=== PATIENT | male | born 1945 | race Caucasian/White ===

== ENCOUNTER → 2016-05-22 | Outpatient (REF) | payer MEDICARE, OTHER ==
[~2016-05-22] MED LIST: ALPH1CAP PO; AMLO10TA2 PO; ASTE0.15; ATOR1TAB19 PO; BIMA01SOL OU; BIOT2500 PO; BRIM2OPD OU; CLON-412 PO; COEN100C PO; FENO130C PO; FURO20TA2 PO; GLUC1CAP10 PO; GLYB5TA PO; HUMA100I3 SC; INSULADS INJ; LABE10TAB PO; META1.7W PO; MINO10TAB PO; OMEP40CA2 PO; POTA10CA PO; STOO100C PO; TIMO5OPD OU; VASC1CAP2 PO
[2016-05-23 13:58] LABS: PERCENT SATURATION 10.7 % (19.7-37.4)
== END ==
LOC: M LAB REF 13:16
PROVIDERS: ATTEND Internal Medicine Nephrology
DX: D64.9 Anemia, unspecified (principal)

== ENCOUNTER → 2016-05-26 | Outpatient (REF) | payer MEDICARE, OTHER | LOC: M LAB REF 13:25 | PROVIDERS: ATTEND Internal Medicine Nephrology | DX: N18.9 Chronic kidney disease, unspecified (principal); D63.1 Anemia in chronic kidney disease ==

== ENCOUNTER → 2016-06-01 | Outpatient (CLI) | payer MEDICARE, OTHER ==
[~2016-06-01] VITALS: Ht 172.7 cm; Wt 117.9 kg
[~2016-06-01] MED LIST changes: +DEXTROSE 50% 50 ML SYRINGE As Ordered ONE; +DEXTROSE 50% 50 ML SYRINGE IV ONE; +LIDOCAINE 2% INJ 100 MG/5 ML SDV (FOR ANES.) As Ordered ONE; +NS 1,000 ML IV SCH; +PROPOFOL 200 MG/20 ML VIAL As Ordered ONE
--- NOTE | 2016-06-01 08:23 | ROOR ---
Patient Name: Chetan Beckett Procedure Date: 06/01/2016 7:48 AM Date of : 1945 Age: 71 Room: [facility] Gender: Male Note Status: Finalized Procedure: Upper GI endoscopy Indications: Iron deficiency anemia Providers: Julián ANDINO MD Referring MD: Slade Corbin MD Requesting Provider: Medicines: Monitored Anesthesia Care Complications: No immediate complications. Procedure: Pre-Anesthesia Assessment: - The heart rate, respiratory rate, oxygen saturations, blood pressure, adequacy of pulmonary ventilation, and response to care were monitored throughout the procedure. The Endoscope was introduced through the mouth, and advanced to the second part of duodenum. The upper GI endoscopy was accomplished without difficulty. The patient tolerated the procedure well. Findings: Multiple 5 to 8 mm semi-sessile polyps with bleeding and stigmata of recent bleeding were found in the entire examined stomach. The polyp was removed with a hot snare. Polyp resection was incomplete, and the resected tissue was partially retrieved. The exam was otherwise without abnormality. Impression: - Multiple (>20) hemorrhagic gastric polyps of various sizes. I removed the bulk of these hemorrhagic fundic glands today. Polyp resection was incomplete, and the resected tissue was partially retrieved. - The examination was otherwise normal. Recommendation: - Use sucralfate tablets 1 gram PO QID. - No ibuprofen, naproxen, or other non-steroidal anti-inflammatory drugs for 5 days after polyp removal. - Resume Eliquis (apixaban) at prior dose in 5 days. - Repeat upper endoscopy in 1 month for retreatment. Julián Andino MD Julián ANDINO MD 06/01/2016 8:22:37 AM This report has been signed electronically. Number of Addenda: 0 Note Initiated On: 06/01/2016 7:48 AM Estimated Blood Loss: Estimated blood loss: none.
--- NOTE | 2016-06-01 08:37 | ROOR ---
Patient Name: Chetan Beckett Procedure Date: 06/01/2016 7:51 AM Date of : 1945 Age: 71 Room: [facility] Gender: Male Note Status: Finalized Procedure: Colonoscopy Indications: Iron deficiency anemia Providers: Julián ANDINO MD Referring MD: Slade Corbin MD Requesting Provider: Medicines: Monitored Anesthesia Care Complications: No immediate complications. Procedure: Pre-Anesthesia Assessment: - The heart rate, respiratory rate, oxygen saturations, blood pressure, adequacy of pulmonary ventilation, and response to care were monitored throughout the procedure. The Colonoscope was introduced through the anus and advanced to the cecum, identified by appendiceal orifice and ileocecal valve. The colonoscopy was performed without difficulty. The patient tolerated the procedure well. The quality of the bowel preparation was adequate to identify polyps. Findings: The perianal and digital rectal examinations were normal. (EXAM: Complete, PREP:Adequate) Multiple small and large-mouthed diverticula were found in the sigmoid colon. Internal hemorrhoids were found during retroflexion. The hemorrhoids were moderate. The entire examined colon appeared normal on direct and retroflexion views. Impression: - (EXAM: Complete, PREP:Adequate) - Moderate diverticulosis in the sigmoid colon. - Internal hemorrhoids. - The entire colon is normal on direct and retroflexion views. - No specimens collected. Recommendation: - Written discharge instructions were provided to the patient. Julián Andino MD Julián ANDINO MD 06/01/2016 8:37:48 AM This report has been signed electronically. Number of Addenda: 0 Note Initiated On: 06/01/2016 7:51 AM Estimated Blood Loss: Estimated blood loss: none.
[2016-06-01 09:00] VITALS: BP 170/70
== END | disposition home or self-care (01) ==
LOC: M OPP 06:36
PROVIDERS: ATTEND Internal Medicine Gastroenterology
DX: D50.9 Iron deficiency anemia, unspecified (principal); K57.30 Diverticulosis of large intestine without perforation or abscess without bleeding; K64.8 Other hemorrhoids; K31.7 Polyp of stomach and duodenum; I48.91 Unspecified atrial fibrillation; I10 Essential (primary) hypertension; E78.00 Pure hypercholesterolemia, unspecified; E10.9 Type 1 diabetes mellitus without complications; R06.83 Snoring; Z79.899 Other long term (current) drug therapy; Z79.4 Long term (current) use of insulin; Z91.048 Other nonmedicinal substance allergy status

== ENCOUNTER 2016-06-02 08:48 | Outpatient (CLI) | payer MEDICARE, OTHER ==
[~2016-06-02] VITALS: Ht 172.7 cm; Wt 118.2 kg
[~2016-06-02 08:48] MED LIST changes: -DEXTROSE 50% 50 ML SYRINGE As Ordered ONE; -DEXTROSE 50% 50 ML SYRINGE IV ONE; -LIDOCAINE 2% INJ 100 MG/5 ML SDV (FOR ANES.) As Ordered ONE; -NS 1,000 ML IV SCH; -PROPOFOL 200 MG/20 ML VIAL As Ordered ONE
[2016-06-02] MEDS ORDERED: IRON SUCROSE 25 MG in NS 50 ML IV ONE (09:15)
[2016-06-02] MEDS ORDERED: IRON SUCROSE 475 MG in NS 250 ML IV ONE (10:15)
== END 2016-06-02 13:30 | disposition home or self-care (01) ==
LOC: M INFU 08:48
PROVIDERS: ATTEND Internal Medicine Nephrology
DX: D50.9 Iron deficiency anemia, unspecified (principal); Z79.899 Other long term (current) drug therapy; Z79.4 Long term (current) use of insulin; Z91.048 Other nonmedicinal substance allergy status
CPT/HCPCS: 96365; 96366; J1756

== ENCOUNTER → 2016-07-03 | Outpatient (CLI) | payer MEDICARE, OTHER ==
[~2016-07-03] VITALS: Ht 172.7 cm; Wt 117.9 kg
[~2016-07-03] MED LIST changes: +ELIQ2.5T PO; +INSUHUMDS SC; +LIDOCAINE 2% INJ 100 MG/5 ML SDV (FOR ANES.) As Ordered ONE; +NS 1,000 ML IV SCH; +PROPOFOL 200 MG/20 ML VIAL As Ordered ONE; +SUCR1TA PO; +fentaNYL 100 MCG/2 ML INJECTION (J3010) As Ordered ONE
--- NOTE | 2016-07-03 08:46 | ROOR ---
Patient Name: Chetan Beckett Procedure Date: 07/03/2016 8:20 AM Date of : 1945 Age: 71 Room: [facility] Gender: Male Note Status: Finalized Procedure: Upper GI endoscopy Indications: Therapeutic procedure, Suspected upper gastrointestinal bleeding. (many hemorrhagic appearing hyperplastic fundic glands) Providers: Julián ANDINO MD Referring MD: RAFA HOWELL MD Requesting Provider: Medicines: Monitored Anesthesia Care Complications: No immediate complications. Procedure: Pre-Anesthesia Assessment: - The heart rate, respiratory rate, oxygen saturations, blood pressure, adequacy of pulmonary ventilation, and response to care were monitored throughout the procedure. The Endoscope was introduced through the mouth, with the intention of advancing to the duodenum. The scope was advanced to the gastric body before the procedure was aborted. Medications were given. The upper GI endoscopy was accomplished without difficulty. The patient tolerated the procedure well. Findings: The examined esophagus was normal. A large amount of food (residue) was found in the gastric body. Suspect gastroparesis due to retained gastric contents. The exam was otherwise without abnormality. Impression: - Normal esophagus. - A large amount of food (residue) in the stomach--regurgitation/aspiration risk/procedure aborted. - No specimens collected. - -Presence of food after 8 hour fast is consistent with Delayed Gastric emptying/Gastroparesis Recommendation: - Resume Eliquis (apixaban) at prior dose today. - Repeat upper endoscopy at appointment to be scheduled because the preparation was poor. Julián Andino MD Julián ANDINO MD 07/03/2016 8:45:51 AM This report has been signed electronically. Number of Addenda: 0 Note Initiated On: 07/03/2016 8:20 AM Estimated Blood Loss: Estimated blood loss: none.
[2016-07-03 09:00] VITALS: BP 159/70
== END | disposition home or self-care (01) ==
LOC: M OPP 06:46
PROVIDERS: ATTEND Internal Medicine Gastroenterology
DX: K31.84 Gastroparesis (principal); I48.91 Unspecified atrial fibrillation; E78.00 Pure hypercholesterolemia, unspecified; E10.9 Type 1 diabetes mellitus without complications; D64.9 Anemia, unspecified; M17.9 Osteoarthritis of knee, unspecified; R06.83 Snoring; G47.30 Sleep apnea, unspecified; Z79.899 Other long term (current) drug therapy; Z79.4 Long term (current) use of insulin; Z91.048 Other nonmedicinal substance allergy status
CPT/HCPCS: 43235; 99156; J3010

== ENCOUNTER → 2016-07-28 | Outpatient (CLI) | payer MEDICARE, OTHER ==
[~2016-07-28] VITALS: Ht 172.7 cm; Wt 120.2 kg
[~2016-07-28] MED LIST changes: +SIMETHICONE 40MG/0.6ML DROPS 30ML As Ordered ONE; -fentaNYL 100 MCG/2 ML INJECTION (J3010) As Ordered ONE
--- NOTE | 2016-07-28 16:43 | ROOR ---
Patient Name: Chetan Beckett Procedure Date: 07/28/2016 4:17 PM Date of : 1945 Age: 71 Room: [facility] Gender: Male Note Status: Finalized Procedure: Upper GI endoscopy Indications: Therapeutic procedure, Iron deficiency anemia, Pt with hemorrhagic gastric polyps-previously partially removed--this is repeat. Pt with gastroparesis Providers: Julián ANDINO MD Referring MD: RAFA HOWELL MD Requesting Provider: Medicines: Monitored Anesthesia Care Complications: No immediate complications. Procedure: Pre-Anesthesia Assessment: - The heart rate, respiratory rate, oxygen saturations, blood pressure, adequacy of pulmonary ventilation, and response to care were monitored throughout the procedure. The Endoscope was introduced through the mouth, and advanced to the second part of duodenum. The upper GI endoscopy was accomplished without difficulty. The patient tolerated the procedure well. Findings: The examined esophagus was normal. Six 5 mm semi-sessile polyps with stigmata of recent bleeding were found in the gastric fundus and in the gastric body. The polyp was removed with a hot snare. Resection was complete, but the polyp tissue was only partially retrieved. The exam of the stomach was otherwise normal. The examined duodenum was normal. Biopsies for histology were taken with a cold forceps for evaluation of celiac disease. Impression: - Normal esophagus. - Six small hemorrhagic appearing gastric polyps. Complete resection. Partial retrieval. - Normal examined duodenum. Biopsied. Recommendation: - Await pathology results. - Observe patient's clinical course. - Telephone endoscopist for pathology results in 2 weeks. - Resume Eliquis (apixaban) at prior dose in 3 days. Julián Andino MD Julián ANDINO MD 07/28/2016 4:43:13 PM This report has been signed electronically. Number of Addenda: 0 Note Initiated On: 07/28/2016 4:17 PM Estimated Blood Loss: Estimated blood loss: none.
[2016-07-28 17:05] VITALS: BP 190/72
== END | disposition home or self-care (01) ==
LOC: M OPP 13:52
PROVIDERS: ATTEND Internal Medicine Gastroenterology
DX: K31.7 Polyp of stomach and duodenum (principal); D50.9 Iron deficiency anemia, unspecified; I48.91 Unspecified atrial fibrillation; I12.9 Hypertensive chronic kidney disease with stage 1 through stage 4 chronic kidney disease, or unspecified chronic kidney disease; K21.9 Gastro-esophageal reflux disease without esophagitis; E78.5 Hyperlipidemia, unspecified; E11.9 Type 2 diabetes mellitus without complications; M19.90 Unspecified osteoarthritis, unspecified site; G62.9 Polyneuropathy, unspecified; G47.30 Sleep apnea, unspecified; N18.3 Chronic kidney disease, stage 3 (moderate); Z79.899 Other long term (current) drug therapy; Z79.4 Long term (current) use of insulin; Z91.048 Other nonmedicinal substance allergy status

== ENCOUNTER → 2016-08-07 | Outpatient (REF) | payer MEDICARE, OTHER ==
[~2016-08-07] MED LIST changes: -LIDOCAINE 2% INJ 100 MG/5 ML SDV (FOR ANES.) As Ordered ONE; -NS 1,000 ML IV SCH; -PROPOFOL 200 MG/20 ML VIAL As Ordered ONE; -SIMETHICONE 40MG/0.6ML DROPS 30ML As Ordered ONE
[2016-08-07 15:29] LABS: IMMUNOGLOBULIN G 2090 MG/DL (681-1648); IMMUNOGLOBULIN M 88.7 MG/DL (40-230); TOTAL PROTEIN 8.4 GM/DL (6.4-8.2)
[2016-08-09 00:06] LABS: BETA 2 MICROGLOBULIN 2.6 mg/L (0.6-2.4); FREE KAPPA LIGHT CHAINS SERUM 135.57 mg/L (3.30-19.40); FREE LAMBDA LIGHT CHAINS SERUM 30.73 mg/L (5.71-26.30); KAPPA/LAMBDA RATIO SERUM 4.41 (0.26-1.65)
[2016-08-09 12:08] LABS: ALBUMIN 4.12 GM/DL (3.29-5.55); GAMMA GLOBULIN % 26.3 % (11.1-18.8)
== END ==
LOC: M LAB REF 13:22
PROVIDERS: ATTEND Internal Medicine Medical Oncology
DX: D80.3 Selective deficiency of immunoglobulin G [IgG] subclasses (principal)

== ENCOUNTER → 2016-12-11 | Outpatient (REF) | payer MEDICARE, OTHER ==
[~2016-12-11] MED LIST changes: -ALPH1CAP PO; +ALPH200C2 PO; +MINO10TA PO; -MINO10TAB PO; +TIMO0.5S29 OU; -TIMO5OPD OU
[2016-12-11 14:50] LABS: FERRITIN 232 NG/ML (26-388); IMMUNOGLOBULIN G 1710 MG/DL (681-1648); IMMUNOGLOBULIN M 76.1 MG/DL (40-230); PERCENT SATURATION 21.1 % (19.7-50.0); TOTAL IRON BINDING CAPACITY 412 UG/DL (250-450); TOTAL PROTEIN 8.3 GM/DL (6.4-8.2)
[2016-12-13 00:06] LABS: FREE KAPPA LIGHT CHAINS SERUM 85.3 mg/L (3.3-19.4); FREE LAMBDA LIGHT CHAINS SERUM 19.7 mg/L (5.7-26.3); KAPPA/LAMBDA RATIO SERUM 4.33 (0.26-1.65)
[2016-12-13 09:18] LABS: ALBUMIN % 55.4 % (55.8-66.1)
[2016-12-13 09:19] LABS: GAMMA GLOBULIN % 20.4 % (11.1-18.8)
== END ==
LOC: M LAB REF 13:51
PROVIDERS: ATTEND Internal Medicine Medical Oncology
DX: D47.2 Monoclonal gammopathy (principal)

== ENCOUNTER → 2017-04-11 | Outpatient (REF) | payer MEDICARE, OTHER ==
[2017-04-11 15:23] LABS: IMMUNOGLOBULIN G 1340 MG/DL (681-1648); IMMUNOGLOBULIN M 65.9 MG/DL (40-230); TOTAL PROTEIN 7.8 GM/DL (6.4-8.2)
[2017-04-12 11:08] LABS: ALBUMIN % 58.3 % (55.8-66.1)
[2017-04-12 11:09] LABS: ALBUMIN 4.55 GM/DL (3.29-5.55); GAMMA GLOBULIN % 17.9 % (11.1-18.8)
[2017-04-15 00:06] LABS: FREE KAPPA LIGHT CHAINS SERUM 85.5 mg/L (3.3-19.4); FREE LAMBDA LIGHT CHAINS SERUM 18.3 mg/L (5.7-26.3); KAPPA/LAMBDA RATIO SERUM 4.67 (0.26-1.65)
== END ==
LOC: M LAB REF 13:47
PROVIDERS: ATTEND Internal Medicine Medical Oncology
DX: D47.2 Monoclonal gammopathy (principal)

== ENCOUNTER → 2017-10-12 | Outpatient (REF) | payer MEDICARE, OTHER ==
[2017-10-12 13:54] LABS: URINE TOTAL PROTEIN < 5.0 MG/DL (0-12)
[2017-10-12 14:07] LABS: IMMUNOGLOBULIN G 1270 MG/DL (681-1648); IMMUNOGLOBULIN M 51.5 MG/DL (40-230); TOTAL PROTEIN 7.6 GM/DL (6.4-8.2)
[2017-10-14 00:06] LABS: FREE KAPPA LIGHT CHAINS SERUM 93.3 mg/L (3.3-19.4); FREE LAMBDA LIGHT CHAINS SERUM 21.6 mg/L (5.7-26.3); KAPPA/LAMBDA RATIO SERUM 4.32 (0.26-1.65)
[2017-10-16 10:09] LABS: ALBUMIN 4.15 GM/DL (3.29-5.55); ALBUMIN % 54.6 % (55.8-66.1); ALPHA-1-GLOBULIN % 5.1 % (2.9-4.9); ALPHA-1-GLOBULINS 0.39 GM/DL (0.17-0.41); ALPHA-2-GLOBULINS 0.99 GM/DL (0.42-0.99); BETA-1-GLOBULINS 0.49 GM/DL (0.28-0.60); BETA-1-GLOBULINS % 6.4 % (4.7-7.2); BETA-2-GLOBULINS 0.36 GM/DL (0.19-0.55); BETA-2-GLOBULINS % 4.8 % (3.2-6.5)
[2017-10-16 10:10] LABS: GAMMA GLOBULIN % 16.1 % (11.1-18.8); GAMMA GLOBULINS 1.22 GM/DL (0.65-1.58)
== END ==
LOC: M LAB REF 13:13
DX: D47.2 Monoclonal gammopathy (principal)
CPT/HCPCS: 84165

== ENCOUNTER → 2017-10-15 | Outpatient (REF) | payer MEDICARE, OTHER ==
[2017-10-15 14:15] LABS: FERRITIN 706 NG/ML (26-388); IRON (FE) 57 UG/DL (65-175); PERCENT SATURATION 17.9 % (19.7-50.0); TOTAL IRON BINDING CAPACITY 319 UG/DL (250-450)
== END ==
LOC: M LAB REF 13:31
DX: D50.9 Iron deficiency anemia, unspecified (principal)
CPT/HCPCS: 83550

== ENCOUNTER → 2018-01-30 | Outpatient (CLI) | payer MEDICARE, OTHER ==
[2018-01-31 08:06] LABS: FRUCTOSAMINE 287 umol/L (0-285)
== END ==
LOC: M LAB 11:15
DX: E11.21 Type 2 diabetes mellitus with diabetic nephropathy (principal)
CPT/HCPCS: 82985

== ENCOUNTER → 2018-07-01 | Outpatient (REF) | payer MEDICARE, OTHER ==
[~2018-07-01] MED LIST changes: +ALPH0.156; +ALPH600C PO; -AMLO10TA2 PO; +AMLO10TA5 PO; +APAP325T4 PO; +ASMA1AER2 INH; +ASMA220A IN; +FENO1CAP2 PO; +FERR325T3 PO; +FOLI1TAB11 PO; +FOLI800C PO; +HYDR-3910 PO; +KLOR10TA76 PO; +LABE20TAB PO; +LISI-542 PO; +META1POW PO; -POTA10CA PO; +TOUJ1.2I SC; +ZYLO300T6 PO
== END ==
LOC: M LAB REF 16:17
PROVIDERS: ATTEND Internal Medicine Nephrology
DX: E83.52 Hypercalcemia (principal)

== ENCOUNTER → 2018-07-29 | Outpatient (REF) | payer MEDICARE, OTHER ==
[~2018-07-29] MED LIST changes: +OXYC1TAB23 PO
[2018-07-29 16:26] LABS: TOTAL PROTEIN,RANDOM URINE 6.6 MG/DL (0.0-12.0); URINE TOTAL PROTEIN 6.6 MG/DL (0-12)
[2018-08-01 13:42] LABS: UPEP INTERPRETATION NO M-SPIKE NOTED; URINE VOLUME 3100 ML
== END ==
LOC: M LAB REF 14:36
PROVIDERS: ATTEND Nurse Practitioner Family
DX: Z79.899 Other long term (current) drug therapy (principal)

== ENCOUNTER → 2018-09-17 | Outpatient (REF) | payer MEDICARE, OTHER ==
[~2018-09-17] MED LIST changes: +FENO135C6 PO; -FENO1CAP2 PO
== END ==
LOC: M LAB REF 11:08
PROVIDERS: ATTEND Surgery
DX: E85.9 Amyloidosis, unspecified (principal)

== ENCOUNTER → 2018-09-27 | Outpatient (REF) | payer MEDICARE, OTHER ==
[2018-09-27 14:32] LABS: BASO % 0.5 % (0.0-1.0); EOS # 0.4 10^3/uL (0.0-0.50); HEMATOCRIT 33.8 % (42.0-52.0); HEMOGLOBIN 10.9 g/dl (13.5-17.5); LYMPH # 1.2 10^3/uL (1.5-4.5); LYMPH % 20.5 % (24.0-44.0); MEAN CORPUSCULAR HEMOGLOBIN 30.4 pg (27.0-33.0); MEAN CORPUSCULAR HGB CONC 32.2 g/dl (32.0-36.5); MEAN CORPUSCULAR VOLUME 94.2 fl (80.0-96.0); MONO # 0.6 10^3/uL (0.0-0.8); NEUTROPHILS # 3.6 10^3/uL (1.8-7.7); NEUTROPHILS % 61.3 % (36.0-66.0); PLATELET COUNT, AUTOMATED 227 10^3/uL (150-450); RED BLOOD COUNT 3.59 10^6/uL (4.30-6.10); WHITE BLOOD COUNT 5.8 10^3/uL (4.0-10.0)
[2018-09-27 14:35] LABS: CHOLESTEROL RISK RATIO 3.571 (<5)
== END ==
LOC: M LAB REF 14:03
PROVIDERS: ATTEND Internal Medicine Nephrology
DX: E11.22 Type 2 diabetes mellitus with diabetic chronic kidney disease (principal); N18.3 Chronic kidney disease, stage 3 (moderate); E66.01 Morbid (severe) obesity due to excess calories; D50.9 Iron deficiency anemia, unspecified

== ENCOUNTER → 2019-05-12 | Outpatient (REF) | payer MEDICARE, OTHER ==
[~2019-05-12] MED LIST changes: +BUME2TAB3 PO; -META1.7W PO; +METAMUCIL1 WAF PO; +MM S100C PO; -OMEP40CA2 PO; +OMEP40CA97 PO; -STOO100C PO
[2019-05-12 14:30] LABS: ALBUMIN 4.3 GM/DL (3.2-5.2); CALCIUM LEVEL 9.3 MG/DL (8.8-10.2); CREATININE FOR GFR 1.88 MG/DL (0.70-1.30); GLOMERULAR FILTRATION RATE 37.5 (>42); MAGNESIUM LEVEL 2.6 MG/DL (1.8-2.4); PHOSPHORUS LEVEL 4.3 MG/DL (2.5-4.9); URIC ACID 6.2 MG/DL (3.5-7.2)
== END ==
LOC: M LAB REF 13:37
PROVIDERS: ATTEND Internal Medicine Nephrology
DX: N18.3 Chronic kidney disease, stage 3 (moderate) (principal); E79.0 Hyperuricemia without signs of inflammatory arthritis and tophaceous disease

== ENCOUNTER → 2019-08-26 | Outpatient (REF) | payer MEDICARE, OTHER ==
[~2019-08-26] MED LIST changes: -COEN100C PO; -FENO130C PO; +FENO1CAP17 PO; +UBID100C6 PO
[2019-08-26 16:20] LABS: CREATININE, URINE 61.9 MG/DL; MAU/CREAT RATIO 195.4 MCG/MG (0.0-30.0)
== END ==
LOC: M LAB REF 14:59
PROVIDERS: ATTEND Nurse Practitioner Family
DX: E11.21 Type 2 diabetes mellitus with diabetic nephropathy (principal)

== ENCOUNTER → 2019-09-15 | Outpatient (REF) | payer MEDICARE, OTHER ==
[~2019-09-15] MED LIST changes: +IRON1TAB2 PO; +TORS20TA2 PO
[2019-09-15 17:33] LABS: PERCENT SATURATION 11.1 % (19.7-50.0)
== END ==
LOC: M LAB REF 16:42
PROVIDERS: ATTEND Internal Medicine Nephrology
DX: D50.9 Iron deficiency anemia, unspecified (principal)

== ENCOUNTER 2019-09-18 12:49 | Outpatient (CLI) | payer MEDICARE, OTHER ==
[~2019-09-18] VITALS: Ht 172.7 cm; Wt 129.0 kg
[~2019-09-18 12:49] MED LIST changes: -IRON1TAB2 PO; -TORS20TA2 PO
[2019-09-18 13:00] VITALS: BP 126/58
[2019-09-18] MEDS ORDERED: NS 1,000 ML IV SCH (14:00)
[2019-09-18] MEDS ORDERED: methylPREDNISolone INJ 125 MG/2 ML VIAL (J2930) IV PRN (14:00)
[2019-09-18] MEDS ORDERED: EPINEPHrine INJ 1 MG/ML 1ML AMP IM PRN (14:00)
[2019-09-18] MEDS ORDERED: FERRIC CARBOXYMALTOSE INJ 750 MG in NS 250 ML IV ONE (14:00)
[2019-09-18] MEDS ORDERED: diphenhydrAMINE 50MG/ML VIAL (J1200) IV PRN (14:00)
[2019-09-18] MEDS ORDERED: ALBUTEROL SULFATE 2.5 MG/0.5 ML INH NEB SOLN INH PRN (14:00)
[2019-09-18 15:00] VITALS: BP 130/60
[2019-09-18 16:31] VITALS: BP 131/61
[2019-09-18 16:45] VITALS: BP 147/65
[2019-09-25] MEDS ORDERED: VASC1CAP2 PO (14:06)
[2019-09-25] MEDS ORDERED: TORS20TA2 PO (14:06)
[2019-09-25] MEDS ORDERED: IRON1TAB2 PO ×2 (14:06)
== END 2019-09-18 16:45 | disposition home or self-care (01) ==
LOC: M INFU 12:49
PROVIDERS: ATTEND Internal Medicine Nephrology
DX: D50.9 Iron deficiency anemia, unspecified (principal); N18.3 Chronic kidney disease, stage 3 (moderate); E11.22 Type 2 diabetes mellitus with diabetic chronic kidney disease; I12.9 Hypertensive chronic kidney disease with stage 1 through stage 4 chronic kidney disease, or unspecified chronic kidney disease; Z79.4 Long term (current) use of insulin; Z79.899 Other long term (current) drug therapy; Z91.048 Other nonmedicinal substance allergy status
CPT/HCPCS: 96365; 96366; J1439

== ENCOUNTER → 2019-10-14 | Outpatient (CLI) | payer MEDICARE, OTHER ==
[~2019-10-14] MED LIST changes: +IRON1TAB2 PO; +TORS20TA2 PO
[2019-10-14 17:39] LABS: ALBUMIN 4.2 GM/DL (3.2-5.2); ALT/SGPT 26 U/L (12-78); BILIRUBIN,TOTAL 0.7 MG/DL (0.2-1.0); BLOOD UREA NITROGEN 56 MG/DL (7-18); CALCIUM LEVEL 9.3 MG/DL (8.8-10.2); CARBON DIOXIDE LEVEL 29 MEQ/L (21-32); CHLORIDE LEVEL 105 MEQ/L (98-107); CREATININE FOR GFR 2.16 MG/DL (0.70-1.30); GLUCOSE, FASTING 78 MG/DL (70-100); POTASSIUM SERUM 3.8 MEQ/L (3.5-5.1); SODIUM LEVEL 139 MEQ/L (136-145); TOTAL PROTEIN 8.1 GM/DL (6.4-8.2)
[2019-10-16 12:36] LABS: ALBUMIN 4.54 GM/DL (3.29-5.55); ALBUMIN % 56.1 % (55.8-66.1); ALPHA-1-GLOBULIN % 4.1 % (2.9-4.9); ALPHA-1-GLOBULINS 0.33 GM/DL (0.17-0.41); ALPHA-2-GLOBULINS 0.82 GM/DL (0.42-0.99); ALPHA-2-GLOBULINS % 10.1 % (7.1-11.8); BETA-1-GLOBULINS 0.47 GM/DL (0.28-0.60); BETA-1-GLOBULINS % 5.8 % (4.7-7.2); BETA-2-GLOBULINS 0.28 GM/DL (0.19-0.55); BETA-2-GLOBULINS % 3.4 % (3.2-6.5); GAMMA GLOBULIN % 20.5 % (11.1-18.8); GAMMA GLOBULINS 1.66 GM/DL (0.65-1.58)
[2019-10-16 17:08] LABS: FREE KAPPA LIGHT CHAINS SERUM 205.5 mg/L (3.3-19.4); FREE LAMBDA LIGHT CHAINS SERUM 16.6 mg/L (5.7-26.3); KAPPA/LAMBDA RATIO SERUM 12.38 (0.26-1.65)
== END ==
LOC: M WUC 12:31
PROVIDERS: ATTEND Internal Medicine Hematology & Oncology
DX: D47.2 Monoclonal gammopathy (principal)

== ENCOUNTER → 2019-10-16 | Outpatient (REF) | payer MEDICARE, OTHER ==
[2019-10-16 18:51] LABS: CREATININE, URINE 58.5 MG/DL; URINE TOTAL PROTEIN 11.7 MG/DL (0-12)
[2019-10-16 19:19] LABS: TOTAL VOLUME, URINE 3000 ML
== END ==
LOC: M LAB REF 18:07
PROVIDERS: ATTEND Internal Medicine Hematology & Oncology
DX: N39.9 Disorder of urinary system, unspecified (principal)

== ENCOUNTER → 2020-04-12 | Outpatient (CLI) | payer MEDICARE, OTHER ==
[~2020-04-12] MED LIST changes: -AMLO10TA5 PO; +AMLO1TAB25 PO; +COEN100C4 PO; -FENO1CAP17 PO; +FENO1CAP18 PO; +LABE100T4 PO; -LABE10TAB PO; -UBID100C6 PO
== END ==
LOC: M LABSMTC 14:45
PROVIDERS: ATTEND Pediatrics
DX: Z20.828 Contact with and (suspected) exposure to other viral communicable diseases (principal)

== ENCOUNTER → 2020-05-20 | Outpatient (CLI) | payer MEDICARE, OTHER ==
[~2020-05-20] MED LIST changes: +AZEL0.055 NARES; +LIDOCAINE 1% MDV 20ML VIAL As Ordered ONE
[2020-05-20 16:30] VITALS: BP 161/72
--- NOTE | 2020-05-21 10:32 | RO ---
OPERATIVE NOTE DATE OF OPERATION: 05/20/2020 PROCEDURE: Kidney biopsy. SURGEON: ANTHONY LINDSAY MD, [facility]. INDICATION: Chronic kidney disease stage 4,minimal proteinuria, monoclonal gammopathy of undetermined significance, rule out monoclonal gammopathy of renal significance. PRE-PROCEDURE DIAGNOSES: 1. Mild Proteinuria. 2. Monoclonal gammopathy of undetermined significance. 3. Chronic kidney disease stage 4. POST-PROCEDURE DIAGNOSES: 1. Monoclonal gammopathy of undetermined significance. 3. Chronic kidney disease stage 4. 4. Malrotated left kidney. CONSENT: Informed and written consent was obtained and placed in the chart. PROCEDURE: The patient is obese. He reports that he has not been laying flat in his bed. He sleeps in the recliner. We tried to lay him down on the table in prone position. He was very uncomfortable in that position. He got short of breath. He was hardly able to lie down on the right lateral position. The left kidney was localized. It was mildly atrophic and malrotated. The decision was made not to do the left kidney biopsy. At that point, the patient was informed that his right kidney biopsy will be done. The right kidney was localized and marked for renal biopsy. The patient was prepped and draped in sterile fashion. Proper infection control precaution was taken. Then, 10 cc of 1% lidocaine was injected initially with a 25-gauge needle and later on with an 18-gauge needle. Under ultrasound guidance, a 17-gauge introducer needle was advanced all the way to the renal capsule, and through that introducer, an 18-gauge kidney biopsy needle was inserted. Three passes were made and three tissue specimens were obtained. The specimens were sent to the pathology department. Introducer needle was removed. The area was pressed for 10 minutes. Dressing was done. The post-procedure kidney was looked at with ultrasound for any hematoma and no hematoma was noted. COMPLICATIONS: Shortness of breath while trying to lay down flat. ESTIMATED BLOOD LOSS: Less than 5 ml. POST-BIOPSY ORDERS: The patient was sent to the recovery area. Vital signs were monitored every 15 minutes for two hours and then every 30 minutes for two hours. Total complete bed rest with the bedside commode privileges. Consistent carbohydrate diet. The physician is to be called for systolic blood pressure less than 120 or for hematuria. The patient is to be sent home if stable after four hours. The patient will follow up in the clinic to discuss the biopsy results. DIANA
--- NOTE | 2020-05-22 10:50 | REP ---
INDICATION: CHRONIC KIDNEY DISEASE STAGE 4. COMPARISON: None. TECHNIQUE: Ultrasound guidance for right renal biopsy. FINDINGS: Ultrasound guidance was provided for Dr. Pemberton who performed ultrasound-guided biopsy of the right kidney. IMPRESSION: Ultrasound guidance was provided for Dr. Pemberton who performed ultrasound-guided biopsy of the right kidney. <Electronically signed by Tim Nichols > 05/22/20 1046
== END ==
LOC: M IRPRO 10:40
PROVIDERS: ATTEND Internal Medicine Nephrology
DX: N18.4 Chronic kidney disease, stage 4 (severe) (principal); D47.2 Monoclonal gammopathy; I12.9 Hypertensive chronic kidney disease with stage 1 through stage 4 chronic kidney disease, or unspecified chronic kidney disease

== ENCOUNTER 2020-06-29 04:27 | Inpatient (IN) | payer MEDICARE, OTHER ==
[~2020-06-29] VITALS: Ht 172.7 cm; Wt 119.0 kg
[~2020-06-29 04:27] MED LIST changes: -ALPH0.156; +ALPH0.156 OU; -GLYB5TA PO; +GLYB5TAB6 PO; -LIDOCAINE 1% MDV 20ML VIAL As Ordered ONE; -LISI-542 PO; +LISI-898 PO
--- OUTSIDE RECORDS SUMMARY | 2020-06-29 04:33 | CCD | Continuity of Care Document ---
Author Author [facility] Organization Unknown Address [address] [place] [id number] Phone [phone] Care Team Providers Care Sales Enablement Lead Name Role Phone Kush MIRANDACLuis AUTM [phone] Social History Type Date Description Comments Sex Unknown Allergies, Adverse Reactions, Alerts Description No Known Drug Allergies Medications Active Medications SIG Qnty Indications Ordering Provide r Date Furosemide 20mg Tablets Unknown Toukaykay Siddiqui 300U nit/ML Solution Pen-Inject Unknown Bumetanide 2mg Tablets Unknown Relion Insulin Syringe 1ML/31GX15/64" 31G X 15/64" 1 ML Misc Use With Insulin 3 Times A Day Unkno wn Relion Insulin Syringe 1ML/31GX15/64" 31G X 15/64" 1 ML Misc [facility] ter Prednisone 10mg Tablets [facility] Ketorolac Tromethamine 0.5% Solution Briseyda Cutler MD Relion Pen Waldron 31G X 8 mm Misc Unknown Relion Pen Waldron 31G X 8 mm Misc Use as Directed Once Daily Unknown Minoxidil 10mg Tablets Unknown Eliquis 2.5mg Tablets [facility] Onetouch Ultra Strips use as directed three times daily as needed DX:E11.9 300units [facility] Clonidine HCL 0.1mg Tablets Unknown Timolol Maleate Ophthalmic Gel Forming 0.5% GFS Briseyda Cutler MD Toukaykay Max Solostar 300Unit/ML Solution Pen-Inject Unknown Asmanex HFA 100mcg/Act Aerosol Inhale 2 Puffs By Mouth Once Daily Unknown BD Pen Needle/Short/Ultra-Fine/31G X 8mm 31G X 8 mm Misc Unknown BD Pen Needle/Short/Ultra-Fine/31G X 8mm 31G X 8 mm Misc Use as Directed Once Daily . Max Of 3 Pen Waldron Per Day Unknown Glyburide 5mg Tablets Unknown Vascepa 1gm Capsules [facility] Alphagan P 0.15% Solution Briseyda Cutler MD Fenofibric Acid 135mg Capsules DR Take One Tablet By Mouth Daily 90caps [facility] 0 Allopurinol 300mg Tablets Mana Infante [facility] Lumigan 0.01% Solution Briseyda Cutler MD Torsemide 20mg Tablets [facility] Atorvastatin Calcium 10mg Tablets Take One Tablet By Mouth Daily 90tabs [facility] 0 Humalog 100Unit/ML Solution Unknown Labetalol HCL 200mg Tablets Take One Tablet By Mouth Three Times Daily 90tabs [facility] Azelastine HCL (Nasal) 0.15% Solution Anusha Kothari [facility] Hydralazine HCL 25mg Tablets [facility] Amlodipine Besylate 10mg Tablets Take 1 Tablet By Mouth Once Daily Unknown Medications Administered in Office Medication SIG Qnty Indications Ordering Provider Date Technetium TC 99M Sestamibi Injection [facility] 09/20/2017 Adminstraton Fee Injection [facility] 02/28/2010 Adminstraton Fee Injection [facility] 03/20/2007 Adminstraton Fee Injection [facility] 04/03/2006 Immunizations CPT Code Status Date Vaccine Lot # [id number] Given 01/05/2020 Influenza Vaccine 34292 Given 02/28/2010 Flu Injection 65242 Given 03/20/2007 Flu Injection 49810 Given 04/03/2006 Flu Injection 60948 Given 04/24/2005 Flu Injection 14678 Given 04/22/2004 Flu Injection 49753 Given 03/02/2004 Pneumococcal Vac ([id number]) 40704 Given 02/27/2003 Flu Injection Vital Signs Date Vital Result Comment 05/05/2020 11:17am Height 68 inches 5'8" Weight 291.00 lb BMI (Body Mass Index) 44.2 kg/m2 Body Temperature 97.1 F BP Systolic 136 mmHg BP Diastolic 58 mmHg Heart Rate 58 /min O2 % BldC Oximetry 94 % 03/29/2020 11:53am Height 68 inches 5'8" Weight 287.00 lb BMI (Body Mass Index) 43.6 kg/m2 Body Temperature 98.4 F BP Systolic 147 mmHg BP Diastolic 61 mmHg Heart Rate 60 /min O2 % BldC Oximetry 94 % Results Test Acquired Date Facility Test Result H/L Range Note Complete Blood Count 04/15/[address] [address] [phone] White Blood Count 5.9 10 Normal 4.0-10.0 Red Blood Count 3.67 10 Low 4.30-6.10 Hemoglobin 11.2 g/dL Low 13.5-17.5 Hematocrit 35.8 % Low 42.0-52.0 Mean Corpuscular Volume 97.5 fl High 80.0-96.0 Mean Corpuscular Hemoglobin 30.5 pg Normal 27.0-33.0 Mean Corpuscular HGB Conc 31.3 g/dL Low 32.0-36.5 Red Cell Distribution Width 16.8 % High 11.5-14.5 Platelet Count, Automated 200 10 Normal 150-450 Neutrophils % 56.3 % Normal 36.0-66.0 Lymph % 18.5 % Low 24.0-44.0 [place] % 9.3 % High 0.0-5.0 Eos % 14.6 % High 0.0-3.0 Baso % 1.0 % Normal 0.0-1.0 Immature Granulocyte % 0.3 % Normal 0-3.0 Nucleated Red Blood Cell % 0.0 % Normal 0-0 Neutrophils # 3.3 10 Normal 1.5-8.5 Lymph # 1.1 10 Low 1.5-5.0 [place] # 0.6 10 Normal 0.0-0.8 Eos # 0.9 10 High 0.0-0.5 Baso # 0.1 10 Normal 0.0-0.2 Free Sandpoint & Lambda LT Chains 04/15/[address] [address] [phone] Free Sandpoint Light Chains Serum 251.9 mg/L High 3. 3-19.4 Free Lambda Light Chains Serum 19.9 mg/L Normal 5.7-26.3 Sandpoint/Lambda Ratio Serum 12.66 High 0.26-1.65 1 Comprehensive Metabolic Profil 04/15/[address] [address] [phone] Glucose, Fasting 93 mg/dL Normal 70-100 Blood Urea Nitrogen 56 mg/dL High 7-18 Creatinine For GFR 2.44 mg/dL High 0.70-1.30 Glomerular Filtration Rate 27.8 Low >42 2 Sodium Level 140 mEq/L Normal 136-145 Potassium Serum 3.7 mEq/L Normal 3.5-5.1 Chloride Level 106 mEq/L Normal 98-107 Carbon Dioxide Level 29 mEq/L Normal 21-32 Anion Gap 5 mEq/L Low 8-16 Calcium Level 9.5 mg/dL Normal 8.8-10.2 Ast/Sgot 23 U/L Normal 7-37 Alt/SGPT 32 U/L Normal 12-78 Alkaline Phosphatase 52 U/L Normal 45-117 Bilirubin,Total 0.5 mg/dL Normal 0.2-1.0 Total Protein 8.3 GM/DL High 6.4-8.2 Albumin 4.4 GM/DL Normal 3.2-5.2 Albumin/Globulin Ratio 1.1 Normal Immunotyping (Immunofixation) Serum (If 04/15/[address] [address] [phone] Immunotyping Serum Igg ABNORMAL High Normal Immunotyping Serum Sandpoint ABNORMAL High Normal It Serum Interpretation SEE COMMENT Normal 3 Its Pathologist Review REV'D BY Aric IRVIN <SEE NOTE> Normal 4 Serum Protein Electrophoresis 04/15/[address] [id number] [phone] Albumin % 56.0 % Normal 55.8-66.1 Fzncb-4-Olvfanvp % 4.1 % Normal 2.9-4.9 Jhobl-7-Aisuomqnw % 10.1 % Normal 7.1-11.8 Wffi-3-Iidzlqewp % 6.2 % Normal 4.7-7.2 Gphs-7-Ahrismauq % 3.6 % Normal 3.2-6.5 Gamma Globulin % 20.0 % High 11.1-18.8 Albumin 4.65 GM/DL Normal 3.29-5.55 Wgwdu-9-Wyxammkyo 0.34 GM/DL Normal 0.17-0.41 Wetlz-4-Klpheylcf 0.84 GM/DL Normal 0.42-0.99 Ljmu-6-Ppqbydpyn 0.51 GM/DL Normal 0.28-0.60 Lfdl-8-Ymatjjqky 0.30 GM/DL Normal 0.19-0.55 Gamma Globulins 1.66 GM/DL High 0.65-1.58 Total Protein 8.3 GM/DL High 6.4-8.2 Spep Interpretation SEE COMMENT Normal 5 Spep Pathologist Review REV'D BY Aric IRVIN <SEE NOTE> Normal 6 Coronavirus 2018 ([facility]) 04/12/[address] [id number] [phone] Coronavirus 2018 ([facility]) <SEE NOTE> 7 1 Performed at: RN - [facility] [address] [id number] Rice Dryer Mechanic: Tahmina Nair MD, Phone: [phone] 2 Units are mL/min/1.73 m2 Chronic Kidney Disease Staging per NKF: Stage I & II GFR >=60 Normal to Mildly Decreased Stage III GFR 30-59 Moderately Decreased Stage IV GFR 15-29 Severely Decreased Stage V GFR <15 Very Little GFR Left ESRD GFR <15 on CITY PLANNING ENGINEER 3 MONOCLONAL IGG KAPPA 4 REV'D BY Aric OSORIO 5 M-SPIKE NOTED IN LATE GAMMA REGION. CONCENTRATION = 1.16 GM/DL 6 REV'D BY Aric OSORIO 7 Test: COVID-19 Nasal/Naspharynx Result: NOT DETECTED Reference Units: Not detected Note: Please consider re-collection of a new specimen, if clinically indicated. Note: The COVID-19 assay is under Emergency Use Authorization(EUA) by the U.S. Food and Drug Administration. [facility] is designated as a high complexity laboratory by the Clinical Laboratory Improvement Amendments of 1988(CLIA) and is qualified to perform this test. ASSAY INFORMATION: Real Time RT-PCR Patient samples for this assay have been pooled. All positive samples have been individually repeated for confirmation. The pooling protocol using the romelia SARS-CoV-2 assay has been added to [id number] on February 19, 2020. Procedures Date Code Description Status 03/29/2020 47592 EKG Completed Encounters Type Date Location Provider Dx Diagnosis Office Visit 05/05/2020 10:45a [facility] I48.0 Paroxysmal atrial fibrillation E10.9 Type 1 diabetes mellitus wit hout complications I11.9 Hypertensive heart disease w [facility] heart failure E78.5 Hyperlipidemia, unspecified N17.9 Acute kidney failure, unspec ified Office Visit 03/29/2020 11:30a [facility] 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 I11.9 Hypertensive heart disease without heart failure E10.9 Type 1 diabetes mellitus wit hout complications I48.0 Paroxysmal atrial fibrillati on S83.206D Unsp tear of unsp meniscus, current injury, right knee, subs Office Visit 02/02/2020 3:15p [facility] I11.9 Hypertensive heart disease without heart failure E10.9 Type 1 diabetes mellitus wit hout complications E78.5 Hyperlipidemia, unspecified N17.9 Acute kidney failure, unspec ified Assessments Date Code Description Provider 05/05/2020 I48.0 Paroxysmal atrial fibrillation [facility] 05/05/2020 E10.9 Type 1 diabetes mellitus without complications [facility] 05/05/2020 I11.9 Hypertensive heart disease witho ut heart failure [facility] 05/05/2020 E78.5 Hyperlipidemia, unspecified [facility]red [facility] 05/05/2020 N17.9 Acute kidney failure, unspecifie d [facility] 03/29/2020 I11.9 Hypertensive heart disease witho ut heart failure [facility] 03/29/2020 E10.9 Type 1 diabetes mellitus without complications [facility] 03/29/2020 I48.0 Paroxysmal atrial fibrillation [facility] 03/29/2020 M17.12 Unilateral primary osteoarthriti s, left knee [facility] 03/29/2020 I49.49 Other premature depolarization [facility] 02/18/2020 I11.9 Hypertensive heart disease witho ut heart failure [facility] 02/18/2020 E10.9 Type 1 diabetes mellitus without complications [facility] 02/18/2020 I48.0 Paroxysmal atrial fibrillation [facility] 02/18/2020 S83.206D Unspecified tear of unspecified meniscus, current injury, right knee, subsequent encounter [facility] 02/02/2020 I11.9 Hypertensive heart disease witho ut heart failure [facility] 02/02/2020 E10.9 Type 1 diabetes mellitus without complications [facility] 02/02/2020 E78.5 Hyperlipidemia, unspecified [facility] 02/02/2020 N17.9 Acute kidney failure, unspecifie d [facility] 11/13/2019 I50.20 Unspecified systolic (congestive ) heart failure [facility] 11/13/2019 E10.9 Type 1 diabetes mellitus without complications [facility] 11/13/2019 I48.0 Paroxysmal atrial fibrillation [facility] Plan of Treatment Future Appointment(s):* 06/07/2020 2:15 pm - [facility] at [facility] Referrals Refer to Reason for Referral Status Appt Date [facility] Please eval. and treat this patient for complex tear posterior horn of the medial meniscus with questionable bucket handle component. See attached report. Thank you. Created [address] [address] [phone]
--- OUTSIDE RECORDS SUMMARY | 2020-06-29 04:33 | CCD | Continuity of Care Document ---
Author Author Chetan RYAMOND ELECTRICAL EQUIPMENT ASSEMBLER Organization Unknown Address [address] [place] [address] [address] [place] [address] Phone [phone] Care Team Providers Care Food Runner Name Role Phone Slade Corbin MD AUTM [phone] Problems Active Problems Provider Date Type II diabetes mellitus uncontrolled Ingrid Zayas MD O nset: 08/20/2012 Chronic renal failure Ingrid Zayas MD Onset: 08/20/2012 Examination Other Specified Velma Marley PA-C Onset : 11/24/2013 Morbid obesity Velma Marley PA-C Onset: 2013 Needs influenza immunization Velma Marley PA-C Onse t: 03/12/2014 Type 2 diabetes mellitus Velma Marley PA-C Onset: 0 06/18/2014 Body mass index 40+ - severely obese Richie Mcduffie Onset: 03/22/2015 Long-term current use of insulin Velma Marley PA-C Onset: 03/22/2015 Chronic kidney disease stage 3 Velma Marley PA-C On set: 06/17/2015 Obesity Gisell Thompson DO Onset: 07/21/2015 Encounter for other specified special examinations Gisell Thompson DO Onset: 07/21/2015 Atrial flutter Gisell Thompson DO Onset: 07/21/2015 Persistent atrial fibrillation Ingrid Zayas MD Onset: Social History Type Date Description Comments Sex Unknown Tobacco Use Start: Unknown Never Smoked Cigarettes ETOH Use Denies alcohol use past heavy ET [place] use, quit 1989 Tobacco Use Start: Unknown Patient has never smoked Smoking Status Reviewed: 06/15/20 Patient has never smoked Allergies, Adverse Reactions, Alerts Active Allergies Reaction Severity Comments Date Adhesives 08/19/2012 Shrimp 08/19/2012 Medications Active Medications SIG Qnty Indications Ordering Provide r Date Kenia Dejesus Solostar 300Unit/ML Solution Pen-Inject Inject 120 Units Daily AT Bedtime (Max Daily Dose: Units) 54unit s Indira Raymond, JILLIAN 12/18/2019 Relion Insulin Syringe/U-100/1ML/31G X 5 /16" 31G X 5/16" 1 ML Misc use 3 times daily- 300units E11.21 Indira Raymond NP 02/25/2019 Pen [place] 16" 31G X 8 mm Misc use as directed 1 x daily e11.65 300units E11.65 Indira Raymond NP Toujefredo Bejaranoostar 300U nit/ML Solution Pen-Inject inject 120 units daily at bedtime 40.5units Indira Raymond NP 11/13/2016 Humalog 100Unit/ML Solution Inject 50 Units With Brunch And Dinner And 50 Units With Bedtime Snack as Directed (Maximum Daily Dose 150 Units) 140units E11.65 Indira Raymond, N P 06/18/2014 N18.9 Onetouch Ultra Blue Strips use as directed 3 times a day as needed\\ e11:65 300units E11.21 Indira Raymond NP 08/12/2013 Glyburide 5mg Tablets Take 1 Tablet Twice A Day 180tabs Indira Raymond NP 11/11/2012 Amlodipine Besylate 10mg Tablets take one tablet by mouth at night Unknown 0 000 Allopurinol 300mg Tablets 1 by mouth every day Unknown Fenofibric Acid 135mg Capsules DR 1 po qd Unknown Folic Acid 1mg Tablets 1 by mouth every day Unknown Iron 325(65Fe) mg Tablets 2 by mouth every day Unknown Metamucil Multihealth Fiber 58.6% Powder 2 tablespoon every morning Unknown 0 000 Hydralazine HCL 25mg Tablets 3 po qd Unknown Labetalol HCL 200mg Tablets 1 by mouth three a day Unknown Asmanex HFA 100mcg/Act Aerosol 2 puffs daily Unknown Torsemide 20mg Tablets tid q monring tid q night Unknown Multivitamin Adult Tablets 1 by mouth every day Unknown Stool Softener 100mg Capsules 2 by mouth twice a day, hold for diarrhea Unknown 0 Lumigan 0.01% Solution 1 drop each eye at bedtime Unknown Eliquis 2.5mg Tablets twice a day Unknown Vascepa 200mg Capsules 2000mg 2 po qd Unknown Clonidine HCL 0.1mg Tablets 2 po qd Unknown Astepro 0.15% Solution Unknown Minoxidil 10mg Tablets 20mg 1 p.o. qd Unknown Coq-10 200mg Capsules 1/day Unknown Glucosamine Chondroitin 1500 Complex 1500Com Capsules 1 po qd Unknown Atorvastatin Calcium 10mg Tablets 1 po qd Unknown Alphagan P 0.1% Solution 2 drops twice daily Unknown Timolol Maleate 0.5% GFS 1 gtt ea eye qd Unknown Immunizations Description No Information Available Vital Signs Date Vital Result Comment 06/15/2020 10:56am BP Systolic 130 mmHg BP Diastolic 64 mmHg Heart Rate 59 /min Body Temperature 96.9 F Height 67.5 inches 5'7.50" Weight 264.00 lb BMI (Body Mass Index) 40.7 kg/m2 O2 % BldC Oximetry 92 % 02/24/2020 10:28am BP Systolic 134 mmHg BP Diastolic 70 mmHg Heart Rate 54 /min Body Temperature 96.4 F Height 67.5 inches 5'7.50" Weight 283.25 lb BMI (Body Mass Index) 43.7 kg/m2 O2 % BldC Oximetry 93 % Results Test Acquired Date Facility Test Result H/L Range Note Laboratory test finding 06/15/2020 In House Glucose 95 Hemoglobin A1c 5.9 Laboratory test finding 02/24/2020 In House Hemoglobin A1c 6.7 Glucose 131 Procedures Date Code Description Status 02/24/2020 717004728 Diabetic Foot Exam Completed Medical Devices Description No Information Available Encounters Type Date Location Provider Dx Diagnosis Office Visit 06/15/2020 10:45a DR. 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 N18.30 Chronic kidney disease, stag e 3 unspecified E66.01 Morbid (severe) obesity due to excess calories Z79.4 exterminator (current) use of i nsulin Z01.89 Encounter for other specifie d special examinations Z68.41 Body mass index [BMI]40.0-44 .9, adult Assessments Date Code Description Provider 06/15/2020 E11.21 Type 2 diabetes mellitus with di abetic nephropathy Indira Raymond NP 06/15/2020 N18.4 Chronic kidney disease, stage 4 (severe) Indira Raymond, JILLIAN 06/15/2020 E66.01 Morbid (severe) obesity due to e xcess calories Indira Raymond NP 06/15/2020 Z79.4 care home (current) use of insul in Indira Raymond NP 06/15/2020 Z68.41 Body mass index [BMI]40.0-44.9, adult Indira Raymond NP 02/24/2020 E11.21 Type 2 diabetes mellitus with di abetic nephropathy Indira Raymond NP 02/24/2020 N18.30 Chronic kidney disease, stage 3 unspecified Indira Raymond NP 02/24/2020 E66.01 Morbid (severe) obesity due to e xcess calories Indira Raymond NP 02/24/2020 Z79.4 exterminator (current) use of insul in Indira Raymond NP 02/24/2020 Z01.89 Encounter for other specified sp ecial examinations Indira Raymond NP 02/24/2020 Z68.41 Body mass index [BMI]40.0-44.9, adult Indira Raymond NP Plan of Treatment Future Appointment(s):* 10/11/2020 10:45 am - Indira Raymond NP at DR. Ingrid Zayas 06/15/2020 - Indira Raymond NP* E11.21 Type 2 diabetes mellitus with diabetic nephropathy* Comments:* 06/15/20- in office A1c= 5.9% (6.7%, 6%, 6.6%, 7.1%, 6.4%, 6%, 6.9%, 7.2%, 7.6%.) Random BS= 95- woke up BS=53- drank juice and had sugar tabs. Meter downloaded- Fasting- 49-204, lunch- 65-344, predinner- 81- 268, bedtime- 67-242Reviewed diet- has lost almost 20 lbs since last visit. Pt has cut back on junk food. Current meds: Glyburide 5mg 1 tab at breakfast and dinnerCurrent insulin doses: Toujeo 100u at HS. Humalog 20-30units with brunch, and 20-30 units dinner. If BS at bedtime >250- 40 unitsLimited in additional medication due to renal function. 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 Per pt, has lost closed to 30 lbs. Our scale notes 20 lbs. * Z79.4 exterminator (current) use of insulin* Comments:* No dose adjustments today * Z68.41 Body mass index [BMI]40.0-44.9, adult* Comments:* Diet and exercise discussed. Functional Status Description No Information Available Mental Status Description No Information Available Referrals Description No Information Available
--- OUTSIDE RECORDS SUMMARY | 2020-06-29 04:33 | CCD | Continuity of Care Document ---
Author Author Chetan RAYMOND LITHOGRAPHIC PLATE MAKER APPRENTICE Organization Unknown Address [address] [place] [address] [address] [place] [address] Phone [phone] Care Team Providers Care Commercial Airline Pilot Name Role Phone Slade Corbin MD AUTM [phone] Problems Active Problems Provider Date Type II [...] Patient has never smoked Smoking Status Reviewed: 02/24/20 Patient has never smoked Allergies, Adverse Reactions, [...] 300units E11.21 Indira Raymond NP 02/25/2019 Pen [place] 16" 31G X 8 mm Misc use [...] 131 Procedures Date Code Description Status 02/24/2020 [id number] Diabetic Foot Exam Completed Medical Devices Description No Information Available Encounters Type Date Location Provider Dx Diagnosis Office Visit 02/24/2020 10:30a DR. 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 N18.30 Chronic kidney disease, stag e 3 unspecified E66.01 Morbid (severe) obesity due to excess calories Z79.4 watermelon inspector (current) use of i nsulin Z01.89 Encounter for other specifie d special examinations Z68.41 Body mass index [BMI]40.0-44 .9, adult Assessments Date Code Description Provider 06/15/2020 E11.21 Type 2 diabetes mellitus with di abetic nephropathy Indira Raymond, JILLIAN 06/15/2020 N18.4 Chronic kidney disease, stage 4 (severe) Indira Raymond NP 06/15/2020 E66.01 Morbid (severe) obesity due to e xcess calories Indira Raymond NP 06/15/2020 Z79.4 USP (current) use of insul in Indira Raymond NP 06/15/2020 Z68.41 Body mass index [BMI]40.0-44.9, adult Indira Raymond NP 02/24/2020 E11.21 Type 2 diabetes mellitus with di abetic nephropathy Indira Raymond NP 02/24/2020 N18.30 Chronic kidney disease, stage 3 unspecified Indira Raymond NP 02/24/2020 E66.01 Morbid (severe) obesity due to e xcess calories Indira Raymond NP 02/24/2020 Z79.4 USP (current) use of insul in Indira Raymond NP 02/24/2020 Z01.89 Encounter for other specified sp ecial examinations Indira Raymond NP 02/24/2020 Z68.41 Body mass index [BMI]40.0-44.9, adult Indira Raymond NP Plan of Treatment 06/15/2020 - Indira Raymond NP* E11.21 Type 2 diabetes mellitus with diabetic nephropathy* Comments:* 06/15/20- in office A1c= (6.7%, 6%, 6.6%, 7.1%, 6.4%, 6%, 6.9%, 7.2%, 7.6%.) Random BS= 95Meter downloaded- Fasting- 49-204, lunch- 65-344, predinner- 50-268, bedtime- 70-131Reviewed diet- has been inconsistent with diet. Trying to stay away from carbs, but has been eating more fruit and juices. Current meds: Glyburide 5mg 1 tab at breakfast and dinnerCurrent insulin doses: Toujeo 120u at HS. Humalog 50-60 units with brunch, and 50 units dinner. If BS at bedtime >250- 40-50 unitsLimited in additional medication due to renal function. Will continue current tx for now.Recheck in 4 months * N18.4 Chronic kidney disease, stage 4 (severe)* Comments:* Nephrology note reviewed 04/16/2020Labs done 04/16/2020- Scr= 2.2, GFR= 29, HH= 32.9/10.7 * E66.01 Morbid (severe) obesity due to excess calories* Comments:* calorie restriction and exercise advised. * Z79.4 USP (current) use of insulin* Comments:* No dose adjustments today * Z68.41 Body mass index [BMI]40.0-44.9, adult* Comments:* Diet and exercise discussed. Functional Status Description No Information Available Mental Status Description No Information Available Referrals Description No Information Available
--- OUTSIDE RECORDS SUMMARY | 2020-06-29 04:33 | CCD | Continuity of Care Document ---
Author Author Chetan Meade Organization Unknown Address Unknown Phone [phone] Care Team Providers Care Door Maker Name Role Phone [facility] AUTM [phone] Social History Type Date Description Comments Sex Unknown Allergies, Adverse Reactions, Alerts Description No Known Drug Allergies Medications Active Medications SIG Qnty Indications Ordering Provide r Date Furosemide 20mg Tablets Unknown Kenia Siddiqui 300U nit/ML Solution Pen-Inject Unknown Bumetanide 2mg Tablets Unknown Relion Insulin Syringe 1ML/31GX15/64" 31G X 15/64" 1 ML Misc Use With Insulin 3 Times A Day Unkno wn Relion Insulin Syringe 1ML/31GX15/64" 31G X 15/64" 1 ML Misc [facility] ter Prednisone 10mg Tablets [facility] Ketorolac Tromethamine 0.5% Solution Briseyda Cutler MD Relion Pen Pom[place] 31G X 8 mm Misc Unknown Relion Pen [place] 31G X 8 mm Misc Use as Directed Once Daily Unknown Minoxidil 10mg Tablets Unknown Eliquis 2.5mg Tablets [facility] Onetouch Ultra Strips use as directed three times daily as needed DX:E11.9 300units Slade leonard M.D., P.C. Clonidine HCL 0.1mg Tablets Unknown Timolol Maleate Ophthalmic Gel Forming 0.5% GFS Briseyda Cutler MD Toujeo Max Solostar 300Unit/ML Solution Pen-Inject Unknown Asmanex HFA 100mcg/Act Aerosol Inhale 2 Puffs By Mouth Once Daily Unknown BD Pen Needle/Short/Ultra-Fine/31G X 8mm 31G X 8 mm Misc Unknown BD Pen Needle/Short/Ultra-Fine/31G X 8mm 31G X 8 mm Misc Use as Directed Once Daily . Max Of 3 Pen Pomaria Per Day Unknown Glyburide 5mg Tablets Unknown Vascepa 1gm Capsules [facility] Alphagan P 0.15% Solution Briseyda Cutler MD Fenofibric Acid 135mg Capsules DR Take One Tablet By Mouth Daily 90caps [facility]ade Corbin [facility] 0 Allopurinol 300mg Tablets Mana Infante [facility] Lumigan 0.01% Solution Briseyda Cutler MD Torsemide 20mg Tablets [facility] Atorvastatin Calcium 10mg Tablets Take One Tablet By Mouth Daily 90tabs [facility]ade Corbin [facility] 0 Humalog 100Unit/ML Solution Unknown Labetalol HCL 200mg Tablets Take One Tablet By Mouth Three Times Daily 90tabs [facility]ade Corbin [facility] Azelastine HCL (Nasal) 0.15% Solution Anusha Kothari [facility] Hydralazine HCL 25mg Tablets [facility] Amlodipine Besylate 10mg Tablets Take 1 Tablet [...] CPT Code Status Date Vaccine Lot # 58052 Given 01/05/2020 Influenza Vaccine 29726 Given 02/28/2010 Flu Injection 17375 Given 03/20/2007 Flu Injection 09567 Given 04/03/2006 Flu Injection 37708 Given 04/24/2005 Flu Injection 05882 Given 04/22/2004 Flu Injection 34499 Given 03/02/2004 Pneumococcal Vac ([id number]) 08601 Given 02/27/2003 Flu Injection Vital Signs Date [...] Result H/L Range Note Laboratory test finding 05/20/2020 [facility] l [address] [place] [address] [phone] Bedside Glucose 81 mg/dL Low 83-110 Complete Blood Count 04/15/2020 [facility] [address] [place] [address] [phone] White Blood Count 5.9 10 Normal 4.0-10.0 [...] 36.0-66.0 Lymph % 18.5 % Low 24.0-44.0 [place] % 9.3 % High 0.0-5.0 Eos % 14.6 % High 0.0-3.0 Baso % 1.0 % Normal 0.0-1.0 Immature Granulocyte % 0.3 % Normal 0-3.0 Nucleated Red Blood Cell % 0.0 % Normal 0-0 Neutrophils # 3.3 10 Normal 1.5-8.5 Lymph # 1.1 10 Low 1.5-5.0 [place] # 0.6 10 Normal 0.0-0.8 Eos # 0.9 10 High 0.0-0.5 Baso # 0.1 10 Normal 0.0-0.2 Free [place] & Lambda LT Chains 04/15/[address] [id number] [phone] Free [place] Light Chains Serum 251.9 mg/L High 3. 3-19.4 Free Lambda Light Chains Serum 19.9 mg/L Normal 5.7-26.3 [place]/Lambda Ratio Serum 12.66 High 0.26-1.65 1 Comprehensive Metabolic Profil 04/15/[address] [address] [phone] Glucose, Fasting 93 mg/dL Normal 70-100 Blood [...] 1.1 Normal Immunotyping (Immunofixation) Serum (If 04/15/[address] [address] [phone] Immunotyping Serum Igg ABNORMAL High Normal Immunotyping Serum [place] ABNORMAL High Normal It Serum Interpretation SEE COMMENT Normal 3 Its Pathologist Review REV'D BY Aric IRVIN <SEE NOTE> Normal 4 Serum Protein Electrophoresis 04/15/[address] [address] [phone] Albumin % 56.0 % Normal 55.8-66.1 Natzw-6-Pennrnfy % 4.1 % Normal 2.9-4.9 Djfye-8-Wmoupudqk % 10.1 % Normal 7.1-11.8 Namz-6-Nqfrrmfvi % 6.2 % Normal 4.7-7.2 Aupa-1-Qhqdiocri % 3.6 % Normal 3.2-6.5 Gamma Globulin % 20.0 % High 11.1-18.8 Albumin 4.65 GM/DL Normal 3.29-5.55 Uawro-0-Nzhkenuhr 0.34 GM/DL Normal 0.17-0.41 Aloxv-4-Vijgvayac 0.84 GM/DL Normal 0.42-0.99 Zbso-0-Pdqmcnxmz 0.51 GM/DL Normal 0.28-0.60 Xyfa-6-Nrsprchkd 0.30 GM/DL Normal 0.19-0.55 Gamma Globulins 1.66 GM/DL High 0.65-1.58 Total Protein 8.3 GM/DL High 6.4-8.2 Spep Interpretation SEE COMMENT Normal 5 Spep Pathologist Review REV'D BY Aric IRVIN <SEE NOTE> Normal 6 Coronavirus 2018 ([facility]) 04/12/[address] [address] [phone] Coronavirus 2018 ([facility]) <SEE NOTE> 7 1 Performed at: RN - [facility] [address] [id number] [employer] Worker: Tahmina Nair MD, Phone: [phone] 2 Units are mL/min/1.73 m2 Chronic Kidney Disease Staging per NKF: Stage I & II GFR >=60 Normal to Mildly Decreased Stage III GFR 30-59 Moderately Decreased Stage IV GFR 15-29 Severely Decreased Stage V GFR <15 Very Little GFR Left ESRD GFR <15 on DRONE SOFTWARE DEVELOPMENT ENGINEER 3 MONOCLONAL IGG KAPPA 4 REV'D [...] by the U.S. Food and Drug Administration. [facility] is designated as a high complexity laboratory by the Clinical Laboratory Improvement Amendments of 1988(CLIA) and is qualified to perform this test. ASSAY INFORMATION: Real Time RT-PCR Patient samples for this assay have been pooled. All positive samples have been individually repeated for confirmation. The pooling protocol using the romelia SARS-CoV-2 assay has been added to [id number] on February 19, 2020. Procedures Date Code Description Status 03/29/2020 40330 EKG Completed Encounters Type Date Location Provider Dx Diagnosis Office Visit 05/05/2020 10:45a [facility] Slade Corbin [facility] I48.0 Paroxysmal atrial fibrillation E10.9 Type 1 diabetes mellitus wit hout complications I11.9 [facility] E78.5 Hyperlipidemia, unspecified N17.9 Acute kidney failure, unspec ified Office Visit 03/29/2020 11:30a [facility] Slade Corbin M[facility] 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 I11.9 Hypertensive heart disease without heart failure E10.9 Type 1 diabetes mellitus wit hout complications I48.0 Paroxysmal atrial fibrillati on S83.206D Unsp tear of unsp meniscus, current injury, right knee, subs Office Visit 02/02/2020 3:15p [facility] Slade Corbin [facility] I11.9 Hypertensive [...] heart disease witho ut heart failure Slade oCrbin M.D[facility] 02/02/2020 E10.9 Type 1 diabetes mellitus without complications Slade Corbin [facility] 02/02/2020 E78.5 Hyperlipidemia, unspecified Jarred Corbin M[facility] 02/02/2020 N17.9 Acute kidney failure, unspecifie d Slade Corbin [facility] Plan of Treatment Future Appointment(s):* 06/07/2020 2:15 pm - Slade Corbin [facility] at [facility] Referrals Refer to Reason for Referral Status Appt Date [facility] Please eval. and treat this patient for complex tear posterior horn of the medial meniscus with questionable bucket handle component. See attached report. Thank you. Created [address] [address] [phone]
--- OUTSIDE RECORDS SUMMARY | 2020-06-29 04:33 | CCD | Continuity of Care Document ---
Author Author [facility] Organization Unknown Address [address] [place] [address] Phone [phone] Care Team Providers Care Data Entry Processor Name Role Phone Kush MIRANDACLuis AUTM [phone] Social History Type Date Description Comments Sex [...] 31G X 15/64" 1 ML Misc Formerly [facility] ter Prednisone 10mg Tablets [facility] Ketorolac Tromethamine 0.5% Solution Briseyda Cutler MD Relion Pen Milford 31G X 8 mm Misc Unknown Relion Pen [place] 31G X 8 mm Misc Use as Directed Once Daily Unknown Minoxidil 10mg Tablets Unknown Eliquis 2.5mg Tablets [facility] Onetouch Ultra Strips use as directed three [...] Once Daily . Max Of 3 Pen Milford Per Day Unknown Glyburide 5mg Tablets Unknown Vascepa 1gm Capsules [facility] Alphagan P 0.15% Solution Briseyda Cutler MD Fenofibric Acid 135mg Capsules DR Take One Tablet By Mouth Daily 90caps [facility] 0 Allopurinol 300mg Tablets Mana Infante [facility] Lumigan 0.01% Solution Briseyda Cutler MD Torsemide 20mg Tablets [facility] Atorvastatin Calcium 10mg Tablets Take One Tablet By Mouth Daily 90tabs [facility] 0 Humalog 100Unit/ML Solution Unknown Labetalol HCL 200mg Tablets Take One Tablet By Mouth Three Times Daily 90tabs [facility] Azelastine HCL (Nasal) 0.15% Solution Anusha Kothari [facility] Hydralazine HCL 25mg Tablets [facility] Amlodipine Besylate 10mg Tablets Take 1 Tablet [...] CPT Code Status Date Vaccine Lot # [id number] Given 01/05/2020 Influenza Vaccine 17967 Given 02/28/2010 Flu Injection 12873 Given 03/20/2007 Flu Injection 84756 Given 04/03/2006 Flu Injection 94497 Given 04/24/2005 Flu Injection 24162 Given 04/22/2004 Flu Injection 66882 Given 03/02/2004 Pneumococcal Vac ([id number]) 38498 Given 02/27/2003 Flu Injection Vital Signs Date [...] H/L Range Note Complete Blood Count 04/15/[address] [address] [phone] White Blood Count 5.9 10 Normal 4.0-10.0 [...] 36.0-66.0 Lymph % 18.5 % Low 24.0-44.0 Frederick % 9.3 % High 0.0-5.0 Eos % 14.6 % High 0.0-3.0 Baso % 1.0 % Normal 0.0-1.0 Immature Granulocyte % 0.3 % Normal 0-3.0 Nucleated Red Blood Cell % 0.0 % Normal 0-0 Neutrophils # 3.3 10 Normal 1.5-8.5 Lymph # 1.1 10 Low 1.5-5.0 Frederick # 0.6 10 Normal 0.0-0.8 Eos # 0.9 10 High 0.0-0.5 Baso # 0.1 10 Normal 0.0-0.2 Free Ferrum & Lambda LT Chains 04/15/[address] [address] [phone] Free Ferrum Light Chains Serum 251.9 mg/L High 3. 3-19.4 Free Lambda Light Chains Serum 19.9 mg/L Normal 5.7-26.3 Ferrum/Lambda Ratio Serum 12.66 High 0.26-1.65 1 Comprehensive Metabolic Profil 04/15/[address] [address] [phone] Glucose, Fasting 93 mg/dL Normal 70-100 Blood [...] 1.1 Normal Immunotyping (Immunofixation) Serum (If 04/15/[address] [address] [phone] Immunotyping Serum Igg ABNORMAL High Normal Immunotyping Serum Ferrum ABNORMAL High Normal It Serum Interpretation SEE COMMENT Normal 3 Its Pathologist Review REV'D BY Aric IRVIN <SEE NOTE> Normal 4 Serum Protein Electrophoresis 04/15/[address] [id number] [phone] Albumin % 56.0 % Normal 55.8-66.1 Nivdr-9-Lqwbcnwb % 4.1 % Normal 2.9-4.9 Eajea-9-Pzcbyiyhx % 10.1 % Normal 7.1-11.8 Weml-5-Feswszlew % 6.2 % Normal 4.7-7.2 Cojw-9-Pxqsdjlyz % 3.6 % Normal 3.2-6.5 Gamma Globulin % 20.0 % High 11.1-18.8 Albumin 4.65 GM/DL Normal 3.29-5.55 Tqwik-1-Jkfryycev 0.34 GM/DL Normal 0.17-0.41 Tehqu-4-Zqosxxmaa 0.84 GM/DL Normal 0.42-0.99 Dptl-4-Huflnlmms 0.51 GM/DL Normal 0.28-0.60 Qoim-6-Rkfkghxwi 0.30 GM/DL Normal 0.19-0.55 Gamma Globulins 1.66 GM/DL High 0.65-1.58 Total Protein 8.3 GM/DL High 6.4-8.2 Spep Interpretation SEE COMMENT Normal 5 Spep Pathologist Review REV'D BY Aric IRVIN <SEE NOTE> Normal 6 Coronavirus 2018 ([facility]) 04/12/[address] [id number] [phone] Coronavirus 2018 ([facility]) <SEE NOTE> 7 1 Performed at: RN - [facility] [address] [id number] Pharmacy Picking Tech: Tahmina Nair MD, Phone: [phone] 2 Units are mL/min/1.73 m2 Chronic Kidney Disease Staging per NKF: Stage I & II GFR >=60 Normal to Mildly Decreased Stage III GFR 30-59 Moderately Decreased Stage IV GFR 15-29 Severely Decreased Stage V GFR <15 Very Little GFR Left ESRD GFR <15 on ROLL THREADER OPERATOR 3 MONOCLONAL IGG KAPPA 4 REV'D BY Aric OSORIO 5 M-SPIKE NOTED IN LATE GAMMA REGION. CONCENTRATION = 1.16 GM/DL 6 REV'D BY Aric OSORIO 7 Test: COVID-19 Nasal/Naspharynx Result: NOT DETECTED Reference Units: Not detected Note: Please consider re-collection of a new specimen, if clinically indicated. Note: The COVID-19 assay is under Emergency Use Authorization(EUA) by the U.S. Food and Drug Administration. [facility] is designated as a high complexity laboratory by the Clinical Laboratory Improvement Amendments of 1988(CLIA) and is qualified to perform this test. ASSAY INFORMATION: Real Time RT-PCR Patient samples for this assay have been pooled. All positive samples have been individually repeated for confirmation. The pooling protocol using the romelia SARS-CoV-2 assay has been added to [id number] on February 19, 2020. Procedures Date Code Description Status 03/29/2020 31253 EKG Completed Encounters Type Date Location Provider Dx Diagnosis Office Visit 03/29/2020 11:30a [facility] 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 I11.9 Hypertensive heart disease without heart failure E10.9 Type 1 diabetes mellitus wit hout complications I48.0 Paroxysmal atrial fibrillati on S83.206D Unsp tear of unsp meniscus, current injury, right knee, subs Office Visit 02/02/2020 3:15p [facility] I11.9 Hypertensive heart disease without heart failure E10.9 Type 1 diabetes mellitus wit hout complications E78.5 Hyperlipidemia, unspecified N17.9 Acute kidney failure, unspec ified Assessments Date Code Description Provider 03/29/2020 I11.9 Hypertensive heart disease witho tx heart failure [facility] 03/29/2020 E10.9 Type 1 diabetes mellitus without complications [facility] 03/29/2020 I48.0 Paroxysmal atrial fibrillation [facility] 03/29/2020 M17.12 Unilateral primary osteoarthriti s, left knee [facility] 03/29/2020 I49.49 Other premature depolarization [facility] 02/18/2020 I11.9 Hypertensive heart disease witho tx heart failure [facility] 02/18/2020 E10.9 Type 1 diabetes mellitus without complications [facility] 02/18/2020 I48.0 Paroxysmal atrial fibrillation [facility] 02/18/2020 S83.206D Unspecified tear of unspecified meniscus, current injury, right knee, subsequent encounter [facility] 02/02/2020 I11.9 Hypertensive heart disease witho tx heart failure [facility] 02/02/2020 [...] pm - [facility] at [facility] Referrals Refer to Reason for Referral Status Appt Date [facility] Please eval. and treat this patient for complex tear posterior horn of the medial meniscus with questionable bucket handle component. See attached report. Thank you. Created [address] [place] [address] [phone]
--- OUTSIDE RECORDS SUMMARY | 2020-06-29 04:34 | CCD ---
Author Author [facility] Organization [facility] Address Unknown Phone Unavailable Care Team Providers Care Counterintelligence Agent Name Role Phone MackenzieMilton snowden DIRECTOR GRAPHICS Unavailable Unavailable Mackenzie, D Gerard DIRECTOR GRAPHICS Unavailable Unavailable Mackenzie, D Gerard DIRECTOR GRAPHICS Unavailable Unavailable Mackenzie, D Gerard DIRECTOR GRAPHICS Unavailable Unavailable Mackenzie, D Gerard DIRECTOR GRAPHICS Unavailable Unavailable Mackenzie, D Gerard DIRECTOR GRAPHICS Unavailable Unavailable Mackenzie, D Gerard DIRECTOR GRAPHICS Unavailable Unavailable Mackenzei, D Gerard DIRECTOR GRAPHICS Unavailable Unavailable Mackenzie, D Gerard DIRECTOR GRAPHICS Unavailable Unavailable Mackenzie, D Greard DIRECTOR GRAPHICS Unavailable Unavailable Mackenzie, D Gerard DIRECTOR GRAPHICS Unavailable Unavailable Mackenzie, D Gerard DIRECTOR GRAPHICS Unavailable Unavailable Mackenzie, D Gerard DIRECTOR GRAPHICS Unavailable Unavailable Mackenzie, D Gerard DIRECTOR GRAPHICS Unavailable Unavailable Mackenzie, D Gerard DIRECTOR GRAPHICS Unavailable Unavailable Mackenzie, D Gerard DIRECTOR GRAPHICS Unavailable Unavailable Mackenzie, D Gerard DIRECTOR GRAPHICS Unavailable Unavailable Mackenzie, D Gerard DIRECTOR GRAPHICS Unavailable Unavailable Mackenzie, D Gerard DIRECTOR GRAPHICS Unavailable Unavailable Mcakenzie, D Gerard DIRECTOR GRAPHICS Unavailable Unavailable Mackenzie, D Gerard DIRECTOR GRAPHICS Unavailable Unavailable Mackenzie, D Gerard DIRECTOR GRAPHICS Unavailable Unavailable Mackenzie, D Gerard DIRECTOR GRAPHICS Unavailable Unavailable Mackenzie, D Gerard DIRECTOR GRAPHICS Unavailable Unavailable Mackenzie, D Gerard DIRECTOR GRAPHICS Unavailable Unavailable Mackenzie, D Gerard DIRECTOR GRAPHICS Unavailable Unavailable Mackenzie, D Gerard DIRECTOR GRAPHICS Unavailable Unavailable Mackenzie, D Gerard DIRECTOR GRAPHICS Unavailable Unavailable Mackenzie, D Gerard DIRECTOR GRAPHICS Unavailable Unavailable Mackenzie, D Gerard DIRECTOR GRAPHICS Unavailable Unavailable Mackenzie, D Gerard DIRECTOR GRAPHICS Unavailable Unavailable Mackenzie, D Gerard DIRECTOR GRAPHICS Unavailable Unavailable Mackenzie, D Gerard DIRECTOR GRAPHICS Unavailable Unavailable Mackenzie, D Gerard DIRECTOR GRAPHICS Unavailable Unavailable Mackenzie, D Gerard DIRECTOR GRAPHICS Unavailable Unavailable LYNDA, MAQBOOL RAFA MD Unavailable Unavailable LYNDA, MAQBOOL RAFA MD Unavailable Unavailable LYNDA, MAQBOOL RAFA MD Unavailable Unavailable LYNDA, MAQBOOL RAFA MD Unavailable Unavailable LYNDA, MAQBOOL RAFA MD Unavailable Unavailable LYNDA, MAQBOOL RAFA MD Unavailable Unavailable LYNDA, MAQBOOL RAFA MD Unavailable Unavailable LYNDA, MAQBOOL RAFA MD Unavailable Unavailable LYNDA, MAQBOOL RAFA MD Unavailable Unavailable LYNDA, MAQBOOL RAFA MD Unavailable Unavailable LYNDA, MAQBOOL RAFA MD Unavailable Unavailable LYNDA, MAQBOOL RAFA MD Unavailable Unavailable LYNDA, MAQBOOL RAFA MD Unavailable Unavailable LYNDA, MAQBOOL RAFA MD Unavailable Unavailable LYNDA, MAQBOOL RAFA MD Unavailable Unavailable LYNDA, MAQBOOL RAFA MD Unavailable Unavailable LYNDA, MAQBOOL RAFA MD Unavailable Unavailable LYNDA, MAQBOOL RAFA MD Unavailable Unavailable LYNDA, MAQBOOL RAFA MD Unavailable Unavailable LYNDA, MAQBOOL RAFA MD Unavailable Unavailable LYNDA, MAQBOOL RAFA MD Unavailable Unavailable LYNDA, MAQBOOL RAFA MD Unavailable Unavailable LYNDA, MAQBOOL RAFA MD Unavailable Unavailable LYNDA, MAQBOOL RAFA MD Unavailable Unavailable LYNDA, MAQBOOL RAFA MD Unavailable Unavailable LYNDA, MAQBOOL RAFA MD Unavailable Unavailable LYNDA, MAQBOOL RAFA MD Unavailable Unavailable LYNDA, MAQBOOL RAFA MD Unavailable Unavailable LYNDA, MAQBOOL RAFA MD Unavailable Unavailable LYNDA, MAQBOOL RAFA MD Unavailable Unavailable LYNDA, MAQBOOL RAFA MD Unavailable Unavailable LYNDA, MAQBOOL RAFA MD Unavailable Unavailable LYNDA, MAQBOOL RAFA MD Unavailable Unavailable LYNDA, MAQBOOL RAFA MD Unavailable Unavailable LYNDA, MAQBOOL RAFA MD Unavailable Unavailable LYNDA, MAQBOOL RAFA MD Unavailable Unavailable LYNDA, MAQBOOL RAFA MD Unavailable Unavailable LYNDA, MAQBOOL RAFA MD Unavailable Unavailable LYNDA, MAQBOOL RAFA MD Unavailable Unavailable LYNDA, MAQBOOL RAFA MD Unavailable Unavailable LYNDA, MAQBOOL RAFA MD Unavailable Unavailable LYNDA, MAQBOOL RAFA MD Unavailable Unavailable LYNDA, MAQBOOL RAFA MD Unavailable Unavailable LYNDA, MAQBOOL RAFA MD Unavailable Unavailable LYNDA, MAQBOOL RAFA MD Unavailable Unavailable LYNDA, MAQBOOL RAFA MD Unavailable Unavailable LYNDA, MAQBOOL RAFA MD Unavailable Unavailable LYNDA, MAQBOOL RAFA MD Unavailable Unavailable LYNDA, MAQBOOL RAFA MD Unavailable Unavailable LYNDA, MAQBOOL RAFA MD Unavailable Unavailable LYNDA, MAQBOOL RAFA MD Unavailable Unavailable LYNDA, MAQBOOL RAFA MD Unavailable Unavailable LYNDA, MAQBOOL RAFA MD Unavailable Unavailable LYNDA, MAQBOOL RAFA MD Unavailable Unavailable LYNDA, MAQBOOL RAFA MD Unavailable Unavailable LYNDA, MAQBOOL RAFA MD Unavailable Unavailable LYNDA, MAQBOOL RAFA MD Unavailable Unavailable LYNDA, MAQBOOL RAFA MD Unavailable Unavailable LYNDA, MAQBOOL RAFA MD Unavailable Unavailable LYNDA, MAQBOOL RAFA MD Unavailable Unavailable LYNDA, MAQBOOL RAFA MD Unavailable Unavailable LYNDA, MAQBOOL RAFA MD Unavailable Unavailable LYNDA, MAQBOOL RAFA MD Unavailable Unavailable LYNDA, MAQBOOL RAFA MD Unavailable Unavailable LYNDA, MAQBOOL RAFA MD Unavailable Unavailable LYNDA, MAQBOOL RAFA MD Unavailable Unavailable LYNDA, MAQBOOL RAFA MD Unavailable Unavailable LYNDA, MAQBOOL RAFA MD Unavailable Unavailable LYNDA, MAQBOOL RAFA MD Unavailable Unavailable LYNDA, MAQBOOL RAFA MD Unavailable Unavailable LYNDA, MAQBOOL RAFA MD Unavailable Unavailable LYNDA, MAQBOOL RAFA MD Unavailable Unavailable LYNDA, MAQBOOL RAFA MD Unavailable Unavailable LYNDA, MAQBOOL RAFA MD Unavailable Unavailable PARNES, Z LOTTIE MD Unavailable Unavailable PARNES, Z LOTTIE MD Unavailable Unavailable PARNES, Z OLTTIE MD Unavailable Unavailable PARNES, Z LOTTIE MD Unavailable Unavailable PARNES, Z LOTTIE MD Unavailable Unavailable PARNES, Z LOTTIE MD Unavailable Unavailable PARNES, Z LOTTIE MD Unavailable Unavailable PARNES, Z LOTTIE MD Unavailable Unavailable PARNES, Z LOTTIE MD Unavailable Unavailable PARNES, Z LOTTIE MD Unavailable Unavailable PARNES, Z LOTTIE MD Unavailable Unavailable PARNES, Z LOTTIE MD Unavailable Unavailable PARNES, Z LOTTIE MD Unavailable Unavailable PARNES, Z LOTTIE MD Unavailable Unavailable PARNES, Z LOTTIE MD Unavailable Unavailable PARNES, Z LOTTIE MD Unavailable Unavailable PARNES, Z LOTTIE MD Unavailable Unavailable PARNES, Z LOTTIE MD Unavailable Unavailable PARNES, Z LOTTIE MD Unavailable Unavailable PARNES, Z LOTTIE MD Unavailable Unavailable PARNES, Z LOTTIE MD Unavailable Unavailable PARNES, Z LOTTIE MD Unavailable Unavailable PARNES, Z LOTTIE MD Unavailable Unavailable PARNES, Z LOTTIE MD Unavailable Unavailable PARNES, Z LOTTIE MD Unavailable Unavailable PARNES, Z LOTTIE MD Unavailable Unavailable PARNES, Z LOTTIE MD Unavailable Unavailable PARNES, Z LOTTIE MD Unavailable Unavailable PARNES, Z LOTTIE MD Unavailable Unavailable PARNES, Z LOTTIE MD Unavailable Unavailable PARNES, Z LOTTIE MD Unavailable Unavailable PARNES, Z LOTTIE MD Unavailable Unavailable PARNES, Z LOTTIE MD Unavailable Unavailable PARNES, Z LOTTIE MD Unavailable Unavailable PARNES, Z LOTTIE MD Unavailable Unavailable PARNES, Z LOTTIE MD Unavailable Unavailable PARNES, Z LOTTIE MD Unavailable Unavailable PARNES, Z LOTTIE MD Unavailable Unavailable COOK, B BIANKA DIRECTOR GRAPHICS Unavailable Unavailable COOK, B BIANKA DIRECTOR GRAPHICS Unavailable Unavailable COOK, B BIANKA DIRECTOR GRAPHICS Unavailable Unavailable COOK, B BIANKA DIRECTOR GRAPHICS Unavailable Unavailable COOK, B BIANKA DIRECTOR GRAPHICS Unavailable Unavailable COOK, B BIANKA DIRECTOR GRAPHICS Unavailable Unavailable COOK, B BIANKA DIRECTOR GRAPHICS Unavailable Unavailable COOK, B BIANKA DIRECTOR GRAPHICS Unavailable Unavailable COOK, B BIANKA DIRECTOR GRAPHICS Unavailable Unavailable COOK, B BIANKA DIRECTOR GRAPHICS Unavailable Unavailable COOK, B BIANKA DIRECTOR GRAPHICS Unavailable Unavailable COOK, B BIANKA DIRECTOR GRAPHICS Unavailable Unavailable COOK, B BIANKA DIRECTOR GRAPHICS Unavailable Unavailable COOK, B BIANKA DIRECTOR GRAPHICS Unavailable Unavailable COOK, B BIANKA DIRECTOR GRAPHICS Unavailable Unavailable COOK, B BIANKA DIRECTOR GRAPHICS Unavailable Unavailable COOK, B BIANKA DIRECTOR GRAPHICS Unavailable Unavailable COOK, B BIANKA DIRECTOR GRAPHICS Unavailable Unavailable COOK, B BIANKA DIRECTOR GRAPHICS Unavailable Unavailable COOK, B BIANKA DIRECTOR GRAPHICS Unavailable Unavailable COOK, B BIANKA DIRECTOR GRAPHICS Unavailable Unavailable COOK, B BIANKA DIRECTOR GRAPHICS Unavailable Unavailable COOK, B BIANKA DIRECTOR GRAPHICS Unavailable Unavailable COOK, B BIANKA DIRECTOR GRAPHICS Unavailable Unavailable COOK, B BIANKA DIRECTOR GRAPHICS Unavailable Unavailable COOK, B BIANKA DIRECTOR GRAPHICS Unavailable Unavailable COOK, B BIANKA DIRECTOR GRAPHICS Unavailable Unavailable COOK, B BIANKA DIRECTOR GRAPHICS Unavailable Unavailable COOK, B BIANKA DIRECTOR GRAPHICS Unavailable Unavailable COOK, B BIANKA DIRECTOR GRAPHICS Unavailable Unavailable COOK, B BIANKA DIRECTOR GRAPHICS Unavailable Unavailable COOK, B BIANKA DIRECTOR GRAPHICS Unavailable Unavailable COOK, B BIANKA DIRECTOR GRAPHICS Unavailable Unavailable COOK, B BIANKA DIRECTOR GRAPHICS Unavailable Unavailable COOK, B BIAKNA DIRECTOR GRAPHICS Unavailable Unavailable COOK, B BIANKA DIRECTOR GRAPHICS Unavailable Unavailable COOK, B BIANKA DIRECTOR GRAPHICS Unavailable Unavailable COOK, B BIANKA DIRECTOR GRAPHICS Unavailable Unavailable COOK, B BIANKA DIRECTOR GRAPHICS Unavailable Unavailable COOK, B BIANKA DIRECTOR GRAPHICS Unavailable Unavailable COOK, B BIANKA DIRECTOR GRAPHICS Unavailable Unavailable COOK, B BIANKA DIRECTOR GRAPHICS Unavailable Unavailable COOK, B BIANKA DIRECTOR GRAPHICS Unavailable Unavailable COOK, B BIANKA DIRECTOR GRAPHICS Unavailable Unavailable COOK, B BIANKA DIRECTOR GRAPHICS Unavailable Unavailable COOK, B BIANKA DIRECTOR GRAPHICS Unavailable Unavailable COOK, B BIANKA DIRECTOR GRAPHICS Unavailable Unavailable COOK, B BIANKA DIRECTOR GRAPHICS Unavailable Unavailable COOK, B BIANKA DIRECTOR GRAPHICS Unavailable Unavailable COOK, B BIANKA DIRECTOR GRAPHICS Unavailable Unavailable COOK, B BIANKA DIRECTOR GRAPHICS Unavailable Unavailable COOK, B BIANKA DIRECTOR GRAPHICS Unavailable Unavailable COOK, B BIANKA DIRECTOR GRAPHICS Unavailable Unavailable COOK, B BIANKA DIRECTOR GRAPHICS Unavailable Unavailable COOK, B BIANKA DIRECTOR GRAPHICS Unavailable Unavailable COOK, B BIANKA DIRECTOR GRAPHICS Unavailable Unavailable COOK, B BIANKA DIRECTOR GRAPHICS Unavailable Unavailable COOK, B BIANKA DIRECTOR GRAPHICS Unavailable Unavailable COOK, B BIANKA DIRECTOR GRAPHICS Unavailable Unavailable COOK, B BIANKA DIRECTOR GRAPHICS Unavailable Unavailable COOK, B BIANKA DIRECTOR GRAPHICS Unavailable Unavailable COOK, B BIANKA DIRECTOR GRAPHICS Unavailable Unavailable COOK, B BIANKA DIRECTOR GRAPHICS Unavailable Unavailable COOK, B BIANKA DIRECTOR GRAPHICS Unavailable Unavailable Milton Hair MD Unavailable Unavailable VaneenteodoraamMilton MD Unavailable Unavailable VaneenenaamMilton MD Unavailable Unavailable VaneenenaamMilton MD Unavailable Unavailable Vaneenenaam, Milton Ferris MD Unavailable Unavailable Vaneenenaam, Milton Ferris MD Unavailable Unavailable VaneenenaamMilton MD Unavailable Unavailable VanMilton martinez MD Unavailable Unavailable Vaneenteodoraam, Milton Ferris MD Unavailable Unavailable VaneenenaamMilton MD Unavailable Unavailable Vaneenenaam, Milton Ferris MD Unavailable Unavailable Vaneenenaam, Milton Ferris MD Unavailable Unavailable Vaneenenaam, Milton Ferris MD Unavailable Unavailable VaneenteodoraamMilton MD Unavailable Unavailable Vaneenteodoraam, Milton Ferris MD Unavailable Unavailable Vanjoshuaam, Milton Ferris MD Unavailable Unavailable Vaneenenaam, Milton Ferris MD Unavailable Unavailable Vanjoshuaam, Milton Ferris MD Unavailable Unavailable Vaneenteodoraam, Milton Ferris MD Unavailable Unavailable VanMilton martinez MD Unavailable Unavailable Vanjuan, Milton Ferris MD Unavailable Unavailable VanMilton matrinez MD Unavailable Unavailable Vanjoshuaam, Milton Ferris MD Unavailable Unavailable Vanjuan, Milton Ferris MD Unavailable Unavailable Vaneenteodoraam, Milton Ferris MD Unavailable Unavailable VanMilton martinez MD Unavailable Unavailable VanMilton martinez MD Unavailable Unavailable VanMilton martinez MD Unavailable Unavailable Vanjoshuaam, Milton Ferris MD Unavailable Unavailable VanMilton martinez MD Unavailable Unavailable VanMilton martinez MD Unavailable Unavailable VanMilton martinez MD Unavailable Unavailable Milton Hair MD Unavailable Unavailable VanMilton martinez MD Unavailable Unavailable VanMilton martinez MD Unavailable Unavailable VanMilton martinez MD Unavailable Unavailable VanMilton martinez MD Unavailable Unavailable VanMilton martinez MD Unavailable Unavailable Milton Hair MD Unavailable Unavailable VanMilton martinez MD Unavailable Unavailable Milton Hair MD Unavailable Unavailable Milton Hair MD Unavailable Unavailable ARMAND CORBIN MD Unavailable Unavailable ARMAND CORBIN MD Unavailable Unavailable ARMAND CORBIN MD Unavailable Unavailable ARMAND CORBIN MD Unavailable Unavailable ARMAND CORBIN MD Unavailable Unavailable ARMAND CORBIN MD Unavailable Unavailable LYNDA, MAQBOOL RAFA MD Unavailable Unavailable LYNDA, MAQBOOL RAFA MD Unavailable Unavailable LYNDA, MAQBOOL RAFA MD Unavailable Unavailable LYNDA, MAQBOOL RAFA MD Unavailable Unavailable LYNDA, MAQBOOL RAFA MD Unavailable Unavailable LYNDA, MAQBOOL RAFA MD Unavailable Unavailable LYNDA, MAQBOOL RAFA MD Unavailable Unavailable LYNDA, MAQBOOL RAFA MD Unavailable Unavailable LYNDA, MAQBOOL RAFA MD Unavailable Unavailable LYNDA, MAQBOOL RAFA MD Unavailable Unavailable LYNDA, MAQBOOL RAFA MD Unavailable Unavailable LYNDA, MAQBOOL RAFA MD Unavailable Unavailable LYNDA, MAQBOOL RAFA MD Unavailable Unavailable LYNDA, MAQBOOL RAFA MD Unavailable Unavailable LYNDA, MAQBOOL RAFA MD Unavailable Unavailable LYNDA, MAQBOOL RAFA MD Unavailable Unavailable LYNDA, MAQBOOL RAFA MD Unavailable Unavailable LYNDA, MAQBOOL RAFA MD Unavailable Unavailable LYNDA, MAQBOOL RAFA MD Unavailable Unavailable LYNDA, MAQBOOL RAFA MD Unavailable Unavailable LYNDA, MAQBOOL RAFA MD Unavailable Unavailable LYNDA, MAQBOOL RAFA MD Unavailable Unavailable LYNDA, MAQBOOL RAFA MD Unavailable Unavailable LYNDA, MAQBOOL RAFA MD Unavailable Unavailable LYNDA, MAQBOOL RAFA MD Unavailable Unavailable LYNDA, MAQBOOL RAFA MD Unavailable Unavailable LYNDA, MAQBOOL RAFA MD Unavailable Unavailable LYNDA, MAQBOOL RAFA MD Unavailable Unavailable LYNDA, MAQBOOL RAFA MD Unavailable Unavailable LYNDA, MAQBOOL RAFA MD Unavailable Unavailable LYNDA, MAQBOOL RAFA MD Unavailable Unavailable LYNDA, MAQBOOL RAFA MD Unavailable Unavailable LYNDA, MAQBOOL RAFA MD Unavailable Unavailable LYNDA, MAQBOOL RAFA MD Unavailable Unavailable LYNDA, MAQBOOL RAFA MD Unavailable Unavailable LYNDA, MAQBOOL RAFA MD Unavailable Unavailable LYNDA, MAQBOOL RAFA MD Unavailable Unavailable LYNDA, MAQBOOL RAFA MD Unavailable Unavailable LYNDA, MAQBOOL RAFA MD Unavailable Unavailable LYNDA, MAQBOOL RAFA MD Unavailable Unavailable LYNDA, MAQBOOL RAFA MD Unavailable Unavailable LYNDA, MAQBOOL RAFA MD Unavailable Unavailable LYNDA, MAQBOOL RAFA MD Unavailable Unavailable LYNDA, MAQBOOL RAFA MD Unavailable Unavailable LYNDA, MAQBOOL RAFA MD Unavailable Unavailable LYNDA, MAQBOOL RAFA MD Unavailable Unavailable LYNDA, MAQBOOL RAFA MD Unavailable Unavailable LYNDA, MAQBOOL RAFA MD Unavailable Unavailable LYNDA, MAQBOOL RAFA MD Unavailable Unavailable LYNDA, MAQBOOL RAFA MD Unavailable Unavailable LYNDA, MAQBOOL RAFA MD Unavailable Unavailable LYNDA, MAQBOOL RAFA MD Unavailable Unavailable LYNDA, MAQBOOL RAFA MD Unavailable Unavailable LYNDA, MAQBOOL RAFA MD Unavailable Unavailable LYNDA, MAQBOOL RAFA MD Unavailable Unavailable LYNDA, MAQBOOL RAFA MD Unavailable Unavailable LYNDA, MAQBOOL RAFA MD Unavailable Unavailable LYNDA, MAQBOOL RAFA MD Unavailable Unavailable LYNDA, MAQBOOL RAFA MD Unavailable Unavailable LYNDA, MAQBOOL RAFA MD Unavailable Unavailable LYNDA, MAQBOOL RAFA MD Unavailable Unavailable LYNDA, MAQBOOL RAFA MD Unavailable Unavailable LYNDA, MAQBOOL RAFA MD Unavailable Unavailable LYNDA, MAQBOOL RAFA MD Unavailable Unavailable LYNDA, MAQBOOL RAFA MD Unavailable Unavailable LYNDA, MAQBOOL RAFA MD Unavailable Unavailable LYNDA, MAQBOOL RAFA MD Unavailable Unavailable LYNDA, MAQBOOL RAFA MD Unavailable Unavailable Milton Hair MD Unavailable Unavailable Milton Hair MD Unavailable Unavailable Milton Hair MD Unavailable Unavailable Milton Hair MD Unavailable Unavailable Milton Hair MD Unavailable Unavailable Milton Hair MD Unavailable Unavailable Milton Hair MD Unavailable Unavailable Milton Hair MD Unavailable Unavailable Milton Hair MD Unavailable Unavailable Milton Hair MD Unavailable Unavailable Milton Hair MD Unavailable Unavailable Milton Hair MD Unavailable Unavailable Vaneenenaam, Milton Ferris MD Unavailable Unavailable Vaneenenaam, Milton Ferris MD Unavailable Unavailable Vaneenenaam, Milton Ferris MD Unavailable Unavailable Vaneenenaam, Milton Ferris MD Unavailable Unavailable Vaneenenaam, Milton Ferris MD Unavailable Unavailable Vaneenenaam, Milton Ferris MD Unavailable Unavailable Vaneenenaam, Milton Ferris MD Unavailable Unavailable Vaneenenaam, Milton Ferris MD Unavailable Unavailable Vaneenenaam, Milton Ferris MD Unavailable Unavailable Vaneenenaam, Milton Ferris MD Unavailable Unavailable Vaneenenaam, Milton Ferris MD Unavailable Unavailable Vaneenenaam, Milton Ferris MD Unavailable Unavailable Vaneenenaam, Milton Ferris MD Unavailable Unavailable Vaneenenaam, Milton Ferris MD Unavailable Unavailable Vaneenenaam, Milton Ferris MD Unavailable Unavailable Vaneenenaam, Milton Ferris MD Unavailable Unavailable Vaneenenaam, Milton Ferris MD Unavailable Unavailable Vaneenenaam, Milton Ferris MD Unavailable Unavailable Vaneenenaam, Milton Ferris MD Unavailable Unavailable Vaneenenaam, Milton Ferris MD Unavailable Unavailable Vaneenenaam, Milton Ferris MD Unavailable Unavailable Vaneenenaam, Milton Ferris MD Unavailable Unavailable Vaneenenaam, Milton Ferris MD Unavailable Unavailable Vaneenenaam, Milton Ferris MD Unavailable Unavailable Vaneenenaam, Milton Ferris MD Unavailable Unavailable Vaneenenaam, Milton Ferris MD Unavailable Unavailable Vaneenenaam, Milton Ferris MD Unavailable Unavailable Vaneenenaam, Milton Ferris MD Unavailable Unavailable Vaneenenaam, Milton Ferris MD Unavailable Unavailable Vaneenenaam, Milton Ferris MD Unavailable Unavailable Re-disclosure Warning The records that you are about to access may contain information from federally-assisted alcohol or drug abuse programs. If such information is present, then the following federally mandated warning applies: This information has been disclosed to you from records protected by federal confidentiality rules (42 CFR part 2). The federal rules prohibit you from making any further disclosure of this information unless further disclosure is expressly permitted by the written consent of the person to whom it pertains or as otherwise permitted by 42 CFR part 2. A general authorization for the release of medical or other information is NOT sufficient for this purpose. The Federal rules restrict any use of the information to criminally investigate or prosecute any alcohol or drug abuse patient.The records that you are about to access may contain highly sensitive health information, the redisclosure of which is protected by Article 27-F of the [place] Public Health law. If you continue you may have access to information: Regarding HIV / AIDS; Provided by facilities licensed or operated by the [facility] Office of Mental Health; or Provided by the [facility] Office for People With Developmental Disabilities. If such information is present, then the following [facility] mandated warning applies: This information has been disclosed to you from confidential records which are protected by state law. State law prohibits you from making any further disclosure of this information without the specific written consent of the person to whom it pertains, or as otherwise permitted by law. Any unauthorized further disclosure in violation of state law may result in a fine or shelter sentence or both. A general authorization for the release of medical or other information is NOT sufficient authorization for further disc losure. Allergies and Adverse Reactions Type Description Substance Reaction Status Data Source(s ) No Known Drug Allergies No Known Drug Allergies [facility] ENVIRONMENTAL Adhesive Adhesive blister [facility] Food allergy SHRIMP SHRIMP HIVES [facility] Family History Family Member Name Family Member Gender Family Member Status Date o f Status Description Data Source(s) Unknown Male Problem [facility] ([facility]) Unknown Male Problem [facility] ([facility] () Unknown Female Problem [facility] ([facility]) Unknown Female Problem [facility] ([facility]) Encounters Encounter Providers Location Date Indications Data Source(s ) Outpatient Attender: BIANKA PARDO NP Physical Therapy 06/15/2020 0 9:45:00 AM EST [facility] ([facility] Outpatient Attender: Milton Hair MDConsultant: TRANG CORBIN MD 05/24/2020 02:05:00 PM [facility] Outpatient Attender: RAFA CORBIN MD [facility] 05/05 09:45:00 AM EST [facility] ([facility]afa Corbin MD) Outpatient Attender: RAFA CORBIN MD [facility] 03/29 10:30:00 AM EST [facility] ([facility]afa Corbin [facility]) Outpatient Attender: Milton Hair MDConsultant: TRANG CORBIN MD 03/15/2020 01:19:45 PM EST - 05/19/2020 03:41:00 PM [facility] Patient discharged. OFFICE OUTPATIENT NEW 30 MINUTES Attender: Milton Doyle am, MD Physical Therapy 03/05/2020 10:30:00 AM EDT [facility] ([facility]) Outpatient Attender: BIANKA PARDO NP Physical Therapy 02/24/2020 1 0:30:00 AM EDT [facility] ([facility]) Outpatient Attender: RAFA CORBIN MD [facility] Building 02/17 11:15:00 AM EDT [facility] ([facility]afa Corbin MD) Outpatient Attender: RAFA CORBIN MDConsultant: RFAA Weiss MD 02/10/2020 10:35:00 AM EDT - 02/10/2020 11:35:00 AM EDT [facility] Outpatient Attender: RAFA CORBIN MDConsultant: RAFA Weiss MD 02/02/2020 04:07:00 PM EDT - 02/02/2020 05:07:00 PM EDT [facility] Outpatient Attender: RAFA CORBIN MD Medical Building 02/01 03:15:00 PM EDT [facility] ([facility]) Outpatient Attender: RAFA CORBIN MDConsultant: RAFA Weiss MD 12/03/2019 12:25:00 PM EDT - 12/03/2019 01:25:00 PM EDT [facility] Outpatient Attender: RAFA CORBIN MDConsultant: RAFA Weiss MD 11/04/2019 02:15:00 PM EDT - 11/04/2019 03:15:00 PM EDT [facility] Outpatient Attender: RAFA CORBIN MDConsultant: RAFA Weiss MD 09/08/2019 12:09:00 PM EDT - 09/08/2019 01:09:00 PM EDT [facility] Outpatient Attender: BIANKA PARDO NP Physical Therapy 08/26/2019 1 0:30:00 AM EDT [facility] ([facility]) Outpatient Attender: RAFA CORBIN MDConsultant: RAFA Weiss MD 08/25/2019 12:33:00 PM EDT - 08/25/2019 01:33:00 PM EDT [facility] Outpatient Attender: RAFA CORBIN MDConsultant: RAFA Weiss MD 07/31/2019 04:34:00 PM EDT - 07/31/2019 05:34:00 PM EDT [facility] Outpatient Attender: RAFA CORBIN MDConsultant: RAFA Weiss MD 07/02/2019 09:28:00 AM EST - 07/02/2019 10:28:00 AM [facility] Outpatient Attender: RAFA CORBIN MDConsultant: RAFA Weiss MD 07/01/2019 11:18:00 AM EST - 07/01/2019 12:18:00 PM [facility] Outpatient Attender: RAFA CORBIN MDConsultant: RAFA Weiss MD 06/09/2019 02:28:00 PM EST - 01/14/2020 01:17:00 PM EDT [facility] Patient discharged. Outpatient Attender: Gerard Mann NPAtt tanja: LOTTIE GLEASON MDConsultant: RAFA CORBIN MD 05/05/2019 10:26:00 AM EST - 05/05/2019 10:26:00 AM [facility] Outpatient Attender: RAFA CORBIN MDConsultant: RAFA Weiss MD 03/26/2019 10:54:11 AM [facility] - 06/09/2019 07:52:00 AM [facility] Patient discharged. Outpatient Attender: Gerard Mann NPConsultant: RAFA Weiss MD 01/16/2019 01:49:00 PM EDT - 03/21/2019 01:24:00 PM [facility] Patient discharged. Immunizations Vaccine Date Status Description Data Source(s) influenza, whole 01/05/2020 03:43:00 PM EDT completed [facility] (Rafa Corbin MD) INFLUENZA VIRUS VACCINE QUADRIVALENT 2019-21 (6 MOS AN D UP) 01/05/2020 12:00:00 AM EDT completed [facility] Medications Medication Brand Name Start Date Product Form Dose Route Admi nistrative Instructions Pharmacy Instructions Status Indications Reaction Description Data Source(s) Kenia Siddiqui 12/18/2019 12:00:00 AM EDT active [facility] ([facility]) Insurance Providers Payer name Policy type / Coverage type Policy ID Covered constitution party ID Covered constitution party's relationship to salazar Policy Salaazr Plan Information UMR [facility] [id number] SP [id number] MEDICARE [id number] SP [id number] UMR -O [id number] 18 [id number] MEDICARE -RECURRING [id number] 18 [id number] UMR -O/P [id number] 18 [id number] MEDICARE PART A -O/P [id number] 18 [id number] MEDICARE PART A -O/P , 18 , MEDICARE -RECURRING [id number] 18 [id number] UMR [id number] 18 [id number] MEDICARE PART A [facility] [id number] 18 [id number] Umr (pr) Medigap Part B [id number] Self [id number] [place] [id number] Self [id number] [place] (pr) Medigap Part B [id number] Self [id number] UMR U [id number] Self [id number] MEDICARE A [id number] Self [id number] [place] Medigap Part B [id number] Self [id number] [place] Medicare Primary [id number] Self [id number] Umr Commercial [id number] Self [id number] Umr (pr) Medigap Part B [id number] Self [id number] [place] Primary [id number] Self [id number] UMR [facility] [id number] SP [id number] Umr (pr) Medigap Part B [id number] Self [id number] [place] Primary [id number] Self [id number] [place] Medigap Part B [id number] Self [id number] [place] Medicare Primary [id number] Self [id number] Umr (pr) Medigap Part B [id number] Self [id number] [place] Primary [id number] Self [id number] MEDICARE [id number] SP [id number] MEDICARE [id number] SP [id number] [place] U [id number] Self [id number] MEDICARE A [id number] Self [id number] Umr (pr) Medigap Part B [id number] Self [id number] [place] Primary [id number] Self [id number] [place] PPO O [id number] S [id number] MEDICARE C [id number] S [id number] A [place] [id number] SP [id number] MEDICARE [id number] SP [id number] A MEDICARE PART A -O/P [id number] 18 [id number] [place]-O/P [id number] 18 [id number] [place]-O/P [id number] 18 [id number] [place] Primary [id number] Self [id number] [place] (pr) Medigap Part B [id number] Self [id number] [place] Primary [id number] Self [id number] [place] Primary [id number] Self [id number] [place] Commercial [id number] Self [id number] Medicare - NGS Medicare Primary [id number] Self [id number] [place] Primary [id number] Self [id number] [place] Primary [id number] Self [id number] [facility]OM[place] [id number] SP [id number] [place] [id number] SP [id number] [place] (pr) Medigap Part B Self [place] Primary Self [facility]-PH[facility] [id number] 18 [id number] MEDICARE -O/P [id number] 18 [id number] MEDICARE -O/P [id number] 18 [id number] MEDICARE PART A-CLINIC [id number] 18 [id number] [facility]-CLINIC [id number] 18 [id number] [place]OM[place]-RECURRING [id number] 18 [id number] Problems, Conditions, and Diagnoses Code Display Name Description Problem Type Effective Dates Data Source(s) R2689 Other abnormalities of gait and mobility Other abnormalities of gait and mobility Diagnosis 05/24/2020 02:05:00 PM [facility] E669 Obesity, unspecified Obesity, unspecified Diagnosis 03/15/2020 01:22:00 PM [facility] M1712 Unilateral primary osteoarthritis, left knee Unilateral primary osteoarthritis, left knee Diagnosis 03/15/2020 01:22:00 PM [facility] [id number] Effusion, left knee Effusion, left knee Diagnosis 1 10:35:00 AM EDT [facility] [id number] Other tear of medial meniscu s, current injury, left knee, initial encounter Other tear of medial meniscus, current i njury, left knee, initial encounter Diagnosis 02/10/2020 10:35:00 AM EDT [facility] 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, unspe cified Disorders of magnesium metabolism, unspecified Diagnosis 02/02/2020 04:07:00 PM EDT [facility] M109 Gout, unspecified Gout, unspecified Diagnosis 02/02/2020 04:07:00 PM EDT [facility] I509 Heart failure, unspecified Heart failure, unspecified Diagnosis 02/02/2020 04:07:00 PM EDT [facility] N390 Urinary tract infection, site not specif ied Urinary tract infection, site not specified Diagnosis 02/02/2020 04:07:00 PM EDT [facility] E039 Hypothyroidism, unspecified Hypothyroidism, unspecifie d Diagnosis 02/02/2020 04:07:00 PM EDT [facility] D649 Anemia, unspecified Anemia, unspecified Diagnosis 0 02/02/2020 04:07:00 PM EDT [facility] E785 Hyperlipidemia, unspecified Hyperlipidemia, unspecifie d Diagnosis 02/02/2020 04:07:00 PM EDT [facility] E119 Type 2 diabetes mellitus without complic ations Type 2 diabetes mellitus without complications Diagnosis 02/02/2020 04:07:00 PM EDT [facility] R351 Nocturia Nocturia Diagnosis 12/03/2019 12:25:00 PM ED T [facility] I2720 Pulmonary hypertension, unspecified Pulmonary hy pertension, unspecified Diagnosis 07/31/2019 04:34:00 PM EDT [facility] I517 Cardiomegaly Cardiomegaly Diagnosis 07/31/2019 04:34:00 P M EDT [facility] R918 Other nonspecific abnormal finding of nova ng field Other nonspecific abnormal finding of lung field Diagnosis 07/02/2019 09:28:00 AM [facility] R160 Hepatomegaly, not elsewhere classified H epatomegaly, not elsewhere classified Diagnosis 07/02/2019 09:28:00 AM [facility] E8342 Hypomagnesemia Hypomagnesemia Diagnosis 07/01/2019 11:18: 00 AM [facility] R99 Ill-defined and unknown cause of mortali ty Ill-defined and unknown cause of mortality Diagnosis 06/09/2019 02:28:00 PM [facility] [id number] Stiffness of left shoulder, not elsewher e classified Stiffness of left shoulder, not elsewhere classified Diagnosis 05/05/2019 10:26:00 AM ES T [facility] J36811 Pain in left shoulder Pain in left shoulder Diagnosis 05/05/2019 10:26:00 AM [facility] Surgeries/Procedures Procedure Description Date Indications Data Source(s) ECG ROUTINE ECG W/LEAST 12 LDS W/I&R 03/29/2020 12:00: 00 AM EST [facility] (Rafa Corbin MD) RADIOLOGIC EXAM KNEE COMPLETE 4/MORE VIEWS 03/05/2020 12:00:00 AM EDT [facility] ([facility] ) Diabetic Foot Exam 02/24/2020 12:00:00 AM EDT [facility] Results ID Date Data Source [id number] 06/15/2020 11:00:00 AM EST [facility] ([facility] ) Name Value Range Interpretation Code Description Data Radha rce(s) Supporting Document(s) Hemoglobin A1c/Hemoglobin.total in Blood 5.9 [facility] ) Glucose [Mass/volume] in Serum or Plasma 95 [facility] ([facility] ) ID Date Data Source [id number] 05/20/2020 12:36:00 PM EST [facility] (Rafa Corbin MD) Name Value Range Interpretation Code Description Data Radha rce(s) Supporting Document(s) Glucose [Mass/volume] in Capillary blood by Glucometer 81 mg/dL 83-110 Below low normal [facility] (Rafa Corbin MD) ID Date Data Source [id number] 04/15/2020 10:35:00 AM EST [facility] (Rafa Corbin MD) Name Value Range Interpretation Code Description Data Radha rce(s) Supporting Document(s) Laboratory test finding (navigational concept) 10.1 % 7 .1-11.8 Normal (applies to non-numeric results) [facility] (Rafa Corbin MD) Laboratory test finding (navigational concept) 56.0 % 5 5.8-66.1 Normal (applies to non-numeric results) [facility] (Rafa Corbin MD) Laboratory test finding (navigational concept) 4.1 % 2 .9-4.9 Normal (applies to non-numeric results) [facility] (Rafa Corbin MD) Laboratory test finding (navigational concept) 6.2 % 4 .7-7.2 Normal (applies to non-numeric results) [facility] (Rafa Corbin MD) Laboratory test finding (navigational concept) 20.0 % 1 1.1-18.8 Above high normal [facility] (Rafa Corbin MD) Laboratory test finding (navigational concept) 3.6 % 3 .2-6.5 Normal (applies to non-numeric results) [facility] (Rafa Corbin MD) Laboratory test finding (navigational concept) 4.65 GM/DL 3 .29-5.55 Normal (applies to non-numeric results) [facility] (Rafa Corbin MD) Laboratory test finding (navigational concept) 0.34 GM/DL 0 .17-0.41 Normal (applies to non-numeric results) [facility] (Rafa Corbin MD) Laboratory test finding (navigational concept) 0.84 GM/DL 0 .42-0.99 Normal (applies to non-numeric results) [facility] (Rafa Corbin MD) Laboratory test finding (navigational concept) 0.51 GM/DL 0 .28-0.60 Normal (applies to non-numeric results) [facility] (Rafa Corbin MD) Laboratory test finding (navigational concept) 0.30 GM/DL 0 .19-0.55 Normal (applies to non-numeric results) [facility] (Rafa Corbin MD) Laboratory test finding (navigational concept) 1.66 GM/DL 0 .65-1.58 Above high normal [facility] (Rafa Corbin MD) Laboratory test finding (navigational concept) 8.3 GM/DL 6 .4-8.2 Above high normal [facility] (Rafa Corbin MD) Laboratory test finding (navigational concept) Laboratory test r esult Normal (applies to non-numeric results) [facility] (Rafa Corbin MD) M-SPIKE NOTED IN LATE GAMMA REGION. CONCENTRATION = 1.16 GM/DL Laboratory test finding (navigational concept) Laboratory test r esult Normal (applies to non-numeric results) [facility] (Rafa Corbin MD) REV'D BY O ADJAPONG ID Date Data Source [id number] 04/15/2020 10:35:00 AM EST [facility] (Rafa Corbin MD) Name Value Range Interpretation Code Description Data Radha rce(s) Supporting Document(s) Laboratory test finding (navigational concept) Laboratory test r esult Above high normal [facility] (Rafa Corbin MD) Laboratory test finding (navigational concept) Laboratory test r esult Above high normal [facility] (Rafa Corbin MD) Laboratory test finding (navigational concept) Laboratory test r esult Normal (applies to non-numeric results) [facility] (Rafa Corbin MD) MONOCLONAL IGG KAPPA Laboratory test finding (navigational concept) Laboratory test r esult Normal (applies to non-numeric results) [facility] (Rafa Corbin MD) REV'D BY O ADJAPONG ID Date Data Source [id number] 04/15/2020 10:35:00 AM EST [facility] (Rafa Corbin MD) Name Value Range Interpretation Code Description Data Radha rce(s) Supporting Document(s) Laboratory test finding (navigational concept) 93 mg/dL 7 0-100 Normal (applies to non-numeric results) [facility] (Rafa Corbin MD) Laboratory test finding (navigational concept) 56 mg/dL 7-18 Above high normal [facility] (Rafa Corbin MD) Laboratory test finding (navigational concept) 2.44 mg/dL 0 .70-1.30 Above high normal [facility] (Rafa Corbin MD) Laboratory test finding (navigational concept) 27.8 Below low normal [facility] (Rafa Corbin MD) <content>Units are mL/min/1.73 m2</content>
<content></content>
<content>Chronic Kidney Disease Staging per NKF:</content>
<content></content>
<content>Stage I & II GFR >=60 Normal to Mildly Decreased</content>
<content>Stage III GFR 30- 59 Moderately Decreased</content>
<content>Stage IV GFR 15-29 Severely Decreased</content>
<content>Stage V GFR <15 Very Little GFR Left</content>
<content>ESRD GFR <15 on RAG GRADER</content>
<content></content> Laboratory test finding (navigational concept) 106 meq/L 9 8-107 Normal (applies to non-numeric results) [facility] (Rafa Corbin MD) Laboratory test finding (navigational concept) 3.7 meq/L 3 .5-5.1 Normal (applies to non-numeric results) [facility] (Rafa Corbin MD) Laboratory test finding (navigational concept) 140 meq/L 1 36-145 Normal (applies to non-numeric results) [facility] (Rafa Corbin MD) Laboratory test finding (navigational concept) 9.5 mg/dL 8 .8-10.2 Normal (applies to non-numeric results) [facility] (Rafa Corbin MD) Laboratory test finding (navigational concept) 29 meq/L 2 1-32 Normal (applies to non-numeric results) [facility] (Rafa Corbin MD) Laboratory test finding (navigational concept) 5 meq/L 8-16 Below low normal [facility] (Rafa Corbin MD) Laboratory test finding (navigational concept) 23 U/L 7 -37 Normal (applies to non-numeric results) [facility] (Rafa Corbin MD) Laboratory test finding (navigational concept) 32 U/L 1 2-78 Normal (applies to non-numeric results) [facility] (Rafa Corbin MD) Laboratory test finding (navigational concept) 52 U/L 4 5-117 Normal (applies to non-numeric results) [facility] (Rafa Corbin MD) Laboratory test finding (navigational concept) 8.3 GM/DL 6 .4-8.2 Above high normal [facility] (Rafa Corbin MD) Laboratory test finding (navigational concept) 0.5 mg/dL 0 .2-1.0 Normal (applies to non-numeric results) [facility] (Rafa Corbin MD) Laboratory test finding (navigational concept) 4.4 GM/DL 3 .2-5.2 Normal (applies to non-numeric results) [facility] (Rafa Corbin MD) Laboratory test finding (navigational concept) 1.1 Normal (applies to non- numeric results) [facility] (Rafa Corbin MD) ID Date Data Source [id number] 04/15/2020 10:35:00 AM EST [facility] (Rafa Corbin MD) Name Value Range Interpretation Code Description Data Radha rce(s) Supporting Document(s) Laboratory test finding (navigational concept) 12.66 0 .26-1.65 Above high normal [facility] (Rafa Corbin MD) Performed at: - [facility] [address] [id number] [place]: Tahmina Nair MD, Phone: [phone] Laboratory test finding (navigational concept) 19.9 mg/L 5 .7-26.3 Normal (applies to non-numeric results) [facility] (Rafa Corbin MD) Laboratory test finding (navigational concept) 251.9 mg/L 3 .3-19.4 Above high normal [facility] (Rafa Corbin MD) ID Date Data Source [id number] 04/15/2020 10:35:00 AM EST [facility] (Rafa Corbin MD) Name Value Range Interpretation Code Description Data Radha rce(s) Supporting Document(s) Laboratory test finding (navigational concept) 3.67 10 4 .30-6.10 Below low normal [facility] (Rafa Corbin MD) Laboratory test finding (navigational concept) 5.9 10 4 .0-10.0 Normal (applies to non-numeric results) [facility] (Rafa Corbin MD) Laboratory test finding (navigational concept) 35.8 % 4 2.0-52.0 Below low normal [facility] (Rafa Corbin MD) Laboratory test finding (navigational concept) 11.2 g/dL 1 3.5-17.5 Below low normal [facility] (Rafa Corbin MD) Laboratory test finding (navigational concept) 97.5 fl 8 0.0-96.0 Above high normal [facility] (Rafa Corbin MD) Laboratory test finding (navigational concept) 30.5 pg 2 7.0-33.0 Normal (applies to non-numeric results) [facility] (Rafa Corbin MD) Laboratory test finding (navigational concept) 31.3 g/dL 3 2.0-36.5 Below low normal [facility] (Rafa Corbin MD) Laboratory test finding (navigational concept) 16.8 % 1 1.5-14.5 Above high normal [facility] (Rafa Corbin MD) Laboratory test finding (navigational concept) 56.3 % 3 6.0-66.0 Normal (applies to non-numeric results) [facility] (Rafa Corbin MD) Laboratory test finding (navigational concept) 200 10 1 50-450 Normal (applies to non-numeric results) [facility] (Rafa Corbin MD) Laboratory test finding (navigational concept) 14.6 % 0.0-3.0 Above high normal [facility] (Rafa Corbin MD) Laboratory test finding (navigational concept) 18.5 % 2 4.0-44.0 Below low normal [facility] (Rafa Corbin MD) Laboratory test finding (navigational concept) 9.3 % 0.0-5.0 Above high normal [facility] (Rafa Corbin MD) Laboratory test finding (navigational concept) 1.0 % 0 .0-1.0 Normal (applies to non-numeric results) [facility] (Rafa Corbin MD) Laboratory test finding (navigational concept) 0.3 % 0 -3.0 Normal (applies to non-numeric results) [facility] (Rafa Corbin MD) Laboratory test finding (navigational concept) 1.1 10 1.5-5.0 Below low normal [facility] (Rafa Corbin MD) Laboratory test finding (navigational concept) 0.0 % 0 -0 Normal (applies to non- numeric results) [facility] (Rafa Corbin MD) Laboratory test finding (navigational concept) 3.3 10 1 .5-8.5 Normal (applies to non-numeric results) [facility] (Rafa Corbin MD) Laboratory test finding (navigational concept) 0.1 10 0 .0-0.2 Normal (applies to non-numeric results) [facility] (Rafa Corbin MD) Laboratory test finding (navigational concept) 0.6 10 0 .0-0.8 Normal (applies to non-numeric results) [facility] (Rafa Corbin MD) Laboratory test finding (navigational concept) 0.9 10 0.0-0.5 Above high normal [facility] (Rafa Corbin MD) ID Date Data Source [id number] 04/12/2020 03:25:00 PM EST [facility] (Rafa Corbin MD) Name Value Range Interpretation Code Description Data Radha rce(s) Supporting Document(s) Laboratory test finding (navigational concept) Laboratory test result [facility] (Rafa Corbin MD) Test: COVID-19 Nasal/Naspharynx Result: NOT DETECTED Reference Units: Not detected Note: Please consider re-collection of a new specimen, if clinically indicated. Note: The COVID-19 assay is under Emergency Use Authorization(EUA) by the U.S. Food and Drug Administration. [facility] is designated as a high complexity laboratory by the Clinical Laboratory Improvement Amendments of 1988(CLIA) and is qualified to perform this test. ASSAY INFORMATION: Real Time RT-PCR Patient samples for this assay have been pooled. All positive samples have been individually repeated for confirmation. The pooling protocol using the romelia SARS-CoV-2 assay has been added to [id number] on February 19, 2020. ID Date Data Source [id number] 04/12/2020 12:00:00 AM EST [facility] Name Value Range Interpretation Code Description Data Radha rce(s) Supporting Document(s) 2019-nCoV RNA XXX ARTIE+probe-Imp [facility] This lab was ordered by [facility] and reported by [facility]. ID Date Data Source [id number] 02/24/2020 10:36:00 AM EDT [facility] ([facility] ) Name Value Range Interpretation Code Description Data Radha rce(s) Supporting Document(s) Hemoglobin A1c/Hemoglobin.total in Blood 6.7 [facility] ([facility]) Glucose [Mass/volume] in Serum or Plasma 131 [facility] ([facility]) ID Date Data Source [id number] 02/13/2020 02:00:00 PM EDT [facility] [address] [place] [address] PHONE: [phone] FAX: [phone] Name .................. : BRAD JOSH Koch Acct Number.................. : [id number] ROOM. ................. : MR Number ................... : [id number] Stay type ............. : O/P Discharge Date......... ... : 02/10/20 Admit Date ......... : 02/10/20 Admit Phys .................... : LYNDA JULIA Date of ....... : 1945 Family Phys ................... : LYNDA JULIA Phone .................. : [phone] Age ................................ : 74 Film# .................. .:[id number] Sex ................................. : M Unsigned transcriptions are preliminary reports and do not represent a medical or legal document MRI LOWER EXT ANY JT W/O CONT [id number] COMPLETE:02/10/20 14:54 [facility] [id number] (REASON FOR PROCESS: PAIN, MENISCUS TEAR MRI OF THE LEFT KNEE WITHOUT CONTRAST: FINDINGS: Images were slightly degraded by motion. Moderate to severe osteoarthritic changes are noted. There is marked chondral degeneration noted in the medial femoral condyle and medial tibial plateau. Mild chondral thinning is seen in the articular surfaces of the femoral patellar articulation. The cartilaginous structures are otherwise unremarkable. There is a large joint effusion. The anterior and posterior cruciate ligaments, medial and lateral collateral ligaments and the quadriceps and patellar tendons are intact. There is a complex tear noted in the posterior horn of the medial meniscus with questionable bucket handle component. Additional meniscal tear is not seen. IMPRESSION: Osteoarthritic changes. Chondral degeneration medial fem oral condyle and medial tibial plateau. Complex tear posterior horn of the medial meniscus with questionable bucket handle component. Large joint effusion. Mild chondral degeneration noted at the articular surfaces of the femoral patellar articulation. Electronically Reviewed and Signed By Pippa Padilla MD , 02/13/20 14:00, [facility] Transcribe Initials: TRE , Transcribe Date: 02/11/20 18:21, Dictation Date: Copy for: LYNDA CRAIG via modem Copy for: [address] [facility] REC Page 1 of 1 Name Value Range Interpretation Code Description Data Radha rce(s) Supporting Document(s) ID Date Data Source [id number] 02/07/2020 04:43:00 PM EDT [facility] Name Value Range Interpretation Code Description Data Radha rce(s) Supporting Document(s) CULTURE URINE [facility] spital _CULTURE URINE_$$[id number]$$[id number]$$044625$$028019$$892097$$639593$$276822$$776883$$138704$$ 401908$$231936$$378820$$543233$$955297$$243209$$443664$$015035$$910688$$092816$$ 051305$$980807$$790903$$668267$$047138$$439514$$403635$$178409 -- Continued on next page --Patient: BRAD Koch Order: [id number] Page 2Culture: CULTURE URINE Status: Final ==== -- Continued on next page --Patient: BRAD Koch Order: [id number] Page 2Culture: CULTURE URINE Status: Prelim =====$$[id number]$$[id number] DATE/TIME: 02/07/2020 15:06Culture: CULTURE URINE Status: FinalUrine Culture,Comprehensive: P1No growth in 36 - 48 hours. Previous result entered on 02/06/2020 01:48 ET No growth after 18-24 hours.P1 Test performed by: [facility] #: [id number] [address] [place] [address] [id number] [facility] [address]Medical Director : Korey Mcmahon MD NPI #:Lab Maria Teresa jc : 02/06/20.0736.XMT.SENT REF 02/07/20.1643.XMT.SENT REF ID Date Data Source [id number] 02/02/2020 05:26:00 PM EDT [facility] Name Value Range Interpretation Code Description Data Radha rce(s) Supporting Document(s) BNP 636 PG/ML 0 - 125 H [facility] al ID Date Data Source [id number] 02/02/2020 05:26:00 PM EDT [facility] Name Value Range Interpretation Code Description Data Radha rce(s) Supporting Document(s) Cobalamin (Vitamin B12) [Mass/volume] in Serum or Plasma 481 PG/ML 232 - 1245 [facility] ID Date Data Source [id number] 02/02/2020 05:26:00 PM EDT [facility] Name Value Range Interpretation Code Description Data Radha rce(s) Supporting Document(s) Thyrotropin [Units/volume] in Serum or Plasma by Detec tion limit <= 0.05 mIU/L 4.55 uIU/mL 0.47 - 5.01 [facility] ID Date Data Source [id number] 02/02/2020 05:16:00 PM EDT [facility] Name Value Range Interpretation Code Description Data Radha rce(s) Supporting Document(s) CVE PANEL [facility] LIPID PANEL Cholesterol [Mass/volume] in Serum or Plasma 104 MG/DL 131 - 200 L [facility] Deprecated Triglyceride [Mass/volume] in Serum or Plasma 275 MG/DL 3 5 - 160 H [facility] HDL 31 MG/DL 29 - 86 [facility] Cholesterol in LDL [Mass/volume] in Serum or Plasma by Direc t assay 44 mg/dL 65 - 175 L [facility] Cholesterol.total/Cholesterol in HDL [Mass Ratio] in Serum o r Plasma 3.4 3.4 - 4.9 L [facility] LDL/HDL 1.42 1.00 - 3.55 [facility] ital CVE RISK CHOL/HDL LDL/HDLMEN: 1/2 AVERAGE 3.43 1.00 AVERAGE 4.97 3.55 2X AVERAGE 9.55 6.25 3X AVERAGE 23.99 7.99WOMEN: 1/2 AVERAGE 3.27 1.47 AVERAGE 4.44 3.22 2X AVERAGE 7.05 5.03 3X AVERAGE 11.04 6.14 ID Date Data Source [id number] 02/02/2020 05:16:00 PM EDT [facility] Name Value Range Interpretation Code Description Data Radha rce(s) Supporting Document(s) COMPREHENSIVE METABOLIC PANEL [facility] COMPREHENSIVE METABOLIC PANEL Sodium [Moles/volume] in Serum or Plasma 142 mEq/L 134 - 153 [facility] Potassium [Moles/volume] in Serum or Plasma 3.8 mEq/L 3.6 - 5.0 [facility] Chloride [Moles/volume] in Serum or Plasma 102 mEq/L 98 - 107 [facility] Carbon dioxide, total [Moles/volume] in Serum or Plasma 28 MEQ/L 22 - 30 [facility] Glucose [Mass/volume] in Serum or Plasma 120 MG/DL 65 - 110 H [facility] BUN 55 MG/DL 7 - 21 H [facility] Creatinine [Mass/volume] in Serum or Plasma 2.4 MG/DL 0.7 - 1.5 H [facility] BUN/CREAT 23 8 - 27 [facility] Protein [Mass/volume] in Serum or Plasma 8.2 G/DL 6.3 - 8.2 [facility] Albumin [Mass/volume] in Serum or Plasma 4.7 G/DL 3.9 - 5.0 [facility] Globulin [Mass/volume] in Serum by calculation 3.5 GM/DL 2.4 - 3.2 H [facility] A/G RATIO 1.3 0.8 - 2.0 [facility] Calcium [Mass/volume] in Serum or Plasma 9.8 MG/DL 8.4 - 10.2 [facility] Bilirubin.total [Mass/volume] in Serum or Plasma 0.8 MG/DL 0.2 - 1.3 [facility] Alkaline phosphatase [Enzymatic activity/volume] in Serum or Plasma 47 U/L 38 - 126 [facility] Aspartate aminotransferase [Enzymatic activity/volume] in Serum or Plasma 28 U/L 5 - 40 [facility] Alanine aminotransferase [Enzymatic activity/volume] in Seru m or Plasma 20 U/L 7 - 56 [facility] Anion gap 3 in Serum or Plasma 12.0 mmol/L 8.0 - 16.0 [facility] AGE 74 yrs [facility] NON-AA GFR 28 mL/min [facility]anny AFR AMER GFR 34 mL/min [facility] Male GFR In terprentation 20-49 yrs >60 mL/min Normal 50-59 yrs >56 mL/min Normal 60-69 yrs >49 mL/min Normal 70-79yrs >42 mL/min Normal 80 and above >35 mL/min Normal Female GFR Interpretation 20-39 yrs >60 mL/min Normal 40-49 yrs >58 mL/min Normal 50-59 yrs >51 mL/min Normal 60-69 yrs >45 mL/min Normal 70-79 yrs >39 mL/min Normal 80 and above >32 mL/min Normal ID Date Data Source [id number] 02/02/2020 05:16:00 PM EDT [facility] Name Value Range Interpretation Code Description Data Radha rce(s) Supporting Document(s) Urate [Mass/volume] in Serum or Plasma 8.0 MG/DL 2.5 - 8.5 [facility] ID Date Data Source [id number] 02/02/2020 05:16:00 PM EDT [facility] Name Value Range Interpretation Code Description Data Radha rce(s) Supporting Document(s) Magnesium [Mass/volume] in Serum or Plasma 2.3 MG/DL 1.7 - 2.2 H [facility] ID Date Data Source [id number] 02/02/2020 05:16:00 PM EDT [facility] Name Value Range Interpretation Code Description Data Radha rce(s) Supporting Document(s) Iron [Mass/volume] in Serum or Plasma 61 UG/DL 42 - 135 [facility] ID Date Data Source [id number] 02/02/2020 04:52:00 PM EDT [facility] Name Value Range Interpretation Code Description Data Radha rce(s) Supporting Document(s) Hemoglobin A1c/Hemoglobin.total in Blood 6.5 % 4.4 - 6.1 H [facility] {A1]{HB] ID Date Data Source [id number] 02/02/2020 04:50:00 PM EDT [facility] Name Value Range Interpretation Code Description Data [facility] rce(s) Supporting Document(s) Fibrin D-dimer FEU [Mass/volume] in Platelet poor plasma 0.32 ug /mL 0.27 - 0.50 [facility] ID Date Data Source [id number] 02/02/2020 04:40:00 PM EDT [facility] Name Value Range Interpretation Code Description Data Radha rce(s) Supporting Document(s) [facility]IS [facility] COL[facility] yellow NORMAL: Yellow [facility] CLARITY clear NORMAL: Clear [facility] Specific gravity of Urine by Test strip 1.010 1.001 - 1.030 [facility] pH 6 5 - 9 [facility] Glucose [Mass/volume] in Urine by Test strip NORM NORMAL: Negat [facility] Bilirubin.total [Presence] in Urine by Test strip NEG NORMAL: Negative [facility] Ketones [Presence] in Urine by Test strip NEG NORMAL: Negative [facility] Protein [Mass/volume] in Urine by Test strip 15 NORMAL: Negat [facility] Nitrite [Presence] in Urine by Test strip NEG NORMAL: Negative [facility] BLOOD NEG NORMAL: Negative [facility] Leukocyte esterase [Presence] in Urine by Test strip NEG CARMELA L: Negative [facility] Urobilinogen [Mass/volume] in Urine by Test strip NOR less natasha n 1.0 mg/dL [facility] MICROSCOPIC See Below [facility] WBC 0 - 1 NORMAL: NONE SEEN [facility] Mucus [Presence] in Urine sediment by Light microscopy Trace NORMAL: NONE SEEN [facility] ID Date Data Source [id number] 02/02/2020 04:39:00 PM EDT [facility] Name Value Range Interpretation Code Description Data [facility](s) Supporting Document(s) CBC W/AUTOMATED DIFF [facility] COMPLETE BLOOD COUNT Leukocytes [#/volume] in Blood by Automated count 7.2 10^3/uL 4.2 - 1 1.0 [facility] Erythrocytes [#/volume] in Blood by Automated count 3.45 10^6/uL 4. 50 - 6.30 L [facility] Hemoglobin [Mass/volume] in Blood 10.7 g/dL 14.0 - 16.0 L [facility] Hematocrit [Volume Fraction] of Blood by Automated count 32.7 % 4 1.0 - 51.0 L [facility] Erythrocyte mean corpuscular volume [Entitic volume] by Auto mated count 94.8 fL 80.0 - 94.0 H [facility] Erythrocyte mean corpuscular hemoglobin [Entitic mass] by Automated count 31.0 pg 27.0 - 34.0 [facility] Erythrocyte mean corpuscular hemoglobin concentration [Mass/volume] by Automated count 32.7 g/dL 31.0 - 36.0 [facility] Erythrocyte distribution width [Ratio] by Automated count 16.2 % 11.5 - 14.8 H [facility] Platelets [#/volume] in Blood by Automated count 194 10^3/uL 150 - 45 0 [facility] Platelet mean volume [Entitic volume] in Blood by Automated count 10.0 fL 7.4 - 10.4 [facility] Neutrophils/100 leukocytes in Blood by Automated count 67.5 % 37. 0 - 80.0 [facility] Lymphocytes/100 leukocytes in Blood by Manual count 13.9 % 25.0 - 40.0 L [facility] Monocytes/100 leukocytes in Blood by Automated count 7.9 % 3.0 - 8.0 [facility] Eosinophils/100 leukocytes in Blood by Automated count 9.7 % 0.0 - 7.0 H [facility] Basophils/100 leukocytes in Blood by Automated count 0.6 % 0.0 - 2.0 [facility] %IG 0.4 % 0.0 - 0.0 [facility] %NRBC 0.0 % 0.0 - 0.0 [facility] Neutrophils [#/volume] in Blood by Automated count 4.87 10^3/uL 2.00 - 6.90 [facility] Lymphocytes [#/volume] in Blood by Automated count 1.00 10^3/uL 0.60 - 3.40 [facility] Monocytes [#/volume] in Blood by Automated count 0.57 10^3/uL 0.00 - 0.90 [facility] Eosinophils [#/volume] in Blood by Automated count 0.70 10^3/uL 0.00 - 0.70 [facility] Basophils [#/volume] in Blood by Automated count 0.04 10^3/uL 0.00 - 0.20 [facility] #IG 0.03 10^3/uL 0.00 - 0.10 [facility] #NRBC 0.00 10^3/uL 0.00 - 0.00 [facility] MANUAL DIFF NOT INDICATED [facility] RBC MORPH NOT INDICATED [facility] spital ID Date Data Source [id number] 12/03/2019 01:35:00 PM EDT [facility] Name Value Range Interpretation Code Description Data Radha rce(s) Supporting Document(s) CVE PANEL [facility] LIPID PANEL Cholesterol [Mass/volume] in Serum or Plasma 92 MG/DL 131 - 200 L [facility] Deprecated Triglyceride [Mass/volume] in Serum or Plasma 105 MG/DL 3 5 - 160 [facility] HDL 32 MG/DL 29 - 86 [facility] Cholesterol in LDL [Mass/volume] in Serum or Plasma by Direc t assay 42 mg/dL 65 - 175 L [facility] Cholesterol.total/Cholesterol in HDL [Mass Ratio] in Serum o r Plasma 2.9 3.4 - 4.9 L [facility] LDL/HDL 1.31 1.00 - 3.55 [facility] CVE RISK CHOL/HDL LDL/HDLMEN: 1/2 AVERAGE 3.43 1.00 AVERAGE 4.97 3.55 2X AVERAGE 9.55 6.25 3X AVERAGE 23.99 7.99WOMEN: 1/2 AVERAGE 3.27 1.47 AVERAGE 4.44 3.22 2X AVERAGE 7.05 5.03 3X AVERAGE 11.04 6.14 ID Date Data Source [id number] 12/03/2019 01:22:00 PM EDT [facility] Name Value Range Interpretation Code Description Data Radha rce(s) Supporting Document(s) Prostate specific Ag [Mass/volume] in Serum or Plasma 0.30 ng/mL 0.00 - 4.00 [facility] \\BLDo\\PSA INTERPRETA TION\\BLDx\\ The PSA assay should not be used alone for a screening test or diagnosis for presence or absence of malignant disease. Predictions of disease recurrence should not be based solely on values obtained from serial patient serum values. The PSA result was determined by "[employer]", on the [employer] 6000. Values obtained with different assay methods or kits cannot be used interchangeably. ID Date Data Source [id number] 12/03/2019 12:47:00 PM EDT [facility] Name Value Range Interpretation Code Description Data Radha rce(s) Supporting Document(s) Hemoglobin A1c/Hemoglobin.total in Blood 6.5 % 4.4 - 6.1 H [facility] {A1]{HB] ID Date Data Source [id number] 11/04/2019 07:51:00 PM EDT [facility] Name Value Range Interpretation Code Description Data Radha rce(s) Supporting Document(s) CBC W/AUTOMATED DIFF [facility] COMPLETE BLOOD COUNT Leukocytes [#/volume] in Blood by Automated count 5.4 10^3/uL 4.2 - 1 1.0 [facility] Erythrocytes [#/volume] in Blood by Automated count 3.52 10^6/uL 4. 50 - 6.30 L [facility] Hemoglobin [Mass/volume] in Blood 10.5 g/dL 14.0 - 16.0 L [facility] Hematocrit [Volume Fraction] of Blood by Automated count 32.8 % 4 1.0 - 51.0 L [facility] Erythrocyte mean corpuscular volume [Entitic volume] by Auto mated count 93.2 fL 80.0 - 94.0 [facility] Erythrocyte mean corpuscular hemoglobin [Entitic mass] by Automated count 29.8 pg 27.0 - 34.0 [facility] Erythrocyte mean corpuscular hemoglobin concentration [Mass/volume] by Automated count 32.0 g/dL 31.0 - 36.0 [facility] Erythrocyte distribution width [Ratio] by Automated count 20.1 % 11.5 - 14.8 H [facility] Platelets [#/volume] in Blood by Automated count 205 10^3/uL 150 - 45 0 [facility] Platelet mean volume [Entitic volume] in Blood by Automated count 10.5 fL 7.4 - 10.4 H [facility] Neutrophils/100 leukocytes in Blood by Automated count 63.3 % 37. 0 - 80.0 [facility] Lymphocytes/100 leukocytes in Blood by Manual count 14.8 % 25.0 - 40.0 L [facility] Monocytes/100 leukocytes in Blood by Automated count 7.4 % 3.0 - 8.0 [facility] Eosinophils/100 leukocytes in Blood by Automated count 13.0 % 0.0 - 7.0 H [facility] Basophils/100 leukocytes in Blood by Automated count 1.1 % 0.0 - 2.0 [facility] %IG 0.4 % 0.0 - 0.0 H [facility] %NRBC 0.0 % 0.0 - 0.0 [facility] Neutrophils [#/volume] in Blood by Automated count 3.42 10^3/uL 2.00 - 6.90 [facility] Lymphocytes [#/volume] in Blood by Automated count 0.80 10^3/uL 0.60 - 3.40 [facility] Monocytes [#/volume] in Blood by Automated count 0.40 10^3/uL 0.00 - 0.90 [facility] Eosinophils [#/volume] in Blood by Automated count 0.70 10^3/uL 0.00 - 0.70 [facility] Basophils [#/volume] in Blood by Automated count 0.06 10^3/uL 0.00 - 0.20 [facility] #IG 0.02 10^3/uL 0.00 - 0.10 [facility] #NRBC 0.00 10^3/uL 0.00 - 0.00 [facility] ospital MANUAL DIFF NOT INDICATED [facility] RBC MORPH SEE BELOW [facility] Anisocytosis [Presence] in Blood by Light microscopy 2+ CARMELA L: NONE SEEN A [facility] Microcytes [Presence] in Blood by Light microscopy 1+ NORMAL: NONE SEEN A [facility] { SICKLE CELL (NORMAL: NONE SEEN ) Platelet adequacy [Presence] in Blood by Light microscopy NORMAL NORMAL: NORMAL [facility] COMMENT: ID Date Data Source [id number] 11/04/2019 07:37:00 PM EDT [facility] Name Value Range Interpretation Code Description Data Radha rce(s) Supporting Document(s) COMPREHENSIVE METABOLIC PANEL [facility] COMPREHENSIVE METABOLIC PANEL Sodium [Moles/volume] in Serum or Plasma 142 mEq/L 134 - 153 [facility] Potassium [Moles/volume] in Serum or Plasma 3.6 mEq/L 3.6 - 5.0 [facility] Chloride [Moles/volume] in Serum or Plasma 103 mEq/L 98 - 107 [facility] Carbon dioxide, total [Moles/volume] in Serum or Plasma 25 MEQ/L 22 - 30 [facility] Glucose [Mass/volume] in Serum or Plasma 118 MG/DL 65 - 110 H [facility] BUN 49 MG/DL 7 - 21 H [facility] Creatinine [Mass/volume] in Serum or Plasma 2.0 MG/DL 0.7 - 1.5 H [facility] BUN/CREAT 25 8 - 27 [facility] Protein [Mass/volume] in Serum or Plasma 8.0 G/DL 6.3 - 8.2 [facility] Albumin [Mass/volume] in Serum or Plasma 4.9 G/DL 3.9 - 5.0 [facility] Globulin [Mass/volume] in Serum by calculation 3.1 GM/DL 2.4 - 3.2 [facility] A/G RATIO 1.6 0.8 - 2.0 [facility] Calcium [Mass/volume] in Serum or Plasma 10.6 MG/DL 8.4 - 10.2 H [facility] Bilirubin.total [Mass/volume] in Serum or Plasma <0.7 MG/DL 0.2 - 1.3 [facility] Alkaline phosphatase [Enzymatic activity/volume] in Serum or Plasma 53 U/L 38 - 126 [facility] Aspartate aminotransferase [Enzymatic activity/volume] in Serum or Plasma 26 U/L 5 - 40 [facility] Alanine aminotransferase [Enzymatic activity/volume] in Seru m or Plasma 19 U/L 7 - 56 [facility] Anion gap 3 in Serum or Plasma 14.0 mmol/L 8.0 - 16.0 [facility] AGE 74 yrs [facility] NON-AA GFR 35 mL/min [facility] AFR AMER GFR 42 mL/min [facility] Male GFR In terprentation 20-49 yrs >60 mL/min Normal 50-59 yrs >56 mL/min Normal 60-69 yrs >49 mL/min Normal 70-79yrs >42 mL/min Normal 80 and above >35 mL/min Normal Female GFR Interpretation 20-39 yrs >60 mL/min Normal 40-49 yrs >58 mL/min Normal 50-59 yrs >51 mL/min Normal 60-69 yrs >45 mL/min Normal 70-79 yrs >39 mL/min Normal 80 and above >32 mL/min Normal ID Date Data Source [id number] 11/04/2019 07:37:00 PM EDT [facility] Name Value Range Interpretation Code Description Data Radha rce(s) Supporting Document(s) C reactive protein [Mass/volume] in Serum or Plasma by High sensitivity method 6.62 MG/L 1.00 - 3.00 H [facility] CDC/S HS-CRP CUT-OFF: RELATIVE RISK: <1.0 mg/L Low 1.0 - 3.0 mg/L Average >3.0 mg/L High Optimally, the average of HS-CRP results repeated two weeks apart should be used for risk assessment. ID Date Data Source [id number] 11/04/2019 07:34:00 PM EDT [facility] Name Value Range Interpretation Code Description Data Radha rce(s) Supporting Document(s) Iron [Mass/volume] in Serum or Plasma 59 UG/DL 42 - 135 [facility] ID Date Data Source [id number] 09/08/2019 01:57:00 PM EDT [facility] Name Value Range Interpretation Code Description Data Radha rce(s) Supporting Document(s) COMPREHENSIVE METABOLIC PANEL [facility] COMPREHENSIVE METABOLIC PANEL Sodium [Moles/volume] in Serum or Plasma 144 mEq/L 134 - 153 [facility] Potassium [Moles/volume] in Serum or Plasma 3.9 mEq/L 3.6 - 5.0 [facility] Chloride [Moles/volume] in Serum or Plasma 103 mEq/L 98 - 107 [facility] Carbon dioxide, total [Moles/volume] in Serum or Plasma 28 MEQ/L 22 - 30 [facility] Glucose [Mass/volume] in Serum or Plasma 103 MG/DL 65 - 110 [facility] BUN 46 MG/DL 7 - 21 H [facility] Creatinine [Mass/volume] in Serum or Plasma 2.2 MG/DL 0.7 - 1.5 H [facility] BUN/CREAT 21 8 - 27 [facility] Protein [Mass/volume] in Serum or Plasma 7.8 G/DL 6.3 - 8.2 [facility] Albumin [Mass/volume] in Serum or Plasma 4.6 G/DL 3.9 - 5.0 [facility] Globulin [Mass/volume] in Serum by calculation 3.2 GM/DL 2.4 - 3.2 [facility] A/G RATIO 1.4 0.8 - 2.0 [facility] Calcium [Mass/volume] in Serum or Plasma 9.4 MG/DL 8.4 - 10.2 [facility] Bilirubin.total [Mass/volume] in Serum or Plasma <0.7 MG/DL 0.2 - 1.3 [facility] Alkaline phosphatase [Enzymatic activity/volume] in Serum or Plasma 53 U/L 38 - 126 [facility] Aspartate aminotransferase [Enzymatic activity/volume] in Serum or Plasma 25 U/L 5 - 40 [facility] Alanine aminotransferase [Enzymatic activity/volume] in Seru m or Plasma 17 U/L 7 - 56 [facility] Anion gap 3 in Serum or Plasma 13.0 mmol/L 8.0 - 16.0 [facility] AGE 74 yrs [facility] NON-AA GFR 31 mL/min [facility]anny AFR AMER GFR 38 mL/min [facility] Male GFR In terprentation 20-49 yrs >60 mL/min Normal 50-59 yrs >56 mL/min Normal 60-69 yrs >49 mL/min Normal 70-79yrs >42 mL/min Normal 80 and above >35 mL/min Normal Female GFR Interpretation 20-39 yrs >60 mL/min Normal 40-49 yrs >58 mL/min Normal 50-59 yrs >51 mL/min Normal 60-69 yrs >45 mL/min Normal 70-79 yrs >39 mL/min Normal 80 and above >32 mL/min Normal ID Date Data Source [id number] 09/08/2019 12:56:00 PM EDT [facility] Name Value Range Interpretation Code Description Data Radha rce(s) Supporting Document(s) CBC W/AUTOMATED DIFF [facility] COMPLETE BLOOD COUNT Leukocytes [#/volume] in Blood by Automated count 5.6 10^3/uL 4.2 - 1 1.0 [facility] Erythrocytes [#/volume] in Blood by Automated count 3.48 10^6/uL 4. 50 - 6.30 L [facility] Hemoglobin [Mass/volume] in Blood 9.8 g/dL 14.0 - 16.0 L [facility] Hematocrit [Volume Fraction] of Blood by Automated count 31.8 % 4 1.0 - 51.0 L [facility] Erythrocyte mean corpuscular volume [Entitic volume] by Auto mated count 91.4 fL 80.0 - 94.0 [facility] Erythrocyte mean corpuscular hemoglobin [Entitic mass] by Automated count 28.2 pg 27.0 - 34.0 [facility] Erythrocyte mean corpuscular hemoglobin concentration [Mass/volume] by Automated count 30.8 g/dL 31.0 - 36.0 L [facility] Erythrocyte distribution width [Ratio] by Automated count 17.4 % 11.5 - 14.8 H [facility] Platelets [#/volume] in Blood by Automated count 237 10^3/uL 150 - 45 0 [facility] Platelet mean volume [Entitic volume] in Blood by Automated count 9.6 fL 7.4 - 10.4 [facility] Neutrophils/100 leukocytes in Blood by Automated count 61.6 % 37. 0 - 80.0 [facility] Lymphocytes/100 leukocytes in Blood by Manual count 19.1 % 25.0 - 40.0 L [facility] Monocytes/100 leukocytes in Blood by Automated count 8.6 % 3.0 - 8.0 H [facility] Eosinophils/100 leukocytes in Blood by Automated count 9.1 % 0.0 - 7.0 H [facility] Basophils/100 leukocytes in Blood by Automated count 1.1 % 0.0 - 2.0 [facility] %IG 0.5 % 0.0 - 0.0 [facility] %NRBC 0.0 % 0.0 - 0.0 [facility] Neutrophils [#/volume] in Blood by Automated count 3.44 10^3/uL 2.00 - 6.90 [facility] Lymphocytes [#/volume] in Blood by Automated count 1.07 10^3/uL 0.60 - 3.40 [facility] Monocytes [#/volume] in Blood by Automated count 0.48 10^3/uL 0.00 - 0.90 [facility] Eosinophils [#/volume] in Blood by Automated count 0.51 10^3/uL 0.00 - 0.70 [facility] Basophils [#/volume] in Blood by Automated count 0.06 10^3/uL 0.00 - 0.20 [facility] #IG 0.03 10^3/uL 0.00 - 0.10 [facility] ospital #NRBC 0.00 10^3/uL 0.00 - 0.00 [facility] MANUAL DIFF NOT INDICATED [facility] RBC MORPH NOT INDICATED [facility] ID Date Data Source [id number] 08/26/2019 01:08:00 PM EDT [facility] ([facility]) Name Value Range Interpretation Code Description Data Ardha rce(s) Supporting Document(s) Hemoglobin A1c/Hemoglobin.total in Blood 6.0 [facility] ([facility]) Glucose [Mass/volume] in Serum or Plasma 89 [facility] ([facility]) ID Date Data Source [id number] 08/26/2019 10:30:00 AM EDT [facility] ([facility]) Name Value Range Interpretation Code Description Data Radha rce(s) Supporting Document(s) Microalbumin [Mass/volume] in Urine 121.0 mg/L [facility] ([facility]) Microalbumin/Creatinine [Mass Ratio] in Urine 195.4 MCG/MG 0.0-30.0 [facility] ([facility]) THE [employer] STATES THAT MICROALBUMINURIA IS PRESENT IF THE MICROALBUMIN/CREATININE RATIO EXCEEDS 30 MCG/MG. THE THRESHOLD FOR CLINICAL ALBUMINURIA IS REACHED AT 300 MCG/MG. THE CLASSIFICATION OF A PATIENT SHOULD BE BASED UPON AT LEAST 2 OF 3 ABNORMAL RESULTS ON SPECIMENS COLLECTED WITHIN A 3 TO 6 MONTH TIME FRAME. Creatinine [Mass/volume] in Urine 61.9 mg/dL [facility] ([facility]) ID Date Data Source [id number] 08/25/2019 01:56:00 PM EDT [facility] Name Value Range Interpretation Code Description Data Radha rce(s) Supporting Document(s) COMPREHENSIVE METABOLIC PANEL [facility] COMPREHENSIVE METABOLIC PANEL Sodium [Moles/volume] in Serum or Plasma 143 mEq/L 134 - 153 [facility] Potassium [Moles/volume] in Serum or Plasma 3.8 mEq/L 3.6 - 5.0 [facility] Chloride [Moles/volume] in Serum or Plasma 103 mEq/L 98 - 107 [facility] Carbon dioxide, total [Moles/volume] in Serum or Plasma 29 MEQ/L 22 - 30 [facility] Glucose [Mass/volume] in Serum or Plasma 84 MG/DL 65 - 110 [facility] BUN 57 MG/DL 7 - 21 H [facility] Creatinine [Mass/volume] in Serum or Plasma 2.3 MG/DL 0.7 - 1.5 H [facility] BUN/CREAT 25 8 - 27 [facility] Protein [Mass/volume] in Serum or Plasma 7.7 G/DL 6.3 - 8.2 [facility] Albumin [Mass/volume] in Serum or Plasma 4.6 G/DL 3.9 - 5.0 [facility] Globulin [Mass/volume] in Serum by calculation 3.1 GM/DL 2.4 - 3.2 [facility] A/G RATIO 1.5 0.8 - 2.0 [facility] Calcium [Mass/volume] in Serum or Plasma 9.3 MG/DL 8.4 - 10.2 [facility] Bilirubin.total [Mass/volume] in Serum or Plasma <0.7 MG/DL 0.2 - 1.3 [facility] Alkaline phosphatase [Enzymatic activity/volume] in Serum or Plasma 42 U/L 38 - 126 [facility] Aspartate aminotransferase [Enzymatic activity/volume] in Serum or Plasma 24 U/L 5 - 40 [facility] Alanine aminotransferase [Enzymatic activity/volume] in Seru m or Plasma 17 U/L 7 - 56 [facility] Anion gap 3 in Serum or Plasma 11.0 mmol/L 8.0 - 16.0 [facility] 74 [facility]min [facility] A[facility] AMER GFR 36 mL/min [facility] Male GFR In terprentation 20-49 yrs >60 mL/min Normal 50-59 yrs >56 mL/min Normal 60-69 yrs >49 mL/min Normal 70-79yrs >42 mL/min Normal 80 and above >35 mL/min Normal Female GFR Interpretation 20-39 yrs >60 mL/min Normal 40-49 yrs >58 mL/min Normal 50-59 yrs >51 mL/min Normal 60-69 yrs >45 mL/min Normal 70-79 yrs >39 mL/min Normal 80 and above >32 mL/min Normal ID Date Data Source [id number] 08/25/2019 01:50:00 PM EDT [facility] Name Value Range Interpretation Code Description Data Radha rce(s) Supporting Document(s) Iron [Mass/volume] in Serum or Plasma 42 UG/DL 42 - 135 [facility] ID Date Data Source [id number] 08/25/2019 01:14:00 PM EDT [facility] Name Value Range Interpretation Code Description Data Radha rce(s) Supporting Document(s) CBC W/AUTOMATED DIFF [facility] COMPLETE BLOOD COUNT Leukocytes [#/volume] in Blood by Automated count 5.4 10^3/uL 4.2 - 1 1.0 [facility] Erythrocytes [#/volume] in Blood by Automated count 3.37 10^6/uL 4. 50 - 6.30 L [facility] Hemoglobin [Mass/volume] in Blood 9.8 g/dL 14.0 - 16.0 L [facility] Hematocrit [Volume Fraction] of Blood by Automated count 31.3 % 4 1.0 - 51.0 L [facility] Erythrocyte mean corpuscular volume [Entitic volume] by Auto mated count 92.9 fL 80.0 - 94.0 [facility] Erythrocyte mean corpuscular hemoglobin [Entitic mass] by Automated count 29.1 pg 27.0 - 34.0 [facility] Erythrocyte mean corpuscular hemoglobin concentration [Mass/volume] by Automated count 31.3 g/dL 31.0 - 36.0 [facility] Erythrocyte distribution width [Ratio] by Automated count 17.8 % 11.5 - 14.8 H [facility] Platelets [#/volume] in Blood by Automated count 213 10^3/uL 150 - 45 0 [facility] Platelet mean volume [Entitic volume] in Blood by Automated count 9.9 fL 7.4 - 10.4 [facility] Neutrophils/100 leukocytes in Blood by Automated count 64.1 % 37. 0 - 80.0 [facility] Lymphocytes/100 leukocytes in Blood by Manual count 17.7 % 25.0 - 40.0 L [facility] Monocytes/100 leukocytes in Blood by Automated count 9.5 % 3.0 - 8.0 H [facility] Eosinophils/100 leukocytes in Blood by Automated count 7.6 % 0.0 - 7.0 H [facility] Basophils/100 leukocytes in Blood by Automated count 0.7 % 0.0 - 2.0 [facility] %IG 0.4 % 0.0 - 0.0 [facility] %NRBC 0.0 % 0.0 - 0.0 [facility] Neutrophils [#/volume] in Blood by Automated count 3.43 10^3/uL 2.00 - 6.90 [facility] Lymphocytes [#/volume] in Blood by Automated count 0.95 10^3/uL 0.60 - 3.40 [facility] Monocytes [#/volume] in Blood by Automated count 0.51 10^3/uL 0.00 - 0.90 [facility] Eosinophils [#/volume] in Blood by Automated count 0.41 10^3/uL 0.00 - 0.70 [facility] Basophils [#/volume] in Blood by Automated count 0.04 10^3/uL 0.00 - 0.20 [facility] #IG 0.02 10^3/uL 0.00 - 0.10 [facility] #NRBC 0.00 10^3/uL 0.00 - 0.00 [facility] MANUAL DIFF NOT INDICATED [facility] RBC MORPH NOT INDICATED [facility] spital ID Date Data Source [id number] 08/04/2019 08:53:00 AM EDT [facility] [address] [place] [address] PHONE: [phone] FAX: [phone] Name .................. : BRAD MORENO Acct Number.................. : [id number] ROOM. ................. : MR Number ................... : [id number] Stay type ............. : O/P Discharge Date......... ... : 07/31/19 Admit Date ......... : 07/31/19 Admit Phys .................... : LYNDA DUMONT Date of ....... : 1945 Family Phys ................... : LYNDA DUMONT Phone . ................. : [phone] Age ................................ : 74 Film# .................. .:[id number] Sex ................................. : M Unsigned transcriptions are preliminary reports and do not represent a medical or legal document CHEST 2 VIEWS [id number] COMPLETE:07/31/19 16:57 SRG [id number] (REASON FOR CHEST: CHF CHEST X-RAY: 2-VIEWS INDICATION: CHF. COMPARISON: Prior study from 11/10/14. FINDINGS: Prominence of the pulmonary vasculature is identified. No overt failure is identified. The cardiac silhouette is enlarged. There is a threat monitoring analyst over the left hemithorax. No definite focal infiltrate is identified. The osseous structures demonstrate post surgical changes at the right humeral head and degenerative changes in the spine. IMPRESSION: Pulmonary venous hypertension. Cardiomegaly. Examination dictated by ALIYA Navarro. Examination was reviewed with Jordy Plunkett MD, radiologist at the time of this dictation. Electronically Reviewed and Signed By Jordy Plunkett MD , 08/04/19 08:53, AML Transcribe Ini tials: TRE , Transcribe Date: 07/31/19 17:16, Dictation Date: Copy for: LYNDA CRAIG via modem Copy for: [address] [facility] REC Page 1 of 1 Name Value Range Interpretation Code Description Data Radha rce(s) Supporting Document(s) ID Date Data Source [id number] 07/31/2019 08:16:00 PM EDT [facility] Name Value Range Interpretation Code Description Data Radha rce(s) Supporting Document(s) BNP 610 PG/ML 0 - 125 H [facility] ID Date Data Source [id number] 07/31/2019 08:08:00 PM EDT [facility] Name Value Range Interpretation Code Description Data Radha rce(s) Supporting Document(s) Cobalamin (Vitamin B12) [Mass/volume] in Serum or Plasma 377 PG/ML 232 - 1245 [facility] ID Date Data Source [id number] 07/31/2019 07:51:00 PM EDT [facility] Name Value Range Interpretation Code Description Data Radha rce(s) Supporting Document(s) COMPREHENSIVE METABOLIC PANEL [facility] COMPREHENSIVE METABOLIC PANEL Sodium [Moles/volume] in Serum or Plasma 141 mEq/L 134 - 153 [facility] Potassium [Moles/volume] in Serum or Plasma 4.4 mEq/L 3.6 - 5.0 [facility] Chloride [Moles/volume] in Serum or Plasma 101 mEq/L 98 - 107 [facility] Carbon dioxide, total [Moles/volume] in Serum or Plasma 27 MEQ/L 22 - 30 [facility] Glucose [Mass/volume] in Serum or Plasma 100 MG/DL 65 - 110 [facility] BUN 40 MG/DL 7 - 21 H [facility] Creatinine [Mass/volume] in Serum or Plasma 2.1 MG/DL 0.7 - 1.5 H [facility] BUN/CREAT 19 8 - 27 [facility] Protein [Mass/volume] in Serum or Plasma 7.9 G/DL 6.3 - 8.2 [facility] Albumin [Mass/volume] in Serum or Plasma 4.8 G/DL 3.9 - 5.0 [facility] Globulin [Mass/volume] in Serum by calculation 3.1 GM/DL 2.4 - 3.2 [facility] A/G RATIO 1.5 0.8 - 2.0 [facility] Calcium [Mass/volume] in Serum or Plasma 10.0 MG/DL 8.4 - 10.2 [facility] Bilirubin.total [Mass/volume] in Serum or Plasma <0.7 MG/DL 0.2 - 1.3 [facility] Alkaline phosphatase [Enzymatic activity/volume] in Serum or Plasma 44 U/L 38 - 126 [facility] Aspartate aminotransferase [Enzymatic activity/volume] in Serum or Plasma 25 U/L 5 - 40 [facility] Alanine aminotransferase [Enzymatic activity/volume] in Seru m or Plasma 17 U/L 7 - 56 [facility] Anion gap 3 in Serum or Plasma 13.0 mmol/L 8.0 - 16.0 [facility] AGE 74 yrs [facility] NON-AA GFR 33 mL/min [facility]anny AFR AMER GFR 40 mL/min [facility] Male GFR In terprentation 20-49 yrs >60 mL/min Normal 50-59 yrs >56 mL/min Normal 60-69 yrs >49 mL/min Normal 70-79yrs >42 mL/min Normal 80 and above >35 mL/min Normal Female GFR Interpretation 20-39 yrs >60 mL/min Normal 40-49 yrs >58 mL/min Normal 50-59 yrs >51 mL/min Normal 60-69 yrs >45 mL/min Normal 70-79 yrs >39 mL/min Normal 80 and above >32 mL/min Normal ID Date Data Source [id number] 07/31/2019 07:51:00 PM EDT [facility] Value Range Interpretation Code Description Data Radha rce(s) Supporting Document(s) Magnesium [Mass/volume] in Serum or Plasma 2.3 MG/DL 1.7 - 2.2 H [facility] ID Date Data Source [id number] 07/31/2019 07:49:00 PM EDT [facility] Value Range Interpretation Code Description Data Radha rce(s) Supporting Document(s) Iron [Mass/volume] in Serum or Plasma 61 UG/DL 42 - 135 [facility] ID Date Data Source [id number] 07/31/2019 05:56:00 PM EDT [facility] Value Range Interpretation Code Description Data Radha rce(s) Supporting Document(s) Fibrin D-dimer FEU [Mass/volume] in Platelet poor plasma <0. 27 ug/mL 0.27 - 0.50 [facility] ID Date Data Source [id number] 07/31/2019 05:45:00 PM EDT [facility] Value Range Interpretation Code Description Data Radha rce(s) Supporting Document(s) CBC W/AUTOMATED DIFF [facility] COMPLETE BLOOD COUNT Leukocytes [#/volume] in Blood by Automated count 5.1 10^3/uL 4.2 - 1 1.0 [facility] Erythrocytes [#/volume] in Blood by Automated count 3.51 10^6/uL 4. 50 - 6.30 L [facility] Hemoglobin [Mass/volume] in Blood 10.3 g/dL 14.0 - 16.0 L [facility] Hematocrit [Volume Fraction] of Blood by Automated count 32.7 % 4 1.0 - 51.0 L [facility] Erythrocyte mean corpuscular volume [Entitic volume] by Auto mated count 93.2 fL 80.0 - 94.0 [facility] Erythrocyte mean corpuscular hemoglobin [Entitic mass] by Automated count 29.3 pg 27.0 - 34.0 [facility] Erythrocyte mean corpuscular hemoglobin concentration [Mass/volume] by Automated count 31.5 g/dL 31.0 - 36.0 [facility] Erythrocyte distribution width [Ratio] by Automated count 17.4 % 11.5 - 14.8 H [facility] Platelets [#/volume] in Blood by Automated count 206 10^3/uL 150 - 45 0 [facility] Platelet mean volume [Entitic volume] in Blood by Automated count 10.3 fL 7.4 - 10.4 [facility] Neutrophils/100 leukocytes in Blood by Automated count 62.8 % 37. 0 - 80.0 [facility] Lymphocytes/100 leukocytes in Blood by Manual count 20.2 % 25.0 - 40.0 L [facility] Monocytes/100 leukocytes in Blood by Automated count 10.7 % 3.0 - 8.0 H [facility] Eosinophils/100 leukocytes in Blood by Automated count 5.3 % 0.0 - 7.0 [facility] Basophils/100 leukocytes in Blood by Automated count 0.6 % 0.0 - 2.0 [facility] %IG 0.4 % 0.0 - 0.0 [facility] %NRBC 0.0 % 0.0 - 0.0 [facility] al Neutrophils [#/volume] in Blood by Automated count 3.17 10^3/uL 2.00 - 6.90 [facility] Lymphocytes [#/volume] in Blood by Automated count 1.02 10^3/uL 0.60 - 3.40 [facility] Monocytes [#/volume] in Blood by Automated count 0.54 10^3/uL 0.00 - 0.90 [facility] Eosinophils [#/volume] in Blood by Automated count 0.27 10^3/uL 0.00 - 0.70 [facility] Basophils [#/volume] in Blood by Automated count 0.03 10^3/uL 0.00 - 0.20 [facility] #IG 0.02 10^3/uL 0.00 - 0.10 [facility] #NRBC 0.00 10^3/uL 0.00 - 0.00 [facility] MANUAL DIFF NOT INDICATED [facility] RBC MORPH NOT INDICATED [facility] spital ID Date Data Source [id number] 07/04/2019 09:17:00 AM EST [facility] [address] [place] [address] PHONE: [phone] FAX: [phone] Name .................. : BRAD MORENO Acct Number.................. : [id number] ROOM. ................. : Number ................... : [id number] Stay type ............. : O/P Discharge Date......... ... : 07/02/19 Admit Date ......... : 07/02/19 Admit Phys .................... : LYNDA JULIA Date of ....... : 1945 Family Phys ................... : LYNDA JULIA Phone .................. : [phone] Age ................................ : 74 Film# .................. .:[id number] Sex ................................. : M Unsigned transcriptions are preliminary reports and do not represent a medical or legal document CT THORAX W/O CONTRAST [id number] COMPLETE:07/02/19 09:31 71250 (REASON FOR CHEST: CHF CT OF THE CHEST WITHOUT CONTRAST: COMPARISON: 11/28/18 HISTORY: CHF. FINDINGS: There is a mosaic pattern of ventilation throughout the lungs. The heart is enlarged. This raises the possibility of minimal congestive heart failure. The lung gerber are free of nodules, infiltrate and masses. There is calcification to the LAD and right coronary artery. There is hypertrophy of the left lobe and caudate lobe of the liver, which suggests chronic liver disease, possibly cirrhosis. IMPRESSION: Cardiomegaly with multifocal areas of a mosaic pattern of ventilation raising the possibility of minimal congestive heart failure. Other diagnostic considerations include air trapping. Hypertrophy of the left lobe and caudate lobes of the liver suggesting chronic liver disease and/or cirrhosis. While performing the above CT examination, radiation dose reduction was accomplished utilizing automated exposure control, adjusting of the mA and kV based on the patient's body size and/or the use of imperative reconstructive techniques. CT dose: 704.9 mGycm Electronically Reviewed and Signed By Page 1 of 2 [facility] [address] [place] [address] [place] [address] PHONE: [phone] FAX: [phone] Name .................. : BRAD MORENO Acct Number.................. : [id number] ROOM. ................. : MR Number ................... : [id number] Stay type ............. : O/P Discharge Date......... ... : 07/02/19 Admit Date ......... : 07/02/19 Admit Phys .................... : LYNDA JULIA Date of ....... : 1945 Family Phys ................... : LYNDA JULIA Phone .................. : [phone] Age ................................ : 74 Film# .................. .:[id number] Sex ................................. : M Unsigned transcriptions are preliminary reports and do not represent a medical or legal document CT THORAX W/O CONTRAST [id number] COMPLETE:07/02/19 09:31 84425 (REASON FOR CHEST: CHF Jason Sharma MD , 07/04/19 09:17, MRA Transcribe Initials: TRE , Transcribe Date: 07/02/19 11:38, Dictation Date: Copy for: LYNDA CRAIG via mode Copy for: 710 [facility] REC Page 2 of 2 Name Value Range Interpretation Code Description Data Radha rce(s) Supporting Document(s) ID Date Data Source [id number] 07/01/2019 01:49:00 PM [facility] Name Value Range Interpretation Code Description Data Radha rce(s) Supporting Document(s) Cobalamin (Vitamin B12) [Mass/volume] in Serum or Plasma 471 PG/ML 183 - 8706 [facility] ID Date Data Source [id number] 07/01/2019 01:43:00 PM [facility] Name Value Range Interpretation Code Description Data Radha rce(s) Supporting Document(s) Magnesium [Mass/volume] in Serum or Plasma 2.4 MG/DL 1.7 - 2.2 H [facility] ID Date Data Source [id number] 07/01/2019 01:43:00 PM EST [facility] Name Value Range Interpretation Code Description Data Radha rce(s) Supporting Document(s) COMPREHENSIVE METABOLIC PANEL [facility] COMPREHENSIVE METABOLIC PANEL Sodium [Moles/volume] in Serum or Plasma 145 mEq/L 134 - 153 [facility] Potassium [Moles/volume] in Serum or Plasma 4.2 mEq/L 3.6 - 5.0 [facility] Chloride [Moles/volume] in Serum or Plasma 102 mEq/L 98 - 107 [facility] Carbon dioxide, total [Moles/volume] in Serum or Plasma 27 MEQ/L 22 - 30 [facility] Glucose [Mass/volume] in Serum or Plasma 125 MG/DL 65 - 110 H [facility] BUN 54 MG/DL 7 - 21 [facility] Creatinine [Mass/volume] in Serum or Plasma 2.2 MG/DL 0.7 - 1.5 H [facility] BUN/CREAT 25 8 - 27 [facility] al Protein [Mass/volume] in Serum or Plasma 8.4 G/DL 6.3 - 8.2 H [facility] Albumin [Mass/volume] in Serum or Plasma 4.7 G/DL 3.9 - 5.0 [facility] Globulin [Mass/volume] in Serum by calculation 3.7 GM/DL 2.4 - 3.2 H [facility] A/G RATIO 1.3 0.8 - 2.0 [facility] Calcium [Mass/volume] in Serum or Plasma 10.2 MG/DL 8.4 - 10.2 [facility] Bilirubin.total [Mass/volume] in Serum or Plasma <0.7 MG/DL 0.2 - 1.3 [facility] Alkaline phosphatase [Enzymatic activity/volume] in Serum or Plasma 54 U/L 38 - 126 [facility] Aspartate aminotransferase [Enzymatic activity/volume] in Serum or Plasma 25 U/L 5 - 40 [facility] Alanine aminotransferase [Enzymatic activity/volume] in Seru m or Plasma 18 U/L 7 - 56 [facility] Anion gap 3 in Serum or Plasma 16.0 mmol/L 8.0 - 16.0 [facility] AGE 74 yrs [facility] NON-AA GFR 31 mL/min [facility]anny AFR AMER GFR 38 mL/min [facility] Male GFR In terprentation 20-49 yrs >60 mL/min Normal 50-59 yrs >56 mL/min Normal 60-69 yrs >49 mL/min Normal 70-79yrs >42 mL/min Normal 80 and above >35 mL/min Normal Female GFR Interpretation 20-39 yrs >60 mL/min Normal 40-49 yrs >58 mL/min Normal 50-59 yrs >51 mL/min Normal 60-69 yrs >45 mL/min Normal 70-79 yrs >39 mL/min Normal 80 and above >32 mL/min Normal ID Date Data Source [id number] 07/01/2019 01:33:00 PM [facility] Name Value Range Interpretation Code Description Data Radha rce(s) Supporting Document(s) Iron [Mass/volume] in Serum or Plasma 52 UG/DL 42 - 135 [facility] ID Date Data Source [id number] 07/01/2019 12:47:00 PM [facility] Name Value Range Interpretation Code Description Data Radha rce(s) Supporting Document(s) Hemoglobin A1c/Hemoglobin.total in Blood 6.5 % 4.4 - 6.1 H [facility] {A1]{HB] ID Date Data Source [id number] 07/01/2019 11:47:00 AM [facility] Name Value Range Interpretation Code Description Data Radha rce(s) Supporting Document(s) CBC W/AUTOMATED DIFF [facility] COMPLETE BLOOD COUNT Leukocytes [#/volume] in Blood by Automated count 6.1 10^3/uL 4.2 - 1 1.0 [facility] Erythrocytes [#/volume] in Blood by Automated count 3.39 10^6/uL 4. 50 - 6.30 L [facility] Hemoglobin [Mass/volume] in Blood 9.9 g/dL 14.0 - 16.0 L [facility] Hematocrit [Volume Fraction] of Blood by Automated count 31.6 % 4 1.0 - 51.0 L [facility] Erythrocyte mean corpuscular volume [Entitic volume] by Auto mated count 93.2 fL 80.0 - 94.0 [facility] Erythrocyte mean corpuscular hemoglobin [Entitic mass] by Automated count 29.2 pg 27.0 - 34.0 [facility] Erythrocyte mean corpuscular hemoglobin concentration [Mass/volume] by Automated count 31.3 g/dL 31.0 - 36.0 [facility] Erythrocyte distribution width [Ratio] by Automated count 16.5 % 11.5 - 14.8 H [facility] Platelets [#/volume] in Blood by Automated count 242 10^3/uL 150 - 45 0 [facility] Platelet mean volume [Entitic volume] in Blood by Automated count 9.1 fL 7.4 - 10.4 [facility] Neutrophils/100 leukocytes in Blood by Automated count 65.0 % 37. 0 - 80.0 [facility] Lymphocytes/100 leukocytes in Blood by Manual count 17.7 % 25.0 - 40.0 L [facility] Monocytes/100 leukocytes in Blood by Automated count 8.9 % 3.0 - 8.0 H [facility] Eosinophils/100 leukocytes in Blood by Automated count 7.2 % 0.0 - 7.0 H [facility] Basophils/100 leukocytes in Blood by Automated count 0.5 % 0.0 - 2.0 [facility] %IG 0.7 % 0.0 - 0.0 [facility] %NRBC 0.0 % 0.0 - 0.0 [facility] al Neutrophils [#/volume] in Blood by Automated count 3.96 10^3/uL 2.00 - 6.90 [facility] Lymphocytes [#/volume] in Blood by Automated count 1.08 10^3/uL 0.60 - 3.40 [facility] Monocytes [#/volume] in Blood by Automated count 0.54 10^3/uL 0.00 - 0.90 [facility] Eosinophils [#/volume] in Blood by Automated count 0.44 10^3/uL 0.00 - 0.70 [facility] Basophils [#/volume] in Blood by Automated count 0.03 10^3/uL 0.00 - 0.20 [facility] #IG 0.04 10^3/uL 0.00 - 0.10 [facility] #NRBC 0.00 10^3/uL 0.00 - 0.00 [facility] ospital MANUAL DIFF NOT INDICATED [facility] RBC MORPH NOT INDICATED [facility] Procedure Social History Code Duration Value Status Description Data Source(s ) Smoking 02/24/2020 12:00:00 AM EDT Patient has never smoked co mpleted Patient has never smoked [facility] ([facility]) Vital Signs ID Date Data Source UNK Name Value Range Interpretation Code Description Data Source(s) Oxygen saturation in Arterial blood by Pulse oximetry 92 % 92 % [facility] ([facility]) Body mass index (BMI) [Ratio] 40.7 kg/m2 40.7 k g/m2 [facility] ([facility]) Body weight 264.00 [lb_av] 264.00 [lb_av] [facility] T ([facility]) Body height 67.5 [in_i] 67.5 [in_i] [facility] ([facility]) 5'7.50" Body temperature 96.9 [degF] 96.9 [degF] [facility] ([facility]) Heart rate 59 /min 59 /min [facility] ([facility]) Diastolic blood pressure 64 mm[Hg] 64 mm[Hg] [facility] ([facility]) Systolic blood pressure 130 mm[Hg] 130 mm[Hg] [facility] ([facility]) Oxygen saturation in Arterial blood by Pulse oximetry 94 % 94 % [facility] ([facility]) Heart rate 58 /min 58 /min [facility] ([facility]) Diastolic blood pressure 58 mm[Hg] 58 mm[Hg] [facility] ([facility] Corbin [facility]) Systolic blood pressure 136 mm[Hg] 136 mm[Hg] [facility] ([facility] Corbin [facility]) Body temperature 97.1 [degF] 97.1 [degF] [facility] ([facility] o[facility]bin [facility]) Body mass index (BMI) [Ratio] 44.2 kg/m2 44.2 k g/m2 [facility] ([facility]) Body weight 291.00 [lb_av] 291.00 [lb_av] [facility] T ([facility] Corbin [facility]) Body height 68 [in_i] 68 [in_i] [facility] ([facility] Corbin [facility]) 5'8" Oxygen saturation in Arterial blood by Pulse oximetry 94 % 94 % [facility] ([facility]) Heart rate 60 /min 60 /min [facility] ([facility] Cor[facility]) Diastolic blood pressure 61 mm[Hg] 61 mm[Hg] [facility] ([facility] Corbin [facility]) Systolic blood pressure 147 mm[Hg] 147 mm[Hg] M [facility] ([facility] Corbin [facility]) Body temperature 98.4 [degF] 98.4 [degF] [facility] ([facility] Corbin [facility]) Body mass index (BMI) [Ratio] 43.6 kg/m2 43.6 k g/m2 [facility] ([facility]) Body weight 287.00 [lb_av] 287.00 [lb_av] [facility] T ([facility] Corbin [facility]) Body height 68 [in_i] 68 [in_i] [facility] ([facility] Corbin [facility]) 5'8" Body mass index (BMI) [Ratio] 45.2 kg/m2 45.2 k g/m2 [facility] ([facility] ) Body weight 284.38 [lb_av] 284.38 [lb_av] [facility] ([facility] ) Body height 66.5 [in_i] 66.5 [in_i] [facility] ([facility] ) 5'6.50" Body temperature 97.1 [degF] 97.1 [degF] [facility] ([facility] ) Oxygen saturation in Arterial blood by Pulse oximetry 93 % 93 % [facility] ([facility] ) Body mass index (BMI) [Ratio] 43.7 kg/m2 43.7 k g/m2 [facility] ([facility] ) Body weight 283.25 [lb_av] 283.25 [lb_av] [facility] T ([facility] ) Body height 67.5 [in_i] 67.5 [in_i] [facility] ([facility] ) 5'7.50" Body temperature 96.4 [degF] 96.4 [degF] [facility] ([facility] ) Heart rate 54 /min 54 /min MEDJESSICA ([facility] ) Diastolic blood pressure 70 mm[Hg] 70 mm[Hg] MEDJESSICA ([facility] ) Systolic blood pressure 134 mm[Hg] 134 mm[Hg] M NEPTALI ([facility] )
[2020-06-29 05:16] LABS: BASO # 0.1 10^3/uL (0.0-0.2); BASO % 0.3 % (0.0-1.0); EOS # 0.3 10^3/uL (0.0-0.5); EOS % 1.7 % (0.0-3.0); HEMATOCRIT 33.3 % (42.0-52.0); HEMOGLOBIN 10.2 g/dl (13.5-17.5); LYMPH # 0.7 10^3/uL (1.5-5.0); LYMPH % 4.2 % (24.0-44.0); MEAN CORPUSCULAR HEMOGLOBIN 29.1 pg (27.0-33.0); MEAN CORPUSCULAR HGB CONC 30.6 g/dl (32.0-36.5); MEAN CORPUSCULAR VOLUME 95.1 fl (80.0-96.0); MONO # 0.7 10^3/uL (0.0-0.8); MONO % 3.7 % (2.0-8.0); NEUTROPHILS # 15.6 10^3/uL (1.5-8.5); NEUTROPHILS % 89.5 % (36.0-66.0); PLATELET COUNT, AUTOMATED 309 10^3/uL (150-450); WHITE BLOOD COUNT 17.4 10^3/uL (4.0-10.0)
[2020-06-29 05:39] LABS: ALBUMIN 3.9 GM/DL (3.2-5.2); BILIRUBIN,DIRECT 0.4 MG/DL (0.0-0.2); BILIRUBIN,TOTAL 0.7 MG/DL (0.2-1.0); CALCIUM LEVEL 9.1 MG/DL (8.8-10.2); CREATININE FOR GFR 2.14 MG/DL (0.70-1.30); GLOMERULAR FILTRATION RATE 32.2 (>42); POTASSIUM SERUM 3.6 MEQ/L (3.5-5.1); TOTAL PROTEIN 8.9 GM/DL (6.4-8.2)
--- OUTSIDE RECORDS SUMMARY | 2020-06-29 05:59 | CCD ---
Author Author [facility] Organization [facility] Address Unknown Phone Unavailable Care Team Providers Care Electrocardiograph Technician Name Role Phone MackenzieMilton snowden ANGLE SHEAR SET UP OPERATOR Unavailable Unavailable Mackenzie, Milton Gerard ANGLE SHEAR SET UP OPERATOR Unavailable Unavailable Mackenzie, D Gerard ANGLE SHEAR SET UP OPERATOR Unavailable Unavailable Mackenzie, D Gerard ANGLE SHEAR SET UP OPERATOR Unavailable Unavailable Mackenzie, D Gerard ANGLE SHEAR SET UP OPERATOR Unavailable Unavailable Mackenzie, D Gerard ANGLE SHEAR SET UP OPERATOR Unavailable Unavailable Mackenzie, D Gerard ANGLE SHEAR SET UP OPERATOR Unavailable Unavailable Mackenzie, D Gerard ANGLE SHEAR SET UP OPERATOR Unavailable Unavailable Mackenzie, D Gerard ANGLE SHEAR SET UP OPERATOR Unavailable Unavailable Mackenzie, D Gerard ANGLE SHEAR SET UP OPERATOR Unavailable Unavailable Mackenzie, D Gerard ANGLE SHEAR SET UP OPERATOR Unavailable Unavailable Mackenzie, D Gerard ANGLE SHEAR SET UP OPERATOR Unavailable Unavailable Mackenzie, D Gerard ANGLE SHEAR SET UP OPERATOR Unavailable Unavailable Mackenzie, D Gerard ANGLE SHEAR SET UP OPERATOR Unavailable Unavailable Mackenzie, D Gerard ANGLE SHEAR SET UP OPERATOR Unavailable Unavailable Mackenzie, D Gerard ANGLE SHEAR SET UP OPERATOR Unavailable Unavailable Mackenzie, D Gerard ANGLE SHEAR SET UP OPERATOR Unavailable Unavailable Mackenzie, D Gerard ANGLE SHEAR SET UP OPERATOR Unavailable Unavailable Mackenzie, D Gerard ANGLE SHEAR SET UP OPERATOR Unavailable Unavailable Mackenzie, D Gerard ANGLE SHEAR SET UP OPERATOR Unavailable Unavailable Mackenzie, D Gerard ANGLE SHEAR SET UP OPERATOR Unavailable Unavailable Mackenzie, D Gerard ANGLE SHEAR SET UP OPERATOR Unavailable Unavailable Mackenzie, D Gerard ANGLE SHEAR SET UP OPERATOR Unavailable Unavailable Mackenzie, D Gerard ANGLE SHEAR SET UP OPERATOR Unavailable Unavailable Mackenzie, D Gerard ANGLE SHEAR SET UP OPERATOR Unavailable Unavailable Mackenzie, D Gerard ANGLE SHEAR SET UP OPERATOR Unavailable Unavailable Mackenzie, D Gerard ANGLE SHEAR SET UP OPERATOR Unavailable Unavailable Mackenzie, D Gerard ANGLE SHEAR SET UP OPERATOR Unavailable Unavailable Mackenzie, D Gerard ANGLE SHEAR SET UP OPERATOR Unavailable Unavailable Mackenzie, D Gerard ANGLE SHEAR SET UP OPERATOR Unavailable Unavailable Mackenzie, D Gerard ANGLE SHEAR SET UP OPERATOR Unavailable Unavailable Mackenzie, D Gerard ANGLE SHEAR SET UP OPERATOR Unavailable Unavailable Mackenzie, D Gerard ANGLE SHEAR SET UP OPERATOR Unavailable Unavailable Mackenzie, D Gerard ANGLE SHEAR SET UP OPERATOR Unavailable Unavailable Mackenzie, D Gerard ANGLE SHEAR SET UP OPERATOR Unavailable Unavailable LYNDA, MAQBOOL RAFA MD Unavailable [...] LOTTIE MD Unavailable Unavailable COOK, B BIANKA ANGLE SHEAR SET UP OPERATOR Unavailable Unavailable COOK, B BIANKA ANGLE SHEAR SET UP OPERATOR Unavailable Unavailable COOK, B BIANKA ANGLE SHEAR SET UP OPERATOR Unavailable Unavailable COOK, B BIANKA ANGLE SHEAR SET UP OPERATOR Unavailable Unavailable COOK, B BIANKA ANGLE SHEAR SET UP OPERATOR Unavailable Unavailable COOK, B BIANKA ANGLE SHEAR SET UP OPERATOR Unavailable Unavailable COOK, B BIANKA ANGLE SHEAR SET UP OPERATOR Unavailable Unavailable COOK, B BIANKA ANGLE SHEAR SET UP OPERATOR Unavailable Unavailable COOK, B BIANKA ANGLE SHEAR SET UP OPERATOR Unavailable Unavailable COOK, B BIANKA ANGLE SHEAR SET UP OPERATOR Unavailable Unavailable COOK, B BIANKA ANGLE SHEAR SET UP OPERATOR Unavailable Unavailable COOK, B BIANKA ANGLE SHEAR SET UP OPERATOR Unavailable Unavailable COOK, B BIANKA ANGLE SHEAR SET UP OPERATOR Unavailable Unavailable COOK, B BIANKA ANGLE SHEAR SET UP OPERATOR Unavailable Unavailable COOK, B BIANKA ANGLE SHEAR SET UP OPERATOR Unavailable Unavailable COOK, B BIANKA ANGLE SHEAR SET UP OPERATOR Unavailable Unavailable COOK, B BIANKA ANGLE SHEAR SET UP OPERATOR Unavailable Unavailable COOK, B BIANKA ANGLE SHEAR SET UP OPERATOR Unavailable Unavailable COOK, B BIANKA ANGLE SHEAR SET UP OPERATOR Unavailable Unavailable COOK, B BIANKA ANGLE SHEAR SET UP OPERATOR Unavailable Unavailable COOK, B BIANKA ANGLE SHEAR SET UP OPERATOR Unavailable Unavailable COOK, B BIANKA ANGLE SHEAR SET UP OPERATOR Unavailable Unavailable COOK, B BIANKA ANGLE SHEAR SET UP OPERATOR Unavailable Unavailable COOK, B BIANKA ANGLE SHEAR SET UP OPERATOR Unavailable Unavailable COOK, B BIANKA ANGLE SHEAR SET UP OPERATOR Unavailable Unavailable COOK, B BIANKA ANGLE SHEAR SET UP OPERATOR Unavailable Unavailable COOK, B BIANKA ANGLE SHEAR SET UP OPERATOR Unavailable Unavailable COOK, B BIANKA ANGLE SHEAR SET UP OPERATOR Unavailable Unavailable COOK, B BIANKA ANGLE SHEAR SET UP OPERATOR Unavailable Unavailable COOK, B BIANKA ANGLE SHEAR SET UP OPERATOR Unavailable Unavailable COOK, B BIANKA ANGLE SHEAR SET UP OPERATOR Unavailable Unavailable COOK, B BIANKA ANGLE SHEAR SET UP OPERATOR Unavailable Unavailable COOK, B BIANKA ANGLE SHEAR SET UP OPERATOR Unavailable Unavailable COOK, B BIANKA ANGLE SHEAR SET UP OPERATOR Unavailable Unavailable COOK, B BIANKA ANGLE SHEAR SET UP OPERATOR Unavailable Unavailable COOK, B BIANKA ANGLE SHEAR SET UP OPERATOR Unavailable Unavailable COOK, B BIANKA ANGLE SHEAR SET UP OPERATOR Unavailable Unavailable COOK, B BIANKA ANGLE SHEAR SET UP OPERATOR Unavailable Unavailable COOK, B BIANKA ANGLE SHEAR SET UP OPERATOR Unavailable Unavailable COOK, B BIANKA ANGLE SHEAR SET UP OPERATOR Unavailable Unavailable COOK, B BIANKA ANGLE SHEAR SET UP OPERATOR Unavailable Unavailable COOK, B BIANKA ANGLE SHEAR SET UP OPERATOR Unavailable Unavailable COOK, B BIANKA ANGLE SHEAR SET UP OPERATOR Unavailable Unavailable COOK, B BIANKA ANGLE SHEAR SET UP OPERATOR Unavailable Unavailable COOK, B BIANKA ANGLE SHEAR SET UP OPERATOR Unavailable Unavailable COOK, B BIANKA ANGLE SHEAR SET UP OPERATOR Unavailable Unavailable COOK, B BIANKA ANGLE SHEAR SET UP OPERATOR Unavailable Unavailable COOK, B BIANKA ANGLE SHEAR SET UP OPERATOR Unavailable Unavailable COOK, B BIANKA ANGLE SHEAR SET UP OPERATOR Unavailable Unavailable COOK, B BIANKA ANGLE SHEAR SET UP OPERATOR Unavailable Unavailable COOK, B BIANKA ANGLE SHEAR SET UP OPERATOR Unavailable Unavailable COOK, B BIANKA ANGLE SHEAR SET UP OPERATOR Unavailable Unavailable COOK, B BIANKA ANGLE SHEAR SET UP OPERATOR Unavailable Unavailable COOK, B BIANKA ANGLE SHEAR SET UP OPERATOR Unavailable Unavailable COOK, B BIANKA ANGLE SHEAR SET UP OPERATOR Unavailable Unavailable COOK, B BIANKA ANGLE SHEAR SET UP OPERATOR Unavailable Unavailable COOK, B BIANKA ANGLE SHEAR SET UP OPERATOR Unavailable Unavailable COOK, B BIANKA ANGLE SHEAR SET UP OPERATOR Unavailable Unavailable COOK, B BIANKA ANGLE SHEAR SET UP OPERATOR Unavailable Unavailable COOK, B BIANKA ANGLE SHEAR SET UP OPERATOR Unavailable Unavailable COOK, B BIANKA ANGLE SHEAR SET UP OPERATOR Unavailable Unavailable COOK, B BIANKA ANGLE SHEAR SET UP OPERATOR Unavailable Unavailable COOK, B BIANKA ANGLE SHEAR SET UP OPERATOR Unavailable Unavailable COOK, B BIANKA ANGLE SHEAR SET UP OPERATOR Unavailable Unavailable Milton Hair MD Unavailable Unavailable [...] Vanjuan, Milton Ferris MD Unavailable Unavailable VanMilton martinez [...] Milton Ferris MD Unavailable Unavailable Vaneenenaam, Milton Ferirs MD Unavailable Unavailable Vaneenenaam, Milton Ferris MD Unavailable Unavailable Vaneenenaam, Miltno Ferris MD Unavailable Unavailable Vaneenenaam, Milton Ferris [...] is protected by Article 27-F of the [place] State Public Health law. If you continue you may have access to information: Regarding HIV / AIDS; Provided by facilities licensed or operated by the [facility] Office of Mental Health; or Provided by the [facility] Office for People With Developmental Disabilities. If such information is present, then the following [facility] mandated warning applies: This information has [...] law may result in a fine or fpc sentence or both. A general authorization for the release of medical or other information is NOT sufficient authorization for further disc losure. Allergies and Adverse Reactions Type Description Substance Reaction Status Data Source(s ) No Known Drug Allergies No Known Drug Allergies [facility] ENVIRONMENTAL Adhesive Adhesive blister [facility] Food allergy SHRIMP SHRIMP HIVES [facility] Family History Family Member Name Family Member Gender Family Member Status Date o f Status Description Data Source(s) Unknown Male Problem [facility] ([facility]) Unknown Male Problem [facility] ([facility] () Unknown Female Problem [facility] ([facility]) Unknown Female Problem [facility] ([facility]) Encounters Encounter Providers Location Date Indications Data Source(s ) Outpatient Attender: BIANKA PARDO NP Physical Therapy 06/15/2020 0 9:45:00 AM EST [facility] ([facility] ) Outpatient Attender: Milton Hair MDConsultant: TRANG CORBIN MD 05/24/2020 02:05:00 PM [facility] Outpatient Attender: RAFA CORBIN MD [facility] 05/05 09:45:00 AM EST [facility] (Rafa Corbin MD) Outpatient Attender: RAFA CORBIN MD [facility] 03/29 10:30:00 AM EST [facility] (Rafa Corbin MD) Outpatient Attender: Milton Hair MDConsultant: TRANG CORBIN MD 03/15/2020 01:19:45 PM EST - 05/19/2020 03:41:00 PM [facility] Patient discharged. OFFICE OUTPATIENT NEW 30 MINUTES Attender: Milton Doyle am, MD Physical Therapy 03/05/2020 10:30:00 AM EDT [facility] ([facility]) Outpatient Attender: BIANKA PARDO NP Physical Therapy 02/24/2020 1 0:30:00 AM EDT [facility] ([facility]) Outpatient Attender: RAFA CORBIN MD [facility] 02/17 11:15:00 AM EDT [facility] (Rafa Corbin MD) Outpatient Attender: RAFA CORBIN MDConsultant: RAFA Weiss MD 02/10/2020 10:35:00 AM EDT - 02/10/2020 11:35:00 AM EDT [facility] Outpatient Attender: RAFA CORBIN MDConsultant: RAFA Weiss MD 02/02/2020 04:07:00 PM EDT - 02/02/2020 05:07:00 PM EDT [facility] Outpatient Attender: RAFA CORBIN MD Medical Building 02/01 03:15:00 PM EDT [facility] (Rafa Corbin MD) Outpatient Attender: RAFA CORBIN MDConsultant: RAFA Weiss MD 12/03/2019 12:25:00 PM EDT - 12/03/2019 01:25:00 PM EDT [facility] Outpatient Attender: RAFA CORBIN MDConsultant: RAFA Weiss MD 11/04/2019 02:15:00 PM EDT - 11/04/2019 03:15:00 PM EDT [facility] Outpatient Attender: RAFA CORBIN MDConsultant: RAFA Weiss MD 09/08/2019 12:09:00 PM EDT - 09/08/2019 01:09:00 PM EDT [facility] Outpatient Attender: BIANKA PARDO NP Physical Therapy 08/26/2019 1 0:30:00 AM EDT [facility] ([facility]) Outpatient Attender: RAFA CORBIN MDConsultant: RAFA Weiss MD 08/25/2019 12:33:00 PM EDT - 08/25/2019 01:33:00 PM EDT [facility] Outpatient Attender: RAFA CORBIN MDConsultant: RAFA Weiss MD 07/31/2019 04:34:00 PM EDT - 07/31/2019 05:34:00 PM EDT [facility] Outpatient Attender: RAFA CORBIN MDConsultant: RAFA Weiss MD 07/02/2019 09:28:00 AM EST - 07/02/2019 10:28:00 AM [facility] Outpatient Attender: RAFA CORBIN MDConsultant: RAFA Weiss MD 07/01/2019 11:18:00 AM EST - 07/01/2019 12:18:00 PM [facility] Outpatient Attender: RAFA CORBIN MDConsultant: RAFA Weiss MD 06/09/2019 02:28:00 PM EST - 01/14/2020 01:17:00 PM EDT [facility] Patient discharged. Outpatient Attender: Gerard Mann NPAtt tanja: LOTTIE GLEASON MDConsultant: RAFA CORBIN MD 05/05/2019 10:26:00 AM EST - 05/05/2019 10:26:00 AM [facility] Outpatient Attender: RAFA CORBIN MDConsultant: RFAA Weiss MD 03/26/2019 10:54:11 AM [facility] - 06/09/2019 07:52:00 AM [facility] Patient discharged. Outpatient Attender: Gerard Mann NPConsultant: RAFA Weiss MD 01/16/2019 01:49:00 PM EDT - 03/21/2019 01:24:00 PM [facility] Patient discharged. Immunizations Vaccine Date Status [...] Siddiqui 12/18/2019 12:00:00 AM EDT active [facility] ([facility]) Insurance Providers Payer name Policy type / Coverage type Policy ID Covered constitution party ID Covered constitution party's relationship to salazar Policy Salazar Plan Information UMR [facility] [id number] SP [id number] MEDICARE [id number] SP [id number] UMR -O [id number] 18 [id number] MEDICARE -RECURRING [id number] 18 [id number] UMR -O/P [id number] 18 [id number] MEDICARE PART A -O/P [id number] 18 [id number] MEDICARE PART A -O/P , 18 , MEDICARE -RECURRING [id number] 18 [id number] UMR [id number] 18 [id number] MEDICARE PART A [facility] [id number] 18 [id number] Umr (pr) Medigap Part B [id number] Self [id number] [place] [id number] Self [id number] [place] (pr) Medigap Part B [id number] Self [id number] UMR U [id number] Self [id number] MEDICARE A [id number] Self [id number] [place] Medigap Part B [id number] Self [id number] [place] Medicare Primary [id number] Self [id number] Umr Commercial [id number] Self [id number] Umr (pr) Medigap Part B [id number] Self [id number] [place] Primary [id number] Self [id number] UMR [facility] [id number] SP [id number] Umr (pr) Medigap Part B [id number] Self [id number] [place] Primary [id number] Self [id number] [place] Medigap Part B [id number] Self [id number] [place] Medicare Primary [id number] Self [id number] Umr (pr) Medigap Part B [id number] Self [id number] [place] Primary [id number] Self [id number] MEDICARE [id number] SP [id number] MEDICARE [id number] SP [id number] [place] U [id number] Self [id number] MEDICARE A [id number] Self [id number] A Umr (pr) Medigap Part B [id number] Self [id number] [place] Primary [id number] Self [id number] [place] PPO O [id number] S [id number] MEDICARE C [id number] S [id number] A [employer] [id number] SP [id number] MEDICARE [id number] SP [id number] A MEDICARE PART A -O/P [id number] 18 [id number] [place]-O/P [id number] 18 [id number] [place]-O/P [id number] 18 [id number] [place] Primary [id number] Self [id number] [place] (pr) Medigap Part B [id number] Self [id number] [place] Primary [id number] Self [id number] [place] Primary [id number] Self [id number] [place] Commercial [id number] Self [id number] Medicare - [place] Medicare Primary [id number] Self [id number] [place] Primary [id number] Self [id number] [place] Primary [id number] Self [id number] [place] [id number] SP [id number] [employer] [id number] SP [id number] [place] (pr) Medigap Part B Self [place] Primary Self [facility]-PH[facility]IAN [id number] 18 [id number] MEDICARE -O/P [id number] 18 [id number] MEDICARE -O/P [id number] 18 [id number] MEDICARE PART A-CLINIC [id number] 18 [id number] [facility]-CLINIC [id number] 18 [id number] [place]-RECURRING [id number] 18 [id number] Problems, Conditions, and Diagnoses Code Display Name Description Problem Type Effective Dates Data Source(s) R2689 Other abnormalities of gait and mobility Other abnormalities of gait and mobility Diagnosis 05/24/2020 02:05:00 PM [facility] E669 Obesity, unspecified Obesity, unspecified Diagnosis 03/15/2020 01:22:00 PM [facility] M1712 Unilateral primary osteoarthritis, left knee Unilateral primary osteoarthritis, left knee Diagnosis 03/15/2020 01:22:00 PM [facility] [id number] Effusion, left knee Effusion, left knee Diagnosis 1 10:35:00 AM EDT [facility] [id number] Other tear of medial meniscu s, current injury, left knee, initial encounter Other tear of medial meniscus, current i njury, left knee, initial encounter Diagnosis 02/10/2020 10:35:00 AM EDT [facility] 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, unspe cified Disorders of magnesium metabolism, unspecified Diagnosis 02/02/2020 04:07:00 PM EDT [facility] M109 Gout, unspecified Gout, unspecified Diagnosis 02/02/2020 04:07:00 PM EDT [facility] I509 Heart failure, unspecified Heart failure, unspecified Diagnosis 02/02/2020 04:07:00 PM EDT [facility] N390 Urinary tract infection, site not specif ied Urinary tract infection, site not specified Diagnosis 02/02/2020 04:07:00 PM EDT [facility] E039 Hypothyroidism, unspecified Hypothyroidism, unspecifie d Diagnosis 02/02/2020 04:07:00 PM EDT [facility] D649 Anemia, unspecified Anemia, unspecified Diagnosis 0 02/02/2020 04:07:00 PM EDT [facility] E785 Hyperlipidemia, unspecified Hyperlipidemia, unspecifie d Diagnosis 02/02/2020 04:07:00 PM EDT [facility] E119 Type 2 diabetes mellitus without complic ations Type 2 diabetes mellitus without complications Diagnosis 02/02/2020 04:07:00 PM EDT [facility] R351 Nocturia Nocturia Diagnosis 12/03/2019 12:25:00 PM ED T [facility] I2720 Pulmonary hypertension, unspecified Pulmonary hy pertension, unspecified Diagnosis 07/31/2019 04:34:00 PM EDT [facility] I517 Cardiomegaly Cardiomegaly Diagnosis 07/31/2019 04:34:00 P M EDT [facility] R918 Other nonspecific abnormal finding of nova ng field Other nonspecific abnormal finding of lung field Diagnosis 07/02/2019 09:28:00 AM [facility] R160 Hepatomegaly, not elsewhere classified H epatomegaly, not elsewhere classified Diagnosis 07/02/2019 09:28:00 AM [facility] E8342 Hypomagnesemia Hypomagnesemia Diagnosis 07/01/2019 11:18: 00 AM [facility] R99 Ill-defined and unknown cause of mortali ty Ill-defined and unknown cause of mortality Diagnosis 06/09/2019 02:28:00 PM [facility] R35227 Stiffness of left shoulder, not elsewher e classified Stiffness of left shoulder, not elsewhere classified Diagnosis 05/05/2019 10:26:00 AM ES T [facility] K05570 Pain in left shoulder Pain in left shoulder Diagnosis 05/05/2019 10:26:00 AM [facility] Surgeries/Procedures Procedure Description Date Indications Data Source(s) ECG ROUTINE ECG W/LEAST 12 LDS W/I&R 03/29/2020 12:00: 00 AM EST [facility] (Rafa Corbin MD) RADIOLOGIC EXAM KNEE COMPLETE 4/MORE VIEWS 03/05/2020 12:00:00 AM EDT [facility] ([facility] ) Diabetic Foot Exam 02/24/2020 12:00:00 AM [facility] Results ID Date Data Source [id number] 06/15/2020 11:00:00 AM EST [facility] ([facility] ) Name Value Range Interpretation Code Description Data Radha rce(s) Supporting Document(s) Hemoglobin A1c/Hemoglobin.total in Blood 5.9 [facility] Glucose [Mass/volume] in Serum or Plasma 95 [facility] ID Date Data Source [id number] 05/20/2020 12:36:00 PM EST [facility] (Rafa Corbin MD) Name Value Range Interpretation Code Description Data Radha rce(s) Supporting Document(s) Glucose [Mass/volume] in Capillary blood by Glucometer 81 mg/dL 83-110 Below low normal [facility] (Rafa Corbin MD) ID Date Data Source [id number] 04/15/2020 10:35:00 AM EST [facility] (Rafa Corbin [...] BY O ADJAPONG ID Date Data Source [id number] 04/15/2020 10:35:00 AM EST [facility] (Rafa Corbin [...] BY O ADJAPONG ID Date Data Source [id number] 04/15/2020 10:35:00 AM EST [facility] (Rafa Corbin [...] Little GFR Left</content>
<content>ESRD GFR <15 on TERRITORY REPRESENTATIVE</content>
<content></content> Laboratory test finding (navigational concept) 106 [...] (Rafa Corbin MD) ID Date Data Source [id number] 04/15/2020 10:35:00 AM EST [facility] (Rafa Corbin MD) Name Value Range Interpretation Code Description Data Radha rce(s) Supporting Document(s) Laboratory test finding (navigational concept) 12.66 0 .26-1.65 Above high normal [facility] (Rafa Corbin MD) Performed at: - [facility] [address] [id number] Switchboard And Control Room Operator: Tahmina Nair MD, Phone: [phone] Laboratory test finding (navigational concept) 19.9 mg/L 5 .7-26.3 Normal (applies to non-numeric results) [facility] (Rafa Corbin MD) Laboratory test finding (navigational concept) 251.9 mg/L 3 .3-19.4 Above high normal [facility] (Rafa Corbin MD) ID Date Data Source [id number] 04/15/2020 10:35:00 AM EST [facility] (Rafa Corbin [...] (Rafa Corbin MD) ID Date Data Source [id number] 04/12/2020 03:25:00 PM EST [facility] (Rafa Corbin [...] by the U.S. Food and Drug Administration. [facility] is designated as a high complexity laboratory by the Clinical Laboratory Improvement Amendments of 1988(CLIA) and is qualified to perform this test. ASSAY INFORMATION: Real Time RT-PCR Patient samples for this assay have been pooled. All positive samples have been individually repeated for confirmation. The pooling protocol using the romelia SARS-CoV-2 assay has been added to [id number] on February 19, 2020. ID Date Data Source [id number] 04/12/2020 12:00:00 AM EST [facility] Name Value Range Interpretation Code Description Data Radha rce(s) Supporting Document(s) 2019-nCoV RNA XXX ARTIE+probe-Imp [facility] This lab was ordered by [facility] and reported by [facility]. ID Date Data Source [id number] 02/24/2020 10:36:00 AM EDT [facility] ([facility] ) Name Value Range Interpretation Code Description Data Radha rce(s) Supporting Document(s) Hemoglobin A1c/Hemoglobin.total in Blood 6.7 [facility] ([facility]) Glucose [Mass/volume] in Serum or Plasma 131 [facility] ([facility]) ID Date Data Source [id number] 02/13/2020 02:00:00 PM EDT [facility] [address] [place] [address] PHONE: [phone] FAX: [phone] Name .................. : BRAD JOSH Koch Acct Number.................. : [id number] ROOM. ................. : MR Number ................... : [id number] Stay type ............. : O/P Discharge Date......... ... : 02/10/20 Admit Date ......... : 02/10/20 Admit Phys .................... : LYNDA JULIA Date of ....... : 1945 Family Phys ................... : LYNDA JULIA Phone .................. : [phone] Age ................................ : 74 Film# .................. .:[id number] Sex ................................. : M Unsigned transcriptions are preliminary reports and do not represent a medical or legal document MRI LOWER EXT ANY JT W/O CONT [id number] COMPLETE:02/10/20 14:54 [facility] [id number] (REASON FOR PROCESS: PAIN, MENISCUS TEAR MRI [...] LYNDA CRAIG via modem Copy for: [facility] REC Page 1 of 1 Name Value Range Interpretation Code Description Data Radha rce(s) Supporting Document(s) ID Date Data Source [id number] 02/07/2020 04:43:00 PM EDT [facility] Name Value Range Interpretation Code Description Data Radha rce(s) Supporting Document(s) CULTURE URINE [facility] spital _CULTURE URINE_$$[id number]$$[id number]$$[id number]$$[id number]$$[id number]$$440391$$665859$$636741$$905930$$ 666375$$356932$$828755$$345330$$229814$$956486$$814441$$167019$$399548$$116110$$ 104450$$262384$$555521$$770380$$833479$$559300$$632171$$769257 -- Continued on next page --Patient: BRAD Koch Order: [id number] Page 2Culture: CULTURE URINE Status: Final ==== -- Continued on next page --Patient: BRAD Koch Order: [id number] Page 2Culture: CULTURE URINE Status: Prelim =====$$[id number]$$[id number] DATE/TIME: 02/07/2020 15:06Culture: CULTURE URINE Status: FinalUrine Culture,Comprehensive: P1No growth in 36 - 48 hours. Previous result entered on 02/06/2020 01:48 ET No growth after 18-24 hours.P1 [facility]: [id number] [address] [place] [phone] White [facility] [id number] [id number] Director : Korey Mcmahon MD NPI #:Lab Maria Teresa jc : 02/06/[id number].SENT REF 02/07/[id number].XMT.SENT REF ID Date Data Source [id number] 02/02/2020 05:26:00 PM EDT [facility] Name Value Range Interpretation Code Description Data Radha rce(s) Supporting Document(s) BNP 636 PG/ML 0 - 125 H [facility] ID Date Data Source [id number] 02/02/2020 05:26:00 PM EDT [facility] Name Value Range Interpretation Code Description Data Radha rce(s) Supporting Document(s) Cobalamin (Vitamin B12) [Mass/volume] in Serum or Plasma 481 PG/ML 232 - 1245 [facility] ID Date Data Source [id number] 02/02/2020 05:26:00 PM EDT [facility] Name Value Range Interpretation Code Description Data Radha rce(s) Supporting Document(s) Thyrotropin [Units/volume] in Serum or Plasma by Detec tion limit <= 0.05 mIU/L 4.55 uIU/mL 0.47 - 5.01 [facility] ID Date Data Source [id number] 02/02/2020 05:16:00 PM EDT [facility] Name Value Range Interpretation Code Description Data Radha rce(s) Supporting Document(s) CVE PANEL [facility] al LIPID PANEL Cholesterol [Mass/volume] in Serum or Plasma 104 MG/DL 131 - 200 L [facility] Deprecated Triglyceride [Mass/volume] in Serum or Plasma 275 MG/DL 3 5 - 160 H [facility] HDL 31 MG/DL 29 - 86 [facility] Cholesterol in LDL [Mass/volume] in Serum or Plasma by Direc t assay 44 mg/dL 65 - 175 L [facility] Cholesterol.total/Cholesterol in HDL [Mass Ratio] in Serum o r Plasma 3.4 3.4 - 4.9 L [facility] LDL/HDL 1.42 1.00 - 3.55 [facility] ital CVE RISK CHOL/HDL LDL/HDLMEN: 1/2 AVERAGE 3.43 1.00 AVERAGE 4.97 3.55 2X AVERAGE 9.55 6.25 3X AVERAGE 23.99 7.99WOMEN: 1/2 AVERAGE 3.27 1.47 AVERAGE 4.44 3.22 2X AVERAGE 7.05 5.03 3X AVERAGE 11.04 6.14 ID Date Data Source [id number] 02/02/2020 05:16:00 PM EDT [facility] Name Value Range Interpretation Code Description Data Radha rce(s) Supporting Document(s) COMPREHENSIVE METABOLIC PANEL [facility] COMPREHENSIVE METABOLIC PANEL Sodium [Moles/volume] in Serum or Plasma 142 mEq/L 134 - 153 [facility] Potassium [Moles/volume] in Serum or Plasma 3.8 mEq/L 3.6 - 5.0 [facility] Chloride [Moles/volume] in Serum or Plasma 102 mEq/L 98 - 107 [facility] Carbon dioxide, total [Moles/volume] in Serum or Plasma 28 MEQ/L 22 - 30 [facility] Glucose [Mass/volume] in Serum or Plasma 120 MG/DL 65 - 110 H [facility] BUN 55 MG/DL 7 - 21 H [facility] al Creatinine [Mass/volume] in Serum or Plasma 2.4 MG/DL 0.7 - 1.5 H [facility] BUN/CREAT 23 8 - 27 [facility] al Protein [Mass/volume] in Serum or Plasma 8.2 G/DL 6.3 - 8.2 [facility] Albumin [Mass/volume] in Serum or Plasma 4.7 G/DL 3.9 - 5.0 [facility] Globulin [Mass/volume] in Serum by calculation 3.5 GM/DL 2.4 - 3.2 H [facility] A/G RATIO 1.3 0.8 - 2.0 [facility] Calcium [Mass/volume] in Serum or Plasma 9.8 MG/DL 8.4 - 10.2 [facility] Bilirubin.total [Mass/volume] in Serum or Plasma 0.8 MG/DL 0.2 - 1.3 [facility] Alkaline phosphatase [Enzymatic activity/volume] in Serum or Plasma 47 U/L 38 - 126 [facility] Aspartate aminotransferase [Enzymatic activity/volume] in Serum or Plasma 28 U/L 5 - 40 [facility] Alanine aminotransferase [Enzymatic activity/volume] in Seru m or Plasma 20 U/L 7 - 56 [facility] Anion gap 3 in Serum or Plasma 12.0 mmol/L 8.0 - 16.0 [facility] AGE 74 yrs [facility] NON-AA GFR 28 mL/min [facility] yovanny AFR AMER GFR 34 mL/min [facility] Male GFR In terprentation 20-49 [...] >32 mL/min Normal ID Date Data Source [id number] 02/02/2020 05:16:00 PM EDT [facility] Name Value Range Interpretation Code Description Data Radha rce(s) Supporting Document(s) Urate [Mass/volume] in Serum or Plasma 8.0 MG/DL 2.5 - 8.5 [facility] ID Date Data Source [id number] 02/02/2020 05:16:00 PM EDT [facility] Name Value Range Interpretation Code Description Data Radha rce(s) Supporting Document(s) Magnesium [Mass/volume] in Serum or Plasma 2.3 MG/DL 1.7 - 2.2 H [facility] ID Date Data Source [id number] 02/02/2020 05:16:00 PM EDT [facility] Name Value Range Interpretation Code Description Data Radha rce(s) Supporting Document(s) Iron [Mass/volume] in Serum or Plasma 61 UG/DL 42 - 135 [facility] ID Date Data Source [id number] 02/02/2020 04:52:00 PM EDT [facility] Name Value Range Interpretation Code Description Data Radha rce(s) Supporting Document(s) Hemoglobin A1c/Hemoglobin.total in Blood 6.5 % 4.4 - 6.1 H [facility] {A1]{HB] ID Date Data Source [id number] 02/02/2020 04:50:00 PM EDT [facility] Name Value Range Interpretation Code Description Data [facility] rce(s) Supporting Document(s) Fibrin D-dimer FEU [Mass/volume] in Platelet poor plasma 0.32 ug /mL 0.27 - 0.50 [facility] ID Date Data Source [id number] 02/02/2020 04:40:00 PM EDT [facility] Name Value Range Interpretation Code Description Data Radha rce(s) Supporting Document(s) [facility] yellow NORMAL: Yellow [facility] CLARITY clear NORMAL: Clear [facility] Specific gravity of Urine by Test strip 1.010 1.001 - 1.030 [facility] pH 6 5 - 9 [facility] Glucose [Mass/volume] in Urine by Test strip NORM NORMAL: Negat [facility] Bilirubin.total [Presence] in Urine by Test strip NEG NORMAL: Negative [facility] Ketones [Presence] in Urine by Test strip NEG NORMAL: Negative [facility] Protein [Mass/volume] in Urine by Test strip 15 NORMAL: Negat [facility] Nitrite [Presence] in Urine by Test strip NEG NORMAL: Negative [facility] BLOOD NEG NORMAL: Negative [facility] Leukocyte esterase [Presence] in Urine by Test strip NEG CARMELA L: Negative [facility] Urobilinogen [Mass/volume] in Urine by Test strip NOR less natasha n 1.0 mg/dL [facility] MICROSCOPIC See Below [facility] ital WBC 0 - 1 NORMAL: NONE SEEN [facility] Mucus [Presence] in Urine sediment by Light microscopy Trace NORMAL: NONE SEEN [facility] ID Date Data Source [id number] 02/02/2020 04:39:00 PM EDT [facility] Name Value Range Interpretation Code Description Data [facility](s) Supporting Document(s) CBC W/AUTOMATED DIFF [facility] COMPLETE BLOOD COUNT Leukocytes [#/volume] in Blood by Automated count 7.2 10^3/uL 4.2 - 1 1.0 [facility] Erythrocytes [#/volume] in Blood by Automated count 3.45 10^6/uL 4. 50 - 6.30 L [facility] Hemoglobin [Mass/volume] in Blood 10.7 g/dL 14.0 - 16.0 L [facility] Hematocrit [Volume Fraction] of Blood by Automated count 32.7 % 4 1.0 - 51.0 L [facility] Erythrocyte mean corpuscular volume [Entitic volume] by Auto mated count 94.8 fL 80.0 - 94.0 H [facility] Erythrocyte mean corpuscular hemoglobin [Entitic mass] by Automated count 31.0 pg 27.0 - 34.0 [facility] Erythrocyte mean corpuscular hemoglobin concentration [Mass/volume] by Automated count 32.7 g/dL 31.0 - 36.0 [facility] Erythrocyte distribution width [Ratio] by Automated count 16.2 % 11.5 - 14.8 H [facility] Platelets [#/volume] in Blood by Automated count 194 10^3/uL 150 - 45 0 [facility] Platelet mean volume [Entitic volume] in Blood by Automated count 10.0 fL 7.4 - 10.4 [facility] Neutrophils/100 leukocytes in Blood by Automated count 67.5 % 37. 0 - 80.0 [facility] Lymphocytes/100 leukocytes in Blood by Manual count 13.9 % 25.0 - 40.0 L [facility] Monocytes/100 leukocytes in Blood by Automated count 7.9 % 3.0 - 8.0 [facility] Eosinophils/100 leukocytes in Blood by Automated count 9.7 % 0.0 - 7.0 H [facility] Basophils/100 leukocytes in Blood by Automated count 0.6 % 0.0 - 2.0 [facility] %IG 0.4 % 0.0 - 0.0 [facility] %NRBC 0.0 % 0.0 - 0.0 [facility] Neutrophils [#/volume] in Blood by Automated count 4.87 10^3/uL 2.00 - 6.90 [facility] Lymphocytes [#/volume] in Blood by Automated count 1.00 10^3/uL 0.60 - 3.40 [facility] Monocytes [#/volume] in Blood by Automated count 0.57 10^3/uL 0.00 - 0.90 [facility] Eosinophils [#/volume] in Blood by Automated count 0.70 10^3/uL 0.00 - 0.70 [facility] Basophils [#/volume] in Blood by Automated count 0.04 10^3/uL 0.00 - 0.20 [facility] #IG 0.03 10^3/uL 0.00 - 0.10 [facility] #NRBC 0.00 10^3/uL 0.00 - 0.00 [facility] MANUAL DIFF NOT INDICATED [facility] RBC MORPH NOT INDICATED [facility] spital ID Date Data Source [id number] 12/03/2019 01:35:00 PM EDT [facility] Name Value Range Interpretation Code Description Data Radha rce(s) Supporting Document(s) CVE PANEL [facility] LIPID PANEL Cholesterol [Mass/volume] in Serum or Plasma 92 MG/DL 131 - 200 L [facility] Deprecated Triglyceride [Mass/volume] in Serum or Plasma 105 MG/DL 3 5 - 160 [facility] HDL 32 MG/DL 29 - 86 [facility] Cholesterol in LDL [Mass/volume] in Serum or Plasma by Direc t assay 42 mg/dL 65 - 175 L [facility] Cholesterol.total/Cholesterol in HDL [Mass Ratio] in Serum o r Plasma 2.9 3.4 - 4.9 L [facility] LDL/HDL 1.31 1.00 - 3.55 [facility] ital CVE RISK CHOL/HDL LDL/HDLMEN: 1/2 AVERAGE 3.43 1.00 AVERAGE 4.97 3.55 2X AVERAGE 9.55 6.25 3X AVERAGE 23.99 7.99WOMEN: 1/2 AVERAGE 3.27 1.47 AVERAGE 4.44 3.22 2X AVERAGE 7.05 5.03 3X AVERAGE 11.04 6.14 ID Date Data Source [id number] 12/03/2019 01:22:00 PM EDT [facility] Name Value Range Interpretation Code Description Data Radha rce(s) Supporting Document(s) Prostate specific Ag [Mass/volume] in Serum or Plasma 0.30 ng/mL 0.00 - 4.00 [facility] \\BLDo\\PSA INTERPRETA TION\\BLDx\\ The PSA assay should [...] be used interchangeably. ID Date Data Source [id number] 12/03/2019 12:47:00 PM EDT [facility] Name Value Range Interpretation Code Description Data Radha rce(s) Supporting Document(s) Hemoglobin A1c/Hemoglobin.total in Blood 6.5 % 4.4 - 6.1 H [facility] {A1]{HB] ID Date Data Source [id number] 11/04/2019 07:51:00 PM EDT [facility] Name Value Range Interpretation Code Description Data Radha rce(s) Supporting Document(s) CBC W/AUTOMATED DIFF [facility] COMPLETE BLOOD COUNT Leukocytes [#/volume] in Blood by Automated count 5.4 10^3/uL 4.2 - 1 1.0 [facility] Erythrocytes [#/volume] in Blood by Automated count 3.52 10^6/uL 4. 50 - 6.30 L [facility] Hemoglobin [Mass/volume] in Blood 10.5 g/dL 14.0 - 16.0 L [facility] Hematocrit [Volume Fraction] of Blood by Automated count 32.8 % 4 1.0 - 51.0 L [facility] Erythrocyte mean corpuscular volume [Entitic volume] by Auto mated count 93.2 fL 80.0 - 94.0 [facility] Erythrocyte mean corpuscular hemoglobin [Entitic mass] by Automated count 29.8 pg 27.0 - 34.0 [facility] Erythrocyte mean corpuscular hemoglobin concentration [Mass/volume] by Automated count 32.0 g/dL 31.0 - 36.0 [facility] Erythrocyte distribution width [Ratio] by Automated count 20.1 % 11.5 - 14.8 H [facility] Platelets [#/volume] in Blood by Automated count 205 10^3/uL 150 - 45 0 [facility] Platelet mean volume [Entitic volume] in Blood by Automated count 10.5 fL 7.4 - 10.4 H [facility] Neutrophils/100 leukocytes in Blood by Automated count 63.3 % 37. 0 - 80.0 [facility] Lymphocytes/100 leukocytes in Blood by Manual count 14.8 % 25.0 - 40.0 L [facility] Monocytes/100 leukocytes in Blood by Automated count 7.4 % 3.0 - 8.0 [facility] Eosinophils/100 leukocytes in Blood by Automated count 13.0 % 0.0 - 7.0 H [facility] Basophils/100 leukocytes in Blood by Automated count 1.1 % 0.0 - 2.0 [facility] %IG 0.4 % 0.0 - 0.0 H [facility] %NRBC 0.0 % 0.0 - 0.0 [facility] al Neutrophils [#/volume] in Blood by Automated count 3.42 10^3/uL 2.00 - 6.90 [facility] Lymphocytes [#/volume] in Blood by Automated count 0.80 10^3/uL 0.60 - 3.40 [facility] Monocytes [#/volume] in Blood by Automated count 0.40 10^3/uL 0.00 - 0.90 [facility] Eosinophils [#/volume] in Blood by Automated count 0.70 10^3/uL 0.00 - 0.70 [facility] Basophils [#/volume] in Blood by Automated count 0.06 10^3/uL 0.00 - 0.20 [facility] #IG 0.02 10^3/uL 0.00 - 0.10 [facility] #NRBC 0.00 10^3/uL 0.00 - 0.00 [facility] ospital MANUAL DIFF NOT INDICATED [facility] RBC MORPH SEE BELOW [facility] An[facility]ocytosis [Presence] in Blood by Light microscopy 2+ CARMELA L: NONE SEEN A [facility] Microcytes [Presence] in Blood by Light microscopy 1+ NORMAL: NONE SEEN A [facility] { SICKLE CELL (NORMAL: NONE SEEN ) Platelet adequacy [Presence] in Blood by Light microscopy NORMAL NORMAL: NORMAL [facility] COMMENT: ID Date Data Source [id number] 11/04/2019 07:37:00 PM EDT [facility] Name Value Range Interpretation Code Description Data Radha rce(s) Supporting Document(s) COMPREHENSIVE METABOLIC PANEL [facility] COMPREHENSIVE METABOLIC PANEL Sodium [Moles/volume] in Serum or Plasma 142 mEq/L 134 - 153 [facility] Potassium [Moles/volume] in Serum or Plasma 3.6 mEq/L 3.6 - 5.0 [facility] Chloride [Moles/volume] in Serum or Plasma 103 mEq/L 98 - 107 [facility] Carbon dioxide, total [Moles/volume] in Serum or Plasma 25 MEQ/L 22 - 30 [facility] Glucose [Mass/volume] in Serum or Plasma 118 MG/DL 65 - 110 H [facility] BUN 49 MG/DL 7 - 21 [facility] Creatinine [Mass/volume] in Serum or Plasma 2.0 MG/DL 0.7 - 1.5 H [facility] BUN/CREAT 25 8 - 27 [facility] al Protein [Mass/volume] in Serum or Plasma 8.0 G/DL 6.3 - 8.2 [facility] Albumin [Mass/volume] in Serum or Plasma 4.9 G/DL 3.9 - 5.0 [facility] Globulin [Mass/volume] in Serum by calculation 3.1 GM/DL 2.4 - 3.2 [facility] A/G RATIO 1.6 0.8 - 2.0 [facility] Calcium [Mass/volume] in Serum or Plasma 10.6 MG/DL 8.4 - 10.2 H [facility] Bilirubin.total [Mass/volume] in Serum or Plasma <0.7 MG/DL 0.2 - 1.3 [facility] Alkaline phosphatase [Enzymatic activity/volume] in Serum or Plasma 53 U/L 38 - 126 [facility] Aspartate aminotransferase [Enzymatic activity/volume] in Serum or Plasma 26 U/L 5 - 40 [facility] Alanine aminotransferase [Enzymatic activity/volume] in Seru m or Plasma 19 U/L 7 - 56 [facility] Anion gap 3 in Serum or Plasma 14.0 mmol/L 8.0 - 16.0 [facility] AGE 74 yrs [facility] al NON-AA GFR 35 mL/min [facility] AFR AMER GFR 42 mL/min [facility] Male GFR In terprentation 20-49 [...] >32 mL/min Normal ID Date Data Source [id number] 11/04/2019 07:37:00 PM EDT [facility] Name Value Range Interpretation Code Description Data Radha rce(s) Supporting Document(s) C reactive protein [Mass/volume] in Serum or Plasma by High sensitivity method 6.62 MG/L 1.00 - 3.00 H [facility] CDC/S HS-CRP CUT-OFF: RELATIVE RISK: <1.0 mg/L Low 1.0 - 3.0 mg/L Average >3.0 mg/L High Optimally, the average of HS-CRP results repeated two weeks apart should be used for risk assessment. ID Date Data Source [id number] 11/04/2019 07:34:00 PM EDT [facility] Name Value Range Interpretation Code Description Data Radha rce(s) Supporting Document(s) Iron [Mass/volume] in Serum or Plasma 59 UG/DL 42 - 135 [facility] ID Date Data Source [id number] 09/08/2019 01:57:00 PM EDT [facility] Name Value Range Interpretation Code Description Data Radha rce(s) Supporting Document(s) COMPREHENSIVE METABOLIC PANEL [facility] COMPREHENSIVE METABOLIC PANEL Sodium [Moles/volume] in Serum or Plasma 144 mEq/L 134 - 153 [facility] Potassium [Moles/volume] in Serum or Plasma 3.9 mEq/L 3.6 - 5.0 [facility] Chloride [Moles/volume] in Serum or Plasma 103 mEq/L 98 - 107 [facility] Carbon dioxide, total [Moles/volume] in Serum or Plasma 28 MEQ/L 22 - 30 [facility] Glucose [Mass/volume] in Serum or Plasma 103 MG/DL 65 - 110 [facility] BUN 46 MG/DL 7 - 21 H [facility] Creatinine [Mass/volume] in Serum or Plasma 2.2 MG/DL 0.7 - 1.5 H [facility] BUN/CREAT 21 8 - 27 [facility] Protein [Mass/volume] in Serum or Plasma 7.8 G/DL 6.3 - 8.2 [facility] Albumin [Mass/volume] in Serum or Plasma 4.6 G/DL 3.9 - 5.0 [facility] Globulin [Mass/volume] in Serum by calculation 3.2 GM/DL 2.4 - 3.2 [facility] A/G RATIO 1.4 0.8 - 2.0 [facility] Calcium [Mass/volume] in Serum or Plasma 9.4 MG/DL 8.4 - 10.2 [facility] Bilirubin.total [Mass/volume] in Serum or Plasma <0.7 MG/DL 0.2 - 1.3 [facility] Alkaline phosphatase [Enzymatic activity/volume] in Serum or Plasma 53 U/L 38 - 126 [facility] Aspartate aminotransferase [Enzymatic activity/volume] in Serum or Plasma 25 U/L 5 - 40 [facility] Alanine aminotransferase [Enzymatic activity/volume] in Seru m or Plasma 17 U/L 7 - 56 [facility] Anion gap 3 in Serum or Plasma 13.0 mmol/L 8.0 - 16.0 [facility] AGE 74 yrs [facility] NON-AA GFR 31 mL/min [facility] yovanny AFR AMER GFR 38 mL/min [facility] Male GFR In terprentation 20-49 [...] >32 mL/min Normal ID Date Data Source [id number] 09/08/2019 12:56:00 PM EDT [facility] Name Value Range Interpretation Code Description Data Radha rce(s) Supporting Document(s) CBC W/AUTOMATED DIFF [facility] COMPLETE BLOOD COUNT Leukocytes [#/volume] in Blood by Automated count 5.6 10^3/uL 4.2 - 1 1.0 [facility] Erythrocytes [#/volume] in Blood by Automated count 3.48 10^6/uL 4. 50 - 6.30 L [facility] Hemoglobin [Mass/volume] in Blood 9.8 g/dL 14.0 - 16.0 L [facility] Hematocrit [Volume Fraction] of Blood by Automated count 31.8 % 4 1.0 - 51.0 L [facility] Erythrocyte mean corpuscular volume [Entitic volume] by Auto mated count 91.4 fL 80.0 - 94.0 [facility] Erythrocyte mean corpuscular hemoglobin [Entitic mass] by Automated count 28.2 pg 27.0 - 34.0 [facility] Erythrocyte mean corpuscular hemoglobin concentration [Mass/volume] by Automated count 30.8 g/dL 31.0 - 36.0 L [facility] Erythrocyte distribution width [Ratio] by Automated count 17.4 % 11.5 - 14.8 H [facility] Platelets [#/volume] in Blood by Automated count 237 10^3/uL 150 - 45 0 [facility] Platelet mean volume [Entitic volume] in Blood by Automated count 9.6 fL 7.4 - 10.4 [facility] Neutrophils/100 leukocytes in Blood by Automated count 61.6 % 37. 0 - 80.0 [facility] Lymphocytes/100 leukocytes in Blood by Manual count 19.1 % 25.0 - 40.0 L [facility] Monocytes/100 leukocytes in Blood by Automated count 8.6 % 3.0 - 8.0 H [facility] Eosinophils/100 leukocytes in Blood by Automated count 9.1 % 0.0 - 7.0 H [facility] Basophils/100 leukocytes in Blood by Automated count 1.1 % 0.0 - 2.0 [facility] %IG 0.5 % 0.0 - 0.0 [facility] %[facility] 0.0 % 0.0 - 0.0 [facility] al Neutrophils [#/volume] in Blood by Automated count 3.44 10^3/uL 2.00 - 6.90 [facility] Lymphocytes [#/volume] in Blood by Automated count 1.07 10^3/uL 0.60 - 3.40 [facility] Monocytes [#/volume] in Blood by Automated count 0.48 10^3/uL 0.00 - 0.90 [facility] Eosinophils [#/volume] in Blood by Automated count 0.51 10^3/uL 0.00 - 0.70 [facility] Basophils [#/volume] in Blood by Automated count 0.06 10^3/uL 0.00 - 0.20 [facility] #IG 0.03 10^3/uL 0.00 - 0.10 [facility] ospital #NRBC 0.00 10^3/uL 0.00 - 0.00 [facility] MANUAL DIFF NOT INDICATED [facility] RBC MORPH NOT INDICATED [facility] ID Date Data Source [id number] 08/26/2019 01:08:00 PM EDT [facility] ([facility]) Name Value Range Interpretation Code Description Data Radha rce(s) Supporting Document(s) Hemoglobin A1c/Hemoglobin.total in Blood 6.0 [facility] ([facility]) Glucose [Mass/volume] in Serum or Plasma 89 [facility] ([facility]) ID Date Data Source [id number] 08/26/2019 10:30:00 AM EDT [facility] ([facility]) Name Value Range Interpretation Code Description Data Radha rce(s) Supporting Document(s) Microalbumin [Mass/volume] in Urine 121.0 mg/L [facility] ([facility]) Microalbumin/Creatinine [Mass Ratio] in Urine 195.4 MCG/MG 0.0-30.0 [facility] ([facility]) THE [employer] STATES THAT MICROALBUMINURIA IS PRESENT IF THE MICROALBUMIN/CREATININE RATIO EXCEEDS 30 MCG/MG. THE THRESHOLD FOR CLINICAL ALBUMINURIA IS REACHED AT 300 MCG/MG. THE CLASSIFICATION OF A PATIENT SHOULD BE BASED UPON AT LEAST 2 OF 3 ABNORMAL RESULTS ON SPECIMENS COLLECTED WITHIN A 3 TO 6 MONTH TIME FRAME. Creatinine [Mass/volume] in Urine 61.9 mg/dL [facility] ([facility]) ID Date Data Source [id number] 08/25/2019 01:56:00 PM EDT [facility] Name Value Range Interpretation Code Description Data Radha rce(s) Supporting Document(s) COMPREHENSIVE METABOLIC PANEL [facility] COMPREHENSIVE METABOLIC PANEL Sodium [Moles/volume] in Serum or Plasma 143 mEq/L 134 - 153 [facility] Potassium [Moles/volume] in Serum or Plasma 3.8 mEq/L 3.6 - 5.0 [facility] Chloride [Moles/volume] in Serum or Plasma 103 mEq/L 98 - 107 [facility] Carbon dioxide, total [Moles/volume] in Serum or Plasma 29 MEQ/L 22 - 30 [facility] Glucose [Mass/volume] in Serum or Plasma 84 MG/DL 65 - 110 [facility] BUN 57 MG/DL 7 - 21 H [facility] Creatinine [Mass/volume] in Serum or Plasma 2.3 MG/DL 0.7 - 1.5 H [facility] BUN/CREAT 25 8 - 27 [facility] Protein [Mass/volume] in Serum or Plasma 7.7 G/DL 6.3 - 8.2 [facility] Albumin [Mass/volume] in Serum or Plasma 4.6 G/DL 3.9 - 5.0 [facility] Globulin [Mass/volume] in Serum by calculation 3.1 GM/DL 2.4 - 3.2 [facility] A/G RATIO 1.5 0.8 - 2.0 [facility] Calcium [Mass/volume] in Serum or Plasma 9.3 MG/DL 8.4 - 10.2 [facility] Bilirubin.total [Mass/volume] in Serum or Plasma <0.7 MG/DL 0.2 - 1.3 [facility] Alkaline phosphatase [Enzymatic activity/volume] in Serum or Plasma 42 U/L 38 - 126 [facility] Aspartate aminotransferase [Enzymatic activity/volume] in Serum or Plasma 24 U/L 5 - 40 [facility] Alanine aminotransferase [Enzymatic activity/volume] in Seru m or Plasma 17 U/L 7 - 56 [facility] Anion gap 3 in Serum or Plasma 11.0 mmol/L 8.0 - 16.0 [facility] 74 [facility] AFR AMER GFR 36 mL/min [facility] Male GFR In terprentation 20-49 [...] >32 mL/min Normal ID Date Data Source [id number] 08/25/2019 01:50:00 PM EDT [facility] Name Value Range Interpretation Code Description Data Radha rce(s) Supporting Document(s) Iron [Mass/volume] in Serum or Plasma 42 UG/DL 42 - 135 [facility] ID Date Data Source [id number] 08/25/2019 01:14:00 PM EDT [facility] Name Value Range Interpretation Code Description Data Radha rce(s) Supporting Document(s) CBC W/AUTOMATED DIFF [facility] COMPLETE BLOOD COUNT Leukocytes [#/volume] in Blood by Automated count 5.4 10^3/uL 4.2 - 1 1.0 [facility] Erythrocytes [#/volume] in Blood by Automated count 3.37 10^6/uL 4. 50 - 6.30 L [facility] Hemoglobin [Mass/volume] in Blood 9.8 g/dL 14.0 - 16.0 L [facility] Hematocrit [Volume Fraction] of Blood by Automated count 31.3 % 4 1.0 - 51.0 L [facility] Erythrocyte mean corpuscular volume [Entitic volume] by Auto mated count 92.9 fL 80.0 - 94.0 [facility] Erythrocyte mean corpuscular hemoglobin [Entitic mass] by Automated count 29.1 pg 27.0 - 34.0 [facility] Erythrocyte mean corpuscular hemoglobin concentration [Mass/volume] by Automated count 31.3 g/dL 31.0 - 36.0 [facility] Erythrocyte distribution width [Ratio] by Automated count 17.8 % 11.5 - 14.8 H [facility] Platelets [#/volume] in Blood by Automated count 213 10^3/uL 150 - 45 0 [facility] Platelet mean volume [Entitic volume] in Blood by Automated count 9.9 fL 7.4 - 10.4 [facility] Neutrophils/100 leukocytes in Blood by Automated count 64.1 % 37. 0 - 80.0 [facility] Lymphocytes/100 leukocytes in Blood by Manual count 17.7 % 25.0 - 40.0 L [facility] Monocytes/100 leukocytes in Blood by Automated count 9.5 % 3.0 - 8.0 H [facility] Eosinophils/100 leukocytes in Blood by Automated count 7.6 % 0.0 - 7.0 H [facility] Basophils/100 leukocytes in Blood by Automated count 0.7 % 0.0 - 2.0 [facility] %IG 0.4 % 0.0 - 0.0 [facility] % 0.0 - 0.0 [facility] Neutrophils [#/volume] in Blood by Automated count 3.43 10^3/uL 2.00 - 6.90 [facility] Lymphocytes [#/volume] in Blood by Automated count 0.95 10^3/uL 0.60 - 3.40 [facility] Monocytes [#/volume] in Blood by Automated count 0.51 10^3/uL 0.00 - 0.90 [facility] Eosinophils [#/volume] in Blood by Automated count 0.41 10^3/uL 0.00 - 0.70 [facility] Basophils [#/volume] in Blood by Automated count 0.04 10^3/uL 0.00 - 0.20 [facility] #IG 0.02 10^3/uL 0.00 - 0.10 [facility] #NRBC 0.00 10^3/uL 0.00 - 0.00 [facility] MANUAL DIFF NOT INDICATED [facility] RBC MORPH NOT INDICATED [facility] spital ID Date Data Source [id number] 08/04/2019 08:53:00 AM EDT [facility] [address] [place] [address] PHONE: [phone] FAX: [phone] Name .................. : BRAD MORENO Acct Number.................. : [id number] ROOM. ................. : MR Number ................... : [id number] Stay type ............. : O/P Discharge Date......... ... : 07/31/19 Admit Date ......... : 07/31/19 Admit Phys .................... : LYNDA DUMONT Date of ....... : 1945 Family Phys ................... : LYNDA DUMONT Phone . ................. : [phone] Age ................................ : 74 Film# .................. .:[id number] Sex ................................. : M Unsigned transcriptions are preliminary reports and do not represent a medical or legal document CHEST 2 VIEWS [id number] COMPLETE:07/31/19 16:57 SRG [id number] (REASON FOR CHEST: CHF CHEST X-RAY: 2-VIEWS INDICATION: CHF. COMPARISON: Prior study from 11/10/14. FINDINGS: Prominence of the pulmonary vasculature is identified. No overt failure is identified. The cardiac silhouette is enlarged. There is a senior php web developer over the left hemithorax. No definite focal [...] LYNDA CRAIG via modem Copy for: [facility] REC Page 1 of 1 Name Value Range Interpretation Code Description Data Radha rce(s) Supporting Document(s) ID Date Data Source [id number] 07/31/2019 08:16:00 PM EDT [facility] Name Value Range Interpretation Code Description Data Radha rce(s) Supporting Document(s) BNP 610 PG/ML 0 - 125 H [facility] ID Date Data Source [id number] 07/31/2019 08:08:00 PM EDT [facility] Name Value Range Interpretation Code Description Data Radha rce(s) Supporting Document(s) Cobalamin (Vitamin B12) [Mass/volume] in Serum or Plasma 377 PG/ML 232 - 1245 [facility] ID Date Data Source [id number] 07/31/2019 07:51:00 PM EDT [facility] Name Value Range Interpretation Code Description Data Radha rce(s) Supporting Document(s) COMPREHENSIVE METABOLIC PANEL [facility] COMPREHENSIVE METABOLIC PANEL Sodium [Moles/volume] in Serum or Plasma 141 mEq/L 134 - 153 [facility] Potassium [Moles/volume] in Serum or Plasma 4.4 mEq/L 3.6 - 5.0 [facility] Chloride [Moles/volume] in Serum or Plasma 101 mEq/L 98 - 107 [facility] Carbon dioxide, total [Moles/volume] in Serum or Plasma 27 MEQ/L 22 - 30 [facility] Glucose [Mass/volume] in Serum or Plasma 100 MG/DL 65 - 110 [facility] BUN 40 MG/DL 7 - 21 H [facility] Creatinine [Mass/volume] in Serum or Plasma 2.1 MG/DL 0.7 - 1.5 H [facility] BUN/CREAT 19 8 - 27 [facility] Protein [Mass/volume] in Serum or Plasma 7.9 G/DL 6.3 - 8.2 [facility] Albumin [Mass/volume] in Serum or Plasma 4.8 G/DL 3.9 - 5.0 [facility] Globulin [Mass/volume] in Serum by calculation 3.1 GM/DL 2.4 - 3.2 [facility] A/G RATIO 1.5 0.8 - 2.0 [facility] Calcium [Mass/volume] in Serum or Plasma 10.0 MG/DL 8.4 - 10.2 [facility] Bilirubin.total [Mass/volume] in Serum or Plasma <0.7 MG/DL 0.2 - 1.3 [facility] Alkaline phosphatase [Enzymatic activity/volume] in Serum or Plasma 44 U/L 38 - 126 [facility] Aspartate aminotransferase [Enzymatic activity/volume] in Serum or Plasma 25 U/L 5 - 40 [facility] Alanine aminotransferase [Enzymatic activity/volume] in Seru m or Plasma 17 U/L 7 - 56 [facility] Anion gap 3 in Serum or Plasma 13.0 mmol/L 8.0 - 16.0 [facility] AGE 74 yrs [facility] NON-AA GFR 33 mL/min [facility] yovanny AFR AMER GFR 40 mL/min [facility] Male GFR In terprentation 20-49 [...] >32 mL/min Normal ID Date Data Source [id number] 07/31/2019 07:51:00 PM EDT [facility] Value Range Interpretation Code Description Data Radha rce(s) Supporting Document(s) Magnesium [Mass/volume] in Serum or Plasma 2.3 MG/DL 1.7 - 2.2 H [facility] ID Date Data Source [id number] 07/31/2019 07:49:00 PM EDT [facility] Value Range Interpretation Code Description Data Radha rce(s) Supporting Document(s) Iron [Mass/volume] in Serum or Plasma 61 UG/DL 42 - 135 [facility] ID Date Data Source [id number] 07/31/2019 05:56:00 PM EDT [facility] Value Range Interpretation Code Description Data Radha rce(s) Supporting Document(s) Fibrin D-dimer FEU [Mass/volume] in Platelet poor plasma <0. 27 ug/mL 0.27 - 0.50 [facility] ID Date Data Source [id number] 07/31/2019 05:45:00 PM EDT [facility] Value Range Interpretation Code Description Data Radha rce(s) Supporting Document(s) CBC W/AUTOMATED DIFF [facility] COMPLETE BLOOD COUNT Leukocytes [#/volume] in Blood by Automated count 5.1 10^3/uL 4.2 - 1 1.0 [facility] Erythrocytes [#/volume] in Blood by Automated count 3.51 10^6/uL 4. 50 - 6.30 L [facility] Hemoglobin [Mass/volume] in Blood 10.3 g/dL 14.0 - 16.0 L [facility] Hematocrit [Volume Fraction] of Blood by Automated count 32.7 % 4 1.0 - 51.0 L [facility] Erythrocyte mean corpuscular volume [Entitic volume] by Auto mated count 93.2 fL 80.0 - 94.0 [facility] Erythrocyte mean corpuscular hemoglobin [Entitic mass] by Automated count 29.3 pg 27.0 - 34.0 [facility] Erythrocyte mean corpuscular hemoglobin concentration [Mass/volume] by Automated count 31.5 g/dL 31.0 - 36.0 [facility] Erythrocyte distribution width [Ratio] by Automated count 17.4 % 11.5 - 14.8 H [facility] Platelets [#/volume] in Blood by Automated count 206 10^3/uL 150 - 45 0 [facility] Platelet mean volume [Entitic volume] in Blood by Automated count 10.3 fL 7.4 - 10.4 [facility] Neutrophils/100 leukocytes in Blood by Automated count 62.8 % 37. 0 - 80.0 [facility] Lymphocytes/100 leukocytes in Blood by Manual count 20.2 % 25.0 - 40.0 L [facility] Monocytes/100 leukocytes in Blood by Automated count 10.7 % 3.0 - 8.0 H [facility] Eosinophils/100 leukocytes in Blood by Automated count 5.3 % 0.0 - 7.0 [facility] Basophils/100 leukocytes in Blood by Automated count 0.6 % 0.0 - 2.0 [facility] %IG 0.4 % 0.0 - 0.0 [facility] %NR[facility] 0.0 % 0.0 - 0.0 [facility] al Neutrophils [#/volume] in Blood by Automated count 3.17 10^3/uL 2.00 - 6.90 [facility] Lymphocytes [#/volume] in Blood by Automated count 1.02 10^3/uL 0.60 - 3.40 [facility] Monocytes [#/volume] in Blood by Automated count 0.54 10^3/uL 0.00 - 0.90 [facility] Eosinophils [#/volume] in Blood by Automated count 0.27 10^3/uL 0.00 - 0.70 [facility] Basophils [#/volume] in Blood by Automated count 0.03 10^3/uL 0.00 - 0.20 [facility] #IG 0.02 10^3/uL 0.00 - 0.10 [facility] #NRBC 0.00 10^3/uL 0.00 - 0.00 [facility] MANUAL DIFF NOT INDICATED [facility] RBC MORPH NOT INDICATED [facility] spital ID Date Data Source [id number] 07/04/2019 09:17:00 AM EST [facility] [address] [place] [address] PHONE: [phone] FAX: [phone] Name .................. : BRAD MORENO Acct Number.................. : [id number] ROOM. ................. : Number ................... : [id number] Stay type ............. : O/P Discharge Date......... ... : 07/02/19 Admit Date ......... : 07/02/19 Admit Phys .................... : LYNDA JULIA Date of ....... : 1945 Family Phys ................... : LYNDA JULIA Phone .................. : [phone] Age ................................ : 74 Film# .................. .:[id number] Sex ................................. : M Unsigned transcriptions are preliminary reports and do not represent a medical or legal document [facility] W/O CONTRAST [id number] COMPLETE:07/02/19 09:31 [id number] (REASON FOR CHEST: CHF CT OF THE [...] and Signed By Page 1 of 2 [facility] [address] [place] [address] [place] [address] PHONE: [phone] FAX: [phone] Name .................. : BRAD MORENO Acct Number.................. : [id number] ROOM. ................. : MR Number ................... : [id number] Stay type ............. : O/P Discharge Date......... ... : 07/02/19 Admit Date ......... : 07/02/19 Admit Phys .................... : LYNDA JULIA Date of ....... : 1945 Family Phys ................... : LYNDA JULIA Phone .................. : [phone] Age ................................ : 74 Film# .................. .:[id number] Sex ................................. : M Unsigned transcriptions are preliminary reports and do not represent a medical or legal document [facility] W/O CONTRAST [id number] COMPLETE:07/02/19 09:31 [id number] (REASON FOR CHEST: CHF Jason Sharma MD , 07/04/19 09:17, MRA Transcribe Initials: TRE , Transcribe Date: 07/02/19 11:38, Dictation Date: Copy for: LYNDA CRAIG via mode Copy for: 710 [facility] REC Page 2 of 2 Name Value Range Interpretation Code Description Data Radha rce(s) Supporting Document(s) ID Date Data Source [id number] 07/01/2019 01:49:00 PM [facility] Name Value Range Interpretation Code Description Data Radha rce(s) Supporting Document(s) Cobalamin (Vitamin B12) [Mass/volume] in Serum or Plasma 471 PG/ML 386 - 1842 [facility] ID Date Data Source [id number] 07/01/2019 01:43:00 PM [facility] Name Value Range Interpretation Code Description Data Radha rce(s) Supporting Document(s) Magnesium [Mass/volume] in Serum or Plasma 2.4 MG/DL 1.7 - 2.2 H [facility] ID Date Data Source [id number] 07/01/2019 01:43:00 PM EST [facility] Name Value Range Interpretation Code Description Data Radha rce(s) Supporting Document(s) COMPREHENSIVE METABOLIC PANEL [facility] COMPREHENSIVE METABOLIC PANEL Sodium [Moles/volume] in Serum or Plasma 145 mEq/L 134 - 153 [facility] Potassium [Moles/volume] in Serum or Plasma 4.2 mEq/L 3.6 - 5.0 [facility] Chloride [Moles/volume] in Serum or Plasma 102 mEq/L 98 - 107 [facility] Carbon dioxide, total [Moles/volume] in Serum or Plasma 27 MEQ/L 22 - 30 [facility] Glucose [Mass/volume] in Serum or Plasma 125 MG/DL 65 - 110 H [facility] BUN 54 MG/DL 7 - 21 [facility] Creatinine [Mass/volume] in Serum or Plasma 2.2 MG/DL 0.7 - 1.5 H [facility] BUN/CREAT 25 8 - 27 [facility] Protein [Mass/volume] in Serum or Plasma 8.4 G/DL 6.3 - 8.2 H [facility] Albumin [Mass/volume] in Serum or Plasma 4.7 G/DL 3.9 - 5.0 [facility] Globulin [Mass/volume] in Serum by calculation 3.7 GM/DL 2.4 - 3.2 H [facility] A/G RATIO 1.3 0.8 - 2.0 [facility] Calcium [Mass/volume] in Serum or Plasma 10.2 MG/DL 8.4 - 10.2 [facility] Bilirubin.total [Mass/volume] in Serum or Plasma <0.7 MG/DL 0.2 - 1.3 [facility] Alkaline phosphatase [Enzymatic activity/volume] in Serum or Plasma 54 U/L 38 - 126 [facility] Aspartate aminotransferase [Enzymatic activity/volume] in Serum or Plasma 25 U/L 5 - 40 [facility] Alanine aminotransferase [Enzymatic activity/volume] in Seru m or Plasma 18 U/L 7 - 56 [facility] Anion gap 3 in Serum or Plasma 16.0 mmol/L 8.0 - 16.0 [facility] AGE 74 yrs [facility] NON-AA GFR 31 mL/min [facility] yovanny AFR AMER GFR 38 mL/min [facility] Male GFR In terprentation 20-49 [...] >32 mL/min Normal ID Date Data Source [id number] 07/01/2019 01:33:00 PM [facility] Name Value Range Interpretation Code Description Data Radha rce(s) Supporting Document(s) Iron [Mass/volume] in Serum or Plasma 52 UG/DL 42 - 135 [facility] ID Date Data Source [id number] 07/01/2019 12:47:00 PM [facility] Name Value Range Interpretation Code Description Data Radha rce(s) Supporting Document(s) Hemoglobin A1c/Hemoglobin.total in Blood 6.5 % 4.4 - 6.1 H [facility] {A1]{HB] ID Date Data Source [id number] 07/01/2019 11:47:00 AM [facility] Name Value Range Interpretation Code Description Data Radha rce(s) Supporting Document(s) CBC W/AUTOMATED DIFF [facility] COMPLETE BLOOD COUNT Leukocytes [#/volume] in Blood by Automated count 6.1 10^3/uL 4.2 - 1 1.0 [facility] Erythrocytes [#/volume] in Blood by Automated count 3.39 10^6/uL 4. 50 - 6.30 L [facility] Hemoglobin [Mass/volume] in Blood 9.9 g/dL 14.0 - 16.0 L [facility] Hematocrit [Volume Fraction] of Blood by Automated count 31.6 % 4 1.0 - 51.0 L [facility] Erythrocyte mean corpuscular volume [Entitic volume] by Auto mated count 93.2 fL 80.0 - 94.0 [facility] Erythrocyte mean corpuscular hemoglobin [Entitic mass] by Automated count 29.2 pg 27.0 - 34.0 [facility] Erythrocyte mean corpuscular hemoglobin concentration [Mass/volume] by Automated count 31.3 g/dL 31.0 - 36.0 [facility] Erythrocyte distribution width [Ratio] by Automated count 16.5 % 11.5 - 14.8 H [facility] Platelets [#/volume] in Blood by Automated count 242 10^3/uL 150 - 45 0 [facility] Platelet mean volume [Entitic volume] in Blood by Automated count 9.1 fL 7.4 - 10.4 [facility] Neutrophils/100 leukocytes in Blood by Automated count 65.0 % 37. 0 - 80.0 [facility] Lymphocytes/100 leukocytes in Blood by Manual count 17.7 % 25.0 - 40.0 L [facility] Monocytes/100 leukocytes in Blood by Automated count 8.9 % 3.0 - 8.0 H [facility] Eosinophils/100 leukocytes in Blood by Automated count 7.2 % 0.0 - 7.0 H [facility] Basophils/100 leukocytes in Blood by Automated count 0.5 % 0.0 - 2.0 [facility] %IG 0.7 % 0.0 - 0.0 [facility] %NR[facility] 0.0 % 0.0 - 0.0 [facility] Neutrophils [#/volume] in Blood by Automated count 3.96 10^3/uL 2.00 - 6.90 [facility] Lymphocytes [#/volume] in Blood by Automated count 1.08 10^3/uL 0.60 - 3.40 [facility] Monocytes [#/volume] in Blood by Automated count 0.54 10^3/uL 0.00 - 0.90 [facility] Eosinophils [#/volume] in Blood by Automated count 0.44 10^3/uL 0.00 - 0.70 [facility] Basophils [#/volume] in Blood by Automated count 0.03 10^3/uL 0.00 - 0.20 [facility] #IG 0.04 10^3/uL 0.00 - 0.10 [facility] #NRBC 0.00 10^3/uL 0.00 - 0.00 [facility] ospital MANUAL DIFF NOT INDICATED [facility] RBC MORPH NOT INDICATED [facility] sp[facility] Procedure Social History Code Duration Value Status Description Data Source(s ) Smoking 02/24/2020 12:00:00 AM EDT Patient has never smoked co mpleted Patient has never smoked [facility] ([facility]) Vital Signs ID Date Data Source UNK Name Value Range Interpretation Code Description Data Source(s) Oxygen saturation in Arterial blood by Pulse oximetry 92 % 92 % [facility] ([facility]) Body mass index (BMI) [Ratio] 40.7 kg/m2 40.7 k g/m2 [facility] ([facility]) Body weight 264.00 [lb_av] 264.00 [lb_av] [facility] T ([facility]) Body height 67.5 [in_i] 67.5 [in_i] [facility] ([facility]) 5'7.50" Body temperature 96.9 [degF] 96.9 [degF] [facility] ([facility]) Heart rate 59 /min 59 /min [facility] ([facility]) Diastolic blood pressure 64 mm[Hg] 64 mm[Hg] [facility] ([facility]) Systolic blood pressure 130 mm[Hg] 130 mm[Hg] [facility] ([facility]) Oxygen saturation in Arterial blood by Pulse oximetry 94 % 94 % [facility] ([facility]) Heart rate 58 /min 58 /min [facility] ([facility]) Diastolic blood pressure 58 mm[Hg] 58 mm[Hg] [facility] ([facility]) Systolic blood pressure 136 mm[Hg] 136 mm[Hg] [facility] ([facility]) Body temperature 97.1 [degF] 97.1 [degF] [facility] ([facility]) Body mass index (BMI) [Ratio] 44.2 [...] [Ratio] 45.2 kg/m2 45.2 k g/m2 [facility] ([facility] ) Body weight 284.38 [lb_av] 284.38 [lb_av] [facility] T ([facility] ) Body height 66.5 [in_i] 66.5 [in_i] [facility] ([facility] 5'6.50" Body temperature 97.1 [degF] 97.1 [degF] [facility] ([facility] ) Oxygen saturation in Arterial blood by Pulse oximetry 93 % 93 % [facility] ([facility] ) Body mass index (BMI) [Ratio] 43.7 kg/m2 43.7 k g/m2 [facility] ([facility] ) Body weight 283.25 [lb_av] 283.25 [lb_av] [facility] T ([facility] ) Body height 67.5 [in_i] 67.5 [in_i] [facility] ([facility] ) 5'7.50" Body temperature 96.4 [degF] 96.4 [degF] [facility] ([facility] ) Heart rate 54 /min 54 /min MEDJ[facility] ([facility] ) Diastolic blood pressure 70 mm[Hg] 70 mm[Hg] [facility] ([facility] ) Systolic blood pressure 134 mm[Hg] 134 mm[Hg] M NEPTALI ([facility] )
--- NOTE | 2020-06-29 06:29 | REPVR ---
PROCEDURE INFORMATION: Exam: XR Chest, 1 View Exam date and time: 06/29/2020 6:14 AM Age: 75 years old Clinical indication: Cough and dyspnea; Additional info: Dyspnea/cough TECHNIQUE: Imaging protocol: XR of the chest Views: 1 view. COMPARISON: CR PORTABLE CHEST X-RAY 03/03/2018 11:20 AM FINDINGS: Tubes, catheters and devices: Cardiac loop recorder seen in the medial left mid chest. Lungs: There is bilateral prominent interstitial markings. Pleural spaces: Unremarkable. No pleural effusion. No pneumothorax. Heart/Mediastinum: The heart is enlarged. Bones/joints: Unremarkable. IMPRESSION: 1. No focal consolidation. 2. Nonspecific bilateral increased interstitial markings suggestive of interstitial inflammatory/infectious process. Electronically signed by: Jeremias Wasserman On 06/29/2020 06:29:45 AM
[2020-06-29] MEDS ORDERED: FUROSEMIDE 40MG/4ML VIAL (J1940) IV ONE (07:15)
[2020-06-29] MEDS ORDERED: DOCU100T8 PO (07:53)
[2020-06-29] MEDS ORDERED: ASMA16.7 INH (07:53)
[2020-06-29] MEDS ORDERED: TOUJ300I2 SC (07:53)
[2020-06-29] MEDS ORDERED: META28.32 PO (07:53)
[2020-06-29] MEDS ORDERED: VITMTA PO (07:53)
[2020-06-29] MEDS ORDERED: ALBUTEROL SULFATE 2.5 MG/0.5 ML INH NEB SOLN NEB PRN (08:00)
--- OUTSIDE RECORDS SUMMARY | 2020-06-29 08:02 | CCD ---
Author Author [facility] Organization [facility] Address Unknown Phone Unavailable Care Team Providers Care Bull Driver Name Role Phone MackenzieMilton snowden FOOD SAFETY AUDITOR Unavailable Unavailable Mackenzie, Milton Gerard FOOD SAFETY AUDITOR Unavailable Unavailable Mackenzie, D Gerard FOOD SAFETY AUDITOR Unavailable Unavailable Mackenzie, D Gerard FOOD SAFETY AUDITOR Unavailable Unavailable Mackenzie, D Gerard FOOD SAFETY AUDITOR Unavailable Unavailable Mackenzie, D Gerard FOOD SAFETY AUDITOR Unavailable Unavailable Mackenzie, D Gerard FOOD SAFETY AUDITOR Unavailable Unavailable Mackenzie, D Gerard FOOD SAFETY AUDITOR Unavailable Unavailable Mackenzie, D Gerard FOOD SAFETY AUDITOR Unavailable Unavailable Mackenzie, D Gerard FOOD SAFETY AUDITOR Unavailable Unavailable Mackenzie, D Gerard FOOD SAFETY AUDITOR Unavailable Unavailable Mackenzie, D Gerard FOOD SAFETY AUDITOR Unavailable Unavailable Mackenzie, D Gerard FOOD SAFETY AUDITOR Unavailable Unavailable Mackenzie, D Gerard FOOD SAFETY AUDITOR Unavailable Unavailable Mackenzie, D Gerard FOOD SAFETY AUDITOR Unavailable Unavailable Mackenzie, D Gerard FOOD SAFETY AUDITOR Unavailable Unavailable Mackenzie, D Gerard FOOD SAFETY AUDITOR Unavailable Unavailable Mackenzie, D Gerard FOOD SAFETY AUDITOR Unavailable Unavailable Mackenzie, D Gerard FOOD SAFETY AUDITOR Unavailable Unavailable Mackenzie, D Gerard FOOD SAFETY AUDITOR Unavailable Unavailable Mackenzie, D Gerard FOOD SAFETY AUDITOR Unavailable Unavailable Mackenzie, D Gerard FOOD SAFETY AUDITOR Unavailable Unavailable Mackenzie, D Gerard FOOD SAFETY AUDITOR Unavailable Unavailable Mackenzie, D Gerard FOOD SAFETY AUDITOR Unavailable Unavailable Mackenzie, D Gerard FOOD SAFETY AUDITOR Unavailable Unavailable Mackenzie, D Gerard FOOD SAFETY AUDITOR Unavailable Unavailable Mackenzie, D Gerard FOOD SAFETY AUDITOR Unavailable Unavailable Mackenzie, D Gerard FOOD SAFETY AUDITOR Unavailable Unavailable Mackenzie, D Gerard FOOD SAFETY AUDITOR Unavailable Unavailable Mackenzie, D Gerard FOOD SAFETY AUDITOR Unavailable Unavailable Mackenzie, D Gerard FOOD SAFETY AUDITOR Unavailable Unavailable Mackenzie, D Gerard FOOD SAFETY AUDITOR Unavailable Unavailable Mackenzie, D Gerard FOOD SAFETY AUDITOR Unavailable Unavailable Mackenzie, D Gerard FOOD SAFETY AUDITOR Unavailable Unavailable Mackenzie, D Gerard FOOD SAFETY AUDITOR Unavailable Unavailable LYNDA, MAQBOOL RAFA MD Unavailable [...] Z LOTTIE MD Unavailable Unavailable PARNES, Z LOTITE MD Unavailable Unavailable PARNES, Z LOTTIE MD [...] LOTTIE MD Unavailable Unavailable COOK, B BIANKA FOOD SAFETY AUDITOR Unavailable Unavailable COOK, B BIANKA FOOD SAFETY AUDITOR Unavailable Unavailable COOK, B BIANKA FOOD SAFETY AUDITOR Unavailable Unavailable COOK, B BIANKA FOOD SAFETY AUDITOR Unavailable Unavailable COOK, B BIANKA FOOD SAFETY AUDITOR Unavailable Unavailable COOK, B BIANKA FOOD SAFETY AUDITOR Unavailable Unavailable COOK, B BIANKA FOOD SAFETY AUDITOR Unavailable Unavailable COOK, B BIANKA FOOD SAFETY AUDITOR Unavailable Unavailable COOK, B BIANKA FOOD SAFETY AUDITOR Unavailable Unavailable COOK, B BIANKA FOOD SAFETY AUDITOR Unavailable Unavailable COOK, B BIANKA FOOD SAFETY AUDITOR Unavailable Unavailable COOK, B BIANKA FOOD SAFETY AUDITOR Unavailable Unavailable COOK, B BIANKA FOOD SAFETY AUDITOR Unavailable Unavailable COOK, B BIANKA FOOD SAFETY AUDITOR Unavailable Unavailable COOK, B BIANKA FOOD SAFETY AUDITOR Unavailable Unavailable COOK, B BIANKA FOOD SAFETY AUDITOR Unavailable Unavailable COOK, B BIANKA FOOD SAFETY AUDITOR Unavailable Unavailable COOK, B BIANKA FOOD SAFETY AUDITOR Unavailable Unavailable COOK, B BIANKA FOOD SAFETY AUDITOR Unavailable Unavailable COOK, B BIANKA FOOD SAFETY AUDITOR Unavailable Unavailable COOK, B BIANKA FOOD SAFETY AUDITOR Unavailable Unavailable COOK, B BIANKA FOOD SAFETY AUDITOR Unavailable Unavailable COOK, B BIANKA FOOD SAFETY AUDITOR Unavailable Unavailable COOK, B BIANKA FOOD SAFETY AUDITOR Unavailable Unavailable COOK, B BIANKA FOOD SAFETY AUDITOR Unavailable Unavailable COOK, B BIANKA FOOD SAFETY AUDITOR Unavailable Unavailable COOK, B BIANKA FOOD SAFETY AUDITOR Unavailable Unavailable COOK, B BIANKA FOOD SAFETY AUDITOR Unavailable Unavailable COOK, B BIANKA FOOD SAFETY AUDITOR Unavailable Unavailable COOK, B BIANKA FOOD SAFETY AUDITOR Unavailable Unavailable COOK, B BIANKA FOOD SAFETY AUDITOR Unavailable Unavailable COOK, B BIANKA FOOD SAFETY AUDITOR Unavailable Unavailable COOK, B BIANKA FOOD SAFETY AUDITOR Unavailable Unavailable COOK, B BIANKA FOOD SAFETY AUDITOR Unavailable Unavailable COOK, B BIANKA FOOD SAFETY AUDITOR Unavailable Unavailable COOK, B BIANKA FOOD SAFETY AUDITOR Unavailable Unavailable COOK, B BIANKA FOOD SAFETY AUDITOR Unavailable Unavailable COOK, B BIANKA FOOD SAFETY AUDITOR Unavailable Unavailable COOK, B BIANKA FOOD SAFETY AUDITOR Unavailable Unavailable COOK, B BIANKA FOOD SAFETY AUDITOR Unavailable Unavailable COOK, B BIANKA FOOD SAFETY AUDITOR Unavailable Unavailable COOK, B BIANKA FOOD SAFETY AUDITOR Unavailable Unavailable COOK, B BIANKA FOOD SAFETY AUDITOR Unavailable Unavailable COOK, B BIANKA FOOD SAFETY AUDITOR Unavailable Unavailable COOK, B BIANKA FOOD SAFETY AUDITOR Unavailable Unavailable COOK, B BIANKA FOOD SAFETY AUDITOR Unavailable Unavailable COOK, B BIANKA FOOD SAFETY AUDITOR Unavailable Unavailable COOK, B BIANKA FOOD SAFETY AUDITOR Unavailable Unavailable COOK, B BIANKA FOOD SAFETY AUDITOR Unavailable Unavailable COOK, B BIANKA FOOD SAFETY AUDITOR Unavailable Unavailable COOK, B BIANKA FOOD SAFETY AUDITOR Unavailable Unavailable COOK, B BIANKA FOOD SAFETY AUDITOR Unavailable Unavailable COOK, B BIANKA FOOD SAFETY AUDITOR Unavailable Unavailable COOK, B BIANKA FOOD SAFETY AUDITOR Unavailable Unavailable COOK, B BIANKA FOOD SAFETY AUDITOR Unavailable Unavailable COOK, B BIANKA FOOD SAFETY AUDITOR Unavailable Unavailable COOK, B BIANKA FOOD SAFETY AUDITOR Unavailable Unavailable COOK, B BIANKA FOOD SAFETY AUDITOR Unavailable Unavailable COOK, B BIANKA FOOD SAFETY AUDITOR Unavailable Unavailable COOK, B BIANKA FOOD SAFETY AUDITOR Unavailable Unavailable COOK, B BIANKA FOOD SAFETY AUDITOR Unavailable Unavailable COOK, B BIANKA FOOD SAFETY AUDITOR Unavailable Unavailable COOK, B BIANKA FOOD SAFETY AUDITOR Unavailable Unavailable COOK, B BIANKA FOOD SAFETY AUDITOR Unavailable Unavailable Milton Hair MD Unavailable Unavailable VaneenteodoraamMilton MD Unavailable Unavailable VaneenenaamMilton MD Unavailable Unavailable VaneenenaamMilton MD Unavailable Unavailable Vaneenenaam, Milton Ferirs MD [...] Vaneenenaam, Milton Ferris MD Unavailable Unavailable Vaneenenaam, Mliton Ferris MD Unavailable Unavailable Vaneenenaam, Milton Ferris [...] is protected by Article 27-F of the [place] State Public Health law. If you continue you may have access to information: Regarding HIV / AIDS; Provided by facilities licensed or operated by the [facility] Office of Mental Health; or Provided by the [facility] Office for People With Developmental Disabilities. If such information is present, then the following [facility] mandated warning applies: This information has [...] law may result in a fine or intermediate sentence or both. A general authorization for the release of medical or other information is NOT sufficient authorization for further disc losure. Allergies and Adverse Reactions Type Description Substance Reaction Status Data Source(s ) No Known Drug Allergies No Known Drug Allergies [facility] ENVIRONMENTAL Adhesive Adhesive blister [facility] Food allergy SHRIMP SHRIMP HIVES [facility] Family History Family Member Name Family Member Gender Family Member Status Date o f Status Description Data Source(s) Unknown Male Problem [facility] ([facility]) Unknown Male Problem [facility] ([facility] () Unknown Female Problem [facility] ([facility]) Unknown Female Problem [facility] ([facility]) Encounters Encounter Providers Location Date Indications Data Source(s ) Outpatient Attender: BIANKA PARDO NP Physical Therapy 06/15/2020 0 9:45:00 AM EST [facility] ([facility] ) Outpatient Attender: Milton Hair MDConsultant: TRANG CORBIN MD 05/24/2020 02:05:00 PM [facility] Outpatient Attender: RAFA CORBIN MD [facility] 05/05 09:45:00 AM EST [facility] (Rafa Corbin MD) Outpatient Attender: RAFA CORIBN MD [facility] 03/29 10:30:00 AM EST [facility] (Rafa Corbin MD) Outpatient Attender: Milton Hair MDConsultant: TRANG CORBIN MD 03/15/2020 01:19:45 PM EST - 05/19/2020 03:41:00 PM [facility] Patient discharged. OFFICE OUTPATIENT NEW 30 MINUTES Attender: Milton Doyle am, MD Physical Therapy 03/05/2020 10:30:00 AM EDT [facility] ([facility]) Outpatient Attender: BIANKA PARDO NP Physical Therapy 02/24/2020 1 0:30:00 AM EDT [facility] ([facility]) Outpatient Attender: RAFA CORBIN MD [facility] 02/17 11:15:00 AM EDT [facility] (Rafa Corbin MD) Outpatient Attender: RAFA CORBIN MDConsultant: RAFA Weiss MD 02/10/2020 10:35:00 AM EDT - 02/10/2020 11:35:00 AM EDT [facility] Outpatient Attender: RAFA CORBIN MDConsultant: RAFA Weiss MD 02/02/2020 04:07:00 PM EDT - 02/02/2020 05:07:00 PM EDT [facility] Outpatient Attender: RAFA CORBIN MD [facility] 02/01 03:15:00 PM EDT [facility] (Rafa Corbin MD) Outpatient Attender: RAFA CORBIN MDConsultant: RAFA Weiss MD 12/03/2019 12:25:00 PM EDT - 12/03/2019 01:25:00 PM EDT [facility] Outpatient Attender: RAFA CORBIN MDConsultant: RAFA Weiss MD 11/04/2019 02:15:00 PM EDT - 11/04/2019 03:15:00 PM EDT [facility] Outpatient Attender: RAFA CORBIN MDConsultant: RAFA Weiss MD 09/08/2019 12:09:00 PM EDT - 09/08/2019 01:09:00 PM EDT [facility] Outpatient Attender: BIANKA PARDO NP Physical Therapy 08/26/2019 1 0:30:00 AM EDT [facility] ([facility]) Outpatient Attender: RAFA CORBIN MDConsultant: RAFA Weiss MD 08/25/2019 12:33:00 PM EDT - 08/25/2019 01:33:00 PM EDT [facility] Outpatient Attender: RAFA CORBIN MDConsultant: RAFA Weiss MD 07/31/2019 04:34:00 PM EDT - 07/31/2019 05:34:00 PM EDT [facility] Outpatient Attender: RAFA CORBIN MDConsultant: RAFA Weiss MD 07/02/2019 09:28:00 AM EST - 07/02/2019 10:28:00 AM [facility] Outpatient Attender: RAFA CORBIN MDConsultant: RAFA Weiss MD 07/01/2019 11:18:00 AM EST - 07/01/2019 12:18:00 PM [facility] Outpatient Attender: RAFA CORBIN MDConsultant: RAFA Weiss MD 06/09/2019 02:28:00 PM EST - 01/14/2020 01:17:00 PM EDT [facility] Patient discharged. Outpatient Attender: Gerard Mann NPAtt tanja: LOTTIE GLEASON MDConsultant: RAFA CORBIN MD 05/05/2019 10:26:00 AM EST - 05/05/2019 10:26:00 AM [facility] Outpatient Attender: RAFA CORBIN MDConsultant: RAFA Weiss MD 03/26/2019 10:54:11 AM [facility] - 06/09/2019 07:52:00 AM [facility] Patient discharged. Outpatient Attender: Gerard Mann NPConsultant: RAFA Weiss MD 01/16/2019 01:49:00 PM EDT - 03/21/2019 01:24:00 PM [facility] Patient discharged. Immunizations Vaccine Date Status Description [...] Siddiqui 12/18/2019 12:00:00 AM EDT active [facility] ([facility]) Insurance Providers Payer name Policy type / Coverage type Policy ID Covered constitution party ID Covered constitution party's relationship to salazar Policy Salazar Plan Information UMR [facility] [id number] SP [id number] MEDICARE [id number] SP [id number] UMR -O [id number] 18 [id number] MEDICARE -RECURRING [id number] 18 [id number] UMR -O/P [id number] 18 [id number] MEDICARE PART A -O/P [id number] 18 [id number] MEDICARE PART A -O/P , 18 , MEDICARE -RECURRING [id number] 18 [id number] UMR [id number] 18 [id number] MEDICARE PART A [facility] [id number] 18 [id number] Umr (pr) Medigap Part B [id number] Self [id number] [place] [id number] Self [id number] [place] (pr) Medigap Part B [id number] Self [id number] UMR U [id number] Self [id number] MEDICARE A [id number] Self [id number] [place] Medigap Part B [id number] Self [id number] [place] Medicare Primary [id number] Self [id number] Umr Commercial [id number] Self [id number] Umr (pr) Medigap Part B [id number] Self [id number] [place] Primary [id number] Self [id number] UMR [facility] [id number] SP [id number] Umr (pr) Medigap Part B [id number] Self [id number] [place] Primary [id number] Self [id number] [place] Medigap Part B [id number] Self [id number] [place] Medicare Primary [id number] Self [id number] Umr (pr) Medigap Part B [id number] Self [id number] [place] [id number] Self [id number] MEDICARE [id number] SP [id number] MEDICARE [id number] SP [id number] [place] U [id number] Self [id number] MEDICARE A [id number] Self [id number] A Umr (pr) Medigap Part B [id number] Self [id number] [place] Primary [id number] Self [id number] [employer] PPO O [id number] S [id number] MEDICARE C [id number] S [id number] A [employer] [id number] SP [id number] MEDICARE [id number] SP [id number] A MEDICARE PART A -O/P [id number] 18 [id number] [employer]-O/P [id number] 18 [id number] [employer]-O/P [id number] 18 [id number] [place] Primary [id number] Self [id number] [place] (pr) Medigap Part B [id number] Self [id number] [place] Primary [id number] Self [id number] [place] Primary [id number] Self [id number] [place] Commercial [id number] Self [id number] Medicare - [place] Medicare Primary [id number] Self [id number] [place] Primary [id number] Self [id number] [place] Primary [id number] Self [id number] [employer] [id number] SP [id number] [employer]OM[employer] [id number] SP [id number] [place] (pr) Medigap Part B Self [place] Primary Self [employer]-PHYSICIAN [id number] 18 [id number] MEDICARE -O/P [id number] 18 [id number] MEDICARE -O/P [id number] 18 [id number] MEDICARE PART A-CLINIC [id number] 18 [id number] [employer]-CLINIC [id number] 18 [id number] [employer]-RECURRING [id number] 18 [id number] Problems, Conditions, and Diagnoses Code Display Name Description Problem Type Effective Dates Data Source(s) R2689 Other abnormalities of gait and mobility Other abnormalities of gait and mobility Diagnosis 05/24/2020 02:05:00 PM [facility] E669 Obesity, unspecified Obesity, unspecified Diagnosis 03/15/2020 01:22:00 PM [facility] M1712 Unilateral primary osteoarthritis, left knee Unilateral primary osteoarthritis, left knee Diagnosis 03/15/2020 01:22:00 PM [facility] [id number] Effusion, left knee Effusion, left knee Diagnosis 1 10:35:00 AM EDT [facility] [id number] Other tear of medial meniscu s, current injury, left knee, initial encounter Other tear of medial meniscus, current i njury, left knee, initial encounter Diagnosis 02/10/2020 10:35:00 AM EDT [facility] 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, unspe cified Disorders of magnesium metabolism, unspecified Diagnosis 02/02/2020 04:07:00 PM EDT [facility] M109 Gout, unspecified Gout, unspecified Diagnosis 02/02/2020 04:07:00 PM EDT [facility] I509 Heart failure, unspecified Heart failure, unspecified Diagnosis 02/02/2020 04:07:00 PM EDT [facility] N390 Urinary tract infection, site not specif ied Urinary tract infection, site not specified Diagnosis 02/02/2020 04:07:00 PM EDT [facility] E039 Hypothyroidism, unspecified Hypothyroidism, unspecifie d Diagnosis 02/02/2020 04:07:00 PM EDT [facility] D649 Anemia, unspecified Anemia, unspecified Diagnosis 0 02/02/2020 04:07:00 PM EDT [facility] E785 Hyperlipidemia, unspecified Hyperlipidemia, unspecifie d Diagnosis 02/02/2020 04:07:00 PM EDT [facility] E119 Type 2 diabetes mellitus without complic ations Type 2 diabetes mellitus without complications Diagnosis 02/02/2020 04:07:00 PM EDT [facility] R351 Nocturia Nocturia Diagnosis 12/03/2019 12:25:00 PM ED T [facility] I2720 Pulmonary hypertension, unspecified Pulmonary hy pertension, unspecified Diagnosis 07/31/2019 04:34:00 PM EDT [facility] I517 Cardiomegaly Cardiomegaly Diagnosis 07/31/2019 04:34:00 P M EDT [facility] R918 Other nonspecific abnormal finding of nova ng field Other nonspecific abnormal finding of lung field Diagnosis 07/02/2019 09:28:00 AM [facility] R160 Hepatomegaly, not elsewhere classified H epatomegaly, not elsewhere classified Diagnosis 07/02/2019 09:28:00 AM [facility] E8342 Hypomagnesemia Hypomagnesemia Diagnosis 07/01/2019 11:18: 00 AM [facility] R99 Ill-defined and unknown cause of mortali ty Ill-defined and unknown cause of mortality Diagnosis 06/09/2019 02:28:00 PM [facility] S71388 Stiffness of left shoulder, not elsewher e classified Stiffness of left shoulder, not elsewhere classified Diagnosis 05/05/2019 10:26:00 AM ES T [facility] W53431 Pain in left shoulder Pain in left shoulder Diagnosis 05/05/2019 10:26:00 AM [facility] Surgeries/Procedures Procedure Description Date Indications Data Source(s) ECG ROUTINE ECG W/LEAST 12 LDS W/I&R 03/29/2020 12:00: [address] [facility] (Rafa Corbin MD) RADIOLOGIC EXAM KNEE COMPLETE 4/MORE VIEWS 03/05/2020 12:00:00 AM EDT [facility] ([facility] ) Diabetic Foot Exam 02/24/2020 12:00:00 AM EDT [facility] Results ID Date Data Source [id number] 06/15/2020 11:00:[address] [facility] ([facility] ) Name Value Range Interpretation Code Description Data Radha rce(s) Supporting Document(s) Hemoglobin A1c/Hemoglobin.total in Blood 5.9 [facility] ([facility] ) Glucose [Mass/volume] in Serum or Plasma 95 [facility] ([facility] ) ID Date Data Source [id number] 05/20/2020 12:36:00 PM EST [facility] (Rafa Corbin MD) Name Value Range Interpretation Code Description Data Radha rce(s) Supporting Document(s) Glucose [Mass/volume] in Capillary blood by Glucometer 81 mg/dL 83-110 Below low normal [facility] (Rafa Corbin MD) ID Date Data Source [id number] 04/15/2020 10:35:00 AM EST [facility] (Rafa Corbin [...] BY O ADJAPONG ID Date Data Source [id number] 04/15/2020 10:35:00 AM EST [facility] (Rafa Cobrin MD) Name Value Range Interpretation Code Description [...] BY O ADJAPONG ID Date Data Source [id number] 04/15/2020 10:35:00 AM EST [facility] (Rafa Corbin [...] Little GFR Left</content>
<content>ESRD GFR <15 on HUMAN FACTORS ADVISOR LEAD</content>
<content></content> Laboratory test finding (navigational concept) 106 [...] (Rafa Corbin MD) ID Date Data Source [id number] 04/15/2020 10:35:00 AM EST [facility] (Rafa Corbin MD) Name Value Range Interpretation Code Description Data Radha rce(s) Supporting Document(s) Laboratory test finding (navigational concept) 12.66 0 .26-1.65 Above high normal [facility] (Rafa Corbin MD) Performed at: - [facility] [address] [id number] Acls Specialist: Tahmina Nair MD, Phone: [phone] Laboratory test finding (navigational concept) 19.9 mg/L 5 .7-26.3 Normal (applies to non-numeric results) [facility] (Rafa Corbin MD) Laboratory test finding (navigational concept) 251.9 mg/L 3 .3-19.4 Above high normal [facility] (Rafa Corbin MD) ID Date Data Source [id number] 04/15/2020 10:35:00 AM EST [facility] (Rafa Corbin [...] (Rafa Corbin MD) ID Date Data Source [id number] 04/12/2020 03:25:00 PM EST [facility] (Rafa Corbin [...] by the U.S. Food and Drug Administration. [facility] is designated as a high complexity laboratory by the Clinical Laboratory Improvement Amendments of 1988(CLIA) and is qualified to perform this test. ASSAY INFORMATION: Real Time RT-PCR Patient samples for this assay have been pooled. All positive samples have been individually repeated for confirmation. The pooling protocol using the romelia SARS-CoV-2 assay has been added to [id number] on February 19, 2020. ID Date Data Source [id number] 04/12/2020 12:00:00 AM EST [facility] Name Value Range Interpretation Code Description Data Radha rce(s) Supporting Document(s) 2019-nCoV RNA XXX ARTIE+probe-Imp [facility] This lab was ordered by [facility] and reported by [facility]. ID Date Data Source [id number] 02/24/2020 10:36:00 AM EDT [facility] ([facility] ) Name Value Range Interpretation Code Description Data Radha rce(s) Supporting Document(s) Hemoglobin A1c/Hemoglobin.total in Blood 6.7 [facility] ([facility]) Glucose [Mass/volume] in Serum or Plasma 131 [facility] ([facility]) ID Date Data Source [id number] 02/13/2020 02:00:00 PM EDT [facility] [address] [place] [address] PHONE: [phone] FAX: [phone] Name .................. : BRDA JOSH Kcoh Acct Number.................. : [id number] ROOM. ................. : MR Number ................... : [id number] Stay type ............. : O/P Discharge Date......... ... : 02/10/20 Admit Date ......... : 02/10/20 Admit Phys .................... : LYNDA JULIA Date of ....... : 1945 Family Phys ................... : LYNDA JULIA Phone .................. : [phone] Age ................................ : 74 Film# .................. .:[id number] Sex ................................. : M Unsigned transcriptions are preliminary reports and do not represent a medical or legal document MRI LOWER EXT ANY JT W/O CONT [id number] COMPLETE:02/10/20 14:54 [facility] [address]70 (REASON FOR PROCESS: PAIN, MENISCUS TEAR MRI [...] LYNDA CRAIG via modem Copy for: [facility] REC Page 1 of 1 Name Value Range Interpretation Code Description Data Radha rce(s) Supporting Document(s) ID Date Data Source [id number] 02/07/2020 04:43:00 PM EDT [facility] Name Value Range Interpretation Code Description Data Radha rce(s) Supporting Document(s) CULTURE URINE [facility] spital _CULTURE URINE_$$192090$$276934$$347438$$336444$$660159$$791340$$244155$$695690$$001376$$ 994397$$307373$$648859$$926218$$228160$$174389$$435270$$115173$$018010$$854501$$ 747040$$304692$$266414$$833014$$182998$$558519$$881126$$041028 -- Continued on next page --Patient: BRAD oKch Order: [id number] Page 2Culture: CULTURE URINE Status: Final ==== -- Continued on next page --Patient: BRAD Koch Order: [id number] Page 2Culture: CULTURE URINE Status: Prelim =====$$[id number]$$[id number] DATE/TIME: 02/07/2020 15:06Culture: CULTURE URINE Status: FinalUrine Culture,Comprehensive: P1No growth in 36 - 48 hours. Previous result entered on 02/06/2020 01:48 ET No growth after 18-24 hours.P1 Test performed [facility]: [facility] #: [id number] [address] [place] [phone] [facility] [address]Medical Director : Korey Mcmahon MD NPI #:Lab Maria Teresa jc : 02/06/[email or web address] REF 02/07/[email or web address].SENT REF ID Date Data Source [id number] 02/02/2020 05:26:00 PM EDT [facility] Name Value Range Interpretation Code Description Data Radha rce(s) Supporting Document(s) BNP 636 PG/ML 0 - 125 H [facility] al ID Date Data Source [id number] 02/02/2020 05:26:00 PM EDT [facility] Name Value Range Interpretation Code Description Data Radha rce(s) Supporting Document(s) Cobalamin (Vitamin B12) [Mass/volume] in Serum or Plasma 481 PG/ML 232 - 1245 [facility] ID Date Data Source [id number] 02/02/2020 05:26:00 PM EDT [facility] Name Value Range Interpretation Code Description Data Radha rce(s) Supporting Document(s) Thyrotropin [Units/volume] in Serum or Plasma by Detec tion limit <= 0.05 mIU/L 4.55 uIU/mL 0.47 - 5.01 [facility] ID Date Data Source [id number] 02/02/2020 05:16:00 PM EDT [facility] Name Value Range Interpretation Code Description Data Radha rce(s) Supporting Document(s) CVE PANEL [facility] al LIPID PANEL Cholesterol [Mass/volume] in Serum or Plasma 104 MG/DL 131 - 200 L [facility] Deprecated Triglyceride [Mass/volume] in Serum or Plasma 275 MG/DL 3 5 - 160 H [facility] HDL 31 MG/DL 29 - 86 [facility] al Cholesterol in LDL [Mass/volume] in Serum or Plasma by Direc t assay 44 mg/dL 65 - 175 L [facility] Cholesterol.total/Cholesterol in HDL [Mass Ratio] in Serum o r Plasma 3.4 3.4 - 4.9 L [facility] LDL/HDL 1.42 1.00 - 3.55 [facility] ital CVE RISK CHOL/HDL LDL/HDLMEN: 1/2 AVERAGE 3.43 1.00 AVERAGE 4.97 3.55 2X AVERAGE 9.55 6.25 3X AVERAGE 23.99 7.99WOMEN: 1/2 AVERAGE 3.27 1.47 AVERAGE 4.44 3.22 2X AVERAGE 7.05 5.03 3X AVERAGE 11.04 6.14 ID Date Data Source [id number] 02/02/2020 05:16:00 PM EDT [facility] Name Value Range Interpretation Code Description Data Radha rce(s) Supporting Document(s) COMPREHENSIVE METABOLIC PANEL [facility] COMPREHENSIVE METABOLIC PANEL Sodium [Moles/volume] in Serum or Plasma 142 mEq/L 134 - 153 [facility] Potassium [Moles/volume] in Serum or Plasma 3.8 mEq/L 3.6 - 5.0 [facility] Chloride [Moles/volume] in Serum or Plasma 102 mEq/L 98 - 107 [facility] Carbon dioxide, total [Moles/volume] in Serum or Plasma 28 MEQ/L 22 - 30 [facility] Glucose [Mass/volume] in Serum or Plasma 120 MG/DL 65 - 110 H [facility] BUN 55 MG/DL 7 - 21 H [facility] al Creatinine [Mass/volume] in Serum or Plasma 2.4 MG/DL 0.7 - 1.5 H [facility] BUN/CREAT 23 8 - 27 [facility] al Protein [Mass/volume] in Serum or Plasma 8.2 G/DL 6.3 - 8.2 [facility] Albumin [Mass/volume] in Serum or Plasma 4.7 G/DL 3.9 - 5.0 [facility] Globulin [Mass/volume] in Serum by calculation 3.5 GM/DL 2.4 - 3.2 H [facility] A/G RATIO 1.3 0.8 - 2.0 [facility] Calcium [Mass/volume] in Serum or Plasma 9.8 MG/DL 8.4 - 10.2 [facility] Bilirubin.total [Mass/volume] in Serum or Plasma 0.8 MG/DL 0.2 - 1.3 [facility] Alkaline phosphatase [Enzymatic activity/volume] in Serum or Plasma 47 U/L 38 - 126 [facility] Aspartate aminotransferase [Enzymatic activity/volume] in Serum or Plasma 28 U/L 5 - 40 [facility] Alanine aminotransferase [Enzymatic activity/volume] in Seru m or Plasma 20 U/L 7 - 56 [facility] Anion gap 3 in Serum or Plasma 12.0 mmol/L 8.0 - 16.0 [facility] AGE 74 yrs [facility] NON-AA GFR 28 mL/min [facility] yovanny AFR AMER GFR 34 mL/min [facility] Male GFR In terprentation 20-49 [...] >32 mL/min Normal ID Date Data Source [id number] 02/02/2020 05:16:00 PM EDT [facility] Name Value Range Interpretation Code Description Data Radha rce(s) Supporting Document(s) Urate [Mass/volume] in Serum or Plasma 8.0 MG/DL 2.5 - 8.5 [facility] ID Date Data Source [id number] 02/02/2020 05:16:00 PM EDT [facility] Name Value Range Interpretation Code Description Data Radha rce(s) Supporting Document(s) Magnesium [Mass/volume] in Serum or Plasma 2.3 MG/DL 1.7 - 2.2 H [facility] ID Date Data Source [id number] 02/02/2020 05:16:00 PM EDT [facility] Name Value Range Interpretation Code Description Data Radha rce(s) Supporting Document(s) Iron [Mass/volume] in Serum or Plasma 61 UG/DL 42 - 135 [facility] ID Date Data Source [id number] 02/02/2020 04:52:00 PM EDT [facility] Name Value Range Interpretation Code Description Data Radha rce(s) Supporting Document(s) Hemoglobin A1c/Hemoglobin.total in Blood 6.5 % 4.4 - 6.1 H [facility] {A1]{HB] ID Date Data Source [id number] 02/02/2020 04:50:00 PM EDT [facility] Name Value Range Interpretation Code Description Data [facility] rce(s) Supporting Document(s) Fibrin D-dimer FEU [Mass/volume] in Platelet poor plasma 0.32 ug /mL 0.27 - 0.50 [facility] ID Date Data Source [id number] 02/02/2020 04:40:00 PM EDT [facility] Name Value Range Interpretation Code Description Data Radha rce(s) Supporting Document(s) [facility] yellow NORMAL: Yellow [facility] CLARITY clear NORMAL: Clear [facility] Specific gravity of Urine by Test strip 1.010 1.001 - 1.030 [facility] pH 6 5 - 9 [facility] al Glucose [Mass/volume] in Urine by Test strip NORM NORMAL: Negat [facility] Bilirubin.total [Presence] in Urine by Test strip NEG NORMAL: Negative [facility] Ketones [Presence] in Urine by Test strip NEG NORMAL: Negative [facility] Protein [Mass/volume] in Urine by Test strip 15 NORMAL: Negat [facility] Nitrite [Presence] in Urine by Test strip NEG NORMAL: Negative [facility] BLOOD NEG NORMAL: Negative [facility] Leukocyte esterase [Presence] in Urine by Test strip NEG CARMELA L: Negative [facility] Urobilinogen [Mass/volume] in Urine by Test strip NOR less natasha n 1.0 mg/dL [facility] MICROSCOPIC See Below [facility] ital WBC 0 - 1 NORMAL: NONE SEEN [facility] Mucus [Presence] in Urine sediment by Light microscopy Trace NORMAL: NONE SEEN [facility] ID Date Data Source [id number] 02/02/2020 04:39:00 PM EDT [facility] Name Value Range Interpretation Code Description Data [facility](s) Supporting Document(s) CBC W/AUTOMATED DIFF [facility] COMPLETE BLOOD COUNT Leukocytes [#/volume] in Blood by Automated count 7.2 10^3/uL 4.2 - 1 1.0 [facility] Erythrocytes [#/volume] in Blood by Automated count 3.45 10^6/uL 4. 50 - 6.30 L [facility] Hemoglobin [Mass/volume] in Blood 10.7 g/dL 14.0 - 16.0 L [facility] Hematocrit [Volume Fraction] of Blood by Automated count 32.7 % 4 1.0 - 51.0 L [facility] Erythrocyte mean corpuscular volume [Entitic volume] by Auto mated count 94.8 fL 80.0 - 94.0 H [facility] Erythrocyte mean corpuscular hemoglobin [Entitic mass] by Automated count 31.0 pg 27.0 - 34.0 [facility] Erythrocyte mean corpuscular hemoglobin concentration [Mass/volume] by Automated count 32.7 g/dL 31.0 - 36.0 [facility] Erythrocyte distribution width [Ratio] by Automated count 16.2 % 11.5 - 14.8 H [facility] Platelets [#/volume] in Blood by Automated count 194 10^3/uL 150 - 45 0 [facility] Platelet mean volume [Entitic volume] in Blood by Automated count 10.0 fL 7.4 - 10.4 [facility] Neutrophils/100 leukocytes in Blood by Automated count 67.5 % 37. 0 - 80.0 [facility] Lymphocytes/100 leukocytes in Blood by Manual count 13.9 % 25.0 - 40.0 L [facility] Monocytes/100 leukocytes in Blood by Automated count 7.9 % 3.0 - 8.0 [facility] Eosinophils/100 leukocytes in Blood by Automated count 9.7 % 0.0 - 7.0 H [facility] Basophils/100 leukocytes in Blood by Automated count 0.6 % 0.0 - 2.0 [facility] %IG 0.4 % 0.0 - 0.0 [facility] %NR[facility] 0.0 % 0.0 - 0.0 [facility] al Neutrophils [#/volume] in Blood by Automated count 4.87 10^3/uL 2.00 - 6.90 [facility] Lymphocytes [#/volume] in Blood by Automated count 1.00 10^3/uL 0.60 - 3.40 [facility] Monocytes [#/volume] in Blood by Automated count 0.57 10^3/uL 0.00 - 0.90 [facility] Eosinophils [#/volume] in Blood by Automated count 0.70 10^3/uL 0.00 - 0.70 [facility] Basophils [#/volume] in Blood by Automated count 0.04 10^3/uL 0.00 - 0.20 [facility] #IG 0.03 10^3/uL 0.00 - 0.10 [facility] #NRBC 0.00 10^3/uL 0.00 - 0.00 [facility] MANUAL DIFF NOT INDICATED [facility] RBC MORPH NOT INDICATED [facility] spital ID Date Data Source [id number] 12/03/2019 01:35:00 PM EDT [facility] Name Value Range Interpretation Code Description Data Radha rce(s) Supporting Document(s) CVE PANEL [facility] al LIPID PANEL Cholesterol [Mass/volume] in Serum or Plasma 92 MG/DL 131 - 200 L [facility] Deprecated Triglyceride [Mass/volume] in Serum or Plasma 105 MG/DL 3 5 - 160 [facility] HDL 32 MG/DL 29 - 86 [facility] al Cholesterol in LDL [Mass/volume] in Serum or Plasma by Direc t assay 42 mg/dL 65 - 175 L [facility] Cholesterol.total/Cholesterol in HDL [Mass Ratio] in Serum o r Plasma 2.9 3.4 - 4.9 L [facility] LDL/HDL 1.31 1.00 - 3.55 [facility] ital CVE RISK CHOL/HDL LDL/HDLMEN: 1/2 AVERAGE 3.43 1.00 AVERAGE 4.97 3.55 2X AVERAGE 9.55 6.25 3X AVERAGE 23.99 7.99WOMEN: 1/2 AVERAGE 3.27 1.47 AVERAGE 4.44 3.22 2X AVERAGE 7.05 5.03 3X AVERAGE 11.04 6.14 ID Date Data Source [id number] 12/03/2019 01:22:00 PM EDT [facility] Name Value Range Interpretation Code Description Data Radha rce(s) Supporting Document(s) Prostate specific Ag [Mass/volume] in Serum or Plasma 0.30 ng/mL 0.00 - 4.00 [facility] \\BLDo\\PSA INTERPRETA TION\\BLDx\\ The PSA assay [...] be used interchangeably. ID Date Data Source [id number] 12/03/2019 12:47:00 PM EDT [facility] Name Value Range Interpretation Code Description Data Radha rce(s) Supporting Document(s) Hemoglobin A1c/Hemoglobin.total in Blood 6.5 % 4.4 - 6.1 H [facility] {A1]{HB] ID Date Data Source [id number] 11/04/2019 07:51:00 PM EDT [facility] Name Value Range Interpretation Code Description Data Radha rce(s) Supporting Document(s) CBC W/AUTOMATED DIFF [facility] COMPLETE BLOOD COUNT Leukocytes [#/volume] in Blood by Automated count 5.4 10^3/uL 4.2 - 1 1.0 [facility] Erythrocytes [#/volume] in Blood by Automated count 3.52 10^6/uL 4. 50 - 6.30 L [facility] Hemoglobin [Mass/volume] in Blood 10.5 g/dL 14.0 - 16.0 L [facility] Hematocrit [Volume Fraction] of Blood by Automated count 32.8 % 4 1.0 - 51.0 L [facility] Erythrocyte mean corpuscular volume [Entitic volume] by Auto mated count 93.2 fL 80.0 - 94.0 [facility] Erythrocyte mean corpuscular hemoglobin [Entitic mass] by Automated count 29.8 pg 27.0 - 34.0 [facility] Erythrocyte mean corpuscular hemoglobin concentration [Mass/volume] by Automated count 32.0 g/dL 31.0 - 36.0 [facility] Erythrocyte distribution width [Ratio] by Automated count 20.1 % 11.5 - 14.8 H [facility] Platelets [#/volume] in Blood by Automated count 205 10^3/uL 150 - 45 0 [facility] Platelet mean volume [Entitic volume] in Blood by Automated count 10.5 fL 7.4 - 10.4 H [facility] Neutrophils/100 leukocytes in Blood by Automated count 63.3 % 37. 0 - 80.0 [facility] Lymphocytes/100 leukocytes in Blood by Manual count 14.8 % 25.0 - 40.0 L [facility] Monocytes/100 leukocytes in Blood by Automated count 7.4 % 3.0 - 8.0 [facility] Eosinophils/100 leukocytes in Blood by Automated count 13.0 % 0.0 - 7.0 H [facility] Basophils/100 leukocytes in Blood by Automated count 1.1 % 0.0 - 2.0 [facility] %IG 0.4 % 0.0 - 0.0 H [facility] %NRBC 0.0 % 0.0 - 0.0 [facility] al Neutrophils [#/volume] in Blood by Automated count 3.42 10^3/uL 2.00 - 6.90 [facility] Lymphocytes [#/volume] in Blood by Automated count 0.80 10^3/uL 0.60 - 3.40 [facility] Monocytes [#/volume] in Blood by Automated count 0.40 10^3/uL 0.00 - 0.90 [facility] Eosinophils [#/volume] in Blood by Automated count 0.70 10^3/uL 0.00 - 0.70 [facility] Basophils [#/volume] in Blood by Automated count 0.06 10^3/uL 0.00 - 0.20 [facility] #IG 0.02 10^3/uL 0.00 - 0.10 [facility] #NRBC 0.00 10^3/uL 0.00 - 0.00 [facility] ospital MANUAL DIFF NOT INDICATED [facility] RBC MORPH SEE BELOW [facility] Anisocytosis [Presence] in Blood by Light microscopy 2+ CARMELA L: NONE SEEN A [facility] Microcytes [Presence] in Blood by Light microscopy 1+ NORMAL: NONE SEEN A [facility] { SICKLE CELL (NORMAL: NONE SEEN ) Platelet adequacy [Presence] in Blood by Light microscopy NORMAL NORMAL: NORMAL [facility] COMMENT: ID Date Data Source [id number] 11/04/2019 07:37:00 PM EDT [facility] Name Value Range Interpretation Code Description Data Radha rce(s) Supporting Document(s) COMPREHENSIVE METABOLIC PANEL [facility] COMPREHENSIVE METABOLIC PANEL Sodium [Moles/volume] in Serum or Plasma 142 mEq/L 134 - 153 [facility] Potassium [Moles/volume] in Serum or Plasma 3.6 mEq/L 3.6 - 5.0 [facility] Chloride [Moles/volume] in Serum or Plasma 103 mEq/L 98 - 107 [facility] Carbon dioxide, total [Moles/volume] in Serum or Plasma 25 MEQ/L 22 - 30 [facility] Glucose [Mass/volume] in Serum or Plasma 118 MG/DL 65 - 110 H [facility] BUN 49 MG/DL 7 - 21 [facility] Creatinine [Mass/volume] in Serum or Plasma 2.0 MG/DL 0.7 - 1.5 H [facility] BUN/CREAT 25 8 - 27 [facility] al Protein [Mass/volume] in Serum or Plasma 8.0 G/DL 6.3 - 8.2 [facility] Albumin [Mass/volume] in Serum or Plasma 4.9 G/DL 3.9 - 5.0 [facility] Globulin [Mass/volume] in Serum by calculation 3.1 GM/DL 2.4 - 3.2 [facility] A/G RATIO 1.6 0.8 - 2.0 [facility] al Calcium [Mass/volume] in Serum or Plasma 10.6 MG/DL 8.4 - 10.2 H [facility] Bilirubin.total [Mass/volume] in Serum or Plasma <0.7 MG/DL 0.2 - 1.3 [facility] Alkaline phosphatase [Enzymatic activity/volume] in Serum or Plasma 53 U/L 38 - 126 [facility] Aspartate aminotransferase [Enzymatic activity/volume] in Serum or Plasma 26 U/L 5 - 40 [facility] Alanine aminotransferase [Enzymatic activity/volume] in Seru m or Plasma 19 U/L 7 - 56 [facility] Anion gap 3 in Serum or Plasma 14.0 mmol/L 8.0 - 16.0 [facility] AGE 74 yrs [facility] al NON-AA GFR 35 mL/min [facility] AFR AMER GFR 42 mL/min [facility] Male GFR In terprentation 20-49 [...] >32 mL/min Normal ID Date Data Source [id number] 11/04/2019 07:37:00 PM EDT [facility] Name Value Range Interpretation Code Description Data Radha rce(s) Supporting Document(s) C reactive protein [Mass/volume] in Serum or Plasma by High sensitivity method 6.62 MG/L 1.00 - 3.00 H [facility] CDC/S HS-CRP CUT-OFF: RELATIVE RISK: <1.0 mg/L Low 1.0 - 3.0 mg/L Average >3.0 mg/L High Optimally, the average of HS-CRP results repeated two weeks apart should be used for risk assessment. ID Date Data Source [id number] 11/04/2019 07:34:00 PM EDT [facility] Name Value Range Interpretation Code Description Data Radha rce(s) Supporting Document(s) Iron [Mass/volume] in Serum or Plasma 59 UG/DL 42 - 135 [facility] ID Date Data Source [id number] 09/08/2019 01:57:00 PM EDT [facility] Name Value Range Interpretation Code Description Data Radha rce(s) Supporting Document(s) COMPREHENSIVE METABOLIC PANEL [facility] COMPREHENSIVE METABOLIC PANEL Sodium [Moles/volume] in Serum or Plasma 144 mEq/L 134 - 153 [facility] Potassium [Moles/volume] in Serum or Plasma 3.9 mEq/L 3.6 - 5.0 [facility] Chloride [Moles/volume] in Serum or Plasma 103 mEq/L 98 - 107 [facility] Carbon dioxide, total [Moles/volume] in Serum or Plasma 28 MEQ/L 22 - 30 [facility] Glucose [Mass/volume] in Serum or Plasma 103 MG/DL 65 - 110 [facility] BUN 46 MG/DL 7 - 21 H [facility] Creatinine [Mass/volume] in Serum or Plasma 2.2 MG/DL 0.7 - 1.5 H [facility] BUN/CREAT 21 8 - 27 [facility] Protein [Mass/volume] in Serum or Plasma 7.8 G/DL 6.3 - 8.2 [facility] Albumin [Mass/volume] in Serum or Plasma 4.6 G/DL 3.9 - 5.0 [facility] Globulin [Mass/volume] in Serum by calculation 3.2 GM/DL 2.4 - 3.2 [facility] A/G RATIO 1.4 0.8 - 2.0 [facility] Calcium [Mass/volume] in Serum or Plasma 9.4 MG/DL 8.4 - 10.2 [facility] Bilirubin.total [Mass/volume] in Serum or Plasma <0.7 MG/DL 0.2 - 1.3 [facility] Alkaline phosphatase [Enzymatic activity/volume] in Serum or Plasma 53 U/L 38 - 126 [facility] Aspartate aminotransferase [Enzymatic activity/volume] in Serum or Plasma 25 U/L 5 - 40 [facility] Alanine aminotransferase [Enzymatic activity/volume] in Seru m or Plasma 17 U/L 7 - 56 [facility] Anion gap 3 in Serum or Plasma 13.0 mmol/L 8.0 - 16.0 [facility] AGE 74 yrs [facility] NON-AA GFR 31 mL/min [facility] yovanny AFR AMER GFR 38 mL/min [facility] Male GFR In terprentation 20-49 [...] >32 mL/min Normal ID Date Data Source [id number] 09/08/2019 12:56:00 PM EDT [facility] Name Value Range Interpretation Code Description Data Radha rce(s) Supporting Document(s) CBC W/AUTOMATED DIFF [facility] COMPLETE BLOOD COUNT Leukocytes [#/volume] in Blood by Automated count 5.6 10^3/uL 4.2 - 1 1.0 [facility] Erythrocytes [#/volume] in Blood by Automated count 3.48 10^6/uL 4. 50 - 6.30 L [facility] Hemoglobin [Mass/volume] in Blood 9.8 g/dL 14.0 - 16.0 L [facility] Hematocrit [Volume Fraction] of Blood by Automated count 31.8 % 4 1.0 - 51.0 L [facility] Erythrocyte mean corpuscular volume [Entitic volume] by Auto mated count 91.4 fL 80.0 - 94.0 [facility] Erythrocyte mean corpuscular hemoglobin [Entitic mass] by Automated count 28.2 pg 27.0 - 34.0 [facility] Erythrocyte mean corpuscular hemoglobin concentration [Mass/volume] by Automated count 30.8 g/dL 31.0 - 36.0 L [facility] Erythrocyte distribution width [Ratio] by Automated count 17.4 % 11.5 - 14.8 H [facility] Platelets [#/volume] in Blood by Automated count 237 10^3/uL 150 - 45 0 [facility] Platelet mean volume [Entitic volume] in Blood by Automated count 9.6 fL 7.4 - 10.4 [facility] Neutrophils/100 leukocytes in Blood by Automated count 61.6 % 37. 0 - 80.0 [facility] Lymphocytes/100 leukocytes in Blood by Manual count 19.1 % 25.0 - 40.0 L [facility] Monocytes/100 leukocytes in Blood by Automated count 8.6 % 3.0 - 8.0 H [facility] Eosinophils/100 leukocytes in Blood by Automated count 9.1 % 0.0 - 7.0 H [facility] Basophils/100 leukocytes in Blood by Automated count 1.1 % 0.0 - 2.0 [facility] %IG 0.5 % 0.0 - 0.0 [facility] %NR[facility] 0.0 % 0.0 - 0.0 [facility] al Neutrophils [#/volume] in Blood by Automated count 3.44 10^3/uL 2.00 - 6.90 [facility] Lymphocytes [#/volume] in Blood by Automated count 1.07 10^3/uL 0.60 - 3.40 [facility] Monocytes [#/volume] in Blood by Automated count 0.48 10^3/uL 0.00 - 0.90 [facility] Eosinophils [#/volume] in Blood by Automated count 0.51 10^3/uL 0.00 - 0.70 [facility] Basophils [#/volume] in Blood by Automated count 0.06 10^3/uL 0.00 - 0.20 [facility] #IG 0.03 10^3/uL 0.00 - 0.10 [facility] ospital #NRBC 0.00 10^3/uL 0.00 - 0.00 [facility] MANUAL DIFF NOT INDICATED [facility] RBC MORPH NOT INDICATED [facility] spital ID Date Data Source [id number] 08/26/2019 01:08:[address] [facility] ([facility] Name Value Range Interpretation Code Description Data Radha rce(s) Supporting Document(s) Hemoglobin A1c/Hemoglobin.total in Blood 6.0 [facility] ([facility]) Glucose [Mass/volume] in Serum or Plasma 89 [facility] ([facility] ID Date Data Source [id number] 08/26/2019 10:30:[address] [facility] ([facility]) Name Value Range Interpretation Code Description Data Radha rce(s) Supporting Document(s) Microalbumin [Mass/volume] in Urine 121.0 mg/L [facility] ([facility]) Microalbumin/Creatinine [Mass Ratio] in Urine 195.4 MCG/MG 0.0-30.0 [facility] ([facility]) THE [employer] STATES THAT MICROALBUMINURIA IS PRESENT IF THE MICROALBUMIN/CREATININE RATIO EXCEEDS 30 MCG/MG. THE THRESHOLD FOR CLINICAL ALBUMINURIA IS REACHED AT 300 MCG/MG. THE CLASSIFICATION OF A PATIENT SHOULD BE BASED UPON AT LEAST 2 OF 3 ABNORMAL RESULTS ON SPECIMENS COLLECTED WITHIN A 3 TO 6 MONTH TIME FRAME. Creatinine [Mass/volume] in Urine 61.9 mg/dL [facility] ([facility]) ID Date Data Source [id number] 08/25/2019 01:56:00 PM EDT [facility] Name Value Range Interpretation Code Description Data Radha rce(s) Supporting Document(s) COMPREHENSIVE METABOLIC PANEL [facility] COMPREHENSIVE METABOLIC PANEL Sodium [Moles/volume] in Serum or Plasma 143 mEq/L 134 - 153 [facility] Potassium [Moles/volume] in Serum or Plasma 3.8 mEq/L 3.6 - 5.0 [facility] Chloride [Moles/volume] in Serum or Plasma 103 mEq/L 98 - 107 [facility] Carbon dioxide, total [Moles/volume] in Serum or Plasma 29 MEQ/L 22 - 30 [facility] Glucose [Mass/volume] in Serum or Plasma 84 MG/DL 65 - 110 [facility] BUN 57 MG/DL 7 - 21 H [facility] Creatinine [Mass/volume] in Serum or Plasma 2.3 MG/DL 0.7 - 1.5 H [facility] BUN/CREAT 25 8 - 27 [facility] Protein [Mass/volume] in Serum or Plasma 7.7 G/DL 6.3 - 8.2 [facility] Albumin [Mass/volume] in Serum or Plasma 4.6 G/DL 3.9 - 5.0 [facility] Globulin [Mass/volume] in Serum by calculation 3.1 GM/DL 2.4 - 3.2 [facility] A/G RATIO 1.5 0.8 - 2.0 [facility] Calcium [Mass/volume] in Serum or Plasma 9.3 MG/DL 8.4 - 10.2 [facility] Bilirubin.total [Mass/volume] in Serum or Plasma <0.7 MG/DL 0.2 - 1.3 [facility] Alkaline phosphatase [Enzymatic activity/volume] in Serum or Plasma 42 U/L 38 - 126 [facility] Aspartate aminotransferase [Enzymatic activity/volume] in Serum or Plasma 24 U/L 5 - 40 [facility] Alanine aminotransferase [Enzymatic activity/volume] in Seru m or Plasma 17 U/L 7 - 56 [facility] Anion gap 3 in Serum or Plasma 11.0 mmol/L 8.0 - 16.0 [facility] 74 [facility] 30 mL/min [facility] AMER GFR 36 mL/min [facility] Male GFR In terprentation 20-49 [...] >32 mL/min Normal ID Date Data Source [id number] 08/25/2019 01:50:00 PM EDT [facility] Name Value Range Interpretation Code Description Data Radha rce(s) Supporting Document(s) Iron [Mass/volume] in Serum or Plasma 42 UG/DL 42 - 135 [facility] ID Date Data Source [id number] 08/25/2019 01:14:00 PM EDT [facility] Name Value Range Interpretation Code Description Data Radha rce(s) Supporting Document(s) CBC W/AUTOMATED DIFF [facility] COMPLETE BLOOD COUNT Leukocytes [#/volume] in Blood by Automated count 5.4 10^3/uL 4.2 - 1 1.0 [facility] Erythrocytes [#/volume] in Blood by Automated count 3.37 10^6/uL 4. 50 - 6.30 L [facility] Hemoglobin [Mass/volume] in Blood 9.8 g/dL 14.0 - 16.0 L [facility] Hematocrit [Volume Fraction] of Blood by Automated count 31.3 % 4 1.0 - 51.0 L [facility] Erythrocyte mean corpuscular volume [Entitic volume] by Auto mated count 92.9 fL 80.0 - 94.0 [facility] Erythrocyte mean corpuscular hemoglobin [Entitic mass] by Automated count 29.1 pg 27.0 - 34.0 [facility] Erythrocyte mean corpuscular hemoglobin concentration [Mass/volume] by Automated count 31.3 g/dL 31.0 - 36.0 [facility] Erythrocyte distribution width [Ratio] by Automated count 17.8 % 11.5 - 14.8 H [facility] Platelets [#/volume] in Blood by Automated count 213 10^3/uL 150 - 45 0 [facility] Platelet mean volume [Entitic volume] in Blood by Automated count 9.9 fL 7.4 - 10.4 [facility] Neutrophils/100 leukocytes in Blood by Automated count 64.1 % 37. 0 - 80.0 [facility] Lymphocytes/100 leukocytes in Blood by Manual count 17.7 % 25.0 - 40.0 L [facility] Monocytes/100 leukocytes in Blood by Automated count 9.5 % 3.0 - 8.0 H [facility] Eosinophils/100 leukocytes in Blood by Automated count 7.6 % 0.0 - 7.0 H [facility] Basophils/100 leukocytes in Blood by Automated count 0.7 % 0.0 - 2.0 [facility] %IG 0.4 % 0.0 - 0.0 [facility] 0.0 % 0.0 - 0.0 [facility] Neutrophils [#/volume] in Blood by Automated count 3.43 10^3/uL 2.00 - 6.90 [facility] Lymphocytes [#/volume] in Blood by Automated count 0.95 10^3/uL 0.60 - 3.40 [facility] Monocytes [#/volume] in Blood by Automated count 0.51 10^3/uL 0.00 - 0.90 [facility] Eosinophils [#/volume] in Blood by Automated count 0.41 10^3/uL 0.00 - 0.70 [facility] Basophils [#/volume] in Blood by Automated count 0.04 10^3/uL 0.00 - 0.20 [facility] #IG 0.02 10^3/uL 0.00 - 0.10 [facility] #NRBC 0.00 10^3/uL 0.00 - 0.00 [facility] MANUAL DIFF NOT INDICATED [facility] RBC MORPH NOT INDICATED [facility] spital ID Date Data Source [id number] 08/04/2019 08:53:00 AM EDT [facility] [address] [place] [address] PHONE: [phone] FAX: [phone] Name .................. : BRAD MORENO Acct Number.................. : [id number] ROOM. ................. : MR Number ................... : [id number] Stay type ............. : O/P Discharge Date......... ... : 07/31/19 Admit Date ......... : 07/31/19 Admit Phys .................... : LYNDA DUMONT Date of ....... : 1945 Family Phys ................... : LYNDA DUMONT Phone . ................. : [phone] Age ................................ : 74 Film# .................. .:[id number] Sex ................................. : M Unsigned transcriptions are preliminary reports and do not represent a medical or legal document CHEST 2 VIEWS [id number] COMPLETE:07/31/19 16:57 SRG [id number] (REASON FOR CHEST: CHF CHEST X-RAY: 2-VIEWS INDICATION: CHF. COMPARISON: Prior study from 11/10/14. FINDINGS: Prominence of the pulmonary vasculature is identified. No overt failure is identified. The cardiac silhouette is enlarged. There is a equipment monitor phototypesetting over the left hemithorax. No definite focal [...] LYNDA CRAIG via modem Copy for: [facility] REC Page 1 of 1 Name Value Range Interpretation Code Description Data Radha rce(s) Supporting Document(s) ID Date Data Source [id number] 07/31/2019 08:16:00 PM EDT [facility] Name Value Range Interpretation Code Description Data Radha rce(s) Supporting Document(s) BNP 610 PG/ML 0 - 125 H [facility] ID Date Data Source [id number] 07/31/2019 08:08:00 PM EDT [facility] Name Value Range Interpretation Code Description Data Radha rce(s) Supporting Document(s) Cobalamin (Vitamin B12) [Mass/volume] in Serum or Plasma 377 PG/ML 232 - 1245 [facility] ID Date Data Source [id number] 07/31/2019 07:51:00 PM EDT [facility] Name Value Range Interpretation Code Description Data Radha rce(s) Supporting Document(s) COMPREHENSIVE METABOLIC PANEL [facility] COMPREHENSIVE METABOLIC PANEL Sodium [Moles/volume] in Serum or Plasma 141 mEq/L 134 - 153 [facility] Potassium [Moles/volume] in Serum or Plasma 4.4 mEq/L 3.6 - 5.0 [facility] Chloride [Moles/volume] in Serum or Plasma 101 mEq/L 98 - 107 [facility] Carbon dioxide, total [Moles/volume] in Serum or Plasma 27 MEQ/L 22 - 30 [facility] Glucose [Mass/volume] in Serum or Plasma 100 MG/DL 65 - 110 [facility] BUN 40 MG/DL 7 - 21 [facility] Creatinine [Mass/volume] in Serum or Plasma 2.1 MG/DL 0.7 - 1.5 H [facility] BUN/CREAT 19 8 - 27 [facility] Protein [Mass/volume] in Serum or Plasma 7.9 G/DL 6.3 - 8.2 [facility] Albumin [Mass/volume] in Serum or Plasma 4.8 G/DL 3.9 - 5.0 [facility] Globulin [Mass/volume] in Serum by calculation 3.1 GM/DL 2.4 - 3.2 [facility] A/G RATIO 1.5 0.8 - 2.0 [facility] Calcium [Mass/volume] in Serum or Plasma 10.0 MG/DL 8.4 - 10.2 [facility] Bilirubin.total [Mass/volume] in Serum or Plasma <0.7 MG/DL 0.2 - 1.3 [facility] Alkaline phosphatase [Enzymatic activity/volume] in Serum or Plasma 44 U/L 38 - 126 [facility] Aspartate aminotransferase [Enzymatic activity/volume] in Serum or Plasma 25 U/L 5 - 40 [facility] Alanine aminotransferase [Enzymatic activity/volume] in Seru m or Plasma 17 U/L 7 - 56 [facility] Anion gap 3 in Serum or Plasma 13.0 mmol/L 8.0 - 16.0 [facility] AGE 74 yrs [facility] NON-AA GFR 33 mL/min [facility] yovanny AFR AMER GFR 40 mL/min [facility] Male GFR In terprentation 20-49 [...] >32 mL/min Normal ID Date Data Source [id number] 07/31/2019 07:51:00 PM EDT [facility] Value Range Interpretation Code Description Data Radha rce(s) Supporting Document(s) Magnesium [Mass/volume] in Serum or Plasma 2.3 MG/DL 1.7 - 2.2 H [facility] ID Date Data Source [id number] 07/31/2019 07:49:00 PM EDT [facility] Value Range Interpretation Code Description Data Radha rce(s) Supporting Document(s) Iron [Mass/volume] in Serum or Plasma 61 UG/DL 42 - 135 [facility] ID Date Data Source [id number] 07/31/2019 05:56:00 PM EDT [facility] Value Range Interpretation Code Description Data Radha rce(s) Supporting Document(s) Fibrin D-dimer FEU [Mass/volume] in Platelet poor plasma <0. 27 ug/mL 0.27 - 0.50 [facility] ID Date Data Source [id number] 07/31/2019 05:45:00 PM EDT [facility] Value Range Interpretation Code Description Data Radha rce(s) Supporting Document(s) CBC W/AUTOMATED DIFF [facility] COMPLETE BLOOD COUNT Leukocytes [#/volume] in Blood by Automated count 5.1 10^3/uL 4.2 - 1 1.0 [facility] Erythrocytes [#/volume] in Blood by Automated count 3.51 10^6/uL 4. 50 - 6.30 L [facility] Hemoglobin [Mass/volume] in Blood 10.3 g/dL 14.0 - 16.0 L [facility] Hematocrit [Volume Fraction] of Blood by Automated count 32.7 % 4 1.0 - 51.0 L [facility] Erythrocyte mean corpuscular volume [Entitic volume] by Auto mated count 93.2 fL 80.0 - 94.0 [facility] Erythrocyte mean corpuscular hemoglobin [Entitic mass] by Automated count 29.3 pg 27.0 - 34.0 [facility] Erythrocyte mean corpuscular hemoglobin concentration [Mass/volume] by Automated count 31.5 g/dL 31.0 - 36.0 [facility] Erythrocyte distribution width [Ratio] by Automated count 17.4 % 11.5 - 14.8 H [facility] Platelets [#/volume] in Blood by Automated count 206 10^3/uL 150 - 45 0 [facility] Platelet mean volume [Entitic volume] in Blood by Automated count 10.3 fL 7.4 - 10.4 [facility] Neutrophils/100 leukocytes in Blood by Automated count 62.8 % 37. 0 - 80.0 [facility] Lymphocytes/100 leukocytes in Blood by Manual count 20.2 % 25.0 - 40.0 L [facility] Monocytes/100 leukocytes in Blood by Automated count 10.7 % 3.0 - 8.0 H [facility] Eosinophils/100 leukocytes in Blood by Automated count 5.3 % 0.0 - 7.0 [facility] Basophils/100 leukocytes in Blood by Automated count 0.6 % 0.0 - 2.0 [facility] %IG 0.4 % 0.0 - 0.0 [facility] 0.0 % 0.0 - 0.0 [facility] al Neutrophils [#/volume] in Blood by Automated count 3.17 10^3/uL 2.00 - 6.90 [facility] Lymphocytes [#/volume] in Blood by Automated count 1.02 10^3/uL 0.60 - 3.40 [facility] Monocytes [#/volume] in Blood by Automated count 0.54 10^3/uL 0.00 - 0.90 [facility] Eosinophils [#/volume] in Blood by Automated count 0.27 10^3/uL 0.00 - 0.70 [facility] Basophils [#/volume] in Blood by Automated count 0.03 10^3/uL 0.00 - 0.20 [facility] #IG 0.02 10^3/uL 0.00 - 0.10 [facility] #NRBC 0.00 10^3/uL 0.00 - 0.00 [facility] MANUAL DIFF NOT INDICATED [facility] RBC MORPH NOT INDICATED [facility] spital ID Date Data Source [id number] 07/04/2019 09:17:00 AM EST [facility] [address] [place] [address] PHONE: [phone] FAX: [phone] Name .................. : BRAD MORENO Acct Number.................. : [id number] ROOM. ................. : Number ................... : [id number] Stay type ............. : O/P Discharge Date......... ... : 07/02/19 Admit Date ......... : 07/02/19 Admit Phys .................... : LYNDA JULIA Date of ....... : 1945 Family Phys ................... : LYNDA JULIA Phone .................. : [phone] Age ................................ : 74 Film# .................. .:[id number] Sex ................................. : M Unsigned transcriptions are preliminary reports and do not represent a medical or legal document CT THORAX W/O CONTRAST [id number] COMPLETE:07/02/19 09:31 [id number] (REASON FOR CHEST: CHF CT OF THE [...] and Signed By Page 1 of 2 [facility] [address] [place] [address] [place] [address] PHONE: [phone] FAX: [phone] Name .................. : BRAD MORENO Acct Number.................. : [id number] ROOM. ................. : MR Number ................... : [id number] Stay type ............. : O/P Discharge Date......... ... : 07/02/19 Admit Date ......... : 07/02/19 Admit Phys .................... : LYNDA JULIA Date of ....... : 1945 Family Phys ................... : LYNDA JULIA Phone .................. : [phone] Age ................................ : 74 Film# .................. .:[id number] Sex ................................. : M Unsigned transcriptions are preliminary reports and do not represent a medical or legal document CT THORAX W/O CONTRAST [id number] COMPLETE:07/02/19 09:31 [id number] (REASON FOR CHEST: CHF Jason Sharma MD , 07/04/19 09:17, MRA Transcribe Initials: TRE , Transcribe Date: 07/02/19 11:38, Dictation Date: Copy for: LYNDA CRAIG via mode Copy for: 710 [facility] REC Page 2 of 2 Name Value Range Interpretation Code Description Data Radha rce(s) Supporting Document(s) ID Date Data Source [id number] 07/01/2019 01:49:00 PM [facility] Name Value Range Interpretation Code Description Data Radha rce(s) Supporting Document(s) Cobalamin (Vitamin B12) [Mass/volume] in Serum or Plasma 471 PG/ML 017 - 4479 [facility] ID Date Data Source [id number] 07/01/2019 01:43:00 PM [facility] Name Value Range Interpretation Code Description Data Radha rce(s) Supporting Document(s) Magnesium [Mass/volume] in Serum or Plasma 2.4 MG/DL 1.7 - 2.2 H [facility] ID Date Data Source [id number] 07/01/2019 01:43:00 PM EST [facility] Name Value Range Interpretation Code Description Data Radha rce(s) Supporting Document(s) COMPREHENSIVE METABOLIC PANEL [facility] COMPREHENSIVE METABOLIC PANEL Sodium [Moles/volume] in Serum or Plasma 145 mEq/L 134 - 153 [facility] Potassium [Moles/volume] in Serum or Plasma 4.2 mEq/L 3.6 - 5.0 [facility] Chloride [Moles/volume] in Serum or Plasma 102 mEq/L 98 - 107 [facility] Carbon dioxide, total [Moles/volume] in Serum or Plasma 27 MEQ/L 22 - 30 [facility] Glucose [Mass/volume] in Serum or Plasma 125 MG/DL 65 - 110 H [facility] BUN 54 MG/DL 7 - 21 [facility] Creatinine [Mass/volume] in Serum or Plasma 2.2 MG/DL 0.7 - 1.5 H [facility] BUN/CREAT 25 8 - 27 [facility] al Protein [Mass/volume] in Serum or Plasma 8.4 G/DL 6.3 - 8.2 H [facility] Albumin [Mass/volume] in Serum or Plasma 4.7 G/DL 3.9 - 5.0 [facility] Globulin [Mass/volume] in Serum by calculation 3.7 GM/DL 2.4 - 3.2 H [facility] A/G RATIO 1.3 0.8 - 2.0 [facility] al Calcium [Mass/volume] in Serum or Plasma 10.2 MG/DL 8.4 - 10.2 [facility] Bilirubin.total [Mass/volume] in Serum or Plasma <0.7 MG/DL 0.2 - 1.3 [facility] Alkaline phosphatase [Enzymatic activity/volume] in Serum or Plasma 54 U/L 38 - 126 [facility] Aspartate aminotransferase [Enzymatic activity/volume] in Serum or Plasma 25 U/L 5 - 40 [facility] Alanine aminotransferase [Enzymatic activity/volume] in Seru m or Plasma 18 U/L 7 - 56 [facility] Anion gap 3 in Serum or Plasma 16.0 mmol/L 8.0 - 16.0 [facility] AGE 74 yrs [facility] NON-AA GFR 31 mL/min [facility] yovanny AFR AMER GFR 38 mL/min [facility] Male GFR In terprentation 20-49 [...] >32 mL/min Normal ID Date Data Source [id number] 07/01/2019 01:33:00 PM [facility] Name Value Range Interpretation Code Description Data Radha rce(s) Supporting Document(s) Iron [Mass/volume] in Serum or Plasma 52 UG/DL 42 - 135 [facility] ID Date Data Source [id number] 07/01/2019 12:47:00 PM [facility] Name Value Range Interpretation Code Description Data Radha rce(s) Supporting Document(s) Hemoglobin A1c/Hemoglobin.total in Blood 6.5 % 4.4 - 6.1 H [facility] {A1]{HB] ID Date Data Source [id number] 07/01/2019 11:47:00 AM [facility] Name Value Range Interpretation Code Description Data Radha rce(s) Supporting Document(s) CBC W/AUTOMATED DIFF [facility] COMPLETE BLOOD COUNT Leukocytes [#/volume] in Blood by Automated count 6.1 10^3/uL 4.2 - 1 1.0 [facility] Erythrocytes [#/volume] in Blood by Automated count 3.39 10^6/uL 4. 50 - 6.30 L [facility] Hemoglobin [Mass/volume] in Blood 9.9 g/dL 14.0 - 16.0 L [facility] Hematocrit [Volume Fraction] of Blood by Automated count 31.6 % 4 1.0 - 51.0 L [facility] Erythrocyte mean corpuscular volume [Entitic volume] by Auto mated count 93.2 fL 80.0 - 94.0 [facility] Erythrocyte mean corpuscular hemoglobin [Entitic mass] by Automated count 29.2 pg 27.0 - 34.0 [facility] Erythrocyte mean corpuscular hemoglobin concentration [Mass/volume] by Automated count 31.3 g/dL 31.0 - 36.0 [facility] Erythrocyte distribution width [Ratio] by Automated count 16.5 % 11.5 - 14.8 H [facility] Platelets [#/volume] in Blood by Automated count 242 10^3/uL 150 - 45 0 [facility] Platelet mean volume [Entitic volume] in Blood by Automated count 9.1 fL 7.4 - 10.4 [facility] Neutrophils/100 leukocytes in Blood by Automated count 65.0 % 37. 0 - 80.0 [facility] Lymphocytes/100 leukocytes in Blood by Manual count 17.7 % 25.0 - 40.0 L [facility] Monocytes/100 leukocytes in Blood by Automated count 8.9 % 3.0 - 8.0 H [facility] Eosinophils/100 leukocytes in Blood by Automated count 7.2 % 0.0 - 7.0 H [facility] Basophils/100 leukocytes in Blood by Automated count 0.5 % 0.0 - 2.0 [facility] %IG 0.7 % 0.0 - 0.0 [facility] %[facility] 0.0 % 0.0 - 0.0 [facility] al Neutrophils [#/volume] in Blood by Automated count 3.96 10^3/uL 2.00 - 6.90 [facility] Lymphocytes [#/volume] in Blood by Automated count 1.08 10^3/uL 0.60 - 3.40 [facility] Monocytes [#/volume] in Blood by Automated count 0.54 10^3/uL 0.00 - 0.90 [facility] Eosinophils [#/volume] in Blood by Automated count 0.44 10^3/uL 0.00 - 0.70 [facility] Basophils [#/volume] in Blood by Automated count 0.03 10^3/uL 0.00 - 0.20 [facility] #IG 0.04 10^3/uL 0.00 - 0.10 [facility] #NRBC 0.00 10^3/uL 0.00 - 0.00 [facility] ospital MANUAL DIFF NOT INDICATED [facility] RBC MORPH NOT INDICATED [facility] sp[facility] Procedure Social History Code Duration Value Status Description Data Source(s ) Smoking 02/24/2020 12:00:00 AM EDT Patient has never smoked co mpleted Patient has never smoked [facility] ([facility]) Vital Signs ID Date Data Source UNK Name Value Range Interpretation Code Description Data Source(s) Oxygen saturation in Arterial blood by Pulse oximetry 92 % 92 % [facility] ([facility]) Body mass index (BMI) [Ratio] 40.7 kg/m2 40.7 k g/m2 [facility] ([facility]) Body weight 264.00 [lb_av] 264.00 [lb_av] [facility] T ([facility]) Body height 67.5 [in_i] 67.5 [in_i] [facility] ([facility]) 5'7.50" Body temperature 96.9 [degF] 96.9 [degF] [facility] ([facility]) Heart rate 59 /min 59 /min [facility] ([facility]) Diastolic blood pressure 64 mm[Hg] 64 mm[Hg] [facility] ([facility]) Systolic blood pressure 130 mm[Hg] 130 mm[Hg] [facility] ([facility]) Oxygen saturation in Arterial blood [...] [Ratio] 45.2 kg/m2 45.2 k g/m2 [facility] ([facility] ) Body weight 284.38 [lb_av] 284.38 [lb_av] [facility] T ([facility] ) Body height 66.5 [in_i] 66.5 [in_i] [facility] ([facility] ) 5'6.50" Body temperature 97.1 [degF] 97.1 [degF] [facility] ([facility] ) Oxygen saturation in Arterial blood by Pulse oximetry 93 % 93 % [facility] ([facility] ) Body mass index (BMI) [Ratio] 43.7 kg/m2 43.7 k g/m2 [facility] ([facility] ) Body weight 283.25 [lb_av] 283.25 [lb_av] [facility] T ([facility] ) Body height 67.5 [in_i] 67.5 [in_i] [facility] ([facility] ) 5'7.50" Body temperature 96.4 [degF] 96.4 [degF] [facility] ([facility] ) Heart rate 54 /min 54 /min MEDJESSICA ([facility] ) Diastolic blood pressure 70 mm[Hg] 70 mm[Hg] MEDJESS[facility] ([facility] ) Systolic blood pressure 134 mm[Hg] 134 mm[Hg] M NEPTALI ([facility] )
[2020-06-29] MEDS ORDERED: CO-ENZYME Q10 50 MG CAP PO SCH (09:00)
[2020-06-29 09:09] VITALS: BP 143/57
[2020-06-29] MEDS: IPRATROPIUM 0.5MG/ALBUTEROL 2.5MG INH SOL UD 3ML (DUONEB) NEB SCH ×4 (09:22→22:00)
[2020-06-29 11:19] VITALS: O2SAT 99
[2020-06-29] MEDS ORDERED: DEXTROSE 50% 50 ML SYRINGE IV PRN (11:45)
[2020-06-29] MEDS ORDERED: GLUCOSE 4GM CHEW TABLET PO PRN (11:45)
[2020-06-29] MEDS ORDERED: GLUCAGON INJ 1MG VIAL SC PRN (11:45)
[2020-06-29] MEDS ORDERED: LevoFLOXacin IV 500 MG in IV 1 EA IV SCH (13:00)
[2020-06-29] MEDS: FERROUS SULFATE 325MG TAB PO SCH (13:22)
[2020-06-29] MEDS: MULTIVITAMINS/MINERALS THERAP 1 TAB PO SCH (13:22)
[2020-06-29] MEDS: DOCUSATE SODIUM 100MG CAPSULE PO SCH (13:22)
[2020-06-29] MEDS: cloNIDine 0.1MG TABLET PO SCH ×2 (13:23→22:53)
[2020-06-29] MEDS: APIXABAN 2.5 MG TAB (ELIQUIS) PO SCH ×2 (13:23→22:54)
[2020-06-29] MEDS: HEPARIN SOD (PORCINE) 5000UNITS/ML 1ML VIAL/SYRINGE SC SCH ×2 (13:25→22:55)
[2020-06-29] MEDS: HumaLOG INSULIN (NovoLOG) PER UNIT SC SCH ×3 (13:25→21:00)
[2020-06-29 14:00] VITALS: BP 138/54
--- NOTE | 2020-06-29 14:47 | HPEPDOC ---
[facility] Medical History & Physical Date of Admission Jun 29, 2020 Date of Service: Jun 29, 2020 Attending Physician: Brook Adams MD History and Physical CHIEF COMPLAINT: shortness of breath HISTORY OF PRESENT ILLNESS: 75 y/o M with PMH of GENET on nightly bipap, DM type II, HTN, CAD, hx of atrial fib s/p ablation, CKD Stage III, left kidney abnormality, ROMI, ? MGUS who presented to [facility] with chief complaint of incr SOB over the last several days. Normally the patient states that with exertion his O2 saturations can drop into the low 80s but within minutes it bounces back up to 91% with rest. He's noticed over the last several days that his oxygen saturations are dropping into the 70s with all the recovering into 8081 percent at rest. He states he has not been prescribed oxygen at home but due to the increased shortness of breath this was worrisome to be seen today in the emergency room. He denies chest pain, new cough, chills, fevers, increased lethargy. In the ER vital signs showed temperature 99.8, heart rate 73, respiratory rate 20, blood pressure 171/74, 97% on 4 L nasal cannula. Again the patient does not use home oxygen. BNP was elevated at 1293, the WBC 17.4 and the patient did not receive steroids recently. Creatinine 2.14 with his baseline being 2.162.44. R espiratory panel was negative. CXR: 1. No focal consolidation. 2. Nonspecific bilateral increased interstitial markings suggestive of interstitial inflammatory/infectious process. The patient states to have been compliant with his home torsemide and other cardiac medications; however, he had +1 pitting edema in the bilateral lower extremity. The patient was ultimately admitted for hypoxia, acute respiratory failure secondary to questionable congestive heart failure versus pneumonia. REVIEW OF SYSTEMS: Neg except mentioned above PAST MEDICAL HISTORY: A. fib on Eliquis s/p Cryoablation (2016) - Reverted to NSR (2017), HTN, HLD, DM type II , GENET on BIPAP, Iron deficiency anemia, Glaucoma, CKD Stage III with left kidney abnormality, ? 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 HOME MEDICATIONS: Please see below. PHYSICAL EXAMINATION: VS: T 99.8, heart rate 73, respiratory rate 20, blood pressure 171/74, 97% on 4 L nasal cannula CONSTITUTIONAL: No acute distress, resting comfortably, AAO x 3 EYES: PERRLA, EOM intact HENT, MOUTH: Normocephalic, atraumatic, moist mucous membranes, NECK: SUPPLE, no JVD, no lymphadenopathy, no carotid bruit CV: Regular rate and rhythm, S1S2 normal, no murmurs/rubs/gallops RESPIRATORY: Crackles posterior lung bases b/l, no rales/rhonchi/wheezes GI: BS positive in 4 quadrants, soft, nontender, nondistended, no rebound or guarding, no organomegaly : Deferred MUSCULOSKELETAL: Normal ROM. No cyanosis, clubbing, swelling, joint deformity, extremity edema +1 pitting in b/l lower ext INTEGUMENTARY: Intact, no rashes, no lesions, no erythema NEUROLOGIC: Cranial Nerves II-XII are intact, no focal deficits PSYCHIATRIC: Mood and affect are normal LABORATORY DATA: Please see below IMAGING: CXR: 1. No focal consolidation. 2. Nonspecific bilateral increased interstitial markings suggestive of interstitial inflammatory/infectious process. ASSESSMENT: 75 y/o M with GENET on nightly bipap, DM type II, HTn, CAD, hx of atrial fib s/p ablation, CKD Stage III, left kidney abnormality, ROMI, ? MGUS admitted for acute hypoxic respiratory failure secondary to questionable congestive heart failure versus pneumonia. PLAN: Acute hypoxic respiratory failure secondary to questionable congestive heart failure vs. pneumonia. -Currently saturating 96% on 3 L nasal cannula, will attempt to wean down. -It is likely that the patient lives in the high 80slow 90s normally without oxygen. He also states it's normal for him to desaturate to low 80s and then bounced back up to 90 after exertion -Perhaps it is that patient has needed O2 with activity for some time. Can discuss with Dr. Corbin if patient does not improve -Please see treatment plans for individual issues below Elevated BNP, ?CHF -Denies CHF history;however, on many cardiac medications similar to CHF treatment -CXR: Nonspecific bilateral increased interstitial markings suggestive of int erstitial inflammatory/infectious process. 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 Community acquired PNA -Low O2, WBC 17K -CXR above could not r/o infectious process -F/u procalcitonin, sputum culture -On levofloxacin, stop if procalcitonin neg A. fib on Eliquis s/p Cryoablation (2016) - Reverted to NSR (2017) -Remains on AC HTN -Uncontrolled in ER, improved upon arrival to floor -C/w home medications DM type II -BS stable -Holding PO home meds -ISS, FS AC/HS, consistent carb diet GENET on bipaP -Can use home Bipap Iron deficiency anemia -No s/s of bleeding -C/w ferrous sulfate supplementation CKD Stage III with left kidney abnormality -Cr at baseline (2.16-2.44) -Follows with Dr. Pemberton as o/p -Daily labs, avoid new nephrotoxic meds ? MGUS -Following with Dr. Lee as o/p DVT px -Eliquis BID DISPOSITION: Admitted as acute inpatient. Plan is discharge home when medically improved Vital Signs Vital Signs Date Time Temp Pulse Resp B/P (MAP) Pulse Ox O2 Delivery O2 Flow Rate FiO2 06/29/20 13:23 71 136/71 06/29/20 11:19 99 Nasal Cannula 3.0 06/29/20 09:09 99.4 22 Laboratory Data Labs 24H Laboratory Tests 2 06/29/20 04:58: POC Troponin I (Misc) 0.01 06/29/20 05:00: Immature Granulocyte % (Auto) 0.6, Neutrophils (%) (Auto) 89.5H, Lymphocytes (%) (Auto) 4.2L, Monocytes (%) (Auto) 3.7, Eosinophils (%) (Auto) 1.7, Basophils (%) (Auto) 0.3, Neutrophils # (Auto) 15.6H, Lymphocytes # (Auto) 0.7L, Monocytes # (Auto) 0.7, Eosinophils # (Auto) 0.3, Basophils # (Auto) 0.1, Nucleated Red Blood Cells % (auto) 0.0, D-Dimer, Quantitative 383.78, Anion Gap 9, Glomerular Filtration Rate 32.2L, Calcium Level 9.1, Total Bilirubin 0.7, Direct Bilirubin 0.4H, Aspartate Amino Transf (AST/SGOT) 19, Alanine Aminotransferase (ALT/SGPT) 24, Alkaline Phosphatase 76, OQ-Uer-W-Type Natriuretic Peptide 1293H, Total Protein 8.9H, Albumin 3.9, Albumin/Globulin Ratio 0.8 06/29/20 08:14: Troponin I < 0.02 06/29/20 11:57: Bedside Glucose (Misc Panel) 193H 06/29/20 12:52: Troponin I < 0.02 CBC/BMP Laboratory Tests 06/29/20 05:00 Microbiology Microbiology 06/29/20 Respiratory Virus Panel (PCR) ([facility]) - Final, Complete Home Medications Scheduled Allopurinol (Zyloprim) 300 Mg Tab, 300 MG PO QHS Amlodipine Besylate (Amlodipine Besylate) 10 Mg Tab, 10 MG PO DAILY Apixaban (Eliquis) 2.5 Mg Tab, 2.5 MG PO BID Atorvastatin Calcium (Atorvastatin Calcium) 10 Mg Tab, 10 MG PO QHS Bimatoprost (Lumigan) 50 Drop/2.5 Ml Carlee, 1 DROP OU QHS Brimonidine Tartrate (Alphagan P) 0.15 % Carlee, 1 DROP OU BID Clonidine HCl (Clonidine HCl) 0.1 Mg Tab, 0.1 MG PO BID Docusate Sodium (Docusate Sodium) 100 Mg Tablet, 100 MG PO DAILY Fenofibric Acid (Choline) (Fenofibric Acid) 135 Mg Cap, 135 MG PO DAILY Ferrous Sulfate (Iron) 325 Mg Tablet, 650 MG PO DAILY Folic Acid (Folic Acid) 1 Mg Tab, 1 MG PO QHS Gluc Avery/Chondro Avery A/Vit C/Mn (Glucosamine-Chondroitin Cap) 1 Cap Cap, 1 CAP PO DAILY Glyburide (Glyburide) 5 Mg Tab, 5 MG PO BID Hydralazine HCl (Hydralazine HCl) 25 Mg Tab, 25 MG PO TID Icosapent Ethyl (Vascepa) 1 Gm Cap, 2 GM PO BID Insulin Glargine,Hum.rec.anlog (Toujeo Max Solostar) 300 Unit/1 Ml Insuln.pen, 100 UNIT SC QHS Insulin Human Lispro (Humalog) 1 Units/0.01 Ml Inj, 1 DOSE SC ACHS PER SLIDING SCALE - TYPICALLY LUNCH, DINNER, AND BEDTIME Labetalol HCl (Labetalol HCl) 200 Mg Tab, 200 MG PO TID Minoxidil (Minoxidil) 10 Mg Tab, 20 MG PO DAILY Mometasone Furoate (Asmanex Hfa) 100 Mcg/Act Hfa.aer.ad, 2 PUFF INH DAILY Multivitamins (Thera M Plus Tablet) 1 Each Tablet, 1 TAB PO DAILY Psyllium Husk (with Sugar) (Metamucil Powder) 575 Gm Powder, 1 PKT PO DAILY Timolol Maleate (Timolol Maleate) 0.5 % Carlee, 1 DROP OU QHS Torsemide (Torsemide) 20 Mg Tablet, 60 MG PO BID Ubidecarenone (Coenzyme Q10) 100 Mg Cap, 200 MG PO DAILY Scheduled PRN Azelastine HCl (Azelastine HCl) 0.15% [place].pump, 2 SPRAY NARES BID PRN for ALLERGIES Allergies Coded Allergies: TAPE (Unverified Allergy, Mild, rash, 05/26/16) A-FIB/CHADSVASC A-FIB History Current/History of A-Fib/PAF?: Yes Current PO Anticoag Therapy: Yes Age/Risk Factor Scoring CHADSVASC: CHADSVASC Response (Comments) Value Age Risk Factor Age >/= 75 years old 2 Gender Risk Factor Male 0 Hx of CHF Yes 1 Hx of HTN Yes 1 Hx of Stroke/TIA/or VTE No 0 Hx of Diabetes Yes 1 Hx of Vascular Disease No 0 Total 5 Treatment Treatment ordered: Apixaban Other anticoagulant ordered: Brook Arzate MD Jun 29, 2020 14:47
[2020-06-29] MEDS: LABETALOL 200 MG TAB PO SCH ×2 (15:33→22:52)
[2020-06-29] MEDS: **hydrALAZINE HCL** 25 MG TAB PO SCH ×2 (15:33→22:59)
[2020-06-29] MEDS: BRIMONIDINE 0.15% OPHTH SOLN 5 ML OU SCH ×2 (15:33→22:56)
[2020-06-29] MEDS: METAMUCIL (PSYLLIUM) PACKET PO SCH (15:33)
--- NOTE | 2020-06-29 16:45 | ECGEPIP ---
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
[2020-06-29] MEDS ORDERED: TORSEMIDE 20 MG TAB PO SCH (21:00)
[2020-06-29 22:00] VITALS: BP 144/51
[2020-06-29] MEDS: allopurinoL 300 MG TAB PO SCH (22:52)
[2020-06-29] MEDS: ATORVASTATIN 10 MG TAB PO SCH (22:52)
[2020-06-29] MEDS: FOLIC ACID 1 MG TAB PO SCH (22:54)
[2020-06-29] MEDS: LEVEMIR (INSULIN DETEMIR) 1 UNITS/0.01ML SC SCH (22:56)
[2020-06-29] MEDS: TIMOLOL MALEATE 0.5% OPHTH SOLN 5 ML OU SCH (22:58)
[2020-06-30 06:00] VITALS: BP 144/54
[2020-06-30 06:32] LABS: HEMATOCRIT 30.5 % (42.0-52.0); HEMOGLOBIN 9.5 g/dl (13.5-17.5); MEAN CORPUSCULAR HEMOGLOBIN 29.3 pg (27.0-33.0); MEAN CORPUSCULAR HGB CONC 31.1 g/dl (32.0-36.5); MEAN CORPUSCULAR VOLUME 94.1 fl (80.0-96.0); PLATELET COUNT, AUTOMATED 279 10^3/uL (150-450); RED BLOOD COUNT 3.24 10^6/uL (4.30-6.10); WHITE BLOOD COUNT 9.8 10^3/uL (4.0-10.0)
[2020-06-30 07:03] LABS: ALBUMIN 3.5 GM/DL (3.2-5.2); BILIRUBIN,TOTAL 0.9 MG/DL (0.2-1.0); CALCIUM LEVEL 9.4 MG/DL (8.8-10.2); CREATININE FOR GFR 2.5 MG/DL (0.70-1.30); GLOMERULAR FILTRATION RATE 26.9 (>42); POTASSIUM SERUM 3.2 MEQ/L (3.5-5.1); TOTAL PROTEIN 8.5 GM/DL (6.4-8.2)
[2020-06-30] MEDS: HumaLOG INSULIN (NovoLOG) PER UNIT SC SCH ×4 (07:30→21:00)
[2020-06-30] MEDS: IPRATROPIUM 0.5MG/ALBUTEROL 2.5MG INH SOL UD 3ML (DUONEB) NEB SCH ×4 (08:13→20:53)
[2020-06-30] MEDS ORDERED: FUROSEMIDE 40MG/4ML VIAL (J1940) IV SCH (09:00)
[2020-06-30] MEDS ORDERED: POTASSIUM CHLORIDE 10 MEQ SR TABLET PO ONE (10:00)
[2020-06-30] MEDS: APIXABAN 2.5 MG TAB (ELIQUIS) PO SCH ×2 (10:27→20:34)
[2020-06-30] MEDS: FERROUS SULFATE 325MG TAB PO SCH (10:27)
[2020-06-30] MEDS: MULTIVITAMINS/MINERALS THERAP 1 TAB PO SCH (10:27)
[2020-06-30] MEDS: HEPARIN SOD (PORCINE) 5000UNITS/ML 1ML VIAL/SYRINGE SC SCH ×2 (10:28→20:33)
[2020-06-30] MEDS: **hydrALAZINE HCL** 25 MG TAB PO SCH ×3 (10:29→20:34)
[2020-06-30] MEDS: cloNIDine 0.1MG TABLET PO SCH ×2 (10:29→20:34)
[2020-06-30] MEDS: DOCUSATE SODIUM 100MG CAPSULE PO SCH (10:29)
[2020-06-30] MEDS: LABETALOL 200 MG TAB PO SCH ×3 (10:30→20:33)
[2020-06-30] MEDS: METAMUCIL (PSYLLIUM) PACKET PO SCH (10:34)
[2020-06-30] MEDS: BRIMONIDINE 0.15% OPHTH SOLN 5 ML OU SCH ×2 (10:35→20:35)
[2020-06-30] MEDS: FUROSEMIDE 100MG/10ML VIAL (J1940) IV SCH ×2 (10:40→17:14)
--- NOTE | 2020-06-30 11:28 | ECHO ---
DATE OF PROCEDURE: 06/29/2020 Age: 75 Gender: Male Height: 173 cm Weight: 118 kg REFERRING PHYSICIAN: Brook Adams M.D. INDICATION: Congestive heart failure. MEASUREMENTS: IVS 1.8 cm LV 5.5 cm LVPW 1.7 cm LA 4.8 cm Aorta 3.4 cm IVC 3.1 cm DOPPLER MEASUREMENT Mitral E wave velocity 96 Mitral A wave 71 E prime septal 5.1 E prime lateral 6.3 FINDINGS: This study is of acceptable technical quality, underlying sinus rhythm. There were good quality parasternal views, but very limited apical views and limited subcostal views. Left ventricle has normal size and hyperdynamic contractility. I estimate LVEF approximately 70% to 75%. Moderate to moderately severe left ventricular hypertrophy is noted. Right ventricle appears grossly normal based on limited views. The left atrium is moderately enlarged. Right atrium was poorly seen. Aortic valve is tricuspid. It is sclerotic, but mobility is preserved. Mitral valve appears grossly normal. Tricuspid and pulmonic valves also appear normal. No pericardial effusion is noted. Inferior vena cava is markedly dilated and there is no appreciable collapse with inspiration, indicative of very high central venous pressure. Aortic root is normal. Aortic arch and abdominal aorta were not well seen. Doppler interrogation reveals trivial aortic stenosis with mean gradient 9 mmHg and mild aortic insufficiency. There is functionally competent mitral valve. There is mild tricuspid insufficiency. Calculated pulmonary artery pressure is minimum in mid 70s, corresponding to severe pulmonary hypertension. Pulmonic valve is functionally competent. Mitral inflow pattern and tissue Doppler imaging of the mitral annulus revealed grade 2 diastolic dysfunction. CONCLUSIONS: 1. Study is of fair technical quality, underlying sinus rhythm. 2. Normal LV size with moderately severe left ventricular hypertrophy, hyperdynamic LV systolic function, and grade 2 diastolic dysfunction. 3. Aortic sclerosis resulting in trivial stenosis and mild insufficiency. 4. No additional significant valvular disease. 5. Very high central venous pressure and severe pulmonary hypertension. 6. Right-sided heart chambers were poorly visualized. MTDD
[2020-06-30] MEDS ORDERED: LevoFLOXacin IV 250 MG in IV 1 EA IV SCH (13:00)
[2020-06-30 14:00] VITALS: BP 149/65
--- NOTE | 2020-06-30 17:46 | CR ---
CONSULTATION DATE: 06/30/2020 REQUESTING PHYSICIAN: Dr. Brook Adams CONSULTING PHYSICIAN: Dr. Pemberton REASON FOR CONSULTATION: Management of acute renal failure superimposed on chronic kidney disease and fluid overload. CHIEF COMPLAINT: Patient presented to the hospital yesterday with progressive shortness of breath. HISTORY OF PRESENT ILLNESS: Chetan Beckett is a 75-year-old male with past medical history of chronic kidney disease, stage III to early stage IV at baseline, malrotated left kidney, monoclonal gammopathy of undetermined significance, undergoing workup for monoclonal gammopathy of renal significance, status post renal biopsy done in May, which showed IgM lambda deposition disease. He is following up with hematology/oncology as well. He recently had his COVID vaccination, and after that he started feeling sick. He reports that he has a pulse oximeter at home, and his pulse was in 80s, so he presented to the hospital yesterday. He was admitted under the hospitalist service for acute hypoxic respiratory failure and congestive heart failure (CHF). He was started on diuretics and antibiotics. His creatinine on admission was 2.1, which has bumped up to 2.5 now, so nephrology service was called for further help in the management of this patient. I saw and evaluated the patient at the bedside today morning. He was actually sitting up in the sofa. He reports that he is feeling much better today as compared with yesterday. He still reports lower extremity edema at this point. MEDICAL HISTORY: 1. Chronic kidney disease, stage III to early stage IV. Baseline creatinine is around 2+1. 2. Obesity. 3. Diabetes mellitus, type 2. 4. Hypertension. 5. Hyperlipidemia. 6. Obstructive sleep apnea. Wears a bilevel positive airway pressure (BiPAP). 7. Iron deficiency anemia. 8. Monoclonal gammopathy of undetermined significance. 9. 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 SURGICAL HISTORY: 1. Status post cholecystectomy. 2. Status post appendectomy. 3. History of right shoulder repair. 4. Colonoscopy. 5. Loop recorded placement. 6. Kidney biopsy done in May. 7. Bone marrow biopsy done by hematology/oncology. ALLERGIES: He is allergic to tape. FAMILY HISTORY: No significant family history of end-stage renal disease requiring hemodialysis. SOCIAL HISTORY: He denies any smoking, illicit drug abuse, or alcohol abuse. He lives alone. REVIEW OF SYSTEMS: CONSTITUTIONAL: He denies any fevers or chills at this time. EYES: He denies any blurry vision or double vision. ENT: He denies any dysphagia or odynophagia. CARDIOVASCULAR: He reports progressive shortness of breath and lower extremity edema. RESPIRATORY: He reports some cough and hypoxia at home. GASTROINTESTINAL: He denies any nausea or vomiting. GENITOURINARY: He denies any dysuria or hematuria. MUSCULOSKELETAL: He denies muscles aches and pain. SKIN: He denies any rashes or ulcers. PSYCHIATRIC: He denies any depression or anxiety. HEMATOLOGIC/ONCOLOGIC: He denies any easy bleeding or bruising. ENDOCRINE: He reports diabetes mellitus, type 2. CENTRAL NERVOUS SYSTEM: He denies any strokes or seizures. All other review of systems is negative. PHYSICAL EXAMINATION: GENERAL: Patient is awake, alert, oriented times three, sitting up in the sofa. VITAL SIGNS: Temperature is 98.6 degrees Fahrenheit, blood pressure is 143/54, pulse is 65, respiratory rate of 18, saturating 93% on room air. Intake and output: Urine output recorded is 1900 mL yesterday, 1750 mL so far today. HEAD AND NECK: Extraocular muscles are intact. Pupils equally round and reactive to light. Mucous membranes are moist. Neck is supple. Mildly elevated jugular venous distention (JVD). CARDIOVASCULAR: S1, S2, regular rate. Edema 2+ of the bilateral lower extremities all the way up to knees. RESPIRATORY: Decreased breath sounds at the bases with inspiratory crackles bilaterally. ABDOMEN: Obese. Positive bowel sounds. Nontender. No organomegaly. MUSCULOSKELETAL: Edema 2+ of the extremities, otherwise no clubbing or cyanosis. CENTRAL NERVOUS SYSTEM: No focal deficit. Power is 5/5 in all extremities. LABORATORY REVIEW: CBC showed a WBC of 17.4 yesterday; it is 9.8 today. Hemoglobin is 9.5, platelets are 279. BMP done today morning sodium 141, potassium 3.2, chloride 105, bicarbonate 28, BUN 58. Creatinine was 2.1 yesterday; it is 2.5 today. BNP is 1676. Procalcitonin is 0.09. IMAGING: A chest x-ray was done yesterday, which showed no focal consolidation. Bilateral increased interstitial markings, suggestive of interstitial inflammatory or infectious process. CURRENT INPATIENT MEDICATIONS: Patient's medications were all reviewed by myself. He is on: - Levaquin 250 mg intravenous (IV) daily - albuterol as needed - allopurinol 300 mg by mouth daily - amlodipine 10 mg daily - Eliquis 2.5 mg by mouth twice a day - atorvastatin 10 mg every night, - clonidine 0.1 mg by mouth twice a day - Colace 100 mg by mouth daily - iron tablets 650 mg by mouth daily - folic acid 1 mg by mouth daily. - He is getting Lasix 40 mg IV daily. I have changed the dose of Lasix 80 mg IV twice a day. - hydralazine 25 mg by mouth three times a day - heparin subcutaneous - insulin Levemir 100 units subcutaneous every night - insulin Lispro sliding scale - labetalol 200 mg by mouth three times a day - minoxidil 20 mg by mouth daily - multivitamin - Potassium chloride one dose 40 mEq was given. - He is on Metamucil one packet by mouth daily. Torsemide 60 mg by mouth twice a day has been stopped. ASSESSMENT AND PLAN: 1. Acute renal failure superimposed on chronic kidney disease. Patient is volume overloaded at this time. Diuretics are being started. Creatinine is slightly higher than the baseline; however, patient does need to be diuresed. Okay to continue Levaquin at this time. 2. Acute decompensated congestive heart failure. Patient's echocardiogram was done yesterday, which showed severe left ventricular (LV) hypertrophy, grade 2 diastolic dysfunction, very high central venous pressures, and severe pulmonary hypertension. Right heart was poorly visualized. Continue Lasix 80 mg IV twice a day. Further adjustment of the dose will be done tomorrow morning. 3. Hypertension. Patient has severe hypertension with LV hypertrophy. Continue current dose of amlodipine, clonidine, and hydralazine with labetalol and minoxidil. Optimization of fluid status would also help improve the blood pressures. 4. Monoclonal gammopathy. Patient follows up with hematology/oncology as an outpatient. Hemoglobin is stable at this time. A repeat serum protein electrophoresis (SPEP) and urine protein electrophoresis (UPEP) is pending before they plan to do any chemotherapy for monoclonal gammopathy of renal significance. 5. Diabetes mellitus, type 2. Avoid angiotensin-converting enzyme (HAN) or angiotensin-receptor justyna (ARB) at this time because of advanced chronic kidney disease (CKD). Continue insulin regimen at this time. 6. Chronic gout secondary to chronic kidney disease. Continue allopurinol 100 mg by mouth daily. 7. Bilateral infiltrates and leukocytosis. Patient had elevated white cell count on arrival, and he had hypoxic respiratory failure. Currently he is being covered with IV Levaquin. Leukocytosis is improving. 8. Hypokalemia. Patient was given potassium chloride 40 mEq in the morning. Thank you for involving me in the care of this patient. I shall be happy to follow the patient along with you tomorrow morning.
--- NOTE | 2020-06-30 18:09 | IPNPDOC ---
Date Seen The patient was seen on 06/30/20. Progress Note SUBJECTIVE: Walking test showed patient dropped to 83% on RA with activity, incr with rest to 93%. At rest he is saturating 89-92% on RA- this is close to his baseline. Nephrology consulted and helping while diuresing. Denies incr SOB, chest pain, n/v/d. Echo done. OBJECTIVE: PHYSICAL EXAMINATION: VS: please see below CONSTITUTIONAL: No acute distress, resting comfortably, AAO x 3 EYES: PERRLA, EOM intact HENT, MOUTH: Normocephalic, atraumatic, moist mucous membranes, NECK: SUPPLE, no JVD, no lymphadenopathy, no carotid bruit CV: Regular rate and rhythm, S1S2 normal, no murmurs/rubs/gallops RESPIRATORY: Crackles posterior lung bases b/l, no rales/rhonchi/wheezes GI: BS positive in 4 quadrants, soft, nontender, nondistended, no rebound or guarding, no organomegaly : Deferred MUSCULOSKELETAL: Normal ROM. No cyanosis, clubbing, swelling, joint deformity, extremity edema +1 pitting in b/l lower ext INTEGUMENTARY: Intact, no rashes, no lesions, no erythema NEUROLOGIC: Cranial Nerves II-XII are intact, no focal deficits PSYCHIATRIC: Mood and affect are normal LABORATORY DATA: Please see below IMAGING: Echocardiogram 06/29/20: 1. Study is of fair technical quality, underlying sinus rhythm. 2. Normal LV size with moderately severe left ventricular hypertrophy, hy perdynamic LV systolic function, and grade 2 diastolic dysfunction. 3. Aortic sclerosis resulting in trivial stenosis and mild insufficiency. 4. No additional significant valvular disease. 5. Very high central venous pressure and severe pulmonary hypertension. 6. Right-sided heart chambers were poorly visualized. CXR: 1. No focal consolidation. 2. Nonspecific bilateral increased interstitial markings suggestive of interstitial inflammatory/infectious process. ASSESSMENT: 75 y/o M with GENET on nightly bipap, DM type II, HTn, CAD, hx of atrial fib s/p ablation, CKD Stage III, left kidney abnormality, ROMI, ? MGUS admitted for acute hypoxic respiratory failure secondary to questionable congestive heart failure versus pneumonia. PLAN: Acute hypoxic respiratory failure secondary to CHF with mild exacerbation -Currently saturating 89-92% on RA- appears to be his baseline. -CXR above, procalcitonin very low so stopped abx today-highly unlikely this is true PNA -It is likely that the patient lives in the high 80slow 90s normally without oxygen. He also states it's normal for him to desaturate to low 80s and then bounced back up to 90 after exertion- exactly what happened today while walking with PT. -Perhaps it is that patient has needed O2 with activity for some time. -Please see treatment plans for individual issues below HFpEF, mild exacerbation -Improving slowly, on RA this AM -Echo above: Grade II diastolic dysfunction, preserved EF -CXR: Nonspecific bilateral increased interstitial markings suggestive of interstitial inflammatory/infectious process. -BNP 1293--> incr to >1600, trop neg -Pos fluid balance -Crackles remain, +1 pitting lower ext edema on exam -Started on lasix 80 mg IV BID. Nephrology consulted and helping manage diuresis as Cr incr with lasix given in ER and home torsemide. -C/w CCB, BB and hydralazine -Monitor I&O's closely, daily wt , 2 gm diet, fluid restriction Hypokalemia, acute likely 2/2 to diuretics -Replaced 40 mEq KCl -F/u AM labs CKD Stage III with left kidney abnormality -Cr today incr to 2.5, baseline 2.16-2.44 -Follows with Dr. Pemberton, currently consulted Chronic gout secondary to chronic kidney disease -C/w allopurinol 100 mg daily A. fib on Eliquis s/p Cryoablation (2016) - Reverted to NSR (2017) -Remains on AC HTN -Stable -C/w home medications DM type II -BS stable -Holding PO home meds -ISS, FS AC/HS, consistent carb diet GENET on bipaP -Can use home Bipap Iron deficiency anemia -No s/s of bleeding -C/w ferrous sulfate supplementation Monoclonal gammopathy -Patient follows up with hematology/oncology as an outpatient. -Hemoglobin is stable at this time. -A repeat serum protein electrophoresis (SPEP) and urine protein electrophoresis (UPEP) is pending before they plan to do any chemotherapy for monoclonal gammopathy of renal significance. DVT px -Eliquis BID DISPOSITION: Admitted as acute inpatient. Nephrology following. Plan is discharge home when medically improved VS, I&O, 24H, Fishbone Vital Signs/I&O Vital Signs Date Time Temp Pulse Resp B/P (MAP) Pulse Ox O2 Delivery O2 Flow Rate FiO2 06/30/20 17:13 84 146/58 06/30/20 15:31 18 06/30/20 06:00 98.1 93 Room Air 06/29/20 23:00 1.0 I&O- Last 24 Hours up to 6 AM 06/30/20 06:00 Intake Total 2680 ml Output Total 2400 ml Balance 280 ml Laboratory Data 24H LABS Laboratory Tests 2 06/29/20 20:36: Bedside Glucose (Misc Panel) 194H 06/30/20 06:13: Nucleated Red Blood Cells % (auto) 0.0, Anion Gap 8, Glomerular Filtration Rate 26.9L, Calcium Level 9.4, Total Bilirubin 0.9, Aspartate Amino Transf (AST/SGOT) 17, Alanine Aminotransferase (ALT/SGPT) 21, Alkaline Phosphatase 56, GA-Elu-X-Type Natriuretic Peptide 1676H, Total Protein 8.5H, Albumin 3.5, Albumin/Globulin Ratio 0.7 06/30/20 08:51: Bedside Glucose (Misc Panel) 39*L 06/30/20 09:22: Bedside Glucose Confirm (Misc) 72 06/30/20 12:37: Bedside Glucose (Misc Panel) 87 06/30/20 17:03: Bedside Glucose (Misc Panel) 159H CBC/BMP Laboratory Tests 06/30/20 06:13 Microbiology Microbiology 06/29/20 Gram Stain - Final, Resulted 06/29/20 Sputum Culture, Resulted Pending 06/29/20 Respiratory Virus Panel (PCR) ([facility]) - Final, Complete Current Medications Current Medications Medications (Trade) Dose Ordered Sig/Gricelda Route PRN Reason Start Time Stop Time Status Last Admin Dose Admin Albuterol Sulfate (Proventil Neb) 2.5 mg Q2HP PRN NEB SOB/WHEEZING 06/29/20 08:00 Albuterol/ Ipratropium (Duoneb (Ipr 0.5mg/Alb 2.5mg)) 3 ml RQID NEB 06/29/20 08:00 06/30/20 15:30 Allopurinol (Zyloprim) 300 mg QHS PO 06/29/20 21:00 06/29/20 22:52 Amlodipine Besylate (Norvasc) 10 mg DAILY PO 06/29/20 09:00 06/30/20 10:30 Apixaban (Eliquis) 2.5 mg BID PO 06/29/20 09:00 06/30/20 10:27 Atorvastatin Calcium (Lipitor) 10 mg QHS PO 06/29/20 21:00 06/29/20 22:52 Brimonidine Tartrate (Alphagan P 0.15%) 1 drop BID OU 06/29/20 09:00 06/30/20 10:35 Clonidine HCl (Catapres) 0.1 mg BID PO 06/29/20 09:00 06/30/20 10:29 Coenzyme Q10 (Coenzyme Q10) 200 mg DAILY PO 06/29/20 09:00 06/29/20 12:59 DC Dextrose (Dextrose 50%) 25 ml ASDIRECTED PRN IV SEE LABEL COMMENTS 06/29/20 11:45 Docusate Sodium (Colace) 100 mg DAILY PO 06/29/20 09:00 06/30/20 10:29 Ferrous Sulfate (Ferrous Sulfate) 650 mg DAILY PO 06/29/20 09:00 06/30/20 10:27 Folic Acid (Folic Acid) 1 mg QHS PO 06/29/20 21:00 06/29/20 22:54 Furosemide (LASIX injection) 40 mg DAILY IV 06/30/20 09:00 06/29/20 12:35 DC Furosemide (LASIX injection) 80 mg BID@09,17 IV 06/30/20 09:00 06/30/20 17:14 Glucagon (Glucagon) 1 mg ASDIRECTED PRN SC SEE LABEL COMMENTS 06/29/20 11:45 Glucose (Glucose) 16 GM ASDIRECTED PRN PO SEE LABEL COMMENTS 06/29/20 11:45 Heparin Sodium (Porcine) (Heparin) 5,000 units Q12H SC 06/29/20 09:00 06/30/20 10:28 Home Med (Med Rec Complete!) ASDIRECTED XX 06/29/20 08:00 06/29/20 07:55 DC Hydralazine HCl (Apresoline) 25 mg TID PO 06/29/20 16:00 06/30/20 17:14 Insulin Detemir (Levemir Insulin) 100 units QHS SC 06/29/20 21:00 06/29/20 22:56 Insulin Human Lispro (HumaLOG INSULIN) SEE PROTOCOL TABLE AC SC 06/29/20 12:00 06/30/20 17:14 Insulin Human Lispro (HumaLOG INSULIN) SEE PROTOCOL TABLE QHS SC 06/29/20 21:00 Labetalol HCl (Normodyne, Trandate) 200 mg TID PO 06/29/20 16:00 06/30/20 17:13 Levofloxacin 250 mg/IV Miscellaneous Supplies 50 ml @ 50 mls/hr Q24H IV 06/30/20 13:00 07/04/20 13:59 06/30/20 14:15 Levofloxacin 500 mg/IV Miscellaneous Supplies 100 ml @ 100 mls/hr Q24H IV 06/29/20 13:00 06/29/20 13:59 DC 06/29/20 13:22 Minoxidil (Loniten) 20 mg DAILY PO 06/29/20 09:00 06/30/20 10:34 Multivitamins (Theragram-M) 1 tab DAILY PO 06/29/20 09:00 06/30/20 10:27 Psyllium Hydrophilic Mucilloid (Metamucil) 1 pkt DAILY PO 06/29/20 09:00 06/30/20 10:34 Timolol Maleate (Timoptic 0.5% Ophth Carlee) 1 drop QHS OU 06/29/20 21:00 06/29/20 22:58 Torsemide (Demadex) 60 mg BID PO 06/29/20 21:00 06/30/20 09:21 DC 06/29/20 22:52 Allergies Coded Allergies: TAPE (Unverified Allergy, Mild, rash, 05/26/16) Brook Adams MD Jun 30, 2020 18:09
[2020-06-30] MEDS: allopurinoL 300 MG TAB PO SCH (20:33)
[2020-06-30] MEDS: FOLIC ACID 1 MG TAB PO SCH (20:34)
[2020-06-30] MEDS: ATORVASTATIN 10 MG TAB PO SCH (20:34)
[2020-06-30] MEDS: TIMOLOL MALEATE 0.5% OPHTH SOLN 5 ML OU SCH (20:35)
[2020-06-30] MEDS: LEVEMIR (INSULIN DETEMIR) 1 UNITS/0.01ML SC SCH (21:00)
[2020-06-30 22:00] VITALS: BP 142/56
[2020-06-30] MEDS ORDERED: LEVEMIR (INSULIN DETEMIR) 1 UNITS/0.01ML SC ONE (22:05)
[2020-07-01 06:00] VITALS: BP 141/53
[2020-07-01 06:51] LABS: HEMATOCRIT 29.9 % (42.0-52.0); HEMOGLOBIN 9.4 g/dl (13.5-17.5); MEAN CORPUSCULAR HEMOGLOBIN 29.6 pg (27.0-33.0); MEAN CORPUSCULAR HGB CONC 31.4 g/dl (32.0-36.5); PLATELET COUNT, AUTOMATED 298 10^3/uL (150-450); RED BLOOD COUNT 3.18 10^6/uL (4.30-6.10); WHITE BLOOD COUNT 6.9 10^3/uL (4.0-10.0)
[2020-07-01] MEDS: IPRATROPIUM 0.5MG/ALBUTEROL 2.5MG INH SOL UD 3ML (DUONEB) NEB SCH ×2 (07:16→11:09)
[2020-07-01] MEDS: HumaLOG INSULIN (NovoLOG) PER UNIT SC SCH ×2 (07:30→11:20)
[2020-07-01 07:32] LABS: ALBUMIN 3.5 GM/DL (3.2-5.2); BILIRUBIN,TOTAL 0.9 MG/DL (0.2-1.0); CALCIUM LEVEL 9.7 MG/DL (8.8-10.2); CREATININE FOR GFR 2.58 MG/DL (0.70-1.30); POTASSIUM SERUM 3.6 MEQ/L (3.5-5.1)
[2020-07-01] MEDS ORDERED: POTASSIUM CHLORIDE 10 MEQ SR TABLET PO ONE ×2 (08:45→11:45)
[2020-07-01] MEDS: HEPARIN SOD (PORCINE) 5000UNITS/ML 1ML VIAL/SYRINGE SC SCH (09:00)
[2020-07-01 09:15] VITALS: BP 142/50
[2020-07-01] MEDS: DOCUSATE SODIUM 100MG CAPSULE PO SCH (10:37)
[2020-07-01] MEDS: MULTIVITAMINS/MINERALS THERAP 1 TAB PO SCH (10:37)
[2020-07-01 10:38] VITALS: BP 142/50
[2020-07-01] MEDS: cloNIDine 0.1MG TABLET PO SCH (10:38)
[2020-07-01] MEDS: APIXABAN 2.5 MG TAB (ELIQUIS) PO SCH (10:38)
[2020-07-01] MEDS: LABETALOL 200 MG TAB PO SCH (10:39)
[2020-07-01] MEDS: FERROUS SULFATE 325MG TAB PO SCH (10:39)
[2020-07-01] MEDS: FUROSEMIDE 100MG/10ML VIAL (J1940) IV SCH (10:41)
[2020-07-01] MEDS: METAMUCIL (PSYLLIUM) PACKET PO SCH (10:44)
[2020-07-01] MEDS: BRIMONIDINE 0.15% OPHTH SOLN 5 ML OU SCH (10:45)
[2020-07-01] MEDS: **hydrALAZINE HCL** 25 MG TAB PO SCH (11:06)
[2020-07-01] MEDS ORDERED: metOLazone 5 MG TAB PO ONE (11:45)
[2020-07-01] MEDS ORDERED: TORS20TA2 PO (12:33)
--- NOTE | 2020-07-01 12:39 | IPN ---
NEPHROLOGY PROGRESS NOTE DATE: 07/01/2020 SUBJECTIVE: The patient was seen and examined at the bedside today morning. He was actually sitting up in the recliner. He is off the oxygen. He reports that he was evaluated by Physical Therapy for home oxygen. He does desaturate from walking without oxygen, but he is stable at rest. He continues to be on IV Lasix. He is diuresing well and he reports his lower extremity edema is also getting better. The renal function is stable with the creatinine at 2.5 today. OBJECTIVE: VITAL SIGNS: Temperature is 97.6 degrees Fahrenheit, blood pressure is 142/50, pulse is 68, respiratory rate of 18, saturating 92% on nasal cannula at 2 liters. INTAKE AND OUTPUT: Urine output recorded as 2.5 liters yesterday, 750 mL so far today. Weight in the bed scale is 119 kg. PHYSICAL EXAMINATION: GENERAL APPEARANCE: The patient is awake, alert, oriented x3, obese, sitting up in the recliner. HEAD AND NECK: Extraocular muscles intact. Pupils are equally round and reactive to light. Mucous membranes are moist. Neck is supple. Moderately elevated jugular venous distention. CARDIOVASCULAR: S1, S2, regular rate. EXTREMITIES: 1+ edema of the bilateral lower extremities. RESPIRATORY: Mildly decreased breath sounds at the bases with mild inspiratory crackles at the bases. ABDOMEN: Soft, obese, positive bowel sounds, nontender, no organomegaly. MUSCULOSKELETAL: No clubbing, no cyanosis. Pulses are 2+. BREAK OUT WORKER: No focal deficits. Power is 5/5 in all extremities. LAB REVIEW: CBC showed with WBC of 6.9, hemoglobin 9.4, platelet count 298. BMP showed sodium of 141, potassium 3.6, chloride 106, bicarbonate 29, BUN 67, creatinine is 2.5. MICROBIOLOGY: Sputum is growing moderate gram positive cocci in pairs and chains, few gram positive rods and yeast-like organisms. CURRENT INPATIENT MEDICATIONS: The patient's medications were all reviewed by myself. He continues to be on IV Lasix 80 mg twice daily. Levaquin has been stopped. ASSESSMENT AND PLAN: 1. Acute renal failure superimposed on chronic kidney disease his creatinine has been stable since yesterday. The patient has congestive heart failure. Okay to continue current diuretic dose. 2. Acute decompensated diastolic congestive heart failure - The patient has severe LVH was grade 2 diastolic dysfunction. Continue Lasix 80 mg IV twice daily. His home dose of Torsemide 60 mg p.o. twice daily can be resumed after he is discharged. 3. Hypertension - The patient has severe persistent chronic hypertension he is on multiple antihypertensives including Amlodipine, Clonidine, Hydralazine, Labetalol and Minoxidil. Continue current dose. 4. Monoclonal gammopathy - The patient is pending repeat SPEP and UPEP. Renal biopsy was done which showed mild lysine deposition disease. 5. Diabetes mellitus type 2 - continue current insulin regimen. 6. Chronic gout - continue Allopurinol 100 mg daily. 7. Leukocytosis and bilateral infiltrates sputum culture showed mild growth of yeast. Levaquin has been stopped. 8. Disposition - The patient is optimized to be discharged from a Nephrology standpoint if his home oxygen is arranged. He will need to follow up with Nephrology within 3 weeks after discharge from the hospital.
[2020-07-01 14:00] VITALS: BP 148/58
--- NOTE | 2020-07-01 17:55 | DS.PDOC ---
Discharge Summary General Date of Admission Jun 29, 2020 at 07:57 Date of Discharge 07/01/20 Attending Physician: Brook Adams MD Discharge Summary HISTORY OF PRESENT ILLNESS: 75 y/o M with PMH of GENET on nightly bipap, DM type II, HTN, CAD, hx of atrial fib s/p ablation, CKD Stage III, left kidney abnormality, ROMI, ? MGUS who presented to [facility] with chief complaint of incr SOB over the last several days. Normally the patient states that with exertion his O2 saturations can drop into the low 80s but within minutes it bounces back up to 91% with rest. He's noticed over the last several days that his oxygen saturations are dropping into the 70s with all the recovering into 8081 percent at rest. He states he has not been prescribed oxygen at home but due to the increased shortness of breath this was worrisome to be seen today in the emergency room. He denies chest pain, new cough, chills, fevers, increased lethargy. In the ER vital signs showed temperature 99.8, heart rate 73, respiratory rate 20, blood pressure 171/74, 97% on 4 L nasal cannula. Again the patient does not use home oxygen. BNP was elevated at 1293, the WBC 17.4 and the patient did not receive steroids recently. Creatinine 2.14 with his baseline being 2.162.44. Respiratory panel was negative. CXR: 1. No focal consolidation. 2. Nonspecific bilateral increased interstitial markings suggestive of interstitial inflammatory/infectious process. The patient states to have been compliant with his home torsemide and other cardiac medications; however, he had +1 pitting edema in the bilateral lower extremity. The patient was ultimately admitted for hypoxia, acute respiratory failure secondary to questionable congestive heart failure versus pneumonia. HOSPITAL COURSE: Patient was treated for acute hypoxic respiratory failure secondary to CHF with mild exacerbation. PNA later ruled out as procalcitonin was very low, abx were stopped. He had walking test done and it showed patient dropped to 83% on RA with activity, incr with rest to 93%. At rest he is saturating 89-92% on RA- this is close to his baseline. At times he would drop his O2 sats with rest even into mid-high 80's. Nephrology consulted and helped while diuresing due to Cr slightly increasing. After several days of treatment, diuresis patient appeared close to baseline. Home O2 was ordered for patient and set up prior to discharge on 07/01/20. Per nephrology, he is to c/w current diuretics and follow up closely in their office. Echocardiogram was done this admission, please see below. His PCP/digital strategist was notified of this admission and will f/u with him closely after discharge as well. Other chronic issues remained stable. At time of discharge, he denied chest pain, n/v/d, shortness of breath, fevers or chills. PAST MEDICAL HISTORY: A. fib on Eliquis s/p Cryoablation (2016) - Reverted to NSR (2017), HTN, HLD, DM type II , GENET on BIPAP, Iron deficiency anemia, Glaucoma, CKD Stage III with left kidney abnormality, ? 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 PHYSICAL EXAMINATION: VS: please see below CONSTITUTIONAL: No acute distress, resting comfortably, AAO x 3 EYES: PERRLA, EOM intact HENT, MOUTH: Normocephalic, atraumatic, moist mucous membranes, NECK: SUPPLE, no JVD, no lymphadenopathy, no carotid bruit CV: Regular rate and rhythm, S1S2 normal, no murmurs/rubs/gallops RESPIRATORY: mild crackles posterior lung bases b/l, no rales/rhonchi/wheezes GI: BS positive in 4 quadrants, soft, nontender, nondistended, no rebound or guarding, no organomegaly : Deferred MUSCULOSKELETAL: Normal ROM. No cyanosis, clubbing, swelling, joint deformity, extremity edema +1 pitting in b/l lower ext INTEGUMENTARY: Intact, no rashes, no lesions, no erythema NEUROLOGIC: Cranial Nerves II-XII are intact, no focal deficits PSYCHIATRIC: Mood and affect are normal LABORATORY DATA: Please see below IMAGING: Echocardiogram 06/29/20: 1. Study is of fair technical quality, underlying sinus rhythm. 2. Normal LV size with moderately severe left ventricular hypertrophy, hyperdynamic LV systolic function, and grade 2 diastolic dysfunction. 3. Aortic sclerosis resulting in trivial stenosis and mild insufficiency. 4. No additional significant valvular disease. 5. Very high central venous pressure and severe pulmonary hypertension. 6. Right-sided heart chambers were poorly visualized. CXR: 1. No focal consolidation. 2. Nonspecific bilateral increased interstitial markings suggestive of interstitial inflammatory/infectious process. ASSESSMENT: 75 y/o M with GENET on nightly bipap, DM type II, HTn, CAD, hx of atrial fib s/p ablation, CKD Stage III, left kidney abnormality, ROMI, ? MGUS admitted for acute hypoxic respiratory failure secondary to questionable congestive heart failure versus pneumonia. PLAN: Acute hypoxic respiratory failure secondary to CHF with mild exacerbation -Currently saturating 89-92% on RA- appears to be his baseline. -Drops to low 80's with ambulation, qualifying for home O2 which will arrange prior to discharge. Likely has needed for some time. -CXR above, procalcitonin very low so stopped abx -Please see treatment plans for individual issues below HFpEF, mild exacerbation -Improved and appears to be close to baseline -Echo above: Grade II diastolic dysfunction, preserved EF -CXR: Nonspecific bilateral increased interstitial markings suggestive of interstitial inflammatory/infectious process. -BNP 1600, trop neg -NEg fluid balance -Crackles improved, +1 pitting lower ext edema on exam -Was on lasix 80 mg IV BID. Nephrology consulted and helping manage diuresis -Recommending d/c with torsemide home dose. C/w C/w CCB, BB and hydralazine -2 gm diet at discharge to continue -Updated patient's PCP and digital strategist, Dr. Corbin of admission, discharge plan CKD Stage III with left kidney abnormality -Cr today incr to 2.58, baseline 2.16-2.44 -Follows with Dr. Pemberton and will f/u closely with them as o/p after discharge. Chronic gout secondary to chronic kidney disease -C/w allopurinol 100 mg daily A. fib on Eliquis s/p Cryoablation (2016) - Reverted to NSR (2017) -Remains on AC HTN -Stable -C/w home medications DM type II -BS stable -C/w home meds -ISS, FS AC/HS, consistent carb diet GENET on bipaP -Can use home Bipap Iron deficiency anemia -No s/s of bleeding -C/w ferrous sulfate supplementation Monoclonal gammopathy -Patient follows up with hematology/oncology as an outpatient. -Hemoglobin is stable at this time. -A repeat serum protein electrophoresis (SPEP) and urine protein electrophoresis (UPEP) is pending before they plan to do any chemotherapy for monoclonal gammopathy of renal significance. DVT px -Eliquis BID Resolved issues: Hypokalemia, acute likely 2/2 to diuretics DISPOSITION: Discharged home today to f/u with PCP/digital strategist and nephrology closely. TIME SPENT ON DISCHARGE: 35 minutes. Vital Signs/I&Os Vital Signs Date Time Temp Pulse Resp B/P (MAP) Pulse Ox O2 Delivery O2 Flow Rate FiO2 07/01/20 14:00 98.2 67 18 148/58 (88) 90 Room Air 07/01/20 06:00 2.0 I&O- Last 24 Hours up to 6 AM 07/01/20 05:59 Intake Total 1870 ml Output Total 2925 ml Balance -1055 ml Laboratory Data Labs 24H Laboratory Tests 2 06/30/20 20:49: Bedside Glucose (Misc Panel) 211H 07/01/20 06:31: Nucleated Red Blood Cells % (auto) 0.0, Anion Gap 6L, Glomerular Filtration Rate 26.0L, Calcium Level 9.7, Total Bilirubin 0.9, Aspartate Amino Transf (AST/SGOT) 21, Alanine Aminotransferase (ALT/SGPT) 20, Alkaline Phosphatase 56, Total Protein 8.0, Albumin 3.5, Albumin/Globulin Ratio 0.8 07/01/20 11:08: Bedside Glucose (Misc Panel) 89 CBC/BMP Laboratory Tests 07/01/20 06:31 FSBS Laboratory Tests Test 06/30/20 20:49 07/01/20 11:08 Range/Units Bedside Glucose (Misc Panel) 211 89 83-110 MG/DL Microbiology Microbiology 06/29/20 Gram Stain - Final, Complete 06/29/20 Sputum Culture - Final, Complete Yeast Like Organism 06/29/20 Respiratory Virus Panel (PCR) (TYLER) - Final, Complete Discharge Medications Scheduled Allopurinol (Zyloprim) 300 Mg Tab, 300 MG PO QHS, (Reported) Amlodipine Besylate (Amlodipine Besylate) 10 Mg Tab, 10 MG PO DAILY, (Reported) Apixaban (Eliquis) 2.5 Mg Tab, 2.5 MG PO BID, (Reported) Atorvastatin Calcium (Atorvastatin Calcium) 10 Mg Tab, 10 MG PO QHS, (Reported) Bimatoprost (Lumigan) 50 Drop/2.5 Ml Carlee, 1 DROP OU QHS, (Reported) Brimonidine Tartrate (Alphagan P) 0.15 % Carlee, 1 DROP OU BID, (Reported) Clonidine HCl (Clonidine HCl) 0.1 Mg Tab, 0.1 MG PO BID, (Reported) Docusate Sodium (Docusate Sodium) 100 Mg Tablet, 100 MG PO DAILY, (Reported) Fenofibric Acid (Choline) (Fenofibric Acid) 135 Mg Cap, 135 MG PO DAILY, (Reported) Ferrous Sulfate (Iron) 325 Mg Tablet, 650 MG PO DAILY, (Reported) Folic Acid (Folic Acid) 1 Mg Tab, 1 MG PO QHS, (Reported) Gluc Avery/Chondro Avery A/Vit C/Mn (Glucosamine-Chondroitin Cap) 1 Cap Cap, 1 CAP PO DAILY, (Reported) Glyburide (Glyburide) 5 Mg Tab, 5 MG PO BID, (Reported) Hydralazine HCl (Hydralazine HCl) 25 Mg Tab, 25 MG PO TID, (Reported) Icosapent Ethyl (Vascepa) 1 Gm Cap, 2 GM PO BID, (Reported) Insulin Glargine,Hum.rec.anlog (Toujeo Max Solostar) 300 Unit/1 Ml Insuln.pen, 100 UNIT SC QHS, (Reported) Insulin Human Lispro (Humalog) 1 Units/0.01 Ml Inj, 1 DOSE SC ACHS, (Reported) PER SLIDING SCALE - TYPICALLY LUNCH, DINNER, AND BEDTIME Labetalol HCl (Labetalol HCl) 200 Mg Tab, 200 MG PO TID, (Reported) Minoxidil (Minoxidil) 10 Mg Tab, 20 MG PO DAILY, (Reported) Mometasone Furoate (Asmanex Hfa) 100 Mcg/Act Hfa.aer.ad, 2 PUFF INH DAILY, (Reported) Multivitamins (Thera M Plus Tablet) 1 Each Tablet, 1 TAB PO DAILY, (Reported) Psyllium Husk (with Sugar) (Metamucil Powder) 575 Gm Powder, 1 PKT PO DAILY, (Reported) Timolol Maleate (Timolol Maleate) 0.5 % Carlee, 1 DROP OU QHS, (Reported) Torsemide (Torsemide) 20 Mg Tablet, 60 MG PO BID Ubidecarenone (Coenzyme Q10) 100 Mg Cap, 200 MG PO DAILY, (Reported) Scheduled PRN Azelastine HCl (Azelastine HCl) 0.15% [place].pump, 2 SPRAY NARES BID PRN for ALLERGIES, (Reported) Allergies Coded Allergies: TAPE (Unverified Allergy, Mild, rash, 05/26/16) Brook Adams MD Jul 01, 2020 17:55
[2020-07-02] MEDS ORDERED: POTASSIUM CHLORIDE 10 MEQ SR TABLET PO SCH (09:00)
== END 2020-07-01 15:26 | disposition home or self-care (01) | DRG 291 ==
LOC: M ED 04:27 → M ED INP 07:57 → M MSPAV 09:11
PROVIDERS: ADMIT Internal Medicine; ATTEND Internal Medicine
DX: I13.0 Hypertensive heart and chronic kidney disease with heart failure and stage 1 through stage 4 chronic kidney disease, or unspecified chronic kidney disease (principal); J96.01 Acute respiratory failure with hypoxia; I50.33 Acute on chronic diastolic (congestive) heart failure; G47.33 Obstructive sleep apnea (adult) (pediatric); E11.22 Type 2 diabetes mellitus with diabetic chronic kidney disease; I25.10 Atherosclerotic heart disease of native coronary artery without angina pectoris; N18.30 Chronic kidney disease, stage 3 unspecified; D50.9 Iron deficiency anemia, unspecified; E66.9 Obesity, unspecified; I48.91 Unspecified atrial fibrillation; E87.6 Hypokalemia; H40.9 Unspecified glaucoma; M10.30 Gout due to renal impairment, unspecified site; D47.2 Monoclonal gammopathy; Z90.49 Acquired absence of other specified parts of digestive tract; Z79.01 Long term (current) use of anticoagulants; Z79.4 Long term (current) use of insulin; Z91.048 Other nonmedicinal substance allergy status; Z68.39 Body mass index [BMI] 39.0-39.9, adult

== ENCOUNTER → 2020-09-07 | Outpatient (REF) | payer MEDICARE, OTHER ==
[~2020-09-07] MED LIST changes: +ASMA16.7 INH; +DOCU100T8 PO; +META28.32 PO; +TOUJ300I2 SC; +VITMTA PO
== END ==
LOC: M LAB REF 17:08
PROVIDERS: ATTEND Internal Medicine Nephrology
DX: D64.9 Anemia, unspecified (principal)

== ENCOUNTER 2020-10-08 13:54 | Outpatient (CLI) | payer MEDICARE, OTHER ==
[~2020-10-08] VITALS: Ht 172.7 cm; Wt 122.0 kg
[~2020-10-08 13:54] MED LIST changes: +ALBUTEROL SULFATE 2.5 MG/0.5 ML INH NEB SOLN INH PRN; +EPINEPHrine INJ 1 MG/ML 1ML AMP IM PRN; +diphenhydrAMINE 50MG/ML VIAL (J1200) IV PRN; +methylPREDNISolone 125MG 2ML VIAL IV PRN
[2020-10-08 14:00] VITALS: BP 178/77
[2020-10-08] MEDS ORDERED: diphenhydrAMINE 50MG/ML VIAL (J1200) IV ONE (14:00)
[2020-10-08] MEDS ORDERED: FERRIC CARBOXYMALTOSE INJ 750 MG, VIAL MATE ADAPTER 1 EACH in NS 250 ML IV ONE (14:00)
[2020-10-08] MEDS ORDERED: NS 1,000 ML IV SCH (14:00)
[2020-10-08 15:30] VITALS: BP 161/72
== END 2020-10-08 15:30 | disposition home or self-care (01) ==
LOC: M INFU 13:54
PROVIDERS: ATTEND Internal Medicine Nephrology
DX: D50.9 Iron deficiency anemia, unspecified (principal)
CPT/HCPCS: 96365; J1439

== ENCOUNTER 2020-10-15 14:03 | Outpatient (CLI) | payer MEDICARE, OTHER ==
[~2020-10-15] VITALS: Ht 172.7 cm; Wt 122.0 kg
[~2020-10-15 14:03] MED LIST changes: +FERRIC CARBOXYMALTOSE INJ 750 MG, VIAL MATE ADAPTER 1 EACH in NS 250 ML IV ONE; +NS 1,000 ML IV SCH; +diphenhydrAMINE 50MG/ML VIAL (J1200) IV ONE
[2020-10-15 14:10] VITALS: BP 165/68
[2020-10-15 16:00] VITALS: BP 133/59
== END 2020-10-15 16:00 | disposition home or self-care (01) ==
LOC: M INFU 14:03
PROVIDERS: ATTEND Internal Medicine Nephrology
DX: D50.9 Iron deficiency anemia, unspecified (principal); Z91.048 Other nonmedicinal substance allergy status
CPT/HCPCS: 96365; J1439

== ENCOUNTER → 2020-10-20 | Outpatient (REF) | payer MEDICARE, OTHER ==
[~2020-10-20] MED LIST changes: -ALBUTEROL SULFATE 2.5 MG/0.5 ML INH NEB SOLN INH PRN; -EPINEPHrine INJ 1 MG/ML 1ML AMP IM PRN; -FERRIC CARBOXYMALTOSE INJ 750 MG, VIAL MATE ADAPTER 1 EACH in NS 250 ML IV ONE; -NS 1,000 ML IV SCH; -diphenhydrAMINE 50MG/ML VIAL (J1200) IV ONE; -diphenhydrAMINE 50MG/ML VIAL (J1200) IV PRN; -methylPREDNISolone 125MG 2ML VIAL IV PRN
== END ==
LOC: M LAB REF 14:48
PROVIDERS: ATTEND Specialist
DX: D47.2 Monoclonal gammopathy (principal)

== ENCOUNTER → 2020-12-20 | Outpatient (REF) | payer MEDICARE, OTHER ==
[~2020-12-20] MED LIST changes: +METO25TA; +OMEP40CA4 PO; -OMEP40CA97 PO; +POTA1TAB14; +VERI2.5T; +VERI5TAB PO
== END ==
LOC: M LAB REF 17:08
PROVIDERS: ATTEND Internal Medicine Nephrology
DX: N18.32 Chronic kidney disease, stage 3b (principal)

== ENCOUNTER → 2021-01-14 | Outpatient (CLI) | payer MEDICARE, OTHER | LOC: M LAB 15:15 | PROVIDERS: ATTEND Nurse Practitioner Family | DX: E11.21 Type 2 diabetes mellitus with diabetic nephropathy (principal) ==

== ENCOUNTER → 2021-04-08 | Outpatient (CLI) | payer MEDICARE, OTHER ==
[~2021-04-08] MED LIST changes: +ALLO300T2 PO; -KLOR10TA76 PO; +POTA-136 PO; -POTA1TAB14; +POTA1TAB14 PO
== END ==
LOC: M LAB 13:17
PROVIDERS: ATTEND Nurse Practitioner Family
DX: E11.21 Type 2 diabetes mellitus with diabetic nephropathy (principal)

== ENCOUNTER 2021-07-14 13:21 | Inpatient (IN) | payer MEDICARE, OTHER ==
[~2021-07-14] VITALS: Ht 172.7 cm; Wt 113.8 kg
[2021-07-14] VITALS (17 sets, daily range): BP systolic 114–131; BP diastolic 56–59
[~2021-07-14 13:21] MED LIST changes: -LISI-898 PO; +LISI5TAB11 PO
[2021-07-14] MEDS ORDERED: EPINEPHrine 1MG/10ML SYRINGE 1.5IN ONE (13:22)
[2021-07-14] MEDS ORDERED: SUCCINYLCHOLINE INJ 200 MG/10 ML VIAL (J0330) IV ONE (13:35)
[2021-07-14] MEDS ORDERED: ETOMIDATE INJ 20MG/10ML VIAL IV ONE (13:35)
[2021-07-14] MEDS ORDERED: propofoL 1,000 MG in IV 1 EA IV SCH (13:40)
[2021-07-14 13:50] LABS: ABG BASE EXCESS -2.6 (-2.0-2.0); ABG HCO3 28.6 MEQ/L (22.0-26.0); ABG O2 SATURATION 80.9 % (95.0-99.0); ABG PARTIAL PRESSURE O2 62.2 mmHg (75.0-100.0); ABG TOTAL CO2 31.4 MEQ/L (23.0-31.0)
[2021-07-14 13:54] LABS: ABG PARTIAL PRESSURE CO2 91.3 mmHg (35.0-45.0); ABG pH (ARTERIAL) 7.113 UNITS (7.350-7.450)
[2021-07-14 14:00] LABS: BASO # 0.1 10^3/uL (0.0-0.2); BASO % 0.4 % (0.0-1.0); EOS # 0.3 10^3/uL (0.0-0.5); EOS % 1.4 % (0.0-3.0); HEMATOCRIT 35.6 % (42.0-52.0); HEMOGLOBIN 10.6 g/dl (13.5-17.5); LYMPH # 2.4 10^3/uL (1.5-5.0); LYMPH % 13.5 % (24.0-44.0); MEAN CORPUSCULAR HEMOGLOBIN 30.8 pg (27.0-33.0); MEAN CORPUSCULAR HGB CONC 29.8 g/dl (32.0-36.5); MEAN CORPUSCULAR VOLUME 103.5 fl (80.0-96.0); MONO # 0.9 10^3/uL (0.0-0.8); MONO % 5.3 % (2.0-8.0); NEUTROPHILS # 13.8 10^3/uL (1.5-8.5); NEUTROPHILS % 78.3 % (36.0-66.0); PLATELET COUNT, AUTOMATED 313 10^3/uL (150-450); RED BLOOD COUNT 3.44 10^6/uL (4.30-6.10); WHITE BLOOD COUNT 17.6 10^3/uL (4.0-10.0)
[2021-07-14] MEDS ORDERED: AZITHROMYCIN INJ 500 MG, VIAL MATE ADAPTER 1 EACH in NS 250 ML IV ONE (14:00)
[2021-07-14] MEDS ORDERED: FUROSEMIDE 100MG/10ML VIAL (J1940) IV ONE (14:00)
[2021-07-14] MEDS ORDERED: VANCOMYCIN HCL 2,000 MG in IV FLUID PLACE HOLDER 1 EA IV ONE (14:00)
[2021-07-14] MEDS ORDERED: cefTRIAXone SOD 1 GM in D5W MINI-BAG PLUS 50 ML IV ONE (14:00)
[2021-07-14] MEDS ORDERED: VANCOMYCIN HCL 1,000 MG, VIAL MATE ADAPTER 1 EACH in NS 250 ML IV ONE ×6 (14:05)
[2021-07-14] MEDS ORDERED: MIDAZOLAM HCL 100 MG in D5W 80 ML IV SCH (14:05)
[2021-07-14] MEDS ORDERED: VECURONIUM BROMIDE 10MG VIAL IV ONE (14:05)
[2021-07-14] MEDS ORDERED: REFRIGERATOR IV KEYS XX PRN (14:05)
[2021-07-14 14:35] LABS: ALBUMIN 3.8 GM/DL (3.2-5.2); BILIRUBIN,DIRECT 0.3 MG/DL (0.0-0.2); BILIRUBIN,TOTAL 0.7 MG/DL (0.2-1.0); CALCIUM LEVEL 9.7 MG/DL (8.8-10.2); CREATININE FOR GFR 2.22 MG/DL (0.70-1.30); GLOMERULAR FILTRATION RATE 30.8 (>42); POTASSIUM SERUM 4.5 MEQ/L (3.5-5.1); THYROID STIMULATING HORMONE 4.49 uIU/ML (0.358-3.740); THYROXINE (T4) 9.2 UG/DL (4.5-12.0); TOTAL PROTEIN 8.9 GM/DL (6.4-8.2)
[2021-07-14 15:01] LABS: ABG BASE EXCESS -3.6 (-2.0-2.0); ABG HCO3 24.7 MEQ/L (22.0-26.0); ABG STANDARD HCO3 21.4 MEQ/L (22.0-26.0); ABG TOTAL CO2 26.6 MEQ/L (23.0-31.0)
[2021-07-14 15:02] LABS: ABG PARTIAL PRESSURE CO2 60.9 mmHg (35.0-45.0); ABG pH (ARTERIAL) 7.226 UNITS (7.350-7.450)
[2021-07-14] MEDS ORDERED: TAMS1CAP17 PO (16:59)
[2021-07-14] MEDS ORDERED: MIRA3350 PO (16:59)
[2021-07-14] MEDS ORDERED: TORS20TA2 PO (16:59)
[2021-07-14] MEDS ORDERED: TIMO0.5S3 OU (16:59)
[2021-07-14] MEDS ORDERED: LEVO50TA5 PO (16:59)
[2021-07-14] MEDS ORDERED: HOME MED LIST COMPLETE! XX SCH (17:00)
[2021-07-14] MEDS: HumaLOG INSULIN (NovoLOG) PER UNIT SC SCH (18:00)
[2021-07-14] MEDS ORDERED: VANCOMYCIN HCL 1,000 MG, VIAL MATE ADAPTER 1 EACH in NS 250 ML IV SCH (18:20)
[2021-07-14] MEDS: propofoL 1,000 MG in IV 1 EA IV SCH ×2 (18:26→21:17)
[2021-07-14] MEDS ORDERED: DEXTROSE 50% 50 ML SYRINGE IV PRN (18:55)
[2021-07-14] MEDS ORDERED: GLUCAGON INJ 1MG VIAL SC PRN (18:55)
[2021-07-14] MEDS ORDERED: GLUCOSE 4GM CHEW TABLET PO PRN (18:55)
[2021-07-14] MEDS ORDERED: fentaNYL 100 MCG/2 ML INJECTION IV PRN (19:25)
[2021-07-14] MEDS ORDERED: NOREPINEPHRINE BITARTRATE 8 MG in D5W 492 ML IV SCH (20:00)
[2021-07-14] MEDS: MIDAZOLAM INJ 2MG/2ML VIAL (J2250 PER 1MG) IV PRN (20:02)
[2021-07-14] MEDS: APIXABAN 2.5 MG TAB (ELIQUIS) PO SCH (20:56)
[2021-07-14] MEDS: ATORVASTATIN 20 MG TAB PO SCH (20:56)
[2021-07-14] MEDS: TAMSULOSIN 0.4 MG CAP PO SCH (20:56)
[2021-07-14] MEDS: CHLORHEXIDINE GLUCONATE 0.12 % 15ML UDC (PERIDEX ORAL RINSE) MT SCH (20:56)
[2021-07-14] MEDS: BRIMONIDINE 0.1% OPHTH SOLN 5 ML OU SCH (20:57)
[2021-07-14] MEDS: TIMOLOL MALEATE 0.5% OPHTH SOLN 5 ML OU SCH (20:57)
[2021-07-14] MEDS ORDERED: AZITHROMYCIN INJ 500 MG, VIAL MATE ADAPTER 1 EACH in NS 250 ML IV SCH (21:00)
[2021-07-15] VITALS (30 sets, daily range): BP systolic 127–150; BP diastolic 57–66
[2021-07-15] MEDS: MIDAZOLAM INJ 2MG/2ML VIAL (J2250 PER 1MG) IV PRN ×2 (00:16→17:46)
[2021-07-15] MEDS: propofoL 1,000 MG in IV 1 EA IV SCH ×9 (00:22→22:07)
[2021-07-15] MEDS ORDERED: VANCOMYCIN HCL 750 MG, VIAL MATE ADAPTER 1 EACH in NS 250 ML IV SCH (03:00)
[2021-07-15] MEDS ORDERED: VANCOMYCIN HCL 500 MG in D5W MINI-BAG PLUS 100 ML IV SCH (04:00)
[2021-07-15 05:37] LABS: BASO % 0.1 % (0.0-1.0); LYMPH # 0.6 10^3/uL (1.5-5.0); LYMPH % 3.5 % (24.0-44.0); MEAN CORPUSCULAR HEMOGLOBIN 30.7 pg (27.0-33.0); MEAN CORPUSCULAR HGB CONC 31.1 g/dl (32.0-36.5); MEAN CORPUSCULAR VOLUME 98.5 fl (80.0-96.0); MONO # 0.4 10^3/uL (0.0-0.8); MONO % 2.1 % (2.0-8.0); NEUTROPHILS # 16.6 10^3/uL (1.5-8.5); NEUTROPHILS % 91.5 % (36.0-66.0); PLATELET COUNT, AUTOMATED 255 10^3/uL (150-450); RED BLOOD COUNT 2.74 10^6/uL (4.30-6.10); WHITE BLOOD COUNT 18.1 10^3/uL (4.0-10.0)
[2021-07-15] MEDS: HumaLOG INSULIN (NovoLOG) PER UNIT SC SCH ×5 (05:47→23:42)
[2021-07-15] MEDS: cefTRIAXone SOD 1 GM in D5W MINI-BAG PLUS 50 ML IV SCH ×2 (05:51→17:14)
[2021-07-15] MEDS: LEVOTHYROXINE 50MCG TABLET (0.05MG) PO SCH (05:53)
[2021-07-15 05:55] LABS: HEMOGLOBIN 8.4 g/dl (13.5-17.5)
[2021-07-15 06:02] LABS: BILIRUBIN,TOTAL 0.7 MG/DL (0.2-1.0); CALCIUM LEVEL 9.1 MG/DL (8.8-10.2); CREATININE FOR GFR 2.65 MG/DL (0.70-1.30); GLOMERULAR FILTRATION RATE 25.1 (>42); POTASSIUM SERUM 4.4 MEQ/L (3.5-5.1); TOTAL PROTEIN 7.9 GM/DL (6.4-8.2)
[2021-07-15 06:38] LABS: ABG BASE EXCESS 1.6 (-2.0-2.0); ABG HCO3 26.3 MEQ/L (22.0-26.0); ABG O2 SATURATION 98.8 % (95.0-99.0); ABG PARTIAL PRESSURE CO2 41.8 mmHg (35.0-45.0); ABG PARTIAL PRESSURE O2 199.5 mmHg (75.0-100.0); ABG TOTAL CO2 27.6 MEQ/L (23.0-31.0); ABG pH (ARTERIAL) 7.417 UNITS (7.350-7.450)
[2021-07-15] MEDS: TIMOLOL MALEATE 0.5% OPHTH SOLN 5 ML OU SCH ×2 (08:55→20:08)
[2021-07-15] MEDS: BRIMONIDINE 0.1% OPHTH SOLN 5 ML OU SCH ×2 (08:55→20:08)
[2021-07-15] MEDS: PANTOPRAZOLE 40MG VIAL (C9113 PER 1) IV SCH (08:55)
[2021-07-15] MEDS: allopurinoL 300 MG TAB PO SCH (08:55)
[2021-07-15] MEDS: APIXABAN 2.5 MG TAB (ELIQUIS) PO SCH ×2 (08:55→20:08)
[2021-07-15] MEDS: CHLORHEXIDINE GLUCONATE 0.12 % 15ML UDC (PERIDEX ORAL RINSE) MT SCH ×2 (08:55→20:08)
[2021-07-15] MEDS: FUROSEMIDE 40 MG TAB PO SCH (11:10)
[2021-07-15] MEDS: TAMSULOSIN 0.4 MG CAP PO SCH (20:00)
[2021-07-15] MEDS: ATORVASTATIN 20 MG TAB PO SCH (20:08)
[2021-07-16] VITALS (21 sets, daily range): BP systolic 148–184; BP diastolic 63–77; O2SAT 98
[2021-07-16] MEDS: propofoL 1,000 MG in IV 1 EA IV SCH ×4 (00:23→06:54)
[2021-07-16] MEDS: cefTRIAXone SOD 1 GM in D5W MINI-BAG PLUS 50 ML IV SCH ×2 (05:29→17:28)
[2021-07-16] MEDS: LEVOTHYROXINE 50MCG TABLET (0.05MG) PO SCH (05:29)
[2021-07-16 05:46] LABS: BASO % 0.3 % (0.0-1.0); EOS % 0.1 % (0.0-3.0); HEMATOCRIT 25.7 % (42.0-52.0); HEMOGLOBIN 8.1 g/dl (13.5-17.5); LYMPH # 1.2 10^3/uL (1.5-5.0); LYMPH % 11.2 % (24.0-44.0); MEAN CORPUSCULAR HEMOGLOBIN 30.5 pg (27.0-33.0); MEAN CORPUSCULAR HGB CONC 31.5 g/dl (32.0-36.5); MEAN CORPUSCULAR VOLUME 96.6 fl (80.0-96.0); MONO # 0.7 10^3/uL (0.0-0.8); MONO % 6.6 % (2.0-8.0); PLATELET COUNT, AUTOMATED 261 10^3/uL (150-450); RED BLOOD COUNT 2.66 10^6/uL (4.30-6.10); WHITE BLOOD COUNT 11.1 10^3/uL (4.0-10.0)
[2021-07-16] MEDS: HumaLOG INSULIN (NovoLOG) PER UNIT SC SCH ×4 (05:56→20:05)
[2021-07-16 06:03] LABS: ALBUMIN 3.1 GM/DL (3.2-5.2); BILIRUBIN,TOTAL 0.6 MG/DL (0.2-1.0); CREATININE FOR GFR 2.37 MG/DL (0.70-1.30); GLOMERULAR FILTRATION RATE 28.6 (>42); POTASSIUM SERUM 3.7 MEQ/L (3.5-5.1); TOTAL PROTEIN 7.8 GM/DL (6.4-8.2)
[2021-07-16] MEDS: CHLORHEXIDINE GLUCONATE 0.12 % 15ML UDC (PERIDEX ORAL RINSE) MT SCH ×2 (09:00→20:04)
[2021-07-16] MEDS: VERQUVO 5 MG PO SCH (09:00)
[2021-07-16] MEDS: allopurinoL 300 MG TAB PO SCH (09:33)
[2021-07-16] MEDS: APIXABAN 2.5 MG TAB (ELIQUIS) PO SCH ×2 (09:33→20:08)
[2021-07-16] MEDS: FUROSEMIDE 40 MG TAB PO SCH (09:33)
[2021-07-16] MEDS: BRIMONIDINE 0.1% OPHTH SOLN 5 ML OU SCH ×2 (09:34→20:05)
[2021-07-16] MEDS: PANTOPRAZOLE 40MG VIAL (C9113 PER 1) IV SCH (09:34)
[2021-07-16] MEDS: TIMOLOL MALEATE 0.5% OPHTH SOLN 5 ML OU SCH ×2 (09:34→20:05)
[2021-07-16] MEDS: LABETALOL 100MG TAB PO SCH ×3 (10:28→20:15)
[2021-07-16] MEDS: ACETAMINOPHEN TAB 650MG DOSE (2X325MG) PO PRN ×3 (12:09→23:32)
[2021-07-16] MEDS ORDERED: HumaLOG INSULIN (NovoLOG) PER UNIT SC SCH (16:50)
[2021-07-16] MEDS: ATORVASTATIN 20 MG TAB PO SCH (20:04)
[2021-07-16] MEDS: cloNIDine 0.1MG TABLET PO SCH (20:04)
[2021-07-16] MEDS: TAMSULOSIN 0.4 MG CAP PO SCH (20:04)
[2021-07-17] VITALS (10 sets, daily range): BP systolic 162–182; BP diastolic 70–102
[2021-07-17] MEDS: cefTRIAXone SOD 1 GM in D5W MINI-BAG PLUS 50 ML IV SCH (05:00)
[2021-07-17] MEDS: LEVOTHYROXINE 50MCG TABLET (0.05MG) PO SCH (05:00)
[2021-07-17 05:26] LABS: BASO # 0.1 10^3/uL (0.0-0.2); BASO % 0.6 % (0.0-1.0); EOS # 0.1 10^3/uL (0.0-0.5); EOS % 1.5 % (0.0-3.0); HEMATOCRIT 28.9 % (42.0-52.0); HEMOGLOBIN 9.1 g/dl (13.5-17.5); LYMPH # 1.3 10^3/uL (1.5-5.0); LYMPH % 13.8 % (24.0-44.0); MEAN CORPUSCULAR HEMOGLOBIN 30.8 pg (27.0-33.0); MEAN CORPUSCULAR HGB CONC 31.5 g/dl (32.0-36.5); MONO # 0.7 10^3/uL (0.0-0.8); MONO % 6.9 % (2.0-8.0); NEUTROPHILS # 7.3 10^3/uL (1.5-8.5); NEUTROPHILS % 76.7 % (36.0-66.0); PLATELET COUNT, AUTOMATED 260 10^3/uL (150-450); RED BLOOD COUNT 2.95 10^6/uL (4.30-6.10); WHITE BLOOD COUNT 9.6 10^3/uL (4.0-10.0)
[2021-07-17 05:51] LABS: ALBUMIN 3.2 GM/DL (3.2-5.2); CALCIUM LEVEL 8.9 MG/DL (8.8-10.2); CREATININE FOR GFR 1.96 MG/DL (0.70-1.30); GLOMERULAR FILTRATION RATE 35.6 (>42); POTASSIUM SERUM 3.8 MEQ/L (3.5-5.1); TOTAL PROTEIN 7.6 GM/DL (6.4-8.2)
[2021-07-17] MEDS: HumaLOG INSULIN (NovoLOG) PER UNIT SC SCH ×4 (07:32→20:48)
[2021-07-17] MEDS ORDERED: CEFEPIME HCL 1 GM in D5W MINI-BAG PLUS 50 ML IV SCH (08:30)
[2021-07-17] MEDS: TIMOLOL MALEATE 0.5% OPHTH SOLN 5 ML OU SCH ×2 (09:00→20:52)
[2021-07-17] MEDS: BRIMONIDINE 0.1% OPHTH SOLN 5 ML OU SCH ×2 (09:00→20:52)
[2021-07-17] MEDS: PANTOPRAZOLE 40MG VIAL (C9113 PER 1) IV SCH (09:01)
[2021-07-17] MEDS: LABETALOL 100MG TAB PO SCH ×3 (09:01→20:42)
[2021-07-17] MEDS: CHLORHEXIDINE GLUCONATE 0.12 % 15ML UDC (PERIDEX ORAL RINSE) MT SCH ×2 (09:01→20:53)
[2021-07-17] MEDS: APIXABAN 2.5 MG TAB (ELIQUIS) PO SCH ×2 (09:02→20:51)
[2021-07-17] MEDS: cloNIDine 0.1MG TABLET PO SCH ×2 (09:02→20:52)
[2021-07-17] MEDS: FUROSEMIDE 40 MG TAB PO SCH (09:02)
[2021-07-17] MEDS: VERQUVO 5 MG PO SCH (09:02)
[2021-07-17] MEDS: allopurinoL 300 MG TAB PO SCH (09:02)
[2021-07-17] MEDS: CEFEPIME HCL 2 GM in D5W MINI-BAG PLUS 50 ML IV SCH ×2 (09:23→22:31)
[2021-07-17] MEDS: ACETAMINOPHEN TAB 650MG DOSE (2X325MG) PO PRN ×2 (09:23→19:18)
[2021-07-17] MEDS ORDERED: hydrALAZINE 20MG/ML 1ML VIAL (J0360 PER 20MG) IV ONE ×2 (17:25→18:55)
[2021-07-17] MEDS ORDERED: hydrALAZINE 20MG/ML 1ML VIAL (J0360 PER 20MG) IV PRN (18:55)
[2021-07-17] MEDS: TAMSULOSIN 0.4 MG CAP PO SCH (20:51)
[2021-07-17] MEDS: ATORVASTATIN 20 MG TAB PO SCH (20:51)
[2021-07-18] VITALS (8 sets, daily range): BP systolic 145–184; BP diastolic 66–78
[2021-07-18] MEDS ORDERED: UNRESOLVED PATIENT OWN MED ORDER XX SCH (00:01)
[2021-07-18] MEDS: ACETAMINOPHEN TAB 650MG DOSE (2X325MG) PO PRN ×3 (04:08→16:41)
[2021-07-18 04:46] LABS: BASO # 0.1 10^3/uL (0.0-0.2); BASO % 0.5 % (0.0-1.0); EOS # 0.3 10^3/uL (0.0-0.5); EOS % 3.6 % (0.0-3.0); HEMATOCRIT 31.3 % (42.0-52.0); HEMOGLOBIN 9.9 g/dl (13.5-17.5); LYMPH # 1.2 10^3/uL (1.5-5.0); LYMPH % 12.4 % (24.0-44.0); MEAN CORPUSCULAR HEMOGLOBIN 30.9 pg (27.0-33.0); MEAN CORPUSCULAR HGB CONC 31.6 g/dl (32.0-36.5); MEAN CORPUSCULAR VOLUME 97.8 fl (80.0-96.0); MONO # 0.6 10^3/uL (0.0-0.8); MONO % 6.1 % (2.0-8.0); NEUTROPHILS # 7.3 10^3/uL (1.5-8.5); NEUTROPHILS % 76.9 % (36.0-66.0); PLATELET COUNT, AUTOMATED 271 10^3/uL (150-450); WHITE BLOOD COUNT 9.5 10^3/uL (4.0-10.0)
[2021-07-18 05:12] LABS: ALBUMIN 3.1 GM/DL (3.2-5.2); BILIRUBIN,TOTAL 1.1 MG/DL (0.2-1.0); CALCIUM LEVEL 9.4 MG/DL (8.8-10.2); CREATININE FOR GFR 1.65 MG/DL (0.70-1.30); GLOMERULAR FILTRATION RATE 43.4 (>42); TOTAL PROTEIN 8.4 GM/DL (6.4-8.2)
[2021-07-18] MEDS: LEVOTHYROXINE 50MCG TABLET (0.05MG) PO SCH (05:27)
[2021-07-18] MEDS ORDERED: MIRALAX *UNIT DOSE* 17GM PACKET PO PRN (07:50)
[2021-07-18] MEDS: HumaLOG INSULIN (NovoLOG) PER UNIT SC SCH ×2 (08:31→13:07)
[2021-07-18] MEDS: PANTOPRAZOLE 40MG VIAL (C9113 PER 1) IV SCH (08:31)
[2021-07-18] MEDS: BRIMONIDINE 0.1% OPHTH SOLN 5 ML OU SCH (08:31)
[2021-07-18] MEDS: LABETALOL 100MG TAB PO SCH ×2 (08:32→16:00)
[2021-07-18] MEDS: TIMOLOL MALEATE 0.5% OPHTH SOLN 5 ML OU SCH (08:32)
[2021-07-18] MEDS: allopurinoL 300 MG TAB PO SCH (08:33)
[2021-07-18] MEDS: cloNIDine 0.1MG TABLET PO SCH (08:33)
[2021-07-18] MEDS: APIXABAN 2.5 MG TAB (ELIQUIS) PO SCH (08:34)
[2021-07-18] MEDS: FUROSEMIDE 40 MG TAB PO SCH (08:34)
[2021-07-18] MEDS ORDERED: DOCUSATE SODIUM 100MG CAPSULE PO SCH (09:00)
[2021-07-18] MEDS ORDERED: amLODIPine 5 MG TAB PO SCH (09:00)
[2021-07-18] MEDS: CEFEPIME HCL 2 GM in D5W MINI-BAG PLUS 50 ML IV SCH (09:24)
[2021-07-18] MEDS ORDERED: LABE100T4 PO (11:41)
[2021-07-18] MEDS ORDERED: LEVO750T14 PO (11:41)
[2021-07-18] MEDS ORDERED: RAME8TAB2 PO (11:41)
[2021-07-18] MEDS ORDERED: COLA100C5 PO (11:41)
[2021-07-18] MEDS: VERQUVO 5 MG PO SCH (13:15)
[2021-07-18 16:08] LABS: BODY FLUID CULTURE Not indicated. (.); LEGIONELLA ANTIGEN URINE Negative (Negative); ORGANISM ID Not indicated. (.); SPECIMEN SOURCE Urine (.); URINE STREP PNEUMONIAE ANTIGEN Negative (Negative)
[2021-07-18] MEDS ORDERED: RAMELTEON 8 MG TAB (ROZEREM) PO SCH (21:00)
[2021-07-18] MEDS ORDERED: ENTER DRUG NAME HERE (PATIENT'S OWN MED) OU SCH (21:00)
== END 2021-07-18 16:52 | DRG 871 ==
LOC: M ED 13:21 → SUATTDRO 18:01 → M ED INP 18:05 → M ICU 19:55
PROVIDERS: ADMIT Internal Medicine Critical Care Medicine; ATTEND Internal Medicine Critical Care Medicine
PROC: 5A1945Z Respiratory Ventilation, 24-96 Consecutive Hours (ICD-10-PCS; principal; 2021-07-14)
PROC: 02HV33Z Insertion of Infusion Device into Superior Vena Cava, Percutaneous Approach (ICD-10-PCS; 2021-07-14)
DX: A41.9 Sepsis, unspecified organism (principal); I46.8 Cardiac arrest due to other underlying condition; J96.01 Acute respiratory failure with hypoxia; G93.41 Metabolic encephalopathy; J15.1 Pneumonia due to Pseudomonas; I50.32 Chronic diastolic (congestive) heart failure; I13.0 Hypertensive heart and chronic kidney disease with heart failure and stage 1 through stage 4 chronic kidney disease, or unspecified chronic kidney disease; E87.2 Acidosis; I27.20 Pulmonary hypertension, unspecified; I25.10 Atherosclerotic heart disease of native coronary artery without angina pectoris; I48.91 Unspecified atrial fibrillation; Z79.01 Long term (current) use of anticoagulants; N18.30 Chronic kidney disease, stage 3 unspecified; D50.9 Iron deficiency anemia, unspecified; G47.33 Obstructive sleep apnea (adult) (pediatric); E11.22 Type 2 diabetes mellitus with diabetic chronic kidney disease; H40.9 Unspecified glaucoma; N40.0 Benign prostatic hyperplasia without lower urinary tract symptoms; Z20.822 Contact with and (suspected) exposure to COVID-19; Z79.82 Long term (current) use of aspirin; Z79.4 Long term (current) use of insulin; Z79.84 Long term (current) use of oral hypoglycemic drugs; Z79.899 Other long term (current) drug therapy; Z91.040 Latex allergy status; D47.2 Monoclonal gammopathy; E03.9 Hypothyroidism, unspecified; R65.20 Severe sepsis without septic shock

== ENCOUNTER 2021-07-18 15:45 | Inpatient (IN) | payer MEDICARE, OTHER ==
[~2021-07-18] VITALS: Ht 172.7 cm; Wt 109.1 kg
[~2021-07-18 15:45] MED LIST changes: +COLA100C5 PO; +LEVO50TA5 PO; +LEVO750T14 PO; +MIRA3350 PO; +RAME8TAB2 PO; +TAMS1CAP17 PO; +TIMO0.5S3 OU
[2021-07-18] MEDS ORDERED: GLUCOSE 4GM CHEW TABLET PO PRN (16:15)
[2021-07-18] MEDS ORDERED: DEXTROSE 50% 50 ML SYRINGE IV PRN (16:15)
[2021-07-18] MEDS ORDERED: ENTER DRUG NAME HERE (PATIENT'S OWN MED) PO SCH (16:15)
[2021-07-18] MEDS ORDERED: ACETAMINOPHEN TAB 650MG DOSE (2X325MG) PO PRN (16:15)
[2021-07-18] MEDS ORDERED: GLUCAGON INJ 1MG VIAL SC PRN (16:15)
[2021-07-18 18:55] VITALS: BP 198/74
[2021-07-18] MEDS: LACTOBACILLUS ACIDOPHILUS CAP (BACID) PO SCH ×2 (18:58→20:02)
[2021-07-18] MEDS: FUROSEMIDE 40 MG TAB PO SCH (18:58)
[2021-07-18] MEDS: **hydrALAZINE HCL** 25 MG TAB PO SCH (18:59)
[2021-07-18] MEDS: HumaLOG INSULIN (NovoLOG) PER UNIT SC SCH ×2 (19:00→21:00)
[2021-07-18] MEDS: LABETALOL 100MG TAB PO SCH (19:56)
[2021-07-18] MEDS: cloNIDine 0.1MG TABLET PO SCH (19:56)
[2021-07-18] MEDS: REMEDY PHYTOPLEX Z-GUARD PASTE 113GM TUBE (FROM STOREROOM PRODUCT) TOP SCH (19:58)
[2021-07-18] MEDS: RAMELTEON 8 MG TAB (ROZEREM) PO SCH (20:02)
[2021-07-18] MEDS: APIXABAN 2.5 MG TAB (ELIQUIS) PO SCH (20:02)
[2021-07-18] MEDS: DOCUSATE SODIUM 100MG CAPSULE PO SCH (20:02)
[2021-07-18] MEDS: SENNA 8.6 MG TAB (SENOKOT) PO SCH (20:02)
[2021-07-18] MEDS: TAMSULOSIN 0.4 MG CAP PO SCH (20:02)
[2021-07-18] MEDS: ATORVASTATIN 10 MG TAB PO SCH (20:02)
[2021-07-18 21:00] VITALS: BP 210/68
[2021-07-18] MEDS: TIMOLOL MALEATE 0.5% OPHTH SOLN 5 ML OU SCH (21:00)
[2021-07-18] MEDS: BRIMONIDINE 0.1% OPHTH SOLN 5 ML OU SCH (21:00)
[2021-07-18 22:00] VITALS: BP 160/58
[2021-07-19] VITALS (7 sets, daily range): BP systolic 162–182; BP diastolic 58–72
[2021-07-19] MEDS: **hydrALAZINE HCL** 25 MG TAB PO SCH ×3 (00:09→12:25)
[2021-07-19] MEDS ORDERED: cloNIDine 0.1MG TABLET PO ONE (01:35)
[2021-07-19] MEDS: LEVOTHYROXINE 50MCG TABLET (0.05MG) PO SCH (05:39)
[2021-07-19] MEDS: LevoFLOXacin 750 MG TABLET PO SCH (05:39)
[2021-07-19 06:25] LABS: BASO % 0.4 % (0.0-1.0); EOS # 0.5 10^3/uL (0.0-0.5); EOS % 5.3 % (0.0-3.0); HEMATOCRIT 31.7 % (42.0-52.0); LYMPH # 1.1 10^3/uL (1.5-5.0); LYMPH % 12.2 % (24.0-44.0); MEAN CORPUSCULAR HEMOGLOBIN 30.6 pg (27.0-33.0); MEAN CORPUSCULAR HGB CONC 31.5 g/dl (32.0-36.5); MEAN CORPUSCULAR VOLUME 96.9 fl (80.0-96.0); MONO # 0.5 10^3/uL (0.0-0.8); MONO % 5.3 % (2.0-8.0); NEUTROPHILS # 7.1 10^3/uL (1.5-8.5); NEUTROPHILS % 76.4 % (36.0-66.0); PLATELET COUNT, AUTOMATED 262 10^3/uL (150-450); RED BLOOD COUNT 3.27 10^6/uL (4.30-6.10); WHITE BLOOD COUNT 9.3 10^3/uL (4.0-10.0)
[2021-07-19 06:54] LABS: ALBUMIN 3.2 GM/DL (3.2-5.2); CALCIUM LEVEL 9.6 MG/DL (8.8-10.2); CREATININE FOR GFR 1.71 MG/DL (0.70-1.30); GLOMERULAR FILTRATION RATE 41.6 (>42); POTASSIUM SERUM 4.1 MEQ/L (3.5-5.1); TOTAL PROTEIN 8.3 GM/DL (6.4-8.2)
[2021-07-19] MEDS ORDERED: HOME MED LIST COMPLETE! XX SCH (07:45)
[2021-07-19] MEDS: PANTOPRAZOLE 40MG TAB (PROTONIX) PO SCH (08:41)
[2021-07-19] MEDS: LACTOBACILLUS ACIDOPHILUS CAP (BACID) PO SCH ×4 (08:41→21:23)
[2021-07-19] MEDS: LABETALOL 100MG TAB PO SCH ×2 (08:42→21:23)
[2021-07-19] MEDS: MULTIVITAMINS/MINERALS THERAP 1 TAB PO SCH (08:42)
[2021-07-19] MEDS: FUROSEMIDE 40 MG TAB PO SCH ×2 (08:43→17:20)
[2021-07-19] MEDS: cloNIDine 0.1MG TABLET PO SCH (08:49)
[2021-07-19] MEDS: FOLIC ACID 1 MG TAB PO SCH (08:49)
[2021-07-19] MEDS: APIXABAN 2.5 MG TAB (ELIQUIS) PO SCH ×2 (08:49→21:23)
[2021-07-19] MEDS: FERROUS SULFATE 325MG TAB PO SCH (08:49)
[2021-07-19] MEDS: DOCUSATE SODIUM 100MG CAPSULE PO SCH ×2 (08:49→21:22)
[2021-07-19] MEDS: HumaLOG INSULIN (NovoLOG) PER UNIT SC SCH ×4 (08:51→21:00)
[2021-07-19] MEDS: REMEDY PHYTOPLEX Z-GUARD PASTE 113GM TUBE (FROM STOREROOM PRODUCT) TOP SCH ×3 (08:51→21:00)
[2021-07-19] MEDS: BRIMONIDINE 0.1% OPHTH SOLN 5 ML OU SCH ×2 (08:52→21:31)
[2021-07-19] MEDS: TIMOLOL MALEATE 0.5% OPHTH SOLN 5 ML OU SCH ×2 (08:52→21:31)
[2021-07-19] MEDS ORDERED: amLODIPine 5 MG TAB PO SCH (09:00)
[2021-07-19] MEDS: ACETAMINOPHEN 500 MG TAB PO PRN ×2 (14:01→21:25)
[2021-07-19] MEDS ORDERED: **hydrALAZINE** 50 MG TAB PO ONE (16:00)
[2021-07-19] MEDS: cloNIDine 0.2 MG TAB PO SCH ×2 (17:23→21:34)
[2021-07-19] MEDS: **hydrALAZINE** 50 MG TAB PO SCH ×2 (18:33→23:47)
[2021-07-19] MEDS ORDERED: cloNIDine 0.2 MG TAB PO SCH (21:00)
[2021-07-19] MEDS: SENNA 8.6 MG TAB (SENOKOT) PO SCH (21:22)
[2021-07-19] MEDS: TAMSULOSIN 0.4 MG CAP PO SCH (21:22)
[2021-07-19] MEDS: ATORVASTATIN 10 MG TAB PO SCH (21:22)
[2021-07-19] MEDS: RAMELTEON 8 MG TAB (ROZEREM) PO SCH (21:22)
[2021-07-20] MEDS: LevoFLOXacin 750 MG TABLET PO SCH (05:07)
[2021-07-20] MEDS: LEVOTHYROXINE 50MCG TABLET (0.05MG) PO SCH (05:07)
[2021-07-20] MEDS: cloNIDine 0.2 MG TAB PO SCH ×3 (05:08→21:19)
[2021-07-20] MEDS: **hydrALAZINE** 50 MG TAB PO SCH ×4 (05:08→23:37)
[2021-07-20 06:00] VITALS: BP 154/68
[2021-07-20] MEDS: ACETAMINOPHEN 500 MG TAB PO PRN ×3 (06:32→23:37)
[2021-07-20 07:17] LABS: BASO # 0.1 10^3/uL (0.0-0.2); BASO % 0.6 % (0.0-1.0); EOS # 0.5 10^3/uL (0.0-0.5); EOS % 5.8 % (0.0-3.0); HEMATOCRIT 30.3 % (42.0-52.0); HEMOGLOBIN 9.5 g/dl (13.5-17.5); LYMPH % 12.2 % (24.0-44.0); MEAN CORPUSCULAR HEMOGLOBIN 30.3 pg (27.0-33.0); MEAN CORPUSCULAR HGB CONC 31.4 g/dl (32.0-36.5); MEAN CORPUSCULAR VOLUME 96.5 fl (80.0-96.0); MONO # 0.6 10^3/uL (0.0-0.8); MONO % 6.8 % (2.0-8.0); PLATELET COUNT, AUTOMATED 239 10^3/uL (150-450); RED BLOOD COUNT 3.14 10^6/uL (4.30-6.10); WHITE BLOOD COUNT 8.1 10^3/uL (4.0-10.0)
[2021-07-20 07:28] LABS: CALCIUM LEVEL 9.2 MG/DL (8.8-10.2); CREATININE FOR GFR 1.87 MG/DL (0.70-1.30); GLOMERULAR FILTRATION RATE 37.6 (>42); POTASSIUM SERUM 4.5 MEQ/L (3.5-5.1)
[2021-07-20] MEDS: PANTOPRAZOLE 40MG TAB (PROTONIX) PO SCH (08:24)
[2021-07-20] MEDS: MULTIVITAMINS/MINERALS THERAP 1 TAB PO SCH (08:24)
[2021-07-20] MEDS: FERROUS SULFATE 325MG TAB PO SCH (08:24)
[2021-07-20] MEDS: APIXABAN 2.5 MG TAB (ELIQUIS) PO SCH ×2 (08:24→21:18)
[2021-07-20] MEDS: FOLIC ACID 1 MG TAB PO SCH (08:24)
[2021-07-20] MEDS: LACTOBACILLUS ACIDOPHILUS CAP (BACID) PO SCH ×4 (08:24→21:19)
[2021-07-20] MEDS: DOCUSATE SODIUM 100MG CAPSULE PO SCH ×2 (08:24→21:00)
[2021-07-20] MEDS: FUROSEMIDE 40 MG TAB PO SCH (08:25)
[2021-07-20] MEDS: LABETALOL 100MG TAB PO SCH ×2 (08:26→21:20)
[2021-07-20] MEDS: REMEDY PHYTOPLEX Z-GUARD PASTE 113GM TUBE (FROM STOREROOM PRODUCT) TOP SCH ×3 (08:26→21:00)
[2021-07-20] MEDS: HumaLOG INSULIN (NovoLOG) PER UNIT SC SCH ×4 (08:27→21:18)
[2021-07-20] MEDS: TIMOLOL MALEATE 0.5% OPHTH SOLN 5 ML OU SCH ×2 (09:00→21:23)
[2021-07-20] MEDS: BRIMONIDINE 0.1% OPHTH SOLN 5 ML OU SCH ×2 (09:40→21:24)
[2021-07-20 12:44] LABS: PERCENT SATURATION 17.6 % (19.7-50.0)
[2021-07-20] MEDS: SITagliptin 50 MG TAB (JANUVIA) PO SCH (13:45)
[2021-07-20 14:00] VITALS: BP 162/73
[2021-07-20] MEDS: TORSEMIDE 20 MG TAB PO SCH (17:20)
[2021-07-20 18:09] VITALS: BP 154/72
[2021-07-20 20:00] VITALS: BP 166/62
[2021-07-20] MEDS: SENNA 8.6 MG TAB (SENOKOT) PO SCH (21:00)
[2021-07-20] MEDS: ATORVASTATIN 10 MG TAB PO SCH (21:18)
[2021-07-20] MEDS: RAMELTEON 8 MG TAB (ROZEREM) PO SCH (21:19)
[2021-07-20] MEDS: TAMSULOSIN 0.4 MG CAP PO SCH (21:20)
[2021-07-21] MEDS: cloNIDine 0.2 MG TAB PO SCH ×3 (05:45→21:01)
[2021-07-21] MEDS: LevoFLOXacin 750 MG TABLET PO SCH (05:45)
[2021-07-21] MEDS: **hydrALAZINE** 50 MG TAB PO SCH ×4 (05:45→23:01)
[2021-07-21] MEDS: LEVOTHYROXINE 50MCG TABLET (0.05MG) PO SCH (05:45)
[2021-07-21] MEDS: ACETAMINOPHEN 500 MG TAB PO PRN ×2 (05:48→21:01)
[2021-07-21 06:05] VITALS: BP 140/62
[2021-07-21] MEDS: MULTIVITAMINS/MINERALS THERAP 1 TAB PO SCH (08:11)
[2021-07-21] MEDS: MIRALAX *UNIT DOSE* 17GM PACKET PO PRN (08:11)
[2021-07-21] MEDS: LACTOBACILLUS ACIDOPHILUS CAP (BACID) PO SCH ×4 (08:11→20:58)
[2021-07-21] MEDS: FERROUS SULFATE 325MG TAB PO SCH (08:11)
[2021-07-21] MEDS: APIXABAN 2.5 MG TAB (ELIQUIS) PO SCH ×2 (08:11→20:58)
[2021-07-21] MEDS: DOCUSATE SODIUM 100MG CAPSULE PO SCH ×2 (08:11→20:58)
[2021-07-21] MEDS: FOLIC ACID 1 MG TAB PO SCH (08:11)
[2021-07-21] MEDS: PANTOPRAZOLE 40MG TAB (PROTONIX) PO SCH (08:11)
[2021-07-21] MEDS: HumaLOG INSULIN (NovoLOG) PER UNIT SC SCH ×4 (08:12→20:59)
[2021-07-21] MEDS: SITagliptin 50 MG TAB (JANUVIA) PO SCH (08:12)
[2021-07-21] MEDS: TORSEMIDE 20 MG TAB PO SCH ×2 (08:12→17:12)
[2021-07-21] MEDS: REMEDY PHYTOPLEX Z-GUARD PASTE 113GM TUBE (FROM STOREROOM PRODUCT) TOP SCH ×3 (08:14→20:09)
[2021-07-21] MEDS: TIMOLOL MALEATE 0.5% OPHTH SOLN 5 ML OU SCH ×2 (08:14→21:04)
[2021-07-21] MEDS: BRIMONIDINE 0.1% OPHTH SOLN 5 ML OU SCH ×2 (08:14→21:04)
[2021-07-21] MEDS: LABETALOL 100MG TAB PO SCH ×2 (08:20→20:59)
[2021-07-21] MEDS ORDERED: PILL CUTTER 1 EACH XX PRN (09:00)
[2021-07-21] MEDS ORDERED: FERRIC CARBOXYMALTOSE INJ 750 MG, VIAL MATE ADAPTER 1 EACH in NS 250 ML IV ONE (13:00)
[2021-07-21 14:00] VITALS: BP 140/60
[2021-07-21] MEDS: ANALGESIC BALM CRM 3OZ TOP SCH ×2 (17:12→21:01)
[2021-07-21] MEDS: COMBIVENT RESPIMAT 100-20MCG INHALER 4GM INH SCH (18:03)
[2021-07-21 19:44] VITALS: BP 128/56
[2021-07-21] MEDS: RAMELTEON 8 MG TAB (ROZEREM) PO SCH (20:58)
[2021-07-21] MEDS: ATORVASTATIN 10 MG TAB PO SCH (20:58)
[2021-07-21] MEDS: TAMSULOSIN 0.4 MG CAP PO SCH (20:58)
[2021-07-21] MEDS: SENNA 8.6 MG TAB (SENOKOT) PO SCH (21:00)
[2021-07-22] MEDS: LevoFLOXacin 750 MG TABLET PO SCH (05:31)
[2021-07-22] MEDS: LEVOTHYROXINE 50MCG TABLET (0.05MG) PO SCH (05:31)
[2021-07-22] MEDS: cloNIDine 0.2 MG TAB PO SCH ×3 (05:32→21:35)
[2021-07-22] MEDS: **hydrALAZINE** 50 MG TAB PO SCH ×4 (05:32→23:54)
[2021-07-22 05:41] VITALS: BP 136/58
[2021-07-22] MEDS: COMBIVENT RESPIMAT 100-20MCG INHALER 4GM INH SCH ×3 (07:16→20:07)
[2021-07-22] MEDS: HumaLOG INSULIN (NovoLOG) PER UNIT SC SCH ×4 (08:48→21:38)
[2021-07-22 08:56] LABS: BASO % 0.5 % (0.0-1.0); EOS # 0.3 10^3/uL (0.0-0.5); EOS % 4.5 % (0.0-3.0); HEMATOCRIT 31.3 % (42.0-52.0); LYMPH # 0.7 10^3/uL (1.5-5.0); LYMPH % 10.7 % (24.0-44.0); MEAN CORPUSCULAR HEMOGLOBIN 30.9 pg (27.0-33.0); MEAN CORPUSCULAR HGB CONC 31.9 g/dl (32.0-36.5); MEAN CORPUSCULAR VOLUME 96.6 fl (80.0-96.0); MONO # 0.5 10^3/uL (0.0-0.8); MONO % 7.5 % (2.0-8.0); NEUTROPHILS # 5.1 10^3/uL (1.5-8.5); NEUTROPHILS % 76.2 % (36.0-66.0); PLATELET COUNT, AUTOMATED 244 10^3/uL (150-450); RED BLOOD COUNT 3.24 10^6/uL (4.30-6.10); WHITE BLOOD COUNT 6.7 10^3/uL (4.0-10.0)
[2021-07-22] MEDS: TIMOLOL MALEATE 0.5% OPHTH SOLN 5 ML OU SCH ×2 (09:00→21:37)
[2021-07-22] MEDS: REMEDY PHYTOPLEX Z-GUARD PASTE 113GM TUBE (FROM STOREROOM PRODUCT) TOP SCH ×3 (09:00→21:00)
[2021-07-22] MEDS: LABETALOL 100MG TAB PO SCH ×2 (09:01→21:39)
[2021-07-22] MEDS: SITagliptin 50 MG TAB (JANUVIA) PO SCH (09:01)
[2021-07-22] MEDS: DOCUSATE SODIUM 100MG CAPSULE PO SCH ×2 (09:01→21:34)
[2021-07-22] MEDS: FOLIC ACID 1 MG TAB PO SCH (09:02)
[2021-07-22] MEDS: LACTOBACILLUS ACIDOPHILUS CAP (BACID) PO SCH ×4 (09:02→21:34)
[2021-07-22] MEDS: TORSEMIDE 20 MG TAB PO SCH (09:02)
[2021-07-22] MEDS: APIXABAN 2.5 MG TAB (ELIQUIS) PO SCH ×2 (09:02→21:34)
[2021-07-22] MEDS: MULTIVITAMINS/MINERALS THERAP 1 TAB PO SCH (09:02)
[2021-07-22] MEDS: FERROUS SULFATE 325MG TAB PO SCH (09:02)
[2021-07-22] MEDS: PANTOPRAZOLE 40MG TAB (PROTONIX) PO SCH (09:02)
[2021-07-22] MEDS: BRIMONIDINE 0.1% OPHTH SOLN 5 ML OU SCH ×2 (09:03→21:36)
[2021-07-22] MEDS: ACETAMINOPHEN 500 MG TAB PO PRN (09:06)
[2021-07-22] MEDS: ANALGESIC BALM CRM 3OZ TOP SCH ×3 (09:07→21:36)
[2021-07-22 09:21] LABS: CALCIUM LEVEL 9.6 MG/DL (8.8-10.2); CREATININE FOR GFR 2.36 MG/DL (0.70-1.30); GLOMERULAR FILTRATION RATE 28.7 (>42); POTASSIUM SERUM 3.9 MEQ/L (3.5-5.1)
[2021-07-22 14:00] VITALS: BP 110/58
[2021-07-22 20:10] VITALS: BP 168/62
[2021-07-22] MEDS ORDERED: LEVEMIR (INSULIN DETEMIR) 1 UNITS/0.01ML SC SCH (21:00)
[2021-07-22] MEDS: GABAPENTIN 100 MG CAP PO SCH (21:34)
[2021-07-22] MEDS: ATORVASTATIN 10 MG TAB PO SCH (21:34)
[2021-07-22] MEDS: RAMELTEON 8 MG TAB (ROZEREM) PO SCH (21:34)
[2021-07-22] MEDS: SENNA 8.6 MG TAB (SENOKOT) PO SCH (21:34)
[2021-07-22] MEDS: TAMSULOSIN 0.4 MG CAP PO SCH (21:34)
[2021-07-22 23:54] VITALS: BP 158/66
[2021-07-23 04:56] VITALS: BP 152/60
[2021-07-23] MEDS: cloNIDine 0.2 MG TAB PO SCH ×3 (05:48→21:12)
[2021-07-23] MEDS: **hydrALAZINE** 50 MG TAB PO SCH ×4 (05:49→23:38)
[2021-07-23] MEDS: LEVOTHYROXINE 50MCG TABLET (0.05MG) PO SCH (05:49)
[2021-07-23 06:56] LABS: ALBUMIN 3.3 GM/DL (3.2-5.2); CREATININE FOR GFR 2.14 MG/DL (0.70-1.30); GLOMERULAR FILTRATION RATE 32.1 (>42); PHOSPHORUS LEVEL 3.6 MG/DL (2.5-4.9); POTASSIUM SERUM 3.6 MEQ/L (3.5-5.1)
[2021-07-23] MEDS: COMBIVENT RESPIMAT 100-20MCG INHALER 4GM INH SCH ×3 (07:22→19:50)
[2021-07-23] MEDS: HumaLOG INSULIN (NovoLOG) PER UNIT SC SCH ×4 (07:30→21:14)
[2021-07-23] MEDS: FOLIC ACID 1 MG TAB PO SCH (07:30)
[2021-07-23] MEDS: LACTOBACILLUS ACIDOPHILUS CAP (BACID) PO SCH ×4 (07:30→21:12)
[2021-07-23] MEDS: SITagliptin 50 MG TAB (JANUVIA) PO SCH (07:30)
[2021-07-23] MEDS: MULTIVITAMINS/MINERALS THERAP 1 TAB PO SCH (07:31)
[2021-07-23] MEDS: LABETALOL 100MG TAB PO SCH ×2 (07:31→21:12)
[2021-07-23] MEDS: DOCUSATE SODIUM 100MG CAPSULE PO SCH ×2 (07:31→21:12)
[2021-07-23] MEDS: TORSEMIDE 20 MG TAB PO SCH ×2 (07:32→16:39)
[2021-07-23] MEDS: APIXABAN 2.5 MG TAB (ELIQUIS) PO SCH ×2 (07:32→21:12)
[2021-07-23] MEDS: FERROUS SULFATE 325MG TAB PO SCH (07:32)
[2021-07-23] MEDS: ANALGESIC BALM CRM 3OZ TOP SCH ×3 (07:33→21:15)
[2021-07-23] MEDS: ACETAMINOPHEN 500 MG TAB PO PRN (07:34)
[2021-07-23] MEDS: MIRALAX *UNIT DOSE* 17GM PACKET PO PRN (07:38)
[2021-07-23] MEDS: PANTOPRAZOLE 40MG TAB (PROTONIX) PO SCH (07:38)
[2021-07-23] MEDS: BRIMONIDINE 0.1% OPHTH SOLN 5 ML OU SCH ×2 (07:38→21:14)
[2021-07-23] MEDS: TIMOLOL MALEATE 0.5% OPHTH SOLN 5 ML OU SCH ×2 (07:39→21:15)
[2021-07-23] MEDS: REMEDY PHYTOPLEX Z-GUARD PASTE 113GM TUBE (FROM STOREROOM PRODUCT) TOP SCH ×3 (07:40→21:00)
[2021-07-23 14:00] VITALS: BP 172/72
[2021-07-23 16:00] VITALS: BP 168/50
[2021-07-23] MEDS ORDERED: **hydrALAZINE** 50 MG TAB PO ONE (16:00)
[2021-07-23 16:40] VITALS: BP 170/60
[2021-07-23 18:39] VITALS: BP 174/62
[2021-07-23 20:20] VITALS: BP_SYST 171; BP_DIAS 66; BP_DIAS 73
[2021-07-23] MEDS: SENNA 8.6 MG TAB (SENOKOT) PO SCH (21:00)
[2021-07-23] MEDS: GABAPENTIN 100 MG CAP PO SCH (21:11)
[2021-07-23] MEDS: TAMSULOSIN 0.4 MG CAP PO SCH (21:11)
[2021-07-23] MEDS: ATORVASTATIN 10 MG TAB PO SCH (21:12)
[2021-07-23] MEDS: LEVEMIR (INSULIN DETEMIR) 1 UNITS/0.01ML SC SCH (21:13)
[2021-07-23] MEDS: RAMELTEON 8 MG TAB (ROZEREM) PO SCH (22:51)
[2021-07-24 05:02] VITALS: BP 178/56
[2021-07-24] MEDS: LEVOTHYROXINE 50MCG TABLET (0.05MG) PO SCH (05:17)
[2021-07-24] MEDS: **hydrALAZINE** 50 MG TAB PO SCH (05:17)
[2021-07-24] MEDS: cloNIDine 0.2 MG TAB PO SCH ×3 (05:17→21:23)
[2021-07-24] MEDS ORDERED: LevoFLOXacin 750 MG TABLET PO SCH (06:00)
[2021-07-24] MEDS: COMBIVENT RESPIMAT 100-20MCG INHALER 4GM INH SCH ×3 (07:29→19:55)
[2021-07-24] MEDS: BRIMONIDINE 0.1% OPHTH SOLN 5 ML OU SCH ×2 (08:29→21:26)
[2021-07-24] MEDS: TIMOLOL MALEATE 0.5% OPHTH SOLN 5 ML OU SCH ×2 (08:30→21:26)
[2021-07-24] MEDS: ANALGESIC BALM CRM 3OZ TOP SCH ×3 (08:30→21:26)
[2021-07-24] MEDS: FERROUS SULFATE 325MG TAB PO SCH (08:32)
[2021-07-24] MEDS: PANTOPRAZOLE 40MG TAB (PROTONIX) PO SCH (08:32)
[2021-07-24] MEDS: APIXABAN 2.5 MG TAB (ELIQUIS) PO SCH ×2 (08:32→21:24)
[2021-07-24] MEDS: TORSEMIDE 20 MG TAB PO SCH ×2 (08:32→17:20)
[2021-07-24] MEDS: MULTIVITAMINS/MINERALS THERAP 1 TAB PO SCH (08:33)
[2021-07-24] MEDS: LACTOBACILLUS ACIDOPHILUS CAP (BACID) PO SCH ×4 (08:33→21:24)
[2021-07-24] MEDS: DOCUSATE SODIUM 100MG CAPSULE PO SCH ×2 (08:33→21:23)
[2021-07-24] MEDS: FOLIC ACID 1 MG TAB PO SCH (08:33)
[2021-07-24] MEDS: SITagliptin 50 MG TAB (JANUVIA) PO SCH (08:33)
[2021-07-24] MEDS: HumaLOG INSULIN (NovoLOG) PER UNIT SC SCH ×4 (08:34→21:25)
[2021-07-24] MEDS: REMEDY PHYTOPLEX Z-GUARD PASTE 113GM TUBE (FROM STOREROOM PRODUCT) TOP SCH ×3 (08:41→21:27)
[2021-07-24] MEDS: LABETALOL 100MG TAB PO SCH ×2 (09:00→21:24)
[2021-07-24] MEDS: **hydrALAZINE HCL** 25 MG TAB PO SCH ×2 (11:20→17:20)
[2021-07-24 18:00] VITALS: BP 136/62
[2021-07-24 20:10] VITALS: BP 168/64
[2021-07-24] MEDS: SENNA 8.6 MG TAB (SENOKOT) PO SCH (21:23)
[2021-07-24] MEDS: RAMELTEON 8 MG TAB (ROZEREM) PO SCH (21:24)
[2021-07-24] MEDS: TAMSULOSIN 0.4 MG CAP PO SCH (21:24)
[2021-07-24] MEDS: ATORVASTATIN 10 MG TAB PO SCH (21:24)
[2021-07-24] MEDS: GABAPENTIN 100 MG CAP PO SCH (21:24)
[2021-07-24] MEDS: LEVEMIR (INSULIN DETEMIR) 1 UNITS/0.01ML SC SCH (21:25)
[2021-07-25] MEDS: **hydrALAZINE HCL** 25 MG TAB PO SCH ×5 (00:11→23:03)
[2021-07-25] MEDS: cloNIDine 0.2 MG TAB PO SCH ×3 (05:11→21:18)
[2021-07-25] MEDS: LEVOTHYROXINE 50MCG TABLET (0.05MG) PO SCH (05:11)
[2021-07-25 06:00] VITALS: BP 160/70
[2021-07-25] MEDS: COMBIVENT RESPIMAT 100-20MCG INHALER 4GM INH SCH ×3 (08:10→20:29)
[2021-07-25] MEDS: SITagliptin 50 MG TAB (JANUVIA) PO SCH (08:24)
[2021-07-25] MEDS: LACTOBACILLUS ACIDOPHILUS CAP (BACID) PO SCH ×4 (08:24→21:18)
[2021-07-25] MEDS: PANTOPRAZOLE 40MG TAB (PROTONIX) PO SCH (08:24)
[2021-07-25] MEDS: APIXABAN 2.5 MG TAB (ELIQUIS) PO SCH ×2 (08:24→21:18)
[2021-07-25] MEDS: FOLIC ACID 1 MG TAB PO SCH (08:24)
[2021-07-25] MEDS: DOCUSATE SODIUM 100MG CAPSULE PO SCH ×2 (08:24→21:18)
[2021-07-25] MEDS: MULTIVITAMINS/MINERALS THERAP 1 TAB PO SCH (08:24)
[2021-07-25] MEDS: FERROUS SULFATE 325MG TAB PO SCH (08:24)
[2021-07-25] MEDS: HumaLOG INSULIN (NovoLOG) PER UNIT SC SCH ×4 (08:25→21:21)
[2021-07-25] MEDS: TORSEMIDE 20 MG TAB PO SCH ×2 (08:25→18:31)
[2021-07-25] MEDS: LABETALOL 100MG TAB PO SCH ×2 (08:25→21:18)
[2021-07-25] MEDS: ACETAMINOPHEN 500 MG TAB PO PRN ×2 (08:30→21:19)
[2021-07-25] MEDS: TIMOLOL MALEATE 0.5% OPHTH SOLN 5 ML OU SCH ×2 (09:00→21:20)
[2021-07-25] MEDS: REMEDY PHYTOPLEX Z-GUARD PASTE 113GM TUBE (FROM STOREROOM PRODUCT) TOP SCH ×3 (09:00→21:00)
[2021-07-25] MEDS: ANALGESIC BALM CRM 3OZ TOP SCH ×3 (10:21→21:20)
[2021-07-25] MEDS: BRIMONIDINE 0.1% OPHTH SOLN 5 ML OU SCH ×2 (10:21→21:19)
[2021-07-25 14:00] VITALS: BP 178/76
[2021-07-25] MEDS: POLYVINYL ALCOHOL OPHTH SOLN 15 ML(LIQUITEARS) OU SCH ×2 (15:58→21:20)
[2021-07-25] MEDS ORDERED: SITA50TAB PO (18:52)
[2021-07-25] MEDS ORDERED: ELIQ2.5T PO (18:52)
[2021-07-25] MEDS ORDERED: TORS20TA2 PO (18:52)
[2021-07-25] MEDS ORDERED: CLON0.2T PO (18:52)
[2021-07-25] MEDS ORDERED: ATOR1TAB19 PO (18:52)
[2021-07-25] MEDS ORDERED: HYDR25TA PO (18:52)
[2021-07-25] MEDS ORDERED: LABE100T4 PO (18:52)
[2021-07-25] MEDS ORDERED: TOUJ300I2 SC (18:52)
[2021-07-25] MEDS ORDERED: ALLO300T2 PO (18:52)
[2021-07-25] MEDS ORDERED: LEVO50TA5 PO (18:52)
[2021-07-25] MEDS ORDERED: TAMS1CAP17 PO (18:52)
[2021-07-25] MEDS ORDERED: COMBAER6 INH (18:52)
[2021-07-25] MEDS ORDERED: LEVEMIR (INSULIN DETEMIR) 1 UNITS/0.01ML SC SCH ×2 (21:00)
[2021-07-25 21:05] VITALS: BP 157/72
[2021-07-25] MEDS: ATORVASTATIN 10 MG TAB PO SCH (21:18)
[2021-07-25] MEDS: SENNA 8.6 MG TAB (SENOKOT) PO SCH (21:18)
[2021-07-25] MEDS: TAMSULOSIN 0.4 MG CAP PO SCH (21:18)
[2021-07-25] MEDS: RAMELTEON 8 MG TAB (ROZEREM) PO SCH (23:00)
[2021-07-26] MEDS: cloNIDine 0.2 MG TAB PO SCH ×2 (05:36→15:48)
[2021-07-26] MEDS: LEVOTHYROXINE 50MCG TABLET (0.05MG) PO SCH (05:36)
[2021-07-26] MEDS: **hydrALAZINE HCL** 25 MG TAB PO SCH ×2 (05:36→12:11)
[2021-07-26 06:15] VITALS: BP 148/66
[2021-07-26 07:01] LABS: CALCIUM LEVEL 9.6 MG/DL (8.8-10.2); CREATININE FOR GFR 2.14 MG/DL (0.70-1.30); GLOMERULAR FILTRATION RATE 32.1 (>42); POTASSIUM SERUM 3.5 MEQ/L (3.5-5.1)
[2021-07-26] MEDS: BRIMONIDINE 0.1% OPHTH SOLN 5 ML OU SCH (07:54)
[2021-07-26] MEDS: REMEDY PHYTOPLEX Z-GUARD PASTE 113GM TUBE (FROM STOREROOM PRODUCT) TOP SCH (07:55)
[2021-07-26] MEDS: POLYVINYL ALCOHOL OPHTH SOLN 15 ML(LIQUITEARS) OU SCH (07:55)
[2021-07-26] MEDS: TIMOLOL MALEATE 0.5% OPHTH SOLN 5 ML OU SCH (07:55)
[2021-07-26] MEDS: ANALGESIC BALM CRM 3OZ TOP SCH (07:55)
[2021-07-26] MEDS: FOLIC ACID 1 MG TAB PO SCH (07:56)
[2021-07-26] MEDS: SITagliptin 50 MG TAB (JANUVIA) PO SCH (07:56)
[2021-07-26] MEDS: DOCUSATE SODIUM 100MG CAPSULE PO SCH (07:56)
[2021-07-26] MEDS: MULTIVITAMINS/MINERALS THERAP 1 TAB PO SCH (07:56)
[2021-07-26] MEDS: FERROUS SULFATE 325MG TAB PO SCH (07:56)
[2021-07-26] MEDS: LACTOBACILLUS ACIDOPHILUS CAP (BACID) PO SCH ×2 (07:56→12:05)
[2021-07-26] MEDS: PANTOPRAZOLE 40MG TAB (PROTONIX) PO SCH (07:56)
[2021-07-26] MEDS: APIXABAN 2.5 MG TAB (ELIQUIS) PO SCH (07:57)
[2021-07-26] MEDS: TORSEMIDE 20 MG TAB PO SCH (07:57)
[2021-07-26] MEDS: MIRALAX *UNIT DOSE* 17GM PACKET PO PRN (07:57)
[2021-07-26] MEDS: LABETALOL 100MG TAB PO SCH (07:57)
[2021-07-26] MEDS: COMBIVENT RESPIMAT 100-20MCG INHALER 4GM INH SCH ×2 (07:57→13:38)
[2021-07-26] MEDS: HumaLOG INSULIN (NovoLOG) PER UNIT SC SCH ×2 (07:58→12:05)
[2021-07-26] MEDS: ACETAMINOPHEN 500 MG TAB PO PRN (07:59)
[2021-07-26 15:00] VITALS: BP 138/54
[2021-07-26 15:48] VITALS: BP 138/54
== END 2021-07-26 16:00 | disposition home or self-care (01) | DRG 74 ==
LOC: M PM&R 17:00
PROVIDERS: ADMIT Physical Medicine & Rehabilitation; ATTEND Physical Medicine & Rehabilitation
DX: E11.42 Type 2 diabetes mellitus with diabetic polyneuropathy (principal); I50.32 Chronic diastolic (congestive) heart failure; I13.0 Hypertensive heart and chronic kidney disease with heart failure and stage 1 through stage 4 chronic kidney disease, or unspecified chronic kidney disease; R53.1 Weakness; I27.20 Pulmonary hypertension, unspecified; I25.10 Atherosclerotic heart disease of native coronary artery without angina pectoris; I48.91 Unspecified atrial fibrillation; N18.30 Chronic kidney disease, stage 3 unspecified; E11.22 Type 2 diabetes mellitus with diabetic chronic kidney disease; D50.9 Iron deficiency anemia, unspecified; G47.33 Obstructive sleep apnea (adult) (pediatric); Z74.1 Need for assistance with personal care; Z90.49 Acquired absence of other specified parts of digestive tract; Z79.01 Long term (current) use of anticoagulants; Z79.4 Long term (current) use of insulin; Z79.899 Other long term (current) drug therapy; Z88.8 Allergy status to other drugs, medicaments and biological substances; Z91.048 Other nonmedicinal substance allergy status; E03.9 Hypothyroidism, unspecified; H40.9 Unspecified glaucoma; D63.1 Anemia in chronic kidney disease

== ENCOUNTER → 2021-08-01 | Outpatient (REF) | payer MEDICARE, OTHER ==
[~2021-08-01] MED LIST changes: +CLON0.2T PO; +COMBAER6 INH; +HYDR25TA PO; +SITA50TAB PO
== END ==
LOC: M LAB REF 07-31 18:49
PROVIDERS: ATTEND Specialist
DX: D47.2 Monoclonal gammopathy (principal)

== ENCOUNTER → 2021-08-08 | Outpatient (REF) | payer MEDICARE, OTHER ==
[~2021-08-08] MED LIST changes: +METO5TA PO; +TORS100T PO
[2021-08-08 19:06] LABS: TOTAL PROTEIN 7.2 GM/DL (6.4-8.2)
[2021-08-10 11:42] LABS: ALBUMIN 3.64 GM/DL (3.29-5.55); ALBUMIN % 50.5 % (55.8-66.1); ALPHA-1-GLOBULIN % 4.8 % (2.9-4.9); ALPHA-1-GLOBULINS 0.35 GM/DL (0.17-0.41); ALPHA-2-GLOBULINS 0.95 GM/DL (0.42-0.99); ALPHA-2-GLOBULINS % 13.2 % (7.1-11.8); BETA-1-GLOBULINS 0.38 GM/DL (0.28-0.60); BETA-1-GLOBULINS % 5.3 % (4.7-7.2); BETA-2-GLOBULINS 0.24 GM/DL (0.19-0.55); BETA-2-GLOBULINS % 3.3 % (3.2-6.5); GAMMA GLOBULIN % 22.9 % (11.1-18.8); GAMMA GLOBULINS 1.65 GM/DL (0.65-1.58)
== END ==
LOC: M LAB REF 16:56
PROVIDERS: ATTEND Internal Medicine Nephrology
DX: E85.81 Light chain (AL) amyloidosis (principal)

== ENCOUNTER → 2021-09-21 | Outpatient (REF) | payer MEDICARE, OTHER ==
[2021-09-21 17:48] LABS: PERCENT SATURATION 16.6 % (19.7-50.0)
== END ==
LOC: M LAB REF 16:55
PROVIDERS: ATTEND Internal Medicine Nephrology
DX: I50.32 Chronic diastolic (congestive) heart failure (principal)

== ENCOUNTER → 2021-10-19 | Outpatient (CLI) | payer MEDICARE, OTHER | LOC: M LAB 15:03 | PROVIDERS: ATTEND Nurse Practitioner Family | DX: E11.21 Type 2 diabetes mellitus with diabetic nephropathy (principal) ==

== ENCOUNTER → 2021-11-03 | Outpatient (REF) | payer MEDICARE, OTHER ==
[2021-11-03 21:10] LABS: PTH INTACT 7.8 PG/ML (18.5-88.0)
[2021-11-03 21:23] LABS: TOTAL PROTEIN 8.1 GM/DL (6.4-8.2)
[2021-11-04 14:01] LABS: ALBUMIN 4.47 GM/DL (3.29-5.55); ALBUMIN % 55.2 % (55.8-66.1); ALPHA-1-GLOBULIN % 3.8 % (2.9-4.9); ALPHA-1-GLOBULINS 0.31 GM/DL (0.17-0.41); ALPHA-2-GLOBULINS % 11.1 % (7.1-11.8); BETA-1-GLOBULINS 0.45 GM/DL (0.28-0.60); BETA-1-GLOBULINS % 5.5 % (4.7-7.2); BETA-2-GLOBULINS 0.24 GM/DL (0.19-0.55); GAMMA GLOBULIN % 21.4 % (11.1-18.8)
[2021-11-04 14:02] LABS: GAMMA GLOBULINS 1.73 GM/DL (0.65-1.58)
[2021-11-04 14:12] LABS: IMMUNOTYPING SERUM IGG ABNORMAL (NORMAL); IMMUNOTYPING SERUM KAPPA ABNORMAL (NORMAL)
== END ==
LOC: M LAB REF 16:50
PROVIDERS: ATTEND Internal Medicine Nephrology
DX: E85.81 Light chain (AL) amyloidosis (principal)

== ENCOUNTER → 2022-01-23 | Outpatient (REF) | payer MEDICARE, OTHER ==
[~2022-01-23] MED LIST changes: -ASMA1AER2 INH; -ASMA220A IN; -LABE100T4 PO; +LABE100T6 PO; +MOME220A IN; +MOME220A4 INH
[2022-01-23 18:36] LABS: CREATININE, URINE 38.1 MG/DL; MAU/CREAT RATIO 136.4 MCG/MG (0.0-30.0)
== END ==
LOC: M LAB REF 16:57
PROVIDERS: ATTEND Nurse Practitioner Family
DX: E11.21 Type 2 diabetes mellitus with diabetic nephropathy (principal)

== ENCOUNTER 2022-01-25 14:23 | Inpatient (IN) | payer MEDICARE, OTHER ==
[~2022-01-25] VITALS: Ht 172.7 cm; Wt 112.7 kg
[2022-01-25 17:10] VITALS: BP 128/63
[2022-01-25] MEDS ORDERED: HEPARIN SOD (PORCINE) 5000UNITS/ML 1ML VIAL/SYRINGE SC SCH (17:30)
[2022-01-25] MEDS ORDERED: metOLazone 5 MG TAB PO ONE (17:30)
[2022-01-25 17:57] LABS: HEMATOCRIT 21.5 % (42.0-52.0); MEAN CORPUSCULAR HGB CONC 32.1 g/dl (32.0-36.5); MEAN CORPUSCULAR VOLUME 102.9 fl (80.0-96.0); PLATELET COUNT, AUTOMATED 190 10^3/uL (150-450); RED BLOOD COUNT 2.09 10^6/uL (4.30-6.10); WHITE BLOOD COUNT 6.5 10^3/uL (4.0-10.0)
[2022-01-25 18:06] LABS: HEMOGLOBIN 6.9 g/dl (13.5-17.5)
[2022-01-25 18:12] LABS: INR 1.3; PROTHROMBIN TIME 16.6 SECONDS (12.7-14.5)
[2022-01-25 18:13] LABS: PARTIAL THROMBOPLASTIN TIME 35.7 SECONDS (25.9-37.0)
[2022-01-25] MEDS ORDERED: DEXTROSE 50% 50 ML SYRINGE IV PRN (18:25)
[2022-01-25] MEDS ORDERED: GLUCOSE 4GM CHEW TABLET PO PRN (18:25)
[2022-01-25] MEDS ORDERED: GLUCAGON INJ 1MG VIAL SC PRN (18:25)
[2022-01-25 19:02] LABS: ALBUMIN 3.8 GM/DL (3.2-5.2); BILIRUBIN,TOTAL 0.7 MG/DL (0.2-1.0); CALCIUM LEVEL 9.1 MG/DL (8.8-10.2); CREATININE FOR GFR 3.57 MG/DL (0.70-1.30); GLOMERULAR FILTRATION RATE 17.8 (>42); PERCENT SATURATION 20.4 % (19.7-50.0); POTASSIUM SERUM 4.2 MEQ/L (3.5-5.1); TOTAL PROTEIN 7.1 GM/DL (6.4-8.2)
[2022-01-25] MEDS: FUROSEMIDE injection 250 MG in D5W 225 ML IV SCH (19:08)
[2022-01-25] MEDS ORDERED: LABE100T6 PO (19:10)
[2022-01-25] MEDS ORDERED: TOUJ300I2 SC (19:10)
[2022-01-25] MEDS ORDERED: ALLO300T2 PO (19:10)
[2022-01-25] MEDS ORDERED: CLON0.2T PO (19:10)
[2022-01-25] MEDS ORDERED: COMBAER6 INH (19:10)
[2022-01-25] MEDS ORDERED: SYNT50TA PO (19:10)
[2022-01-25] MEDS ORDERED: HYDR25TA PO (19:10)
[2022-01-25] MEDS ORDERED: ATOR1TAB19 PO (19:10)
[2022-01-25] MEDS ORDERED: METO5TA PO (19:10)
[2022-01-25] MEDS ORDERED: TORS100T PO (19:10)
[2022-01-25] MEDS ORDERED: ELIQ2.5T PO (19:10)
[2022-01-25] MEDS ORDERED: ELIQ5TAB PO (19:10)
[2022-01-25] MEDS ORDERED: FLOM0.4C39 PO (19:10)
[2022-01-25] MEDS ORDERED: POTA-141 PO (19:14)
[2022-01-25] MEDS ORDERED: POTA-151 PO (19:14)
[2022-01-25] MEDS ORDERED: FENO1CAP16 PO (19:14)
[2022-01-25] MEDS ORDERED: LABE20TAB PO (19:14)
[2022-01-25] MEDS ORDERED: HOME MED LIST COMPLETE! XX SCH (19:15)
[2022-01-25 19:30] VITALS: BP 147/65
[2022-01-25 19:50] LABS: CK-MB VALUE MASS 5.8 NG/ML (<3.6); MB/CK RELATIVE INDEX 1.6 (< OR =4)
[2022-01-25] MEDS: COMBIVENT RESPIMAT 100-20MCG INHALER 4GM INH SCH ×2 (20:00→22:42)
[2022-01-25] MEDS: INSULIN LISPRO (NovoLOG) PER UNIT SC SCH (21:00)
[2022-01-25] MEDS: TAMSULOSIN 0.4 MG CAP PO SCH (22:10)
[2022-01-25] MEDS: cloNIDine 0.2 MG TAB PO SCH (22:11)
[2022-01-25] MEDS: ATORVASTATIN 10 MG TAB PO SCH (22:11)
[2022-01-25] MEDS: LABETALOL 200 MG TAB PO SCH (22:12)
[2022-01-25] MEDS: FOLIC ACID 1MG TAB PO SCH (22:12)
[2022-01-25] MEDS: **hydrALAZINE HCL** 25 MG TAB PO SCH (22:13)
[2022-01-25] MEDS: BRIMONIDINE 0.15% OPHTH SOLN 5 ML OU SCH (22:51)
[2022-01-25] MEDS: TIMOLOL XE GFS 0.5% OPHTH 5 ML OU SCH (22:51)
[2022-01-26] VITALS (15 sets, daily range): BP systolic 114–170; BP diastolic 50–78
[2022-01-26 05:45] LABS: MEAN CORPUSCULAR HEMOGLOBIN 32.5 pg (27.0-33.0); MEAN CORPUSCULAR HGB CONC 31.6 g/dl (32.0-36.5); PLATELET COUNT, AUTOMATED 187 10^3/uL (150-450); WHITE BLOOD COUNT 5.5 10^3/uL (4.0-10.0)
[2022-01-26 05:53] LABS: HEMATOCRIT 20.6 % (42.0-52.0); HEMOGLOBIN 6.5 g/dl (13.5-17.5)
[2022-01-26] MEDS: cloNIDine 0.2 MG TAB PO SCH ×3 (06:19→20:57)
[2022-01-26] MEDS: LEVOTHYROXINE 50MCG TABLET (0.05MG) PO SCH (06:19)
[2022-01-26 06:25] LABS: ALBUMIN 3.7 GM/DL (3.2-5.2); BILIRUBIN,TOTAL 0.7 MG/DL (0.2-1.0); CALCIUM LEVEL 8.7 MG/DL (8.8-10.2); CREATININE FOR GFR 3.42 MG/DL (0.70-1.30); GLOMERULAR FILTRATION RATE 18.7 (>42); TOTAL PROTEIN 7.2 GM/DL (6.4-8.2)
[2022-01-26] MEDS: INSULIN LISPRO (NovoLOG) PER UNIT SC SCH ×4 (07:30→21:18)
[2022-01-26] MEDS ORDERED: MIRALAX *UNIT DOSE* 17GM PACKET PO PRN (07:45)
[2022-01-26] MEDS: COMBIVENT RESPIMAT 100-20MCG INHALER 4GM INH SCH ×3 (07:53→19:26)
[2022-01-26] MEDS ORDERED: POTASSIUM CHLORIDE 10MEQ SR TABLET PO ONE ×2 (08:00→10:00)
[2022-01-26] MEDS ORDERED: POLYVINYL ALCOHOL OPHTH SOLN 15 ML(LIQUITEARS) OU PRN (08:00)
[2022-01-26] MEDS: **hydrALAZINE HCL** 25 MG TAB PO SCH ×4 (08:16→20:56)
[2022-01-26] MEDS: LABETALOL 200 MG TAB PO SCH (08:17)
[2022-01-26] MEDS: CO-ENZYME Q10 50 MG CAP PO SCH (08:25)
[2022-01-26] MEDS: FERROUS SULFATE 325MG TAB PO SCH (08:26)
[2022-01-26] MEDS: MULTIVITAMINS/MINERALS THERAP 1 TAB PO SCH (08:26)
[2022-01-26] MEDS: DOCUSATE SODIUM 100MG CAPSULE PO SCH ×2 (08:27→21:16)
[2022-01-26] MEDS: BRIMONIDINE 0.15% OPHTH SOLN 5 ML OU SCH ×2 (08:27→21:19)
[2022-01-26] MEDS ORDERED: LEVEMIR (INSULIN DETEMIR) 1 UNITS/0.01ML SC SCH (09:00)
[2022-01-26] MEDS ORDERED: HOME MED LIST COMPLETE! XX SCH (10:30)
[2022-01-26] MEDS: aMILoride 5 MG TAB PO SCH (12:21)
[2022-01-26] MEDS: CARVedilol 12.5 MG TAB PO SCH ×2 (12:22→21:18)
[2022-01-26] MEDS: ANALGESIC BALM CRM 3OZ TOP SCH ×3 (13:28→21:19)
[2022-01-26 14:52] LABS: CALCIUM LEVEL 9.5 MG/DL (8.8-10.2); CREATININE FOR GFR 3.38 MG/DL (0.70-1.30); POTASSIUM SERUM 3.1 MEQ/L (3.5-5.1)
[2022-01-26] MEDS: POTASSIUM CHLORIDE 10MEQ SR TABLET PO SCH ×2 (17:20→21:17)
[2022-01-26] MEDS: FUROSEMIDE injection 250 MG in D5W 225 ML IV SCH (17:21)
[2022-01-26] MEDS: ACETAMINOPHEN TAB 650MG DOSE (2X325MG) PO PRN (17:22)
[2022-01-26 19:39] LABS: HEMATOCRIT 25.3 % (42.0-52.0); HEMOGLOBIN 8.3 g/dl (13.5-17.5); MEAN CORPUSCULAR HEMOGLOBIN 32.7 pg (27.0-33.0); MEAN CORPUSCULAR HGB CONC 32.8 g/dl (32.0-36.5); MEAN CORPUSCULAR VOLUME 99.6 fl (80.0-96.0); PLATELET COUNT, AUTOMATED 192 10^3/uL (150-450); RED BLOOD COUNT 2.54 10^6/uL (4.30-6.10); WHITE BLOOD COUNT 7.6 10^3/uL (4.0-10.0)
[2022-01-26] MEDS: SENNA 8.6 MG TAB (SENOKOT) PO SCH (21:17)
[2022-01-26] MEDS: TAMSULOSIN 0.4 MG CAP PO SCH (21:17)
[2022-01-26] MEDS: ATORVASTATIN 10 MG TAB PO SCH (21:17)
[2022-01-26] MEDS: FOLIC ACID 1MG TAB PO SCH (21:17)
[2022-01-26] MEDS: TIMOLOL XE GFS 0.5% OPHTH 5 ML OU SCH (21:19)
[2022-01-26] MEDS: LEVEMIR (INSULIN DETEMIR) 1 UNITS/0.01ML SC SCH (21:19)
[2022-01-27] VITALS (7 sets, daily range): BP systolic 127–146; BP diastolic 57–67
[2022-01-27] MEDS: cloNIDine 0.2 MG TAB PO SCH ×3 (05:44→21:32)
[2022-01-27] MEDS: LEVOTHYROXINE 50MCG TABLET (0.05MG) PO SCH (05:44)
[2022-01-27 06:24] LABS: HEMATOCRIT 25.3 % (42.0-52.0); HEMOGLOBIN 8.1 g/dl (13.5-17.5); MEAN CORPUSCULAR HEMOGLOBIN 31.6 pg (27.0-33.0); MEAN CORPUSCULAR VOLUME 98.8 fl (80.0-96.0); PLATELET COUNT, AUTOMATED 189 10^3/uL (150-450); RED BLOOD COUNT 2.56 10^6/uL (4.30-6.10); WHITE BLOOD COUNT 6.1 10^3/uL (4.0-10.0)
[2022-01-27 07:03] LABS: ALBUMIN 3.6 GM/DL (3.2-5.2); BILIRUBIN,TOTAL 1.2 MG/DL (0.2-1.0); CALCIUM LEVEL 9.4 MG/DL (8.8-10.2); CREATININE FOR GFR 3.41 MG/DL (0.70-1.30); GLOMERULAR FILTRATION RATE 18.8 (>42); POTASSIUM SERUM 3.1 MEQ/L (3.5-5.1); TOTAL PROTEIN 7.4 GM/DL (6.4-8.2)
[2022-01-27] MEDS: COMBIVENT RESPIMAT 100-20MCG INHALER 4GM INH SCH ×3 (07:20→19:06)
[2022-01-27] MEDS ORDERED: POTASSIUM CHLORIDE 10MEQ SR TABLET PO ONE (07:30)
[2022-01-27] MEDS: INSULIN LISPRO (NovoLOG) PER UNIT SC SCH ×4 (07:30→20:17)
[2022-01-27] MEDS: LEVEMIR (INSULIN DETEMIR) 1 UNITS/0.01ML SC SCH ×2 (08:34→20:17)
[2022-01-27] MEDS: CARVedilol 12.5 MG TAB PO SCH ×2 (08:35→20:21)
[2022-01-27] MEDS: FERROUS SULFATE 325MG TAB PO SCH (08:35)
[2022-01-27] MEDS: CO-ENZYME Q10 50 MG CAP PO SCH (08:35)
[2022-01-27] MEDS: aMILoride 5 MG TAB PO SCH ×2 (08:35→20:19)
[2022-01-27] MEDS: DOCUSATE SODIUM 100MG CAPSULE PO SCH ×2 (08:35→20:19)
[2022-01-27] MEDS: **hydrALAZINE HCL** 25 MG TAB PO SCH ×3 (08:36→20:20)
[2022-01-27] MEDS: MULTIVITAMINS/MINERALS THERAP 1 TAB PO SCH (08:37)
[2022-01-27] MEDS: POTASSIUM CHLORIDE 10MEQ SR TABLET PO SCH ×3 (08:37→20:18)
[2022-01-27] MEDS: ANALGESIC BALM CRM 3OZ TOP SCH ×4 (08:38→20:17)
[2022-01-27] MEDS: BRIMONIDINE 0.15% OPHTH SOLN 5 ML OU SCH ×2 (08:38→20:18)
[2022-01-27] MEDS: BISACODYL 10 MG SUPP PR SCH ×2 (09:00→20:18)
[2022-01-27] MEDS: FUROSEMIDE injection 250 MG in D5W 225 ML IV SCH (16:38)
[2022-01-27] MEDS: TIMOLOL XE GFS 0.5% OPHTH 5 ML OU SCH (20:18)
[2022-01-27] MEDS: APIXABAN 2.5 MG TAB (ELIQUIS) PO SCH (20:19)
[2022-01-27] MEDS: TAMSULOSIN 0.4 MG CAP PO SCH (20:19)
[2022-01-27] MEDS: ATORVASTATIN 10 MG TAB PO SCH (20:19)
[2022-01-27] MEDS: FOLIC ACID 1MG TAB PO SCH (20:19)
[2022-01-27] MEDS: SENNA 8.6 MG TAB (SENOKOT) PO SCH (20:19)
[2022-01-28] VITALS: BP 136/63
[2022-01-28 04:00] VITALS: BP 141/65
[2022-01-28] MEDS: LEVOTHYROXINE 50MCG TABLET (0.05MG) PO SCH (05:18)
[2022-01-28] MEDS: cloNIDine 0.2 MG TAB PO SCH ×3 (05:19→21:10)
[2022-01-28 05:55] LABS: HEMATOCRIT 27.8 % (42.0-52.0); HEMOGLOBIN 8.8 g/dl (13.5-17.5); MEAN CORPUSCULAR HEMOGLOBIN 31.4 pg (27.0-33.0); MEAN CORPUSCULAR HGB CONC 31.7 g/dl (32.0-36.5); MEAN CORPUSCULAR VOLUME 99.3 fl (80.0-96.0); PLATELET COUNT, AUTOMATED 200 10^3/uL (150-450); WHITE BLOOD COUNT 6.3 10^3/uL (4.0-10.0)
[2022-01-28 06:21] LABS: CREATININE FOR GFR 3.15 MG/DL (0.70-1.30); GLOMERULAR FILTRATION RATE 20.6 (>42); POTASSIUM SERUM 3.3 MEQ/L (3.5-5.1)
[2022-01-28 06:22] LABS: ALBUMIN 3.8 GM/DL (3.2-5.2); CALCIUM LEVEL 10.2 MG/DL (8.8-10.2); TOTAL PROTEIN 7.9 GM/DL (6.4-8.2)
[2022-01-28 08:00] VITALS: BP 124/58
[2022-01-28] MEDS: **hydrALAZINE HCL** 25 MG TAB PO SCH ×3 (08:16→21:00)
[2022-01-28] MEDS: LEVEMIR (INSULIN DETEMIR) 1 UNITS/0.01ML SC SCH ×2 (08:18→21:19)
[2022-01-28] MEDS: INSULIN LISPRO (NovoLOG) PER UNIT SC SCH ×4 (08:18→21:00)
[2022-01-28] MEDS: CO-ENZYME Q10 50 MG CAP PO SCH (08:19)
[2022-01-28] MEDS: CARVedilol 12.5 MG TAB PO SCH ×2 (08:20→21:20)
[2022-01-28] MEDS: aMILoride 5 MG TAB PO SCH ×2 (08:20→21:20)
[2022-01-28] MEDS: DOCUSATE SODIUM 100MG CAPSULE PO SCH ×2 (08:21→21:20)
[2022-01-28] MEDS: POTASSIUM CHLORIDE 10MEQ SR TABLET PO SCH ×3 (08:21→21:20)
[2022-01-28] MEDS: MULTIVITAMINS/MINERALS THERAP 1 TAB PO SCH (08:22)
[2022-01-28] MEDS: APIXABAN 2.5 MG TAB (ELIQUIS) PO SCH ×2 (08:22→21:20)
[2022-01-28] MEDS: FERROUS SULFATE 325MG TAB PO SCH (08:22)
[2022-01-28] MEDS: BISACODYL 10 MG SUPP PR SCH ×2 (08:22→21:00)
[2022-01-28] MEDS: BRIMONIDINE 0.15% OPHTH SOLN 5 ML OU SCH ×2 (08:23→21:27)
[2022-01-28] MEDS: ANALGESIC BALM CRM 3OZ TOP SCH ×4 (08:23→21:21)
[2022-01-28] MEDS: COMBIVENT RESPIMAT 100-20MCG INHALER 4GM INH SCH ×3 (08:24→19:41)
[2022-01-28 13:57] VITALS: BP 141/68
[2022-01-28] MEDS: FUROSEMIDE injection 250 MG in D5W 225 ML IV SCH (15:29)
[2022-01-28 15:50] VITALS: BP 129/55
[2022-01-28] MEDS: SENNA 8.6 MG TAB (SENOKOT) PO SCH (21:19)
[2022-01-28] MEDS: TAMSULOSIN 0.4 MG CAP PO SCH (21:20)
[2022-01-28] MEDS: ATORVASTATIN 10 MG TAB PO SCH (21:20)
[2022-01-28] MEDS: FOLIC ACID 1MG TAB PO SCH (21:20)
[2022-01-28] MEDS: TIMOLOL XE GFS 0.5% OPHTH 5 ML OU SCH (21:27)
[2022-01-28 22:00] VITALS: BP 103/58
[2022-01-29] VITALS (8 sets, daily range): BP systolic 108–145; BP diastolic 59–68; O2SAT 5–96
[2022-01-29] MEDS: cloNIDine 0.2 MG TAB PO SCH ×3 (05:42→20:49)
[2022-01-29] MEDS: LEVOTHYROXINE 50MCG TABLET (0.05MG) PO SCH (05:42)
[2022-01-29 06:59] LABS: HEMATOCRIT 28.3 % (42.0-52.0); HEMOGLOBIN 9.1 g/dl (13.5-17.5); MEAN CORPUSCULAR HEMOGLOBIN 32.4 pg (27.0-33.0); MEAN CORPUSCULAR HGB CONC 32.2 g/dl (32.0-36.5); MEAN CORPUSCULAR VOLUME 100.7 fl (80.0-96.0); PLATELET COUNT, AUTOMATED 206 10^3/uL (150-450); RED BLOOD COUNT 2.81 10^6/uL (4.30-6.10); WHITE BLOOD COUNT 8.8 10^3/uL (4.0-10.0)
[2022-01-29 07:49] LABS: ALBUMIN 3.9 GM/DL (3.2-5.2); BILIRUBIN,TOTAL 0.9 MG/DL (0.2-1.0); CALCIUM LEVEL 10.1 MG/DL (8.8-10.2); GLOMERULAR FILTRATION RATE 21.8 (>42); POTASSIUM SERUM 4.1 MEQ/L (3.5-5.1); TOTAL PROTEIN 7.8 GM/DL (6.4-8.2)
[2022-01-29] MEDS: COMBIVENT RESPIMAT 100-20MCG INHALER 4GM INH SCH ×3 (07:53→21:14)
[2022-01-29] MEDS: POTASSIUM CHLORIDE 10MEQ SR TABLET PO SCH ×3 (08:53→20:49)
[2022-01-29] MEDS: APIXABAN 2.5 MG TAB (ELIQUIS) PO SCH ×2 (08:54→20:51)
[2022-01-29] MEDS: DOCUSATE SODIUM 100MG CAPSULE PO SCH ×2 (08:54→20:49)
[2022-01-29] MEDS: CO-ENZYME Q10 50 MG CAP PO SCH (08:54)
[2022-01-29] MEDS: FERROUS SULFATE 325MG TAB PO SCH (08:54)
[2022-01-29] MEDS: CARVedilol 12.5 MG TAB PO SCH ×2 (08:54→20:51)
[2022-01-29] MEDS: MULTIVITAMINS/MINERALS THERAP 1 TAB PO SCH (08:54)
[2022-01-29] MEDS: **hydrALAZINE HCL** 25 MG TAB PO SCH ×3 (08:55→20:48)
[2022-01-29] MEDS: INSULIN LISPRO (NovoLOG) PER UNIT SC SCH ×4 (08:55→21:36)
[2022-01-29] MEDS: aMILoride 5 MG TAB PO SCH ×2 (08:56→20:50)
[2022-01-29] MEDS: LEVEMIR (INSULIN DETEMIR) 1 UNITS/0.01ML SC SCH ×2 (08:56→20:44)
[2022-01-29] MEDS: BISACODYL 10 MG SUPP PR SCH ×2 (08:56→20:51)
[2022-01-29] MEDS ORDERED: DARBEPOETIN 100 MCG/0.5 ML *NON-DIALYSIS* SYRINGE (J0881) SC SCH (09:00)
[2022-01-29] MEDS: ANALGESIC BALM CRM 3OZ TOP SCH ×4 (09:10→20:52)
[2022-01-29] MEDS: BRIMONIDINE 0.15% OPHTH SOLN 5 ML OU SCH ×2 (09:12→20:51)
[2022-01-29] MEDS: BUMETANIDE 1 MG TAB PO SCH ×2 (12:51→17:27)
[2022-01-29] MEDS: ACETAMINOPHEN TAB 650MG DOSE (2X325MG) PO PRN (17:28)
[2022-01-29] MEDS ORDERED: SENN18TA PO (18:00)
[2022-01-29] MEDS ORDERED: COLA100C5 PO (18:00)
[2022-01-29] MEDS ORDERED: CARV25TA PO (18:00)
[2022-01-29] MEDS ORDERED: POTA-136 PO (18:00)
[2022-01-29] MEDS ORDERED: HYDR25TA PO (18:00)
[2022-01-29] MEDS ORDERED: AMIL5TAB4 PO (18:00)
[2022-01-29] MEDS ORDERED: BUME1TAB3 PO (18:00)
[2022-01-29] MEDS ORDERED: TOUJ300I2 SC ×2 (18:00→18:04)
[2022-01-29] MEDS ORDERED: MIRA1POW3 PO (18:00)
[2022-01-29] MEDS: FOLIC ACID 1MG TAB PO SCH (20:45)
[2022-01-29] MEDS: SENNA 8.6 MG TAB (SENOKOT) PO SCH (20:49)
[2022-01-29] MEDS: TIMOLOL XE GFS 0.5% OPHTH 5 ML OU SCH (20:51)
[2022-01-29] MEDS: TAMSULOSIN 0.4 MG CAP PO SCH (20:51)
[2022-01-29] MEDS: ATORVASTATIN 10 MG TAB PO SCH (20:51)
[2022-01-30 06:00] VITALS: BP 133/65
[2022-01-30] MEDS: cloNIDine 0.2 MG TAB PO SCH (06:33)
[2022-01-30] MEDS: LEVOTHYROXINE 50MCG TABLET (0.05MG) PO SCH (06:33)
[2022-01-30 07:13] LABS: HEMATOCRIT 29.3 % (42.0-52.0); HEMOGLOBIN 9.4 g/dl (13.5-17.5); MEAN CORPUSCULAR HEMOGLOBIN 32.1 pg (27.0-33.0); MEAN CORPUSCULAR HGB CONC 32.1 g/dl (32.0-36.5); PLATELET COUNT, AUTOMATED 223 10^3/uL (150-450); RED BLOOD COUNT 2.93 10^6/uL (4.30-6.10); WHITE BLOOD COUNT 8.2 10^3/uL (4.0-10.0)
[2022-01-30] MEDS: COMBIVENT RESPIMAT 100-20MCG INHALER 4GM INH SCH (07:37)
[2022-01-30 07:38] VITALS: O2SAT 96
[2022-01-30 07:54] LABS: ALBUMIN 3.9 GM/DL (3.2-5.2); BILIRUBIN,TOTAL 0.8 MG/DL (0.2-1.0); CREATININE FOR GFR 3.11 MG/DL (0.70-1.30); GLOMERULAR FILTRATION RATE 20.9 (>42); POTASSIUM SERUM 4.3 MEQ/L (3.5-5.1)
[2022-01-30] MEDS: LEVEMIR (INSULIN DETEMIR) 1 UNITS/0.01ML SC SCH (08:28)
[2022-01-30] MEDS: POTASSIUM CHLORIDE 10MEQ SR TABLET PO SCH (08:29)
[2022-01-30] MEDS: INSULIN LISPRO (NovoLOG) PER UNIT SC SCH (08:29)
[2022-01-30] MEDS: aMILoride 5 MG TAB PO SCH (08:29)
[2022-01-30] MEDS: APIXABAN 2.5 MG TAB (ELIQUIS) PO SCH (08:29)
[2022-01-30] MEDS: MULTIVITAMINS/MINERALS THERAP 1 TAB PO SCH (08:29)
[2022-01-30] MEDS: CO-ENZYME Q10 50 MG CAP PO SCH (08:30)
[2022-01-30] MEDS: DOCUSATE SODIUM 100MG CAPSULE PO SCH (08:30)
[2022-01-30] MEDS: BUMETANIDE 1 MG TAB PO SCH (08:30)
[2022-01-30] MEDS: CARVedilol 12.5 MG TAB PO SCH (08:31)
[2022-01-30] MEDS: FERROUS SULFATE 325MG TAB PO SCH (08:31)
[2022-01-30] MEDS: BRIMONIDINE 0.15% OPHTH SOLN 5 ML OU SCH (08:31)
[2022-01-30] MEDS: BISACODYL 10 MG SUPP PR SCH (08:32)
[2022-01-30] MEDS: ANALGESIC BALM CRM 3OZ TOP SCH (08:32)
[2022-01-30 08:33] VITALS: BP 105/48
[2022-01-30] MEDS: **hydrALAZINE HCL** 25 MG TAB PO SCH (08:33)
== END 2022-01-30 11:21 | disposition home or self-care (01) | DRG 291 ==
LOC: M PCU 16:59 → M MS5PR 01-28 15:39 → M MS4PR 01-29 02:10 → M MSPAV 01-29 02:24
PROVIDERS: ADMIT Internal Medicine; ATTEND Internal Medicine
PROC: B246ZZZ Ultrasonography of Right and Left Heart (ICD-10-PCS; principal; 2022-01-26)
DX: I13.0 Hypertensive heart and chronic kidney disease with heart failure and stage 1 through stage 4 chronic kidney disease, or unspecified chronic kidney disease (principal); I50.33 Acute on chronic diastolic (congestive) heart failure; J96.21 Acute and chronic respiratory failure with hypoxia; N17.9 Acute kidney failure, unspecified; E87.6 Hypokalemia; E78.5 Hyperlipidemia, unspecified; E11.22 Type 2 diabetes mellitus with diabetic chronic kidney disease; I25.10 Atherosclerotic heart disease of native coronary artery without angina pectoris; I48.91 Unspecified atrial fibrillation; N18.30 Chronic kidney disease, stage 3 unspecified; D50.9 Iron deficiency anemia, unspecified; G47.33 Obstructive sleep apnea (adult) (pediatric); I27.22 Pulmonary hypertension due to left heart disease; N40.0 Benign prostatic hyperplasia without lower urinary tract symptoms; E53.8 Deficiency of other specified B group vitamins; M10.9 Gout, unspecified; Z90.49 Acquired absence of other specified parts of digestive tract; E11.649 Type 2 diabetes mellitus with hypoglycemia without coma; D47.2 Monoclonal gammopathy; Z79.01 Long term (current) use of anticoagulants; Z99.81 Dependence on supplemental oxygen; Z86.74 Personal history of sudden cardiac arrest; Z79.4 Long term (current) use of insulin; Z79.890 Hormone replacement therapy; Z79.899 Other long term (current) drug therapy; Z91.048 Other nonmedicinal substance allergy status; Z88.8 Allergy status to other drugs, medicaments and biological substances; Z20.822 Contact with and (suspected) exposure to COVID-19; T50.2X5A Adverse effect of carbonic-anhydrase inhibitors, benzothiadiazides and other diuretics, initial encounter

== ENCOUNTER → 2022-04-11 | Outpatient (CLI) | payer MEDICARE, OTHER ==
[~2022-04-11] MED LIST changes: +AMIL5TAB4 PO; +BUME1TAB3 PO; +CARV25TA PO; +ELIQ5TAB PO; +FENO1CAP16 PO; +FLOM0.4C39 PO; +MIRA1POW3 PO; +POTA-141 PO; +POTA-151 PO; +SENN18TA PO; +SYNT50TA PO
== END ==
LOC: M RAD 09:26
PROVIDERS: ATTEND Internal Medicine Hematology & Oncology
DX: N28.89 Other specified disorders of kidney and ureter (principal); D47.2 Monoclonal gammopathy; K42.9 Umbilical hernia without obstruction or gangrene; M47.816 Spondylosis without myelopathy or radiculopathy, lumbar region; Z90.49 Acquired absence of other specified parts of digestive tract; R93.5 Abnormal findings on diagnostic imaging of other abdominal regions, including retroperitoneum; I51.7 Cardiomegaly; I70.0 Atherosclerosis of aorta; I25.10 Atherosclerotic heart disease of native coronary artery without angina pectoris; I65.23 Occlusion and stenosis of bilateral carotid arteries

== ENCOUNTER → 2022-04-21 | Outpatient (CLI) | payer MEDICARE, OTHER | LOC: M RAD 13:05 | PROVIDERS: ATTEND Specialist | DX: N28.1 Cyst of kidney, acquired (principal) ==

== ENCOUNTER → 2022-06-23 | Outpatient (CLI) | payer MEDICARE, OTHER ==
[~2022-06-23] MED LIST changes: +DEXA4TA PO
== END ==
LOC: M LAB 13:00
PROVIDERS: ATTEND Nurse Practitioner Family
DX: E11.21 Type 2 diabetes mellitus with diabetic nephropathy (principal)

== ENCOUNTER 2022-08-14 09:46 | Day surgery (SDC) | payer MEDICARE, OTHER ==
[~2022-08-14] VITALS: Ht 170.2 cm; Wt 123.1 kg
[~2022-08-14 09:46] MED LIST changes: -ASMA16.7 INH; +BSS IRRIG/VANCO(10MG)/TOBRA(5MG)/EPINEPH(1:1000-0.5CC)500ML BAG-ORONLY IR ONE; +CEFUROXIME 1MG/0.1ML INTRACAMERAL INJ As Ordered ONE; +CYCL1CAP2 PO; +ICOS1CAP PO; +LIDOCAINE 1% SDV 5ML VIAL As Ordered ONE; +LIDOCAINE 3.5 % 1ML OPHTH TOPICAL GEL OU ONE; +MIDAZOLAM INJ 2MG/2ML VIAL As Ordered ONE; +MOME13HF4 INH; +NOXI1TAB PO; +OFLOXACIN 0.3 % (OCUFLOX) OPTH SOL 5ML OD ONE; +PHENYLEPHRINE 10% OPHTH SOL 5ML OD PRN; +TIMO0.5S20 OU; -TIMO0.5S29 OU; +TRUL10IN SC; +fentaNYL 100 MCG/2 ML INJECTION As Ordered ONE
[2022-08-14 11:16] VITALS: BP 179/86
[2022-08-14] MEDS: TROPICAMIDE 1% OPHTH SOLN 15ML OD SCH (14:12)
[2022-08-14] MEDS: CYCLOPENTOLATE 1% OPHTH SOLN 2ML BTL OD SCH (14:12)
[2022-08-14] MEDS: PHENYLEPHRINE 2.5% OPHTH SOL 2ML OD SCH (14:12)
== END 2022-08-14 11:37 | disposition home or self-care (01) ==
LOC: M SDC 09:46
PROVIDERS: ATTEND Ophthalmology
DX: H25.11 Age-related nuclear cataract, right eye (principal); H57.03 Miosis; H40.9 Unspecified glaucoma; E11.9 Type 2 diabetes mellitus without complications; E03.9 Hypothyroidism, unspecified; I48.91 Unspecified atrial fibrillation; I25.10 Atherosclerotic heart disease of native coronary artery without angina pectoris; G47.30 Sleep apnea, unspecified; D64.9 Anemia, unspecified; Z90.89 Acquired absence of other organs; Z90.49 Acquired absence of other specified parts of digestive tract; Z88.8 Allergy status to other drugs, medicaments and biological substances; Z91.013 Allergy to seafood; Z91.048 Other nonmedicinal substance allergy status; Z79.899 Other long term (current) drug therapy; Z79.4 Long term (current) use of insulin; Z79.01 Long term (current) use of anticoagulants
CPT/HCPCS: 66982; C1783; J0697; J2250; J3010; V2632

== ENCOUNTER 2022-09-11 06:06 | Day surgery (SDC) | payer MEDICARE, OTHER ==
[~2022-09-11] VITALS: Ht 170.2 cm; Wt 128.4 kg
[~2022-09-11 06:06] MED LIST changes: -CEFUROXIME 1MG/0.1ML INTRACAMERAL INJ As Ordered ONE; +CYCLOPENTOLATE 1% OPHTH SOLN 2ML BTL OS SCH; -LIDOCAINE 1% SDV 5ML VIAL As Ordered ONE; -MIDAZOLAM INJ 2MG/2ML VIAL As Ordered ONE; -OFLOXACIN 0.3 % (OCUFLOX) OPTH SOL 5ML OD ONE; +OFLOXACIN 0.3 % (OCUFLOX) OPTH SOL 5ML OS ONE; -PHENYLEPHRINE 10% OPHTH SOL 5ML OD PRN; +PHENYLEPHRINE 10% OPHTH SOL 5ML OS PRN; +PHENYLEPHRINE 2.5% OPHTH SOL 2ML OS SCH; +POTA-298 PO; -POTA1TAB14 PO; +TROPICAMIDE 1% OPHTH SOLN 15ML OS SCH; -fentaNYL 100 MCG/2 ML INJECTION As Ordered ONE
[2022-09-11] MEDS ORDERED: LIDOCAINE 1% SDV 5ML VIAL As Ordered ONE (06:41)
[2022-09-11] MEDS ORDERED: CEFUROXIME 1MG/0.1ML INTRACAMERAL INJ As Ordered ONE (06:44)
[2022-09-11] MEDS ORDERED: DUOVISC (0.50ML VISCOAT/0.85ML PROVISC) OPHTH KIT As Ordered ONE (06:44)
[2022-09-11] MEDS ORDERED: LR 1,000 ML IV SCH (06:50)
[2022-09-11] MEDS ORDERED: fentaNYL 100 MCG/2 ML INJECTION As Ordered ONE (07:00)
[2022-09-11] MEDS ORDERED: MIDAZOLAM INJ 2MG/2ML VIAL As Ordered ONE (07:00)
[2022-09-11 08:06] VITALS: BP 137/60
== END 2022-09-11 08:26 | disposition home or self-care (01) ==
LOC: M SDC 06:06
PROVIDERS: ATTEND Ophthalmology
DX: H25.12 Age-related nuclear cataract, left eye (principal); H57.03 Miosis; H40.1120 Primary open-angle glaucoma, left eye, stage unspecified; I48.91 Unspecified atrial fibrillation; I10 Essential (primary) hypertension; I25.10 Atherosclerotic heart disease of native coronary artery without angina pectoris; E78.5 Hyperlipidemia, unspecified; R60.9 Edema, unspecified; E11.9 Type 2 diabetes mellitus without complications; D64.9 Anemia, unspecified; Z90.49 Acquired absence of other specified parts of digestive tract; Z90.89 Acquired absence of other organs; G47.30 Sleep apnea, unspecified; Z88.8 Allergy status to other drugs, medicaments and biological substances; Z91.013 Allergy to seafood; Z91.048 Other nonmedicinal substance allergy status; Z79.899 Other long term (current) drug therapy
CPT/HCPCS: 66982; C1783; J0697; J2250; J3010; V2632

== ENCOUNTER → 2022-09-27 | Outpatient (CLI) | payer MEDICARE, OTHER ==
[~2022-09-27] MED LIST changes: -BSS IRRIG/VANCO(10MG)/TOBRA(5MG)/EPINEPH(1:1000-0.5CC)500ML BAG-ORONLY IR ONE; -CYCLOPENTOLATE 1% OPHTH SOLN 2ML BTL OS SCH; -LIDOCAINE 3.5 % 1ML OPHTH TOPICAL GEL OU ONE; -OFLOXACIN 0.3 % (OCUFLOX) OPTH SOL 5ML OS ONE; -PHENYLEPHRINE 10% OPHTH SOL 5ML OS PRN; -PHENYLEPHRINE 2.5% OPHTH SOL 2ML OS SCH; -TROPICAMIDE 1% OPHTH SOLN 15ML OS SCH
[2022-09-27 14:29] LABS: ALBUMIN 3.5 G/DL (3.2-5.2); CREATININE FOR GFR 3.12 MG/DL (0.70-1.30); GLOMERULAR FILTRATION RATE 20.7 (>42); PHOSPHORUS LEVEL 5.3 MG/DL (2.4-5.1); POTASSIUM SERUM 4.5 MMOL/L (3.5-5.1)
== END ==
LOC: M LAB 12:59
PROVIDERS: ATTEND Internal Medicine Nephrology
DX: N18.4 Chronic kidney disease, stage 4 (severe) (principal)

== ENCOUNTER → 2022-10-04 | Outpatient (CLI) | payer MEDICARE, OTHER ==
[2022-10-04 13:57] LABS: ALBUMIN 3.6 G/DL (3.2-5.2); CALCIUM LEVEL 9.1 MG/DL (8.3-10.6); CREATININE FOR GFR 2.35 MG/DL (0.70-1.30); GLOMERULAR FILTRATION RATE 28.8 (>42); POTASSIUM SERUM 4.1 MMOL/L (3.5-5.1)
== END ==
LOC: M LAB 12:57
PROVIDERS: ATTEND Internal Medicine Nephrology
DX: N18.4 Chronic kidney disease, stage 4 (severe) (principal); E11.22 Type 2 diabetes mellitus with diabetic chronic kidney disease

== ENCOUNTER → 2023-12-26 | Outpatient (CLI) | payer MEDICARE, OTHER ==
[~2023-12-26] MED LIST changes: -AZEL0.055 NARES; +AZEL1SPR4 NARES; +CLIN-250; +FERR325T14 PO; -HYDR-3910 PO; -HYDR25TA PO; +HYDR25TA87 PO; +HYDR25TA88 PO; -MIRA1POW3 PO; +MIRA33506 PO; +MULT-6 PO; +SENN-111 PO; -SENN18TA PO; +TIRZ5PEN SQ; +TIRZ7.5P SQ
[2023-12-26 13:49] LABS: BASO % 0.4 % (0.0-1.0); EOS # 0.2 10^3/uL (0.0-0.5); EOS % 3.2 % (0.0-3.0); HEMATOCRIT 32.1 % (42.0-52.0); HEMOGLOBIN 10.4 g/dl (13.5-17.5); LYMPH # 0.9 10^3/uL (1.5-5.0); LYMPH % 15.3 % (24.0-44.0); MEAN CORPUSCULAR HEMOGLOBIN 34.7 pg (27.0-33.0); MEAN CORPUSCULAR HGB CONC 32.4 g/dl (32.0-36.5); MONO # 0.8 10^3/uL (0.0-0.8); MONO % 14.4 % (2.0-8.0); NEUTROPHILS # 3.7 10^3/uL (1.5-8.5); NEUTROPHILS % 66.3 % (36.0-66.0); PLATELET COUNT, AUTOMATED 181 10^3/uL (150-450); WHITE BLOOD COUNT 5.6 10^3/uL (4.0-10.0)
[2023-12-26 14:33] LABS: ALBUMIN 3.6 G/DL (3.2-5.2); BILIRUBIN,TOTAL 0.5 MG/DL (0.3-1.2); CHOLESTEROL RISK RATIO 4.9 (<5); CREATININE FOR GFR 2.77 MG/DL (0.70-1.30); GLOMERULAR FILTRATION RATE 23.7 (>42); HDL CHOLESTEROL 21.6 MG/DL (>40); LDL CHOLESTEROL 36.4 MG/DL (<100); NON-HDL-C 84.4 MG/DL; TOTAL PROTEIN 7.3 G/DL (5.7-8.2)
[2023-12-26 14:35] LABS: FREE T4 1.22 NG/DL (0.89-1.76); THYROID STIMULATING HORMONE 2.558 uIU/ML (0.55-4.78)
== END ==
LOC: M LAB 13:25
PROVIDERS: ATTEND Internal Medicine Cardiovascular Disease
DX: D64.9 Anemia, unspecified (principal); E11.9 Type 2 diabetes mellitus without complications; E78.5 Hyperlipidemia, unspecified; E03.9 Hypothyroidism, unspecified

== ENCOUNTER → 2024-11-15 | Outpatient (REF) | payer MEDICARE, OTHER ==
[~2024-11-15] MED LIST changes: -ALPH600C PO; +ALPH600C2 PO; -FLOM0.4C39 PO; -LEVO750T14 PO; +LEVO75TAB PO; +PROBCAP14 PO; -SENN-111 PO; +SENN-165 PO; +TAMS-18 PO; +TIRZ10PE
[2024-11-15 16:23] LABS: CREATININE, URINE 78.1 MG/DL; MALB URINE SIEMENS < 3.0 MG/L
== END ==
LOC: M LAB REF 15:41
PROVIDERS: ATTEND Nurse Practitioner Family
DX: E11.21 Type 2 diabetes mellitus with diabetic nephropathy (principal)

== ENCOUNTER → 2024-11-20 | Outpatient (REF) | payer MEDICARE, OTHER ==
[2024-11-26 07:17] LABS: FREE KAPPA LIGHT CHAINS URINE 39.79 mg/L (<=32.90); FREE LAMBDA LIGHT CHAINS URINE 1.58 mg/L (<=3.79); KAPPA/LAMBDA RATIO URINE 25.18 (<=8.69)
== END ==
LOC: M LAB REF 16:28
PROVIDERS: ATTEND Specialist
DX: D47.2 Monoclonal gammopathy (principal)

== ENCOUNTER → 2025-03-12 | Outpatient (CLI) | payer MEDICARE, OTHER | LOC: M LAB 14:14 | PROVIDERS: ATTEND Nurse Practitioner Family | DX: E11.21 Type 2 diabetes mellitus with diabetic nephropathy (principal) ==

== ENCOUNTER → 2025-03-12 | Outpatient (CLI) | payer MEDICARE, OTHER ==
[2025-03-12 15:20] LABS: BASO # 0.0 10^3/uL (0.0-0.2); BASO % 0.7 % (0.0-1.0); EOS # 0.3 10^3/uL (0.0-0.5); EOS % 6.9 % (0.0-3.0); LYMPH # 0.7 10^3/uL (1.5-5.0); LYMPH % 16.2 % (24.0-44.0); MONO # 0.6 10^3/uL (0.0-0.8); MONO % 14.3 % (2.0-8.0); NEUTROPHILS # 2.6 10^3/uL (1.5-8.5); NEUTROPHILS % 61.7 % (36.0-66.0); PLATELET COUNT, AUTOMATED 181 10^3/uL (150-450)
[2025-03-12 15:47] LABS: ALT/SGPT 20.0 U/L (7.0-40); AST/SGOT 26.0 U/L (<34); CALCIUM LEVEL 9.6 MG/DL (8.3-10.6); CARBON DIOXIDE LEVEL 25.0 MMOL/L (20-31); CHLORIDE LEVEL 104.0 MMOL/L (98-107); CHOLESTEROL LEVEL 90.0 MG/DL (<200); CHOLESTEROL RISK RATIO 2.61 (<5); CREATININE FOR GFR 2.85 MG/DL (0.70-1.30); GLOMERULAR FILTRATION RATE 21.8 (>42); LDL CHOLESTEROL 24.2 MG/DL (<100); NON-HDL-C 55.6 MG/DL; POTASSIUM SERUM 4.0 MMOL/L (3.5-5.1); SODIUM LEVEL 140.0 MMOL/L (136-145); TRIGLYCERIDES LEVEL 157.0 MG/DL (<150)
== END ==
LOC: M LAB 14:10
PROVIDERS: ATTEND Internal Medicine Cardiovascular Disease
DX: D64.9 Anemia, unspecified (principal); E11.9 Type 2 diabetes mellitus without complications; E78.5 Hyperlipidemia, unspecified